=== PATIENT | male | born 1935 | race Caucasian/White ===

== ENCOUNTER 2017-10-28 11:25 | Observation (INO) | payer OTHER ==
[2017-10-28] MEDS ORDERED: ALBUTEROL 2.5 MG/3 ML NEB SOL ONE (11:57)
[2017-10-28] MEDS ORDERED: IPRATROPIUM BROM 0.5MG/2.5ML ONE (11:57)
[2017-10-28] MEDS ORDERED: FENTANYL CITR 100 MCG/2 ML ONE ×2 (11:58→14:27)
[2017-10-28] MEDS ORDERED: TETANUS & DIPHTHERIA TOX,ADULT 0.5 ML VIAL ONE (11:58)
[2017-10-28 12:15] LABS: Absolute Monocytes 1.3 K/uL (0.1-1.3); Absolute Neutrophil 6.7 K/uL (1.8-8.0); Basophils % 0.4 % (0-1.3); Eosinophils % 0.7 % (0-4.4); Hematocrit 45.3 % (39.6-49.0); Lymphocytes % 11.3 % (15.3-44.8); MCH 37.1 pg (27.0-35.0); MCV 105.3 fL (80-100); MPV 7.6 fL (7.6-11.3); Monocytes % 13.9 % (3.3-12.3)
[2017-10-28 12:31] LABS: BUN Blood Urea Nitrogen 7 mg/dL (7-18); Bicarbonate 30 mmol/L (21-32); Glucose Level 149 mg/dL (74-106); Potassium 3.5 mmol/L (3.5-5.1); Sodium Level 135 mmol/L (136-145)
--- NOTE | 2017-10-28 13:16 | RAD REPORT ---
EXAM DESCRIPTION: CT - Head C Spine Cap Shiloh Arcos - 10/28/2017 12:55 pm CLINICAL HISTORY: Head and neck injury with chest and abdominal pain status post fall. Head and neck pain . TECHNIQUE: Computed axial tomography of the head and cervical spine was obtained Computed axial tomography of the chest, abdomen and pelvis was obtained. 100 cc Isovue-300 was given intravenously coronal and sagittal reconstruction was performed. All CT scans are performed using dose optimization technique as appropriate and may include automated exposure control or mA/KV adjustment according to patient size. COMPARISON: CT head 2009 CT chest 2010 FINDINGS: An intracranial bleed is not seen. The ventricles are normal in caliber. An extra-axial fl uid collection is not noted. A cervical fracture is not seen. No dislocation is seen. Fractures involve the fifth through tenth right posterior ribs. Fractures are mildly to moderately di splaced. A pneumothorax is not seen. A minimal left pleural effusion is present with left basilar ate lectasis. Mild right basilar atelectasis is also seen. A mediastinal hematoma is not noted. A lung contusion is not seen. The liver, spleen, adrenals, kidneys and bladder appear unremarkable. An 18 millimeters cystic struct ure is present within the uncinate process of the pancreas The prostate is mildly enlarged. Small bilateral hernias contain fat IMPRESSION: 1. No acute intracranial abnormality is seen 2. A cervical fracture is not visualized. If the patient continues have symptoms to suggest intracran ial/spinal cord pathology then MRI would be recommended. 3. Mildly to moderately displaced fractures involving the left fifth through tenth posterior right ri bs. A pneumothorax is not seen 4. No traumatic injury involving the abdomen/pelvis is seen 5. 18 millimeter cystic structure within the uncinate process of the pancreas is nonspecific. A follo wu ultrasound in 3 months would be helpful to assess stability
[2017-10-28 13:28] LABS: Blood Morphology Comment NOTED (NOT SEEN); Macrocytosis 1+; Platelet Estimate ADEQ; Urine White Blood Cell Casts OK
--- NOTE | 2017-10-28 13:30 | ER ---
Nurse's Notes [facility] Name: Alvin Soliman Age: 81 yrs Sex: Male : 1935 Arrival Date: 10/28/2017 Time: 11:29 Bed 19 Private MD: Diagnosis: Fall on same level from slipping, tripping and stumbling;Multiple fractures of ribs, left side;Atelectasis Presentation: 10/28 11:30 Presenting complaint: EMS states: pt fell yesterday and now complaining of L lower hj chest rib pain, couldn't cough well; reports hitting head but denies LOC; obvious abrasion on R side of face and bruising on the L lower chest area; denies taking blood thinners;. Transition of care: patient was not received from another setting of care. Onset of symptoms was October 28, 2017. Risk Assessment: Do you want to hurt yourself or someone else?. Initial Sepsis Screen: Does the patient meet any 2 criteria? No. Patient's initial sepsis screen is negative. Does the patient have a suspected source of infection? No. Patient's initial sepsis screen is negative. Care prior to arrival: None. 11:30 Method Of Arrival: EMS: [facility] 11:30 Acuity: RUDY 4 hj Triage Assessment: 11:40 General: Appears in no apparent distress. uncomfortable, Behavior is calm, cooperative, hj appropriate for age. Pain: Complains of pain in diaphragm. Historical: - Allergies: 11:34 No Known Allergies; hj - Home Meds: 11:34 amlodipine 5 mg tab 1 tab once daily [Active]; lorazepam 1 mg Oral tab 1 tab 2 times hj per day [Active]; metoprolol tartrate 100 mg Oral tab 1 tab once daily [Active]; pravastatin 40 mg Oral tab 1 tab once daily [Active]; trazodone 150 mg Oral tab 1 tab 3 times per day [Active]; Vitamin C 1,000 mg Oral tab daily [Active]; aspirin 81 mg Oral TbEC 1 tab once daily [Active]; multivitamin Oral tab daily [Active]; valsartan-hydrochlorothiazide 160-25 mg Oral tab 1 tab once daily [Active]; Vitamin B-12 500 mcg Oral tab daily [Active]; - PMHx: 11:34 High Cholesterol; Hypertension; hj - PSHx: 11:34 matt shoulder sx; hj - Immunization history:: Adult Immunizations up to date. - Social history:: Smoking status: Patient/guardian denies using tobacco, Patient/guardian denies using alcohol. - Ebola Screening: : Patient negative for fever greater than or equal to 101.5 degrees Fahrenheit, and additional compatible Ebola Virus Disease symptoms. Screenin:39 Abuse screen: Denies threats or abuse. Denies injuries from another. Nutritional hj screening: No deficits noted. Tuberculosis screening: No symptoms or risk factors identified. Fall Risk Fall in past 12 months (25 points). Assessment: 11:34 Reassessment: see triage for assessment;. hj 12:30 Reassessment: Patient and/or family updated on plan of care and expected duration. Pain hj level reassessed. Patient is alert, oriented x 3, equal unlabored respirations, skin warm/dry/pink. awaiting results and POC;. 13:28 Reassessment: Patient and/or family updated on plan of care and expected duration. Pain hj level reassessed. Patient is alert, oriented x 3, equal unlabored respirations, skin warm/dry/pink. breathing better;. 14:30 Reassessment: Patient and/or family updated on plan of care and expected duration. Pain hj level reassessed. Patient is alert, oriented x 3, equal unlabored respirations, skin warm/dry/pink. awaiting POC and MD who will take care of pt;. 15:55 Reassessment: Patient and/or family updated on plan of care and expected duration. Pain hj level reassessed. Patient is alert, oriented x 3, equal unlabored respirations, skin warm/dry/pink. pt comfortably resting in bed; intermittently using phone to receive call s from relatives and friends;. 16:31 Reassessment: Patient and/or family updated on plan of care and expected duration. Pain hj level reassessed. Patient is alert, oriented x 3, equal unlabored respirations, skin warm/dry/pink. awaiting room placement;. 16:34 Reassessment: called the floor for report, Daray DOUGLASS to get pt, requested that she hj will call back as soon as finished with dressing change;. 17:04 Reassessment: still awaiting for a call, DONNY Schaffer to call me if nurse Darya is still hj doing dressing change;. Vital Signs: 11:34 BP 140 / 102; Pulse 65; Resp 18; Temp 98.8(O); Pulse Ox 92% on R/A; Weight 83.91 kg; hj Height 5 ft. 2 in. (157.48 cm); Pain 10/10; 12:30 BP 130 / 71; Pulse 68; Resp 18; Pulse Ox 95% on 3 lpm NC; hj 13:29 BP 135 / 62; Pulse 65; Resp 18; Pulse Ox 94% on 3 lpm NC; hj 14:30 BP 136 / 77; Pulse 69; Resp 18; Pulse Ox 97% on R/A; hj 15:55 BP 153 / 79; Pulse 69; Resp 18; Pulse Ox 98% on R/A; hj 16:32 BP 156 / 76; Pulse 60; Resp 18; Pulse Ox 95% on R/A; hj 17:26 BP 158 / 75; Pulse 68; Resp 18; Temp 98.1(O); Pulse Ox 98% on R/A; Pain 2/10; hj 11:34 Body Mass Index 33.84 (83.91 kg, 157.48 cm) ED Course: 11:29 Patient arrived in ED. ss 11:30 Mason Palomino, RN is Primary Nurse. hj 11:31 [facility]C [facility] snw 11:31 Faizan Cobos MD is Attending Physician. snw 11:32 Triage completed. hj 11:35 Arm band placed on right wrist. hj 11:40 Patient has correct armband on for positive identification. Bed in low position. Call light in reach. Side rails up X2. 11:50 Inserted saline lock: 22 gauge in right antecubital area, using aseptic technique. ss Blood collected. 12:47 CT completed. Patient tolerated procedure well. Patient moved to CT via stretcher. vr Patient moved back from CT. 12:55 CT Traumagram (Head C Spine CAP W Con) In Process Unspecified. EDMS 13:28 Mason Ravi MD is Hospitalizing Provider. snw 13:37 Marlene Handy MD is Hospitalizing Provider. snw 13:43 Marlene Handy MD is Hospitalizing Provider. snw 13:43 Marlene Handy MD is Hospitalizing Provider. snw 13:43 Hospitalizing Provider role handed off by Marlene Handy MD sn 13:43 Geronimo Cortez MD is Hospitalizing Provider. snw 16:35 No provider procedures requiring assistance completed. Patient admitted, IV remains in hj place. intact. 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 Exp: 12/26/2019. Lot #: [id number]. } Route: IM; Site: right deltoid; 14:32 Follow up: Response: No adverse reaction hj 11:42 Drug: Albuterol - atroVENT (3:1) (2.5 mg - 0.5 mg) 3 ml Route: Nebulizer; hj 14:32 Follow up: Response: No adverse reaction hj 14:21 Drug: Zosyn 3.375 grams Route: IVPB; Infused Over: 60 mins; Site: right antecubital; hj 14:31 Follow up: IV Status: Completed infusion hj 14:31 Drug: fentaNYL Patch (50 mcg/hr) 1 patches {Note: IV .} Route: Transdermal; Site: hj affected area; 14:32 Follow up: Response: No adverse reaction hj 16:36 Follow up: per pt request to get fentanyl IV hj Intake: Outcome: 13:29 Decision to Hospitalize by Provider. snw 16:36 Admitted to Tele accompanied by tech, via stretcher, room 410, with chart, Report hj called to RAFAT Lackey 16:36 Condition: stable 16:36 Instructed on the need for admit. 17:45 Patient left the ED. Signatures: Dispatcher [employer] EDMS Kassandra Skinner, PLATING OPERATOR-C PLATING OPERATOR-Csnw Temi Aguilar, Brittni Lema RN, Henry, RN RN nabil
--- NOTE | 2017-10-28 13:30 | EDPHYS ---
Physician Documentation [facility] Name: Alvin Soliman Age: 81 yrs Sex: Male : 1935 Arrival Date: 10/28/2017 Time: 11:29 Bed 19 Private MD: ED Physician Faizan Cobos HPI: 10/28 11:44 This 81 yrs old Male presents to ER via EMS with complaints of fall, rib pain.snw 11:44 Onset: The symptoms/episode began/occurred suddenly, yesterday. Associated signs and snw symptoms: Pertinent positives: cough, severe left rib pain. The patient has not experienced similar symptoms in the past. It is unknown whether or not the patient has recently seen a physician. sees Dr. Cortez. Historical: - Allergies: 11:34 No Known Allergies; hj - Home Meds: 11:34 amlodipine 5 mg tab 1 tab once daily [Active]; lorazepam 1 mg Oral tab 1 tab 2 times hj per day [Active]; metoprolol tartrate 100 mg Oral tab 1 tab once daily [Active]; pravastatin 40 mg Oral tab 1 tab once daily [Active]; trazodone 150 mg Oral tab 1 tab 3 times per day [Active]; Vitamin C 1,000 mg Oral tab daily [Active]; aspirin 81 mg Oral TbEC 1 tab once daily [Active]; multivitamin Oral tab daily [Active]; valsartan-hydrochlorothiazide 160-25 mg Oral tab 1 tab once daily [Active]; Vitamin B-12 500 mcg Oral tab daily [Active]; - PMHx: 11:34 High Cholesterol; Hypertension; hj - PSHx: 11:34 matt shoulder sx; hj - Immunization history:: Adult Immunizations up to date. - Social history:: Smoking status: Patient/guardian denies using tobacco, Patient/guardian denies using alcohol. - Ebola Screening: : Patient negative for fever greater than or equal to 101.5 degrees Fahrenheit, and additional compatible Ebola Virus Disease symptoms. ROS: 11:44 Constitutional: Negative for fever, chills, and weight loss, Eyes: Negative for injury, snw pain, redness, and discharge, ENT: Negative for injury, pain, and discharge, Neck: Negative for injury, pain, and swelling, Cardiovascular: Negative for chest pain, palpitations, and edema, Abdomen/GI: Negative for abdominal pain, nausea, vomiting, diarrhea, and constipation, Back: Negative for injury and pain, : Negative for injury, bleeding, discharge, and swelling, MS/Extremity: Negative for injury and deformity, Skin: Negative for injury, rash, and discoloration, Neuro: Negative for headache, weakness, numbness, tingling, and seizure. 11:44 Respiratory: Positive for cough, pleurisy, of the left lateral anterior chest, shortness of breath. Exam: 11:44 Head/Face: Normocephalic, atraumatic. Eyes: Pupils equal round and reactive to light, snw extra-ocular motions intact. Lids and lashes normal. Conjunctiva and sclera are non-icteric and not injected. Cornea within normal limits. Periorbital areas with no swelling, redness, or edema. ENT: Nares patent. No nasal discharge, no septal abnormalities noted. Tympanic membranes are normal and external auditory canals are clear. Oropharynx with no redness, swelling, or masses, exudates, or evidence of obstruction, uvula midline. Mucous membranes moist. Neck: Trachea midline, no thyromegaly or masses palpated, and no cervical lymphadenopathy. Supple, full range of motion without nuchal rigidity, or vertebral point tenderness. No Meningismus. Chest/axilla: Normal chest wall appearance and motion. Nontender with no deformity. No lesions are appreciated. Cardiovascular: Regular rate and rhythm with a normal S1 and S2. No gallops, murmurs, or rubs. Normal PMI, no JVD. No pulse deficits. 11:44 Abdomen/GI: Soft, non-tender, with normal bowel sounds. No distension or tympany. No guarding or rebound. No evidence of tenderness throughout. Back: No spinal tenderness. No costovertebral tenderness. Full range of motion. MS/ Extremity: Pulses equal, no cyanosis. Neurovascular intact. Full, normal range of motion. Neuro: Awake and alert, GCS 15, oriented to person, place, time, and situation. Cranial nerves II-XII grossly intact. Motor strength 5/5 in all extremities. Sensory grossly intact. Cerebellar exam normal. Normal gait. 11:44 Constitutional: The patient appears alert, awake, in obvious pain. 11:44 Respiratory: the patient does not display signs of respiratory distress, Respirations: accessory muscle usage, that is moderate, splinting, that is severe, Breath sounds: bronchial sounds, decreased breath sounds, + upper airway congestion. left rib pain. 11:44 Skin: Appearance: normal except for affected area, injury, abrasion(s), small abrasion noted, of the right corner of mouth, contusion(s). Vital Signs: 11:34 BP 140 / 102; Pulse 65; Resp 18; Temp 98.8(O); Pulse Ox 92% on R/A; Weight 83.91 kg; hj Height 5 ft. 2 in. (157.48 cm); Pain 10/10; 12:30 BP 130 / 71; Pulse 68; Resp 18; Pulse Ox 95% on 3 lpm NC; hj 13:29 BP 135 / 62; Pulse 65; Resp 18; Pulse Ox 94% on 3 lpm NC; hj 14:30 BP 136 / 77; Pulse 69; Resp 18; Pulse Ox 97% on R/A; hj 15:55 BP 153 / 79; Pulse 69; Resp 18; Pulse Ox 98% on R/A; hj 16:32 BP 156 / 76; Pulse 60; Resp 18; Pulse Ox 95% on R/A; hj 17:26 BP 158 / 75; Pulse 68; Resp 18; Temp 98.1(O); Pulse Ox 98% on R/A; Pain 2/10; hj 11:34 Body Mass Index 33.84 (83.91 kg, 157.48 cm) hj MDM: 11:31 Patient medically screened. snw 13:29 Data reviewed: vital signs, nurses notes. Data interpreted: Pulse oximetry: on room air snw is 94 %. Interpretation: acceptable. Counseling: I had a detailed discussion with the patient and/or guardian regarding: the historical points, exam findings, and any diagnostic results supporting the discharge/admit diagnosis, lab results, radiology results, the need for further work-up and treatment in the hospital. Physician consultation: Mason Ravi MD was called at 13:30, was contacted at 13:30, regarding admission, to the telemetry unit. 13:38 Physician consultation: would like admission per Dr. Marlene Handy MD. snw 16:00 ED course: Dr. Cortez on vacation, pt will be treated per hospitalist group - Dr. Handy. snw 10/28 11:42 Order name: CBC with Diff; Complete Time: 13:31 snw 10/28 11:42 Order name: Chem 7; Complete Time: 12:31 snw 10/28 11:42 Order name: Blood Culture Adult (2) snw 10/28 11:42 Order name: Procalcitonin; Complete Time: 16:37 snw 10/28 11:42 Order name: TS; Complete Time: 17:05 snw 10/28 12:30 Order name: CBC Smear Scan; Complete Time: 13:31 EDMS 10/28 11:42 Order name: CT Traumagram (Head C Spine CAP W Con); Complete Time: 13:18 snw Administered Medications: 11:42 Drug: fentaNYL (PF) 50 mcg Route: IVP; Site: right antecubital; hj 14:32 Follow up: Response: No adverse reaction hj 11:42 Drug: Tetanus-Diphtheria Toxoid Adult 0.5 ml {[employer]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 Exp: 12/26/2019. Lot #: [id number]. } Route: IM; Site: right deltoid; 14:32 Follow up: Response: No adverse reaction hj 11:42 Drug: Albuterol - atroVENT (3:1) (2.5 mg - 0.5 mg) 3 ml Route: Nebulizer; hj 14:32 Follow up: Response: No adverse reaction hj 14:21 Drug: Zosyn 3.375 grams Route: IVPB; Infused Over: 60 mins; Site: right antecubital; hj 14:31 Follow up: IV Status: Completed infusion hj 14:31 Drug: fentaNYL Patch (50 mcg/hr) 1 patches {Note: IV .} Route: Transdermal; Site: hj affected area; 14:32 Follow up: Response: No adverse reaction hj 16:36 Follow up: per pt request to get fentanyl IV hj Disposition: 10/29 09:43 Co-signature as Attending Physician, Faizan Cobos MD I agree with the assessment and faith plan of care. Disposition: 10/28/17 13:29 Hospitalization ordered by Geronimo Cortez for Observation. Preliminary diagnosis are Fall on same level from slipping, tripping and stumbling, Multiple fractures of ribs, left side, Atelectasis. - Bed requested for Telemetry/MedSurg (observation). - Status is Observation. hj - Condition is Stable. - Problem is new. - Symptoms are unchanged. UTI on Admission? No Signatures: Dispatcher [employer] EDBlanca Vallejo RN RN Faizan Brewer MD MD cha Therrien, Shelly, TELESALES PROFESSIONAL-C TELESALES PROFESSIONAL-Csnw Mason Palomino, RN RN hj Corrections: (The following items were deleted from the chart) 10/28 13:38 13:29 Hospitalization Ordered by Mason Ravi MD for Observation. Preliminary snw diagnosis is Fall on same level from slipping, tripping and stumbling; Multiple fractures of ribs, left side; Atelectasis. Bed requested for Telemetry/MedSurg (observation). Status is Observation. Condition is Stable. Problem is new. Symptoms are unchanged. UTI on Admission? No. snw 13:43 13:38 10/28/2017 13:29 Hospitalization Ordered by Marlene Handy MD for Observation. snw Preliminary diagnosis is Fall on same level from slipping, tripping and stumbling; Multiple fractures of ribs, left side; Atelectasis. Bed requested for Telemetry/MedSurg (observation). Status is Observation. Condition is Stable. Problem is new. Symptoms are unchanged. UTI on Admission? No. snw 16:31 13:43 10/28/2017 13:29 Hospitalization Ordered by Geronimo Cortez MD for Observation. dw Preliminary diagnosis is Fall on same level from slipping, tripping and stumbling; Multiple fractures of ribs, left side; Atelectasis. Bed requested for Telemetry/MedSurg (observation). Status is Observation. Condition is Stable. Problem is new. Symptoms are unchanged. UTI on Admission? No. snw 17:45 16:31 10/28/2017 13:29 Hospitalization Ordered by Geronimo Cortez MD for Observation. hj Preliminary diagnosis is Fall on same level from slipping, tripping and stumbling; Multiple fractures of ribs, left side; Atelectasis. Bed requested for Telemetry/MedSurg (observation). Status is Observation. Condition is Stable. Problem is new. Symptoms are unchanged. UTI on Admission? No. dw
[2017-10-28] MEDS ORDERED: PIPER/TAZO/NS 3.375gm 3.375 GM/100 ML BAG ONE (14:30)
--- NOTE | 2017-10-28 16:02 | P.HP ---
Certification for Inpatient Patient admitted to: Observation With expected LOS: <2 Midnights Patient will require the following post-hospital care: None Practitioner: I am a practitioner with admitting privileges, knowledge of patient current condition, hospital course, and medical plan of care. Services: Services provided to patient in accordance with Admission requirements found in Title 42 Section 412.3 of the Code of Federal Regulations Patient History Date of Service: 10/28/17 Primary Care Provider: Dr Cortez - PCP Reason for admission: Rib Fracture after a Fall History of Present Illness: This is a 81-year-old male with significant past medical history of hypertension who presented to the ED after sustaining a fall at the house yesterday. Patient stated that he tripped over and fell at the house on the left side and had injury to his left-sided chest wall. Today he started having some excruciating pain and difficulty breathing thus he decided to come to the ER. Patient denies having any fever chills nausea vomiting any other associated symptoms at this time. Patient was found to have a left-sided posterior rib fracture 5th after 10 with intractable pain and inability to take deep breaths in and thus was admitted to the hospital for further care. General surgery was consulted from the ER Allergies No Known Allergies Allergy (Unverified 11/05/16 23:48) Home medications list reviewed: Yes - Past Medical/Surgical History Has patient received pneumonia vaccine in the past: No Diabetic: No -: HTN -: HLP -: BL Shoulder Surgery - Family History Family History: Reviewed- Non-Contributory Review of Systems General: As per HPI Physical Examination - Physical Exam General: Alert, Oriented x3, Mild distress HEENT: Atraumatic Neck: Supple, 2+ carotid pulse no bruit, No LAD, Without JVD or thyroid abnormality Respiratory: Normal air movement, Rhonchi/gurgles Cardiovascular: Regular rate/rhythm, Normal S1 S2 Gastrointestinal: Normal bowel sounds, No tenderness Musculoskeletal: No tenderness Integumentary: No rashes Neurological: Normal gait, Normal speech, Normal strength at 5/5 x4 extr, Normal tone, Normal affect Lymphatics: No axilla or inguinal lymphadenopathy - Studies Laboratory Data (last 24 hrs) 10/28/17 11:50: Sodium 135 L, Potassium 3.5, BUN 7, Creatinine 0.60, Glucose 149 H 10/28/17 11:50: WBC 9.2, Hgb 16.0, Hct 45.3, Plt Count 246 Assessment and Plan - Problems (Diagnosis) (1) Fall Current Visit: Yes Status: Acute Plan: Mechanical fall and hit the left side of his chest -fall precautions given at this time -physical therapy consulted -will monitor closely Qualifiers: Encounter type: initial encounter Qualified Code(s): W19.XXXA - Unspecified fall, initial encounter (2) Ribs, multiple fractures Current Visit: Yes Status: Acute Plan: Left-sided posterior 5th to 10th rib fractures noted after a mechanical fall. No pneumothorax noted -pain management, incentive spirometer, in general surgery consulted. -will continue to encourage incentive spirometer use along with pain management for adequate ventilation Qualifiers: Encounter type: initial encounter Fracture type: closed Laterality: left Qualified Code(s): S22.42XA - Multiple fractures of ribs, left side, initial encounter for closed fracture (3) HTN (hypertension) Current Visit: Yes Status: Chronic Plan: Will restart home medication Qualifiers: Hypertension type: essential hypertension Qualified Code(s): I10 - Essential (primary) hypertension - Advance Directives Does patient have a Living Will: Yes Does patient have a Durable POA for Healthcare: Yes
[2017-10-28] MEDS ORDERED: IPRATROPIUM BROM 0.5MG/2.5ML NEB PRN (16:19)
[2017-10-28] MEDS ORDERED: ONDANSETRON 4 MG/2 ML VIAL IV PRN ×2 (16:19)
[2017-10-28] MEDS ORDERED: ACETAMINOPHEN 500 MG TAB PO PRN (16:19)
[2017-10-28] MEDS: ALBUTEROL 2.5 MG/3 ML NEB SOL NEB SCH ×2 (17:00→20:08)
[2017-10-28] MEDS: HYDROCODONE/APAP 5/325 MG TAB PO PRN ×2 (18:08→23:35)
[2017-10-28] MEDS ORDERED: POTASSIUM 25 MEQ EFFERV TAB PO ONE (20:00)
[2017-10-28] MEDS ORDERED: PNEUMOCOCCAL VACCINE 0.5 ML IMVAC ONE (21:00)
[2017-10-29] MEDS: ALBUTEROL 2.5 MG/3 ML NEB SOL NEB SCH ×4 (00:39→11:35)
[2017-10-29] MEDS: PIPER/TAZO/NS 3.375gm 3.375 GM/100 ML BAG IVPB SCH ×2 (00:55→10:16)
--- NOTE | 2017-10-29 01:22 | CON ---
Date of Consultation: 10/28/2017 Diagnosis: Status post fall and multiple rib fractures. History Of Present Illness: This is a case of an 81-year-old patient, who states he was in a house y day and he fell on the ground. He said that he did not hit anything. He just tripped over his own feet and fell. He received contusion on the left side of the chest and also over the right facia l area. The patient denies any shortness of breath, denies any change in mental status, denies being dizzy. He stayed at home, but today he has noticed that he still has some discomfort over the chest area. When he came to the ER, he was found to have multiple rib fractures on the left side with pro ductive coughing and he was admitted to the hospital with a surgical evaluation. Allergies: NONE. Medical Problems: Hypertension. Family History: Noncontributory. Past Surgical History: Bilateral shoulder surgeries. Review of Systems: Constitutional: Denies any fevers, denies any chills. Respiratory: Denies any shortness of breath other than the ribcage tenderness. Gastrointestinal: Denies any nausea, vomiting, melena, or hematochezia. Genitourinary: Denies any dysuria or hematuria. Neurological: Denies any change in mental status, any weakness, or sensory or motor deficits. Physical Examination: General: The patient is awake and alert. HEENT: Pupils equal and reactive, anicteric. No otorrhea. No rhinorrhea. Right maxillary area wit h a small contusion and superficial abrasion, no pinpoint tenderness, no step-off. Tongue is midline . Mandible; no step-off, no tenderness. Nose; no tenderness. No hyphema. Neck: Supple. No JVD. No pinpoint tenderness. No step-off. Chest: Bilateral breath sounds. Clear to auscultation. Some rhonchi present since the patient is b eing coughing. The patient has tenderness over the left ribcage area. No ecchymosis. No step-off. No crepitus. Abdomen: Soft and depressible. No guarding or rebound or peritoneal signs. Pelvis: Stable. Rectal/Genitalia: Deferred. Back: No pinpoint tenderness. No step-off. Extremities: Full range of motion. Good peripheral pulses. No cyanosis. Neuro: Cranial nerves 2 through 12 grossly within normal limits. Imaging: CAT scan of the head, C-spine, chest, abdomen, and pelvis, interpreted by Dr. Byrd as n o intracranial bleed seen. Cervical fracture is not seen. There are multiple rib fractures on the l eft side; 5th, 6th, 7th, 8th, 9th, and 10th. Mildly displaced, none pneumothorax, some small effusio n, with left basilar atelectasis. The patient also has right basilar atelectasis. No mediastinal he matoma. Liver, spleen, renal, kidneys, and bladder unremarkable. Cystic structures present in the p ancreas. The patient is advised to discuss that with the primary doctor. Also, discussed with his u rologist his prostate enlargement and he has bilateral inguinal hernias that may need to be repaired electively since there was no bowel on it. Assessment And Plan: This is an 81-year-old patient with status post fall with facial contusion and chest wall left side fracture from 5th to 10th. Atelectasis bilaterally, coughing. The patient will be admitted for pain control. He is having some productive cough, so antibiotics will be started wi th possible pneumonia developing. From a surgical standpoint, we have no plans taken to surgery at t his moment. We are going to continue serial abdominal examination and chest evaluation. We are kelly g to repeat the x-ray tomorrow morning. I will follow the patient with you and give more recommendation as the case develops. ANAMARIA/SHAGUFTA Voice ID: [id number] Report ID: [id number]
[2017-10-29 04:24] LABS: Absolute Lymphocytes (CBC) 1.8 K/uL (0.7-4.9); Absolute Monocytes 1.2 K/uL (0.1-1.3); Absolute Neutrophil 4.4 K/uL (1.8-8.0); Basophils % 0.7 % (0-1.3); Eosinophils % 1.3 % (0-4.4); Hematocrit 42.7 % (39.6-49.0); MCH 37.5 pg (27.0-35.0); MCV 106.6 fL (80-100); Monocytes % 15.8 % (3.3-12.3)
[2017-10-29 04:37] LABS: ALT/SGPT 12 U/L (12-78); AST/SGOT 17 U/L (15-37); Albumin 3.2 g/dL (3.4-5.0); Alkaline Phosphatase 37 U/L (45-117); BUN Blood Urea Nitrogen 6 mg/dL (7-18); Bicarbonate 29 mmol/L (21-32); Glucose Level 93 mg/dL (74-106); Magnesium 1.9 mg/dL (1.8-2.4); Phosphorus 3.3 mg/dL (2.5-4.9); Potassium 3.8 mmol/L (3.5-5.1); Protein, Total 6.6 g/dL (6.4-8.2); Sodium Level 136 mmol/L (136-145)
[2017-10-29] MEDS: HYDROCODONE/APAP 5/325 MG TAB PO PRN ×2 (05:28→10:11)
[2017-10-29] MEDS ORDERED: POTASSIUM 25 MEQ EFFERV TAB PO ONE (06:00)
[2017-10-29] MEDS ORDERED: TRAMADOL HCL 50 MG TAB PO PRN (07:06)
[2017-10-29] MEDS ORDERED: ASPIRIN EC 81 MG TAB PO SCH (09:00)
[2017-10-29] MEDS ORDERED: HYDROCHLOROTHIAZIDE PO SCH (09:00)
[2017-10-29] MEDS ORDERED: hydroCHLOROthiazide 25 MG TAB PO SCH (09:00)
[2017-10-29] MEDS ORDERED: VALSARTAN PO SCH (09:00)
[2017-10-29] MEDS ORDERED: AMLODIPINE 5 MG TAB PO SCH (09:00)
[2017-10-29] MEDS ORDERED: VALSARTAN 80 MG TAB PO SCH (09:00)
[2017-10-29] MEDS ORDERED: MULTIVIT W/ MINERAL TAB PO SCH (09:00)
[2017-10-29] MEDS ORDERED: ASCORBIC ACID 500 MG TABLET PO SCH (09:00)
[2017-10-29] MEDS ORDERED: VITAMIN B COMPLEX 1 CAP PO SCH (09:00)
--- NOTE | 2017-10-29 09:55 | RAD REPORT ---
EXAM DESCRIPTION: Fernie Pa And Lat (2 Views)10/29/2017 8:17 am CLINICAL HISTORY: Chest pain COMPARISON: October 28 FINDINGS: Multiple left rib fractures are without obvious change. A pneumothorax is not seen. A sma ll left pleural effusion is present with mild left lower lobe atelectasis. The right lung appears clear of acute infiltrate. The heart is normal size
--- NOTE | 2017-10-29 12:02 | P.DS ---
Admission Date: 10/28/17 Discharge Date: 10/29/17 Primary Care Provider: Dr Cortez - PCP Disposition: ROUTINE DISCHARGE Discharge Condition: GOOD Reason for Admission: Rib Fracture after a Fall Consultations: Surgery-Dr. Ravi Procedures: CT scan: COMPARISON: CT head 2009 CT chest 2010 FINDINGS: An intracranial bleed is not seen. The ventricles are normal in caliber. An extra-axial fluid collection is not noted. A cervical fracture is not seen. No dislocation is seen. Fractures involve the fifth through tenth right posterior ribs. Fractures are mildly to moderately displaced. A pneumothorax is not seen. A minimal left pleural effusion is present with left basilar atelectasis. Mild right basilar atelectasis is also seen. A mediastinal hematoma is not noted. A lung contusion is not seen. The liver, spleen, adrenals, kidneys and bladder appear unremarkable. An 18 millimeters cystic structure is present within the uncinate process of the pancreas The prostate is mildly enlarged. Small bilateral hernias contain fat IMPRESSION: 1. No acute intracranial abnormality is seen 2. A cervical fracture is not visualized. If the patient continues have symptoms to suggest intracranial/spinal cord pathology then MRI would be recommended. 3. Mildly to moderately displaced fractures involving the left fifth through tenth posterior right ribs. A pneumothorax is not seen 4. No traumatic injury involving the abdomen/pelvis is seen 5. 18 millimeter cystic structure within the uncinate process of the pancreas is nonspecific. A followup ultrasound in 3 months would be helpful to assess stability - Problems (1) Abnormal CT scan Current Visit: Yes Status: Acute (2) Atelectasis Current Visit: Yes Status: Acute (3) Fall Onset Date: 10/29/17 Current Visit: Yes Status: Acute Qualifiers: Encounter type: initial encounter Qualified Code(s): W19.XXXA - Unspecified fall, initial encounter (4) Ribs, multiple fractures Onset Date: 10/29/17 Current Visit: Yes Status: Acute Qualifiers: Encounter type: initial encounter Fracture type: closed Laterality: left Qualified Code(s): S22.42XA - Multiple fractures of ribs, left side, initial encounter for closed fracture (5) HTN (hypertension) Onset Date: 10/29/17 Current Visit: Yes Status: Chronic Qualifiers: Hypertension type: essential hypertension Qualified Code(s): I10 - Essential (primary) hypertension Brief History of Present Illness: 81-year-old male present emergency room after a fall at home. Patient denied any dizziness, presyncope or syncope. Patient felt his left side. CT scan showed mildly to moderately displaced fractures involving the left 5th through 10th posterior ribs on the right side. No pneumothorax was identified. CT scan also identified an 18 mm cystic structure within the uncinate process of the pancreas peer is this was nonspecific. Patient was admitted for observation and due to pain. Hospital Course: The patient was monitored overnight. Patient was evaluated by surgery due to his rib fractures. Patient did well during the course of his stay. Patient did work with physical therapy. At discharge he will continue at home. Tramadol 50 mg 1 pill 3 times a day as needed for pain will be provided. Patient is not to do any over exertion requiring heavy lifting, pushing or pulling. Patient may follow up with his PCP in 1 week to follow up its hospitalization. Patient will be provided Pro air 2 puffs 3 times a day as needed for shortness of breath. Patient has hypertension. He will continue with his medication valsartan/ hydrochlorothiazide 160 mg/25 mg daily. Recommendation is to maintain blood pressures less 150/80. Further adjustment can be done by his PCP. Patient has hyperlipidemia. Patient will continue with his medication. Atelectasis was identified to the left lobe. He is to continue with incentive spirometer. CT scan revealed a 18 mm cystic structure to the uncinate process of the pancreas. This was nonspecific. Recommendation is to recheck abdominal ultrasound in 3 months to monitor resolution. Vital Signs/Physical Exam: Temp Pulse Resp BP Pulse Ox 98.5 F 66 18 174/90 H 93 10/29/17 08:00 10/29/17 10:14 10/29/17 08:00 10/29/17 10:14 10/29/17 08:00 General: Alert, In no apparent distress, Oriented x3, Cooperative HEENT: Atraumatic Neck: Supple Respiratory: Clear to auscultation bilaterally, Normal air movement Cardiovascular: Normal pulses, Regular rate/rhythm Gastrointestinal: Normal bowel sounds, Soft and benign, Non-distended, No tenderness, No masses, No rebound, No guarding Musculoskeletal: No erythema, No tenderness, No warmth Integumentary: No tenderness/swelling, No erythema, No warmth, No cyanosis Neurological: Normal speech, Normal strength at 5/5 x4 extr, Normal tone, Normal affect Laboratory Data at Discharge: WBC 7.5 K/uL (4.3-10.9) D 10/29/17 03:30 Hgb 15.0 g/dL (13.6-17.9) 10/29/17 03:30 Hct 42.7 % (39.6-49.0) 10/29/17 03:30 Plt Count 203 K/uL (152-406) 10/29/17 03:30 Sodium 136 mmol/L (136-145) 10/29/17 03:30 Potassium 3.8 mmol/L (3.5-5.1) 10/29/17 03:30 BUN 6 mg/dL (7-18) L 10/29/17 03:30 Creatinine 0.60 mg/dL (0.55-1.3) 10/29/17 03:30 Glucose 93 mg/dL (74-106) 10/29/17 03:30 Phosphorus 3.3 mg/dL (2.5-4.9) 10/29/17 03:30 Magnesium 1.9 mg/dL (1.8-2.4) 10/29/17 03:30 Total Bilirubin 1.0 mg/dL (0.2-1.0) 10/29/17 03:30 AST 17 U/L (15-37) 10/29/17 03:30 ALT 12 U/L (12-78) 10/29/17 03:30 Alkaline Phosphatase 37 U/L (45-117) L 10/29/17 03:30 Home Medications: Amlodipine Besylate 1 tab PO DAILY 10/28/17 Ascorbate Calcium [Vitamin C] 1 tab PO DAILY 10/28/17 Aspirin [Aspirin EC 81 MG] 1 tab PO DAILY 10/28/17 LORazepam [Ativan*] 1 tab PO DAILY 10/28/17 Multivitamin [Multivitamins] 1 tab PO DAILY 10/28/17 Pravastatin Sodium 40 mg PO DAILY 10/28/17 Valsartan/Hydrochlorothiazide [Valsartan-Hctz 160-25 mg Tab] 1 tab PO DAILY Vitamin B Complex [B Complex] 1 tab PO DAILY 10/28/17 Albuterol Sulfate [Proair Hfa] 8.5 gm IH TID PRN #1 hfa.[email or web address] 10/29/17 traMADol HCL [Ultram*] 50 mg PO TID PRN #10 tab 10/29/17 New Medications: Albuterol Sulfate [Proair Hfa] 8.5 gm IH TID PRN #1 hfa.aer.[email or web address] PRN Reason: Shortness Of Breath traMADol HCL [Ultram*] 50 mg PO TID PRN #10 tab PRN Reason: Pain Patient Discharge Instructions: 1. Patient will need to follow up with his PCP in 1 week to follow up this hospitalization. 2. Patient suffered a fall. Patient found to have rib fractures to the 5th through 10th posterior right rib area. Patient was evaluated by surgery due to his rib fractures. Patient did well during the course of his stay. Patient did work with physical therapy. At discharge he will continue at home. Tramadol 50 mg 1 pill 3 times a day as needed for pain will be provided. Patient is not to do any over exertion requiring heavy lifting, pushing or pulling. Patient may follow up with his PCP in 1 week to follow up its hospitalization. Patient will also be provided Pro air 2 puffs 3 times a day as needed for shortness of breath. 3. Patient has hypertension. He will continue with his medication valsartan/ hydrochlorothiazide 160 mg/25 mg daily. Recommendation is to maintain blood pressures less 150/80. Further adjustment can be done by his PCP. 4. Patient has hyperlipidemia. Patient will continue with his medication. 5. Atelectasis was identified to the left lobe. He is to continue with incentive spirometer. 6. CT scan revealed a 18 mm cystic structure to the uncinate process of the pancreas. This was nonspecific. Recommendation is to recheck abdominal ultrasound in 3 months to monitor resolution. Diet: AHA Activity: Fall precautions Time spent managing pt's care (in minutes): 55
[2017-10-29] MEDS ORDERED: ATORVASTATIN 10 MG TAB PO SCH (21:00)
== END 2017-10-29 14:01 | disposition home or self-care (01) ==
LOC: ER 11:25 → ERHOLD 13:29 → 4TH 17:28
PROVIDERS: ADMIT Internal Medicine; ATTEND Family Medicine
DX: S22.32XA Fracture of one rib, left side, initial encounter for closed fracture (principal); J98.11 Atelectasis; K86.2 Cyst of pancreas; I10 Essential (primary) hypertension; W01.10XA Fall on same level from slipping, tripping and stumbling with subsequent striking against unspecified object, initial encounter; Y92.009 Unspecified place in unspecified non-institutional (private) residence as the place of occurrence of the external cause
CPT/HCPCS: 36415; 70450; 71046; 71260; 72125; 74177; 80048; 80053; 83735; 84100; 84145; 85025 ×2; 86850; 86900; 86901; 87040 ×2; 90714; 94640 ×2; 94760 ×2; 96374; 96375; 97163; 99285; G0378 ×2; J2543 ×2; J3010 ×2; Q9967

== ENCOUNTER 2017-12-07 15:50 | Emergency (ER) | payer OTHER ==
[2017-12-07] MEDS ORDERED: FLEET ENEMA ADULT PR ONE (17:38)
--- NOTE | 2017-12-07 18:18 | EDPHYS ---
Physician Documentation [facility] Name: Alvin Soliman Age: 82 yrs Sex: Male : 1935 Arrival Date: 12/07/2017 Time: 15:53 Bed 25 Private MD: Geronimo Cortez R ED Physician Reynaldo Becker HPI: 12/07 18:20 This 82 yrs old Male presents to ER via Ambulatory with complaints of kdr Constipation. 18:20 The patient presents with abdominal pain that is diffuse. Onset: The symptoms/episode kdr began/occurred gradually, at an unknown time. The symptoms do not radiate. Associated signs and symptoms: Pertinent positives: constipation. The symptoms are described as crampy, dull, intermittent, waxing/waning. Modifying factors: The symptoms are alleviated by nothing, the symptoms are aggravated by Trying to have a BM. Severity of pain: At its worst the pain was mild in the emergency department the pain is unchanged. The patient has experienced similar episodes in the past, chronically. The patient has not recently seen a physician. Historical: - Allergies: 15:56 No Known Allergies; la1 - PMHx: 15:56 High Cholesterol; Hypertension; la1 - Immunization history:: Adult Immunizations up to date. - Social history:: Smoking status: Patient/guardian denies using tobacco. - Ebola Screening: : No symptoms or risks identified at this time. ROS: 18:20 Constitutional: Negative for fever, chills, and weight loss, Eyes: Negative for injury, kdr pain, redness, and discharge, Neck: Negative for injury, pain, and swelling, Cardiovascular: Negative for chest pain, palpitations, and edema, Respiratory: Negative for shortness of breath, cough, wheezing, and pleuritic chest pain, Back: Negative for injury and pain, : Negative for injury, bleeding, discharge, and swelling, MS/Extremity: Negative for injury and deformity, Skin: Negative for injury, rash, and discoloration, Neuro: Negative for headache, weakness, numbness, tingling, and seizure activity. Psych: Negative for depression, anxiety, suicide ideation, homicidal ideation, and hallucinations, Allergy/Immunology: Negative for hives, rash, and allergies, Endocrine: Negative for neck swelling, polydipsia, polyuria, polyphagia, and marked weight changes, Hematologic/Lymphatic: Negative for swollen nodes, abnormal bleeding, and unusual bruising. 18:20 Abdomen/GI: Positive for nausea, constipation, abdominal cramps, rectal pain, Negative for vomiting, black/tarry stool, rectal bleeding, bowel incontinence. Exam: 18:20 Constitutional: This is a well developed, well nourished patient who is awake, alert, kdr and in no acute distress. Head/Face: Normocephalic, atraumatic. 18:20 Abdomen/GI: Bowel sounds: active, Palpation: soft, nontender, Rectal exam: rectal tone poor, Stool: brown, hemorrhoid(s), external, without bleeding, without inflammation, without thrombosis, mass, is not appreciated, swelling, is not appreciated, tenderness, that is moderate, fecal impaction, that is moderate, Digital exam and removal of moderate amount of stool. The patient had several bowel movements after that. Vital Signs: 15:57 BP 154 / 86; Pulse 62; Resp 16; Temp 98.3(TE); Pulse Ox 100% on R/A; Weight 77.11 kg; la1 Height 5 ft. 8 in. (172.72 cm); 18:03 BP 148 / 78; Pulse 68; Resp 18; Pulse Ox 98% ; Pain 0/10; jl3 15:57 Body Mass Index 25.85 (77.11 kg, 172.72 cm) la1 Procedures: 18:20 Fecal disimpaction: digital disimpaction was performed, with a small amount of stool kdr expressed. with a moderate amount of stool expressed. The patient tolerated the intervention well. MDM: 18:17 Patient medically screened. kdr 18:20 Data reviewed: vital signs. Counseling: I had a detailed discussion with the patient kdr and/or guardian regarding: the historical points, exam findings, and any diagnostic results supporting the discharge/admit diagnosis, the need for outpatient follow up. Administered Medications: 17:43 Drug: Fleet Enema 133 ml Route: [place]; mg2 18:46 Follow up: Response: Marked relief of symptoms jl3 Disposition: 12/07/17 18:17 Discharged to Home. Impression: Constipation. - Condition is Stable. - Prescriptions for Miralax 17 gram/dose Oral - take 1 packet by ORAL route once daily As needed dilute powder in 8 ounces of water or juice; 30 packet. - Medication Reconciliation Form, Thank You Letter, Antibiotic Education, Prescription Opioid Use form. - Follow up: Geronimo Cortez MD; When: 2 - 3 days; Reason: If symptoms return, Further diagnostic work-up, Recheck today's complaints, Continuance of care, Re-evaluation by your physician. - Problem is an ongoing problem. - Symptoms have improved. Signatures: Reynaldo Becker MD MD kdr Leonard Britt RN RN la1 Jackson Villasenor RN RN jl3 Lalit Barajas RN RN mg2 Corrections: (The following items were deleted from the chart) 18:46 18:17 12/07/2017 18:17 Discharged to Home. Impression: Constipation. Condition is jl3 Stable. Forms are Medication Reconciliation Form, Thank You Letter, Antibiotic Education, Prescription Opioid Use. Follow up: Geronimo Cortez; When: 2 - 3 days; Reason: If symptoms return, Further diagnostic work-up, Recheck today's complaints, Continuance of care, Re-evaluation by your physician. Problem is an ongoing problem. Symptoms have improved. kdr
--- NOTE | 2017-12-07 18:18 | ER ---
Nurse's Notes [facility] Name: Alvin Soliman Age: 82 yrs Sex: Male : 1935 Arrival Date: 12/07/2017 Time: 15:53 Bed 25 Private MD: Geronimo Cortez R Diagnosis: Constipation Presentation: 12/07 15:56 Presenting complaint: Patient states: I take trazodone for sleep and it makes me la1 constipated. Last BM on saturday. Transition of care: patient was not received from another setting of care. Onset of symptoms was December 07, 2017. Risk Assessment: Do you want to hurt yourself or someone else? Patient reports no desire to harm self or others. Initial Sepsis Screen: Does the patient meet any 2 criteria? No. Patient's initial sepsis screen is negative. Does the patient have a suspected source of infection? No. Patient's initial sepsis screen is negative. Care prior to arrival: None. 15:56 Method Of Arrival: Ambulatory la1 15:56 Acuity: RUDY 3 la1 Historical: - Allergies: 15:56 No Known Allergies; la1 - PMHx: 15:56 High Cholesterol; Hypertension; la1 - Immunization history:: Adult Immunizations up to date. - Social history:: Smoking status: Patient/guardian denies using tobacco. - Ebola Screening: : No symptoms or risks identified at this time. Screenin:01 Abuse screen: none noted. Nutritional screening: No deficits noted. Tuberculosis jl3 screening: No symptoms or risk factors identified. Fall Risk None identified. Assessment: 16:32 Pain: Complains of pain in abdomen Pain currently is 3 out of 10 on a pain scale. jl3 Quality of pain is described as aching, crampy. 16:33 GI: Bowel sounds diminished in right upper quadrant, left upper quadrant and abdomen jl3 diffusely Abd is rigid X 4 quads. 16:34 General: Appears distressed, uncomfortable, Behavior is calm, cooperative, Reports abd jl3 pain Pt states no BM since "Saturday or Saturday.". Vital Signs: 15:57 BP 154 / 86; Pulse 62; Resp 16; Temp 98.3(TE); Pulse Ox 100% on R/A; Weight 77.11 kg; la1 Height 5 ft. 8 in. (172.72 cm); 18:03 BP 148 / 78; Pulse 68; Resp 18; Pulse Ox 98% ; Pain 0/10; jl3 15:57 Body Mass Index 25.85 (77.11 kg, 172.72 cm) la1 ED Course: 15:53 Patient arrived in ED. mr 15:53 Geronimo Cortez MD is Private Physician. mr 15:55 Reynaldo Becker MD is Attending Physician. kdr 15:56 Triage completed. la1 15:57 Arm band placed on left wrist. la1 16:32 Jackson Villasenor, RN is Primary Nurse. 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 Patient did not have IV access during this 3 emergency room visit. 18:03 Patient has correct armband on for positive identification. jl3 18:17 Geronimo Cortez MD is Referral Physician. kdr Administered Medications: 17:43 Drug: Fleet Enema 133 ml Route: [place]; mg2 18:46 Follow up: Response: Marked relief of symptoms jl3 Outcome: 18:02 Discharged to home via wheelchair. jl3 18:02 Condition: improved 18:02 Discharge instructions given to patient. 18:17 Discharge ordered by . kdr 18:46 Patient left the ED. jl3 Signatures: Reynaldo Becker MD MD [facility] Anay Edwards GisselgraceLeonard, RN RN la1 Jackson Villasenor, RN RN jl3 Lalit Barajas RN RN mg2
== END 2017-12-07 18:46 | disposition home or self-care (01) ==
LOC: ER 15:50
DX: K59.00 Constipation, unspecified (principal); I10 Essential (primary) hypertension
CPT/HCPCS: 99283

== ENCOUNTER 2018-03-01 12:59 | Emergency (ER) | payer OTHER ==
--- NOTE | 2018-03-01 15:05 | EDPHYS ---
Physician Documentation [facility] Name: Alvin Soliman Age: 82 yrs Sex: Male : 1935 Arrival Date: 03/01/2018 Time: 13:02 Bed 30 Private MD: Geronimo Cortez R ED Physician Reynaldo Becker HPI: 03/01 15:05 This 82 yrs old Male presents to ER via Ambulatory with complaints of kdr Constipation. 15:05 The patient presents to the emergency department with abdominal pain, of the suprapubic kdr area, right lower quadrant and left lower quadrant, described as achy, burning, constant, dull, vague,\E\ and does not radiate. Onset: The symptoms/episode began/occurred gradually, Saturday. Possible causes: unknown. The symptoms are aggravated by movement, The symptoms are alleviated by nothing. Associated signs and symptoms: Pertinent positives: abdominal pain, constipation, nausea, Pertinent negatives: anorexia, belching, diarrhea, dysuria, fever, flatulence, GI bleeding, hematuria. Severity of symptoms: At their worst the symptoms were moderate in the emergency department the symptoms are unchanged Pain is currently a 4 / 10. The patient has experienced similar episodes in the past, multiple times. The patient has been recently seen at the [facility] Emergency Department, for similar complaints The patient had the same problem about six months ago and was disimpacted at that time.. Historical: - Allergies: 13:12 No Known Allergies; la1 - PMHx: 13:12 High Cholesterol; Hypertension; la1 - Immunization history:: Adult Immunizations up to date. - Social history:: Smoking status: Patient/guardian denies using tobacco. - Ebola Screening: : No symptoms or risks identified at this time. ROS: 15:05 Constitutional: Negative for fever, chills, and weight loss, Eyes: Negative for injury, kdr pain, redness, and discharge, ENT: Negative for injury, pain, and discharge, Neck: Negative for injury, pain, and swelling, Cardiovascular: Negative for chest pain, palpitations, and edema, Respiratory: Negative for shortness of breath, cough, wheezing, and pleuritic chest pain, Back: Negative for injury and pain, : Negative for injury, bleeding, discharge, and swelling, MS/Extremity: Negative for injury and deformity, Skin: Negative for injury, rash, and discoloration, Neuro: Negative for headache, weakness, numbness, tingling, and seizure activity. Psych: Negative for depression, anxiety, suicide ideation, homicidal ideation, and hallucinations, Allergy/Immunology: Negative for hives, rash, and allergies, Endocrine: Negative for neck swelling, polydipsia, polyuria, polyphagia, and marked weight changes, Hematologic/Lymphatic: Negative for swollen nodes, abnormal bleeding, and unusual bruising. 15:05 Abdomen/GI: Positive for abdominal pain, constipation, rectal pain, Negative for vomiting, diarrhea, constipation, black/tarry stool, rectal bleeding. Exam: 15:05 Constitutional: This is a well developed, well nourished patient who is awake, alert, kdr and in no acute distress. Head/Face: Normocephalic, atraumatic. Eyes: Pupils equal round and reactive to light, extra-ocular motions intact. Lids and lashes normal. Conjunctiva and sclera are non-icteric and not injected. Cornea within normal limits. Periorbital areas with no swelling, redness, or edema. Neck: Trachea midline, no thyromegaly or masses palpated, and no cervical lymphadenopathy. Supple, full range of motion without nuchal rigidity, or vertebral point tenderness. No Meningismus. Chest/axilla: Normal chest wall appearance and motion. Nontender with no deformity. No lesions are appreciated. Cardiovascular: Regular rate and rhythm with a normal S1 and S2. No gallops, murmurs, or rubs. Normal PMI, no JVD. No pulse deficits. Respiratory: Lungs have equal breath sounds bilaterally, clear to auscultation and percussion. No rales, rhonchi or wheezes noted. No increased work of breathing, no retractions or nasal flaring. Back: No spinal tenderness. No costovertebral tenderness. Full range of motion. Skin: Warm, dry with normal turgor. Normal color with no rashes, no lesions, and no evidence of cellulitis. MS/ Extremity: Pulses equal, no cyanosis. Neurovascular intact. Full, normal range of motion. Neuro: Awake and alert, GCS 15, oriented to person, place, time, and situation. Cranial nerves II-XII grossly intact. Motor strength 5/5 in all extremities. Sensory grossly intact. Cerebellar exam normal. Normal gait. Psych: Awake, alert, with orientation to person, place and time. Behavior, mood, and affect are within normal limits. 15:05 Abdomen/GI: Inspection: obese Bowel sounds: active, all quadrants, Palpation: soft, mild abdominal tenderness, in the umbilical area, right lower quadrant and left lower quadrant, Rectal exam: Prostate: normal, rectal tone normal, Stool: hemorrhoid(s), external, mass, is not appreciated, swelling, is not appreciated, tenderness, that is mild, fecal impaction, that is moderate. Vital Signs: 13:13 BP 170 / 90; Pulse 60; Resp 16; Temp 97.6; Pulse Ox 98% on R/A; la1 15:31 BP 126 / 97; Pulse 61; Resp 15; Pulse Ox 100% on R/A; rv Procedures: 15:05 Fecal disimpaction: digital disimpaction was performed, with a moderate amount of stool kdr expressed. The patient tolerated the intervention well. MDM: 15:04 Patient medically screened. kdr 15:12 Data reviewed: vital signs, nurses notes, lab test result(s), EKG, radiologic studies. kdr Counseling: I had a detailed discussion with the patient and/or guardian regarding: the historical points, exam findings, and any diagnostic results supporting the discharge/admit diagnosis, lab results, radiology results, the need for outpatient follow up. Administered Medications: No medications were administered Disposition: 03/01/18 15:04 Discharged to Home. Impression: Constipation. - Condition is Fair. - Discharge Instructions: Constipation, Adult, [id number]. - Prescriptions for Miralax 17 gram/dose Oral - take 1 packet by ORAL route once daily dilute powder in 8 ounces of water or juice; 1 box. - Medication Reconciliation Form, Thank You Letter form. - Follow up: Geronimo Cortez MD; When: 2 - 3 days; Reason: If symptoms return, Further diagnostic work-up, Recheck today's complaints, Continuance of care, Re-evaluation by your physician. - Problem is an acute exacerbation. - Symptoms have improved. Signatures: Reynaldo Becker MD MD kdr Leonard Britt, RN RN la1 Enio Madrgial RN RN rv Corrections: (The following items were deleted from the chart) 15:34 15:04 03/01/2018 15:04 Discharged to Home. Impression: Constipation. Condition is Fair. rv Forms are Medication Reconciliation Form, Thank You Letter, Antibiotic Education, Prescription Opioid Use. Follow up: Geronimo Cortez; When: 2 - 3 days; Reason: If symptoms return, Further diagnostic work-up, Recheck today's complaints, Continuance of care, Re-evaluation by your physician. Problem is an acute exacerbation. Symptoms have improved. kdr
--- NOTE | 2018-03-01 15:05 | ER ---
Nurse's Notes [facility] Name: Alvin Soliman Age: 82 yrs Sex: Male : 1935 Arrival Date: 03/01/2018 Time: 13:02 Bed 30 Private MD: Geronimo Cortez R Diagnosis: Constipation Presentation: 03/01 13:10 Presenting complaint: Patient states: Last BM Saturday with nausea. I had this problem la1 and they had to disimpact me which didn't help much but a fleets enema helped last time. Transition of care: patient was not received from another setting of care. Onset of symptoms was March 01, 2018. Risk Assessment: Do you want to hurt yourself or someone else? Patient reports no desire to harm self or others. Initial Sepsis Screen: Does the patient meet any 2 criteria? No. Patient's initial sepsis screen is negative. Does the patient have a suspected source of infection? No. Patient's initial sepsis screen is negative. Care prior to arrival: None. 13:10 Method Of Arrival: Ambulatory la1 13:10 Acuity: RUDY 3 la1 Historical: - Allergies: 13:12 No Known Allergies; la1 - PMHx: 13:12 High Cholesterol; Hypertension; la1 - Immunization history:: Adult Immunizations up to date. - Social history:: Smoking status: Patient/guardian denies using tobacco. - Ebola Screening: : No symptoms or risks identified at this time. Screenin:54 Abuse screen: Denies threats or abuse. Denies injuries from another. Nutritional rv screening: No deficits noted. Tuberculosis screening: No symptoms or risk factors identified. Fall Risk None identified. Assessment: 13:53 General: Appears in no apparent distress. uncomfortable, Behavior is calm, cooperative. rv Pain: Complains of pain in RECTUM. Neuro: Level of Consciousness is awake, alert, obeys commands, Oriented to person, place, time, situation. Cardiovascular: Capillary refill < 3 seconds. Respiratory: Breath sounds are clear bilaterally. GI: Bowel sounds : Reports burning with urination, pain with urination. EENT: No signs and/or symptoms were reported regarding the EENT system. Derm: Skin is intact. Musculoskeletal: No signs and/or symptoms reported regarding the musculoskeletal system. Vital Signs: 13:13 BP 170 / 90; Pulse 60; Resp 16; Temp 97.6; Pulse Ox 98% on R/A; la1 15:31 BP 126 / 97; Pulse 61; Resp 15; Pulse Ox 100% on R/A; rv ED Course: 13:02 Patient arrived in ED. dl4 13:03 Geronimo Cortez MD is Private Physician. dl4 13:11 Triage completed. la1 13:11 Arm band placed on left wrist. la1 13:55 Patient has correct armband on for positive identification. Call light in reach. Pulse rv ox on. NIBP on. 14:01 Reynaldo Becker MD is Attending Physician. kdr 15:02 Geronimo Cortez MD is Referral Physician. kdr 15:32 No provider procedures requiring assistance completed. Patient did not have IV access rv during this emergency room visit. Administered Medications: No medications were administered Outcome: 15:04 Discharge ordered by . kdr 15:32 Discharged to home ambulatory. rv 15:32 Condition: good 15:32 Discharge instructions given to patient, Instructed on discharge instructions, follow up and referral plans. medication usage, Demonstrated understanding of instructions, follow-up care, medications, Prescriptions given X 1. 15:34 Patient left the ED. rv Signatures: Reynaldo Becker MD MD kdr Leonard Britt RN RN la1 Enio Madrigal, RN RN rv Cristian Lambert dl4
== END 2018-03-01 15:34 | disposition home or self-care (01) ==
LOC: ER 12:59
DX: K59.00 Constipation, unspecified (principal)
CPT/HCPCS: 99283

== ENCOUNTER 2022-09-27 12:19 | Emergency (ER) | payer OTHER ==
--- OUTSIDE RECORDS SUMMARY | 2022-09-27 12:24 | XMS REPORT | Continuity of Care Document ---
:1935 Author Organization [facility] t Address [address] [place] [address] [address] [place] [address] Care Team Providers Name Role Phone Sherley LOPES, Geronimo Mcneal Primary Care Physician [phone] ARIA CUENCA Attending Clinician Unavailable Nurse, Adc Pob Immunization Attending Clinician Unavailable Neal Bergman DO Attending Clinician Aria Cuenca MD Attending Clinician Only, Adc Test Attending Clinician Unavailable Doctor Unassigned, [place] Attending Clinician Unavailable Pob, Adc Lab Main Attending Clinician Unavailable ARIA CUENCA Admitting Clinician Unavailable Aria Cuenca MD Admitting Clinician Payers Payer Name Policy Type Policy Number Effective Date Expiration Date [facility] [id number] 2020 [facility] 00:00:00 PPO Problems This patient has no known problems. Allergies, Adverse Reactions, Alerts Allergy Allergy Status Severity Reaction(s) Onset Inactive Treating Comm ents Source Name Type Date Date Clinician NO KNOWN Drug Active Univers ALLERGIE Class [facility] of [facility] [place] [facility] [place] Social History Social Habit Start Date Stop Date Quantity Comments Source Exposure to Not sure [facility] SARS-CoV-2 (event) Medica l Branch Tobacco use and 2020-11-30 2020-11-30 Never used [employer] [facility] exposure 00:00:00 00:00:00 Medical Branch Sex Assigned At [birth year] [facility] y [facility] 00:00:00 00:00:00 Medical Branch Smoking Status Start Date Stop Date Source Unknown if ever smoked [facility] acute hospital Never smoker [facility] Medications Ordered Filled Start Stop Current Ordering Indication Dosage Frequency Signature Comments Components Source Medication Medication Date Date Medication? Clinician (SIG) Name Name DUOVISC Yes PRN, Univers (DUOVISC 12-29 Starting ity of VISCO 14:06: on [place] [place] ELASTIC) 3 00 12/29/20 at Med ical %-4 %(0.5 0906, Branch mL) 1 % Until (0.55 mL) Discontinu intraocular ed, injection Routine, Intra-op NaCl 0.9% Yes PRN, Univers (NS) 12-29 Starting ity of injection 14:06: on [place] [place] 12/29/[address] Until Discontinu ed, Routine, Intra-op DUOVISC 2020- No PRN, Univers (DUOVISC 12-29 Starting ity of VISCO 14:06: 17:40 on [facility] ELASTIC) 3 00 :24 12/29/[address] [facility] ical %-4 %(0.5 0906, Branch mL) 1 % Until Yanet (0.55 mL) 12/29/20 at intraocular 1240, injection Routine, Intra-op NaCl 0.9% 2020- No PRN, Univers (NS) 12-29 Starting ity of injection 14:06: 17:40 on [facility] [place] 00 :24 12/29/[address] Until [place] 12/29/20 at 1240, Routine, Intra-op gentamicin Yes PRN, Univers injection 12-29 Starting ity of 14:05: on Y[place] 00 12/29/[address] Until Discontinu ed, KEVIN, Intra-op neomycin-po Yes PRN, Univer s lymyxin-dex 12-29 Starting ity of amethasone 14:05: on [place] [place] (MAXITROL) 00 12/29/[address] [facility] ical 3.5 05, [place] mg/g-10,000 Until unit/g-0.1 Discontinu % ed, ophthalmic Routine, ointment Intra-op gentamicin 2020- No PRN, Univer s injection 12-29 Starting ity o f 14:05: 17:40 on [facility] [place] 00 :24 12/29/20 at [facility] 0905, Branch Until [place] 12/29/20 at 1240, KEVIN, Intra-op neomycin-po 2020- No [facility] lym[facility] 12-29 Starting ity of amethasone 14:05: 17:40 [place] (MAXITROL) 00 :24 12/29/[address] [facility] ical 3.5 09, [place] mg/g-10,000 Until [place] unit/g-0.1 12/29/20 at % 1240, ophthalmic Routine, ointment Intra-op dexamethaso Yes PRN, Univer s ne 12-29 Starting ity of (DECADRON 14:04: on [place] [place] PHOSPHATE) 00 12/29/20 at Med ical injection 09, [place] Until Discontinu ed, Routine, Intra-op ceFAZolin Yes PRN, Univers (ANCEF) 12-29 Starting ity of injection 14:04: on [facility] [place] 00 12/29/20 at [facility] 0904, Branch Until Discontinu ed, KEVIN, Intra-op dexamethaso 2020- No PRN, [facility] ne 12-29 Starting ity of (DECADRON 14:04: 17:40 on [facility] [place] PHOSPHATE) 00 :24 12/29/20 at Med ical injection 09, Branch Until [place]et 12/29/20 at 1240, Routine, Intra-op ceFAZolin 2020- No PRN, Univers (ANCEF) 12-29 Starting ity of injection 14:04: 17:40 on [facility] [place] 00 :24 12/29/20 at [facility] 0904, Branch Until [place] 12/29/20 at 1240, KEVIN, Intra-op EPINEPHrine Yes PRN, [facility] ([facility]) 12-29 Starting ity of 1:1,000 (1 14:01: on [place] [place] mg/mL) 00 12/29/20 at [facility] (ADRENALIN 09, Branch (PF)) Until injection Discontinu ed, Routine, Intra-op balanced Yes PRN, Univers salt soln 12-29 Starting ity of no.2 irrig. 14:01: on [place] (BSS) 00 12/29/20 at [facility] ophthalmic 0901, Branch solution Until Discontinu ed, Routine, Intra-op EPINEPHrine 2020- No PRN, Unive rs (PF) 12-29 Starting ity of 1:1,000 (1 14:01: 17:40 on [place] mg/mL) 00 :24 12/29/20 at [facility] (ADRENALIN 01, Branch (PF)) Until Yan[place] injection 12/29/20 at 1240, Routine, Intra-op balanced 2020- No PRN, Univers salt soln 12-29 Starting ity o f no.2 irrig. 14:01: 17:40 on Yan[place] (BSS) 00 :24 12/29/20 at [facility] ophthalmic 0901, Branch solution Until [place]et 12/29/20 at 1240, Routine, Intra-op water for Yes PRN, Univers irrigation 12-29 Starting ity o f irrigation 13:55: on [place] [place] solution 00 12/29/20 at Medic al 0855, Branch Until Discontinu ed, Routine, Intra-op eye block Yes PRN, Univers syringe 11 12-29 Starting ity o f mL 13:55: on [facility] [place] 00 12/29/20 at [facility] 0855, Branch Until Discontinu ed, Intra-op water for 2020- No PRN, Univers irrigation 12-29 Starting ity of irrigation 13:55: 17:40 on [place] solution 00 :24 12/29/20 at Medic al 0855, Branch Until [place] 12/29/20 at 1240, Routine, Intra-op eye block 2020- No PRN, Univers syringe 11 12-29 Starting ity of mL 13:55: 17:40 on [facility] [place] 00 :24 12/29/20 at Medical 0855, Branch Until [place] 12/29/20 at 1240, Intra-op tetracaine Yes PRN, Univers (PONTOCAINE 12-29 Starting ity of ) 0.5 % 13:54: on [place] [place] ophthalmic 00 12/29/20 at Med ical drops 0854, Branch Until Discontinu ed, Routine, Intra-op tetracaine 2020- No PRN, Univer s (PONTOCAINE 12-29 Starting ity of ) 0.5 % 13:54: 17:40 on [place] [place] ophthalmic 00 :24 12/29/20 at Med ical drops 0854, Branch Until [place]et 12/29/20 at 1240, Routine, Intra-op mydriatic 2020- No .5mL 0.5 mL, Univ ers #5 12-29 Right Eye, ity of ophthalmic 12:00: 11:59 ONCE, 1 [place] solution 00 :00 dose, On Medical 0.5 mL [place] Branch syringe 12/29/20 at 0700, Routine, DSU Pre-op mydriatic 2020- No .5mL 0.5 mL, Univ ers #5 12-29 Right Eye, ity of ophthalmic 12:00: 11:59 ONCE, 1 [place] solution 00 :00 dose, On Medical 0.5 mL [place] Branch syringe 12/29/20 at 0700, Routine, DSU Pre-op lactated 2020- No 1000mL at 42 [facility]ers IV 12-29 mL/hr, ity of infusion 11:45: 11:59 1,000 mL, [place] 1,000 mL 00 :00 IV Medical Infusion, Branch ONCE, 1 dose, On Yanet 12/29/20 at 0645, Routine, DSU Pre-op lactated 2020- No 1000mL at 42 [facility] IV 12-29 mL/hr, ity of infusion 11:45: 11:59 1,000 mL, [place] 1,000 mL 00 :00 IV Medical Infusion, Branch ONCE, 1 dose, On Yan[place] 12/29/20 at 0645, Routine, DSU Pre-op aspirin 81 Yes 81mg Take 81 mg U nivers mg chewable 12-29 by mouth ity of tablet 10:35: daily. [address] amLODIPine Yes 5mg Take 5 mg Un delio 5 mg tablet 9-23 by mouth ity of 10:35: daily. [place] [address] Medical Branch losartan 0 Yes 100mg Take 100 Univ ers 100 mg 9-23 mg by ity of tablet 10:35: mouth [place] 18 daily. Medical Branch pravastatin 0 Yes 40mg Take 40 mg Univers 40 mg 9-23 by mouth ity of tablet 10:35: at [place] 18 bedtime. Medical Branch traZODone 0 Yes 50mg Take 50 mg Un delio 50 mg 9-23 by mouth ity of tablet 10:35: at [place] 18 bedtime. Medical Branch aspirin 81 0 Yes 81mg Take 81 mg U nivers mg chewable 9-23 by mouth ity of tablet 10:35: daily. [place] [address] Medical Branch amLODIPine 0 Yes 5mg Take 5 mg Un delio 5 mg tablet 9-23 by mouth ity of 10:35: daily. [place] [address] Medical Branch losartan 0 Yes 100mg Take 100 Univ ers 100 mg 9-23 mg by ity of tablet 10:35: mouth [place] 18 daily. Medical Branch pravastatin 0 Yes 40mg Take 40 mg Univers 40 mg 9-23 by mouth ity of tablet 10:35: at [place] 18 bedtime. Medical Branch traZODone 0 Yes 50mg Take 50 mg Un delio 50 mg 9-23 by mouth ity of tablet 10:35: at [place] 18 bedtime. Medical Branch aspirin 81 0 Yes 81mg Take 81 mg U nivers mg chewable 9-23 by mouth ity of tablet 10:35: daily. [place] [address] Medical Branch amLODIPine 0 Yes 5mg Take 5 mg Un delio 5 mg tablet 9-23 by mouth ity of 10:35: daily. [place] [address] Medical Branch losartan 0 Yes 100mg Take 100 Univ ers 100 mg 9-23 mg by ity of tablet 10:35: mouth [place] 18 daily. Medical Branch pravastatin 0 Yes 40mg Take 40 mg Univers 40 mg 9-23 by mouth ity of tablet 10:35: at [place] 18 bedtime. Medical Branch traZODone 0 Yes 50mg Take 50 mg Un delio 50 mg 9-23 by mouth ity of tablet 10:35: at [place] 18 bedtime. Medical Branch aspirin 81 0 Yes 81mg Take 81 mg U nivers mg chewable 9-20 by mouth ity of tablet 13:38: daily. [place] [address] Medical Branch amLODIPine 0 Yes 5mg Take 5 mg Un delio 5 mg tablet 9-20 by mouth ity of 13:38: daily. [place] [address] Medical Branch losartan 2020-0 Yes 100mg Take 100 Univ ers 100 mg 9-20 mg by ity of tablet 13:38: mouth [place] 56 daily. Medical Branch aspirin 81 2020-0 Yes 81mg Take 81 mg U nivers mg chewable 9-20 by mouth ity of tablet 13:38: daily. [place] [address] Medical Branch amLODIPine 0 Yes 5mg Take 5 mg Un delio 5 mg tablet 9-20 by mouth ity of 13:38: daily. [place] [address] Medical Branch losartan 2020-0 Yes 100mg Take 100 Univ ers 100 mg 9-20 mg by ity of tablet 13:38: mouth [place] 56 daily. Medical Branch aspirin 81 0 Yes 81mg Take 81 mg U nivers mg chewable 8-26 by mouth ity of tablet 19:38: daily. [place] [address] Medical Branch amLODIPine 0 Yes 5mg Take 5 mg Un delio 5 mg tablet 8-26 by mouth ity of 19:38: daily. [place] [address] Medical Branch losartan 2020-0 Yes 100mg Take 100 Univ ers 100 mg 8-26 mg by ity of tablet 19:38: mouth [place] 04 daily. Medical Branch pravastatin 2020-0 Yes 40mg Take 40 mg Univers 40 mg 8-26 by mouth ity of tablet 19:38: at [place] 04 bedtime. Medical Branch traZODone 2020-0 Yes 50mg Take 50 mg Un delio 50 mg 8-26 by mouth ity of tablet 19:38: at [place] 04 bedtime. Medical Branch aspirin 81 2020-0 Yes 81mg Take 81 mg U nivers mg chewable 8-26 by mouth ity of tablet 19:38: daily. [place] [address] Medical Branch amLODIPine 2020-0 Yes 5mg Take 5 mg Un delio 5 mg tablet 8-26 by mouth ity of 19:38: daily. [place] [address] Medical Branch losartan 2020-0 Yes 100mg Take 100 Univ ers 100 mg 8-26 mg by ity of tablet 19:38: mouth [place] 04 daily. Medical Branch pravastatin 2020-0 Yes 40mg Take 40 mg Univers 40 mg 8-26 by mouth ity of tablet 19:38: at [place] 04 bedtime. Medical Branch traZODone 2020-0 Yes 50mg Take 50 mg Un delio 50 mg 8-26 by mouth ity of tablet 19:38: at [place] 04 bedtime. Medical Branch aspirin 81 2020-0 Yes 81mg Take 81 mg U nivers mg chewable 8-26 by mouth ity of tablet 19:38: daily. Medical Branch amLODIPine 2020-0 Yes 5mg Take 5 mg Un delio 5 mg tablet 8-26 by mouth ity of 19:38: daily. Medical Branch losartan 2020-0 Yes 100mg Take 100 Univ ers 100 mg 8-26 mg by ity of tablet 19:38: mouth [place] 04 daily. Medical Branch pravastatin 2020-0 Yes 40mg Take 40 mg Univers 40 mg 8-26 by mouth ity of tablet 19:38: at [place] [address] bedtime. Medical Branch traZODone 2020-0 Yes 50mg Take 50 mg Un delio 50 mg 8-26 by mouth ity of tablet 19:38: at [place] [address] bedtime. Medical Branch aspirin 81 2020-0 Yes 81mg Take 81 mg U nivers mg chewable 8-26 by mouth ity of tablet 19:38: daily. Medical Branch amLODIPine 2020-0 Yes 5mg Take 5 mg Un delio 5 mg tablet 8-26 by mouth ity of 19:38: daily. Medical Branch losartan 2020-0 Yes 100mg Take 100 Univ ers 100 mg 8-26 mg by ity of tablet 19:38: mouth [place] 04 daily. Medical Branch pravastatin 2020-0 Yes 40mg Take 40 mg Univers 40 mg 8-26 by mouth ity of tablet 19:38: at [place] bedtime. Medical Branch traZODone 2020-0 Yes 50mg Take 50 mg Un delio 50 mg 8-26 by mouth ity of tablet 19:38: at [place] [address] bedtime. Medical Branch aspirin 81 2020-0 Yes 81mg Take 81 mg U nivers mg chewable 8-26 by mouth ity of tablet 19:38: daily. Medical Branch amLODIPine 2020-0 Yes 5mg Take 5 mg Un delio 5 mg tablet 8-26 by mouth ity of 19:38: daily. Medical Branch losartan Yes 100mg Take 100 Univ ers 100 mg 8-26 mg by ity of tablet 19:38: mouth [place] 04 daily. Medical Branch pravastatin 0 Yes 40mg Take 40 mg Univers 40 mg 8-26 by mouth ity of tablet 19:38: at [place] [address] bedtime. Medical Branch traZODone Yes 50mg Take 50 mg Un delio 50 mg 8-26 by mouth ity of tablet 19:38: at [place] [address] bedtime. Medical Branch aspirin 81 0 Yes 81mg Take 81 mg U nivers mg chewable 8-26 by mouth ity of tablet 19:38: daily. Medical Branch amLODIPine Yes 5mg Take 5 mg Un delio 5 mg tablet 8-26 by mouth ity of 19:38: daily. Medical Branch losartan Yes 100mg Take 100 Univ ers 100 mg 8-26 mg by ity of tablet 19:38: mouth [place] 04 daily. Medical Branch pravastatin Yes 40mg Take 40 mg Univers 40 mg 8-26 by mouth ity of tablet 19:38: at [place] [address] bedtime. Medical Branch traZODone Yes 50mg Take 50 mg Un delio 50 mg 8-26 by mouth ity of tablet 19:38: at [place] [address] bedtime. Medical Branch gentamicin 0 Yes PRN, Univers injection 12-01 Starting ity of 18:32: [place] [place] 12/01/[address] Until Discontinu ed, KEVIN, Intra-op gentamicin 2020-0 Yes PRN, Univers injection 12-01 Starting ity of 18:32: [place] 00 12/01/[address] Until Discontinu ed, KEVIN, Intra-op gentamicin 2020-0 2020- No PRN, Univer s injection 12-01 Starting ity o f 18:32: 21:38 [facility] [place] 00 :07 12/01/[address] Branch Until [place] 12/01/20 at 1638, KEVIN, Intra-op gentamicin 2020-0 2020- No PRN, Univer s injection 12-01 Starting ity o f 18:32: 21:38 [facility] [place] 00 :07 12/01/20 at Medical 1332, Branch Until [place] 12/01/20 at 1638, KEVIN, Intra-op tetracaine Yes PRN, Univers (PONTOCAINE 12-01 Starting ity of ) 0.5 % 17:24: [facility] [place] ophthalmic 00 12/01/[address] [facility] ical drops 1224, Branch Until Discontinu ed, Routine, Intra-op tetracaine Yes PRN, Univers (PONTOCAINE 12-01 Starting ity of ) 0.5 % 17:24: [facility] [place] ophthalmic 00 12/01/[address] [facility] ical drops 1224, Branch Until Discontinu ed, Routine, Intra-op tetracaine 2020- No PRN, Univer s (PONTOCAINE 12-01 Starting ity of ) 0.5 % 17:24: 21:38 [facility] [place] ophthalmic 00 :07 12/01/[address] [facility] ical drops 1224, Branch Until [place] 12/01/20 at 1638, Routine, Intra-op tetracaine 2020- No PRN, Univer s (PONTOCAINE 12-01 Starting ity of ) 0.5 % 17:24: 21:38 [place] ophthalmic 00 :07 12/01/[address] [facility] ica drops 1224, Branch Until [place] 12/01/20 at 1638, Routine, Intra-op water for Yes PRN, Univers irrigation 12-01 Starting ity o f irrigation 17:23: [place] solution 12/01/20 at Medic al 1223, Branch Until Discontinu ed, Routine, Intra-op NaCl 0.9% Yes PRN, Univers (NS) 12-01 Starting ity of injection 17:23: [place] 12/01/20 at [facility] 1223, Branch Until Discontinu ed, Routine, Intra-op neomycin-po Yes PRN, Univer s lymyxin-dex 12-01 Starting ity of amethasone 17:23: [place] (MAXITROL) 00 12/01/20 at [facility] 3.5 1223, Branch mg/g-10,000 Until unit/g-0.1 Discontinu % ed, ophthalmic Routine, ointment Intra-op water for Yes PRN, Univers irrigation 12-01 Starting ity o f irrigation 17:23: [place] solution 00 12/01/20 at [place] [address], [place] Until Discontinu ed, Routine, Intra-op NaCl 0.9% Yes PRN, Univers (NS) 12-01 Starting ity of injection 17:23: [place] 00 12/01/20 at [place] [address], Branch Until Discontinu ed, Routine, Intra-op neomycin-po Yes PRN, Univer s lymyxin-dex 12-01 Starting ity of amethasone 17:23: [place] (MAXITROL) 00 12/01/20 at [place] [address], [place] mg/g-10,000 Until unit/g-0.1 Discontinu % ed, ophthalmic Routine, ointment Intra-op water for 2020- No PRN, Univers irrigation 12-01 Starting ity of irrigation 17:23: 21:38 [place] solution 00 :07 12/01/20 at [place] [address], Branch Until [place] 12/01/20 at 1638, Routine, Intra-op NaCl 0.9% 2020- No PRN, Univers (NS) 12-01 Starting ity of injection 17:23: 21:38 [place] 00 :07 12/01/20 at [place] [address], Branch Until [place] 12/01/20 at 1638, Routine, Intra-op neomycin-po 2020- No PRN, Unive rs lymyxin-dex 12-01 Starting ity of amethasone 17:23: 21:38 [place] (MAXITROL) 00 :07 12/01/20 at [place] [address], [place] mg/g-10,000 Until [place] unit/g-0.1 12/01/20 at % 1638, ophthalmic Routine, ointment Intra-op water for 2020- No PRN, Univers irrigation 12-01 Starting ity of irrigation 17:23: 21:38 [place] solution 00 :07 12/01/20 at [facility] 1223, Branch Until [place] 12/01/20 at 1638, Routine, Intra-op NaCl 0.9% 2020- No PRN, Univers (NS) 12-01 Starting ity of injection 17:23: 21:38 [place] 00 :07 12/01/20 at [facility] 1223, Branch Until [place] 12/01/20 at 1638, Routine, Intra-op neomycin-po 2020- No PRN, Unive rs lymyxin-dex 12-01 Starting ity of amethasone 17:23: 21:38 [facility] [place] (MAXITROL) 00 :07 12/01/[address] [facility] ical 3.5 122, Branch mg/g-10,000 Until [place] unit/g-0.1 12/01/20 at % 1638, ophthalmic Routine, ointment Intra-op eye block Yes PRN, Univers syringe 12-01 Starting ity o f mL 17:22: [place] 00 12/01/20 at [place] [id number], Branch Until Discontinu ed, Intra-op EPINEPHrine Yes PRN, Univer s (PF) 12-01 Starting ity of 1:1,000 (1 17:22: [place] mg/mL) 00 12/01/20 at [facility] (ADRENALIN 1222, Branch (PF)) Until injection Discontinu ed, Routine, Intra-op eye block Yes PRN, Univers syringe 12-01 Starting ity o f mL 17:22: [place] 00 12/01/20 at [place] [id number], Branch Until Discontinu ed, Intra-op EPINEPHrine Yes PRN, Univer s (PF) 12-01 Starting ity of 1:1,000 (1 17:22: [place] mg/mL) 12/01/20 at [facility] (ADRENALIN 1222, Branch (PF)) Until injection Discontinu ed, Routine, Intra-op eye block 2020- No PRN, Univers syringe 11 12-01 Starting ity of mL 17:22: 21:38 [place] 00 :07 12/01/20 at Medical 1222, Branch Until [place]et 12/01/20 at 1638, Intra-op EPINEPHrine 2020- No PRN, Unive rs (PF) 12-01 Starting ity of 1:1,000 (1 17:22: 21:38 [place] mg/mL) 00 :07 12/01/20 at [facility] (ADRENALIN 1222, Branch (PF)) Until Yanet injection 12/01/20 at 1638, Routine, Intra-op eye block 2020- No PRN, Univers syringe 11 12-01 Starting ity of mL 17:22: 21:38 [place] 00 :07 12/01/20 at [facility] 1222, Branch Until [place] 12/01/20 at 1638, Intra-op EPINEPHrine 2020- No PRN, Unive rs (PF) 12-01 Starting ity of 1:1,000 (1 17:22: 21:38 [place] mg/mL) 00 :07 12/01/20 at [facility] (ADRENALIN 1222, Branch (PF)) Until Yanet injection 12/01/20 at 1638, Routine, Intra-op DUOVISC 0 Yes PRN, Univers (DUOVISC 12-01 Starting ity of VISCO 17:21: [place] ELASTIC) 3 00 12/01/[address] [facility] ical %-4 %(0.5 122, Branch mL) 1 % Until (0.55 mL) Discontinu intraocular ed, injection Routine, Intra-op dexamethaso Yes PRN, Univer s ne 12-01 Starting ity of (DECADRON 17:21: [facility] [place] PHOSPHATE) 00 12/01/[address] [facility] ical injection 1221, Branch Until Discontinu ed, Routine, Intra-op ceFAZolin Yes PRN, Univers (ANCEF) 12-01 Starting ity of injection 17:21: [place] 00 12/01/20 at [facility] 1221, Branch Until Discontinu ed, KEVIN, Intra-op balanced Yes PRN, Univers salt soln 12-01 Starting ity of no.2 irrig. 17:21: [place] [place] (BSS) 00 12/01/20 at [facility] ophthalmic 1221, Branch solution Until Discontinu ed, Routine, Intra-op DUOVISC 0 Yes PRN, Univers (DUOVISC 12-01 Starting ity of VISCO 17:21: [place] ELASTIC) 3 00 12/01/[address] [facility] ical %-4 %(0.5 1221, Branch mL) 1 % Until (0.55 mL) Discontinu intraocular ed, injection Routine, Intra-op dexamethaso Yes PRN, Univer s ne 12-01 Starting ity of (DECADRON 17:21: [place] PHOSPHATE) 00 12/01/20 at Med ical injection 1221, Branch Until Discontinu ed, Routine, Intra-op ceFAZolin Yes PRN, Univers (ANCEF) 12-01 Starting ity of injection 17:21: [place] 00 12/01/20 at [facility] 1221, Branch Until Discontinu ed, KEVIN, Intra-op balanced Yes PRN, Univers salt soln 12-01 Starting ity of no.2 irrig. 17:21: [place] (BSS) 00 12/01/20 at [facility] ophthalmic 1221, Branch solution Until Discontinu ed, Routine, Intra-op DUOVISC 2020- No PRN, Univers (DUOVISC 12-01 Starting ity of VISCO 17:21: 21:38 [place] ELASTIC) 3 00 :07 12/01/[address] [facility] ical %-4 %(0.5 1221, Branch mL) 1 % Until Yanet (0.55 mL) 12/01/20 at intraocular 1638, injection Routine, Intra-op dexamethaso 2020- No PRN, Unive rs ne 12-01 Starting ity of (DECADRON 17:21: 21:38 [place] PHOSPHATE) 00 :07 12/01/20 at Med ical injection 1221, Branch Until [place]et 12/01/20 at 1638, Routine, Intra-op ceFAZolin 2020- No PRN, Univers (ANCEF) 12-01 Starting ity of injection 17:21: 21:38 [place] 00 :07 12/01/20 at Medical 1221, Branch Until [place] 8/26/21 at 1638, KEVIN, Intra-op balanced 2020- No PRN, Univers salt soln 12-01 Starting ity o f no.2 irrig. 17:21: 21:38 [place] (BSS) 00 :07 12/01/20 at [facility] ophthalmic 1221, Branch solution Until Yanet 12/01/20 at 1638, Routine, Intra-op DUOVISC 2020- No PRN, Univers (DUOVISC 12-01 Starting ity of VISCO 17:21: 21:38 [facility] ELASTIC) 3 00 :07 12/01/[address] [facility] ical %-4 %(0.5 122, Branch mL) 1 % Until Yanet (0.55 mL) 12/01/20 at intraocular 1638, injection Routine, Intra-op dexamethaso 2020- No PRN, Unive rs ne 12-01 Starting ity of (DECADRON 17:21: 21:38 [facility] PHOSPHATE) 00 :07 12/01/[address] [facility] ical injection 1221, Branch Until Yanet 12/01/20 at 1638, Routine, Intra-op ceFAZolin 2020- No PRN, [facility] (ANCEF) 12-01 Starting ity of injection 17:21: 21:38 [facility] 00 :07 12/01/20 at [place] [id number], Branch Until Yanet 12/01/20 at 1638, KEVIN, Intra-op balanced 2020- No PRN, [facility] salt soln 12-01 Starting ity o f no.2 irrig. 17:21: 21:38 [facility] (BSS) 00 :07 12/01/20 at [facility] ophthalmic 122, Branch solution Until Yanet 12/01/20 at 1638, Routine, Intra-op mydriatic 2020- No .5mL 0.5 mL, Univ ers #5 12-01 Left Eye, ity of ophthalmic 16:45: 16:55 ONCE, 1 [place] solution 00 :00 dose, Yanet Medica l 0.5 mL 12/01/20 at [place] syringe 1145, Routine, DSU Pre-op lactated 2020- No 1000mL at 42 Unive rs ringers IV 8- 08-26 mL/hr, ity of infusion 16:45: 16:50 1,000 mL, [place] 1,000 mL 00 :00 IV Medical Infusion, Branch ONCE, 1 dose, Yanet 12/01/20 at 1145, Routine, DSU Pre-op mydriatic 2020- No .5mL 0.5 mL, Univ ers #5 12-01 Left Eye, ity of ophthalmic 16:45: 16:55 ONCE, 1 [place] solution 00 :00 dose, Yanet Medica l 0.5 mL 12/01/20 at Branch syringe 1145, Routine, DSU Pre-op lactated 2020- No 1000mL at 42 Unive rs ringers IV 12-01 08- mL/hr, ity of infusion 16:45: 16:50 1,000 mL, [place] 1,000 mL 00 :00 IV Medical Infusion, Branch ONCE, 1 dose, Yanet 12/01/20 at 1145, Routine, DSU Pre-op mydriatic 2020- No .5mL 0.5 mL, Univ ers #5 12-01 Left Eye, ity of ophthalmic 16:45: 16:55 ONCE, 1 Fritz as solution 00 :00 dose, Yanet Medica l 0.5 mL 12/01/20 at Branch syringe 1145, Routine, DSU Pre-op lactated 2020- No 1000mL at 42 Unive rs ringers IV 12-01 08- mL/hr, ity of infusion 16:45: 16:50 1,000 mL, Fritz as 1,000 mL 00 :00 IV Medical Infusion, Branch ONCE, 1 dose, Yanet 12/01/20 at 1145, Routine, DSU Pre-op mydriatic 2020- No .5mL 0.5 mL, Univ ers #5 12-01 Left Eye, ity of ophthalmic 16:45: 16:55 ONCE, 1 Fritz as solution 00 :00 dose, Yanet Medica l 0.5 mL 12/01/20 at Branch syringe 1145, Routine, DSU Pre-op lactated 2020- No 1000mL at 42 Unive rs ringers IV 8-26 08-26 mL/hr, ity of infusion 16:45: 16:50 1,000 mL, Fritz as 1,000 mL 00 :00 IV Medical Infusion, Branch ONCE, 1 dose, Yanet 12/01/20 at 1145, Routine, DSU Pre-op aspirin 81 2020-0 Yes 81mg Take 81 mg U nivers mg chewable 8-26 by mouth ity of tablet 14:38: daily. [place] [address] Medical Branch amLODIPine 2020-0 Yes 5mg Take 5 mg Un delio 5 mg tablet 8-26 by mouth ity of 14:38: daily. [place] [address] Medical Branch losartan 2020-0 Yes 100mg Take 100 Univ ers 100 mg 8-26 mg by ity of tablet 14:38: mouth [place] 04 daily. Medical Branch pravastatin 2020-0 Yes 40mg Take 40 mg Univers 40 mg 8-26 by mouth ity of tablet 14:38: at [place] [address] bedtime. Medical Branch traZODone 2020-0 Yes 50mg Take 50 mg Un delio 50 mg 8-26 by mouth ity of tablet 14:38: at [place] [address] bedtime. Medical Branch pravastatin 2020-0 Yes 40mg Take 40 mg Univers 40 mg 8-26 by mouth ity of tablet 14:38: at [place] [address] bedtime. Medical Branch traZODone 2020-0 Yes 50mg Take 50 mg Un delio 50 mg 8-26 by mouth ity of tablet 14:38: at [place] [address] bedtime. Medical Branch aspirin 81 2020-0 Yes 81mg Take 81 mg U nivers mg chewable 8-26 by mouth ity of tablet 14:38: daily. [place] [address] Medical Branch amLODIPine 2020-0 Yes 5mg Take 5 mg Un delio 5 mg tablet 8-26 by mouth ity of 14:38: daily. Medical Branch losartan 2020-0 Yes 100mg Take 100 Univ ers 100 mg 8-26 mg by ity of tablet 14:38: mouth [place] 04 daily. Medical Branch pravastatin 2020-0 Yes 40mg Take 40 mg Univers 40 mg 8-26 by mouth ity of tablet 14:38: at [place] [address] bedtime. Medical Branch traZODone 2020-0 Yes 50mg Take 50 mg Un delio 50 mg 8-26 by mouth ity of tablet 14:38: at [place] [address] bedtime. Medical Branch pravastatin 2020-0 Yes 40mg Take 40 mg Univers 40 mg 8-26 by mouth ity of tablet 14:38: at [place] [address] bedtime. Medical Branch traZODone Yes 50mg Take 50 mg Un delio 50 mg 8-26 by mouth ity of tablet 14:38: at [place] [address] bedtime. [facility] Branch Immunizations Ordered Filled Immunization Date Status Comments [facility] e Immunization Name Name SARS-COV-2 COVID-19 2021-01-05 Completed Unive rsity of PFIZER VACCINE 00:00:00 [facility] SARS-COV-2 COVID-19 2020-06-09 Completed Unive rsity of PFIZER VACCINE 00:00:00 [facility] SARS-COV-2 COVID-19 2020-06-09 Completed Unive rsity of PFIZER VACCINE 00:00:00 [facility] SARS-COV-2 COVID-19 2020-06-09 Completed Unive rsity of PFIZER VACCINE 00:00:00 [facility] SARS-COV-2 COVID-19 2020-06-09 Completed Unive rsity of PFIZER VACCINE 00:00:00 [facility] SARS-COV-2 COVID-19 2020-06-09 Completed Unive rsity of PFIZER VACCINE 00:00:00 [facility] SARS-COV-2 COVID-19 2020-06-09 Completed Unive rsity of PFIZER VACCINE 00:00:00 [facility] SARS-COV-2 COVID-19 2020-06-09 Completed Unive rsity of PFIZER VACCINE 00:00:00 [facility] SARS-COV-2 COVID-19 2020-06-09 Completed Unive rsity of PFIZER VACCINE 00:00:00 [facility] SARS-COV-2 COVID-19 2020-06-09 Completed Unive rsity of PFIZER VACCINE 00:00:00 [facility] SARS-COV-2 COVID-19 2020-06-09 Completed Unive rsity of PFIZER VACCINE 00:00:00 [facility] SARS-COV-2 COVID-19 2020-06-09 Completed Unive rsity of PFIZER VACCINE 00:00:00 [facility] SARS-COV-2 COVID-19 2020-06-09 Completed Unive rsity of PFIZER VACCINE 00:00:00 [facility] Branch SARS-COV-2 COVID-19 2020-06-09 Completed Unive rsity of PFIZER VACCINE 00:00:00 [facility] Branch SARS-COV-2 COVID-19 2020-06-09 Completed Unive rsity of PFIZER VACCINE 00:00:00 [facility] SARS-COV-2 COVID-19 2020-06-09 Completed Unive rsity of PFIZER VACCINE 00:00:00 [facility] SARS-COV-2 COVID-19 2020-06-09 Completed Unive rsity of PFIZER VACCINE 00:00:00 [facility] SARS-COV-2 COVID-19 2020-06-09 Completed Unive rsity of PFIZER VACCINE 00:00:00 [facility] SARS-COV-2 COVID-19 2020-05-19 Completed Unive rsity of PFIZER VACCINE 00:00:00 [facility] SARS-COV-2 COVID-19 2020-05-19 Completed Unive rsity of PFIZER VACCINE 00:00:00 [facility] SARS-COV-2 COVID-19 2020-05-19 Completed Unive rsity of PFIZER VACCINE 00:00:00 [facility] SARS-COV-2 COVID-19 2020-05-19 Completed Unive rsity of PFIZER VACCINE 00:00:00 [facility] SARS-COV-2 COVID-19 2020-05-19 Completed Unive rsity of PFIZER VACCINE 00:00:00 [facility] SARS-COV-2 COVID-19 2020-05-19 Completed Unive rsity of PFIZER VACCINE 00:00:00 [facility] SARS-COV-2 COVID-19 2020-05-19 Completed Unive rsity of PFIZER VACCINE 00:00:00 [facility] SARS-COV-2 COVID-19 2020-05-19 Completed Unive rsity of PFIZER VACCINE 00:00:00 [facility] SARS-COV-2 COVID-19 2020-05-19 Completed Unive rsity of PFIZER VACCINE 00:00:00 [facility] SARS-COV-2 COVID-19 2020-05-19 Completed Unive rsity of PFIZER VACCINE 00:00:00 [facility] SARS-COV-2 COVID-19 2020-05-19 Completed Unive rsity of PFIZER VACCINE 00:00:00 [facility] SARS-COV-2 COVID-19 2020-05-19 Completed Unive rsity of PFIZER VACCINE 00:00:00 [facility] SARS-COV-2 COVID-19 2020-05-19 Completed Unive rsity of PFIZER VACCINE 00:00:00 [facility] SARS-COV-2 COVID-19 2020-05-19 Completed Unive rsity of PFIZER VACCINE 00:00:00 [facility] SARS-COV-2 COVID-19 2020-05-19 Completed Unive rsity of PFIZER VACCINE 00:00:00 [facility] SARS-COV-2 COVID-19 2020-05-19 Completed Unive rsity of PFIZER VACCINE 00:00:00 [facility] SARS-COV-2 COVID-19 2020-05-19 Completed Unive rsity of PFIZER VACCINE 00:00:00 [facility] Vital Signs Vital Name Observation Time Observation Value Comments Source Systolic blood 2020-12-29 14:29:00 153 mm[Hg] Univer sity of pressure [facility] Diastolic blood 2020-12-29 14:29:00 67 mm[Hg] Unive rsity of pressure [facility] Heart rate 2020-12-29 14:29:00 50 /min [facility] Respiratory rate 2020-12-29 14:29:00 16 /min [facility] O[facility] saturation in 2020-12-29 14:29:00 94 /min [facility] Arterial blood by [facility] Pulse oximetry [place] Body temperature 2020-12-29 14:19:[address] [facility] Body height 2020-12-26 18:39:00 170.2 cm [facility] Body weight 2020-12-26 18:39:00 74.844 kg [facility] BMI 2020-12-26 18:39:00 25.84 kg/m2 [facility] Systolic blood 2020-12-29 11:51:00 153 mm[Hg] Univer sity of pressure [facility] Diastolic blood 2020-12-29 11:51:00 77 mm[Hg] Unive rsity of pressure [facility] Heart rate 2020-12-29 11:51:00 69 /min [facility] [place] [facility] Body temperature 2020-12-29 11:51:00 36.67 Alannah Univ ers[facility] [place] [facility] Respiratory rate 2020-12-29 11:51:00 18 /min Univ ersity [facility] [place] [facility] Oxygen saturation in 2020-12-29 11:51:00 96 /min University of Arterial blood by [facility] Pulse oximetry Branch Body height 2020-12-26 18:39:00 170.2 cm [facility] [place] [facility] Body weight 2020-12-26 18:39:00 74.844 kg [facility] [place] [facility] BMI 2020-12-26 18:39:00 25.84 kg/m2 [facility] [place] [facility] Systolic blood 2020-12-01 19:05:00 157 mm[Hg] Univer sity of pressure [place] [facility] Diastolic blood 2020-12-01 19:05:00 81 mm[Hg] Unive rsity of pressure [facility] Heart rate 2020-12-01 19:05:00 53 /min [facility] [place] [facility] Respiratory rate 2020-12-01 19:05:00 18 /min Univ ersity [facility] [place] [facility] Oxygen saturation in 2020-12-01 19:05:00 96 /min University of Arterial blood by [facility] Pulse oximetry Branch Body temperature 2020-12-01 18:45:00 36.61 Alannah Univ ers[facility] [place] [facility] Body height 2020-11-30 16:28:00 170.2 cm [facility] [place] [facility] Body weight 2020-11-30 16:28:00 76.204 kg [facility] [place] [facility] BMI 2020-11-30 16:28:00 26.31 kg/m2 [facility] [place] [facility] Systolic blood 2020-12-01 19:05:00 157 mm[Hg] Univer sity of pressure [facility] Diastolic blood 2020-12-01 19:05:00 81 mm[Hg] Unive rsity of pressure [facility] Heart rate 2020-12-01 19:05:00 53 /min [facility] [place] [facility] Respiratory rate 2020-12-01 19:05:00 18 /min Univ ersity [facility] [place] [facility] Oxygen saturation in 2020-12-01 19:05:00 96 /min [facility] Arterial blood by [facility] Pulse oximetry [place] Body temperature 2020-12-01 18:45:00 36.61 Alannah [facility] Body height 2020-11-30 16:28:00 170.2 cm [facility] Body weight 2020-11-30 16:28:00 76.204 kg [facility] BMI 2020-11-30 16:28:00 26.31 kg/m2 [facility] Procedures Procedure Date / Time Performing Source Performed Clinician SARS-COV-2 COVID-19 2021-01-05 Doctor Unassigned, [facility] VACCINE,0.3ML,IM (PFIZER) 21:07:27 [place] [facility]ana PHACOEMULSIFICATION OF 2020-12-29 Aziza [facility] CATARACT WITH INTRAOCULAR 13:43:00 Donato Tejeda LENS IMPLANT DAY SURGERY - [facility] 2020-12-29 Doctor Unassigned, [facility] 05:01:00 [place] [facility] CONSENT/REFUSAL FOR DIAGNOSIS 2020-12-27 Doctor Unassigned, [facility] AND TREATMENT 15:39:08 [place] [facility] CONSENT/REFUSAL FOR DIAGNOSIS 2020-12-27 Doctor Unassigned, [facility] AND TREATMENT 15:39:08 [place] [facility] ASSIGNMENT OF BENEFITS 2020-12-27 Doctor Unassigned, [facility] 15:38:43 [place] [facility] ASSIGNMENT OF BENEFITS 2020-12-27 Doctor Unassigned, [facility] 15:38:43 [place] [facility] PHACOEMULSIFICATION OF 2020-12-01 Aziza [facility] CATARACT WITH INTRAOCULAR 18:05:00 Donato [facility] [place] LENS IMPLANT DAY SURGERY - [facility] 2020-12-01 Doctor Unassigned, [facility] 05:01:00 [place] [facility] COMP. METABOLIC PANEL ([id number]) 2020-11-29 Aziza [facility] 20:06:00 [facility] CBC WITH DIFF 2020-11-29 Aziza [facility] xas 20:06:00 [facility] COVID-19 (ID NOW RAPID 2020-11-29 Aziza [facility] TESTING) 20:00:00 [place] [facility] CONSENT/REFUSAL FOR DIAGNOSIS 2020-11-29 Doctor Unassigned, [facility] AND TREATMENT 19:52:47 [place] [facility] CONSENT/REFUSAL FOR DIAGNOSIS 2020-11-29 Doctor Unassigned, [facility] AND TREATMENT 19:52:47 [place] [facility] ASSIGNMENT OF BENEFITS 2020-11-29 Doctor Unasselsy [facility] 19:52:24 [place] [facility] ASSIGNMENT OF BENEFITS 2020-11-29 Doctor Unassigned, [facility] 19:52:24 [place] [facility] PHYSICIAN ORDERS 2020-11-29 Doctor Unasselsy [facility] 05:01:00 [place] [facility] NO SHOW OR MISSED APPOINTMENT 2020-11-[address] [facility] POLICY ACKNOWLEDGEMENT 18:37:56 [place] [facility] NO SHOW OR MISSED APPOINTMENT 2020-11-[address] [facility] POLICY ACKNOWLEDGEMENT 18:37:56 [place] [facility] PATIENT FINANCIAL POLICY 2020-11-24 Doctor Unassigned, [facility] 18:37:31 [place] [facility] PATIENT FINANCIAL POLICY 2020-11-24 Doctor Unassigned, [facility] 18:37:31 [place] [facility] NOTICE OF BILLING PRACTICES 2020-11-24 Doctor Unassigned, [facility] FOR MEDICARE PATIENTS 18:37:09 [place] [facility] NOTICE OF BILLING PRACTICES 2020-11-24 Doctor Unassigned, [facility] FOR MEDICARE PATIENTS 18:37:09 [place] [facility] NOTICE OF PRIVACY PRACTICES 2020-11-24 Doctor Unassigned, [facility] 18:36:48 [place] [facility] NOTICE OF PRIVACY PRACTICES 2020-11-24 Doctor Unassigned, [facility] 18:36:48 [place] [facility] CONSENT/REFUSAL FOR DIAGNOSIS 2020-11-24 Doctor Unasselsy, [facility] AND TREATMENT 18:36:24 [place] [facility] CONSENT/REFUSAL FOR DIAGNOSIS 2020-11-24 Doctor Unassigned, [facility] AND TREATMENT 18:36:24 [place] [facility] ASSIGNMENT OF BENEFITS 2020-11-24 Doctor Vanessa [facility] 18:35:54 [place] [facility] ASSIGNMENT OF BENEFITS 2020-11-24 Doctor Unassigned, [facility] 18:35:54 [place] [facility] Encounters Start End Encounter Admission Attending Care Care Encounter Source Date/Time Date/Time Type Type Clinicians Facility Department ID 2022-08-14 [facility] [id number] Common 15:09:[id number] [facility] 2022-07-05 [facility] [id number] Common 12:40:[id number] [facility] 2022-05-14 [facility] [id number] Common 13:12:[id number] [facility] 2021-02-06 [facility] [id number] Univers 23:28:51 ARIA [facility] 2021-02-06 Outpatient [facility] [id number] Univers 16:45:17 ARIA [facility] 2021-01-05 2021-01-05 Outpatient [facility] [id number] Univers 16:00:00 16:00:00 ity [facility] 2021-01-05 2021-01-05 Imm/Inj Nurse, Adc Pob Immunization [facility] 1.2.840.114 [id number] Univers 15:56:59 15:57:30 Visit Neal Bergman 350.1.13 .10 [place] [phone] Wy dical [facility] 421 [facility] 2020-12-29 2020-12-29 Hospital [facility] 1.2.840.114 [id number] Univers 06:37:00 09:42:00 Encounter Aria Armendariz [id number] ity [place] [id number] [place] [id number] 2020-12-29 2020-12-29 Surgery [facility] 1.2.840.114 [id number] Univers 08:37:00 09:14:00 Aria Armendariz 350.1.13.10 i [place] [id number] [facility] 020 Branch 2020-12-27 2020-12-27 Laboratory Only, Adc Test [facility] 1.2.840. 114 [id number] Univers 10:33:21 10:48:21 Only Aria Cuenca 350.1.1 3.10 [place] [id number] [facility] 353 Branch 2020-12-27 2020-12-27 Outpatient R AZIZA [facility] [id number] Univers 10:30:00 10:30:00 ARIA itdominick [facility] 2020-12-01 2020-12-01 [facility] 1.2.840.114 [id number] Univers 11:37:00 14:35:00 Encounter Aria Armendariz [id number] ity [place] [id number] [facility] 071 Branch 2020-12-01 2020-12-01 Surgery [facility] 1.2.840.114 [id number] Univers 13:47:00 14:24:00 Aria Armendariz 350.1.13.10 i ty [place] [id number] [facility] 020 Branch 2020-12-01 2020-12-01 Orders Doctor PELLETIER 1.2.840.114 [id number] Univers 00:00:00 00:00:00 Only Unassigned, BHARATH 350.1.13.10 ity of [place] [facility] 4.2.7.2.686 Fritz as [phone] [facility] 009 Branch 2020-11-29 2020-11-29 Outpatient R AZIZA [facility] [id number] Univers 15:15:00 15:15:00 ARIA holm of [facility] 2020-11-29 2020-11-29 Inspector And Tester Nguyen, Adc Lab Main [facility] 1.2.8 40.114 [id number] Univers 14:53:37 15:08:37 Visit Aria Cuenca 350.1.1 3.10 it[place] [id number] Wy dical [facility] 353 Branch Building 2020-11-29 2020-11-29 Laboratory Only, Adc Test [facility] 1.2.840. 114 [id number] Univers 14:52:54 15:07:54 Only Aziza, Aria Armendariz 350.1.1 3.10 [place] [phone] [facility] 353 Branch 2020-11-29 2020-11-29 Orders Doctor PRABHU 1.2.840.114 [id number] Univers 00:00:00 00:00:00 Only Unassigned, BHARATH 350.1.13.10 ity of [place] [facility] 4.2.7.2.686 Fritz as [phone] [facility] 009 Branch Results Test Description Test Time Test Comments Results Result Comments Source COMP. METABOLIC PANEL (00406) 2020-11-29 20:35:55 Test Item Value Reference Range Interpretation Comme nts NA (test code = 0288430615) 135 mmol/L 135-145 K (test code = 0762335016) 3.6 mmol/L 3.5-5.0 CL (test code = 7090939020) 100 mmol/L 98-108 CO2 TOTAL (test code = 25 mmol/L 23-31 7611781394) AGAP (test code = 4435476236) 2-16 BUN (test code = 5030666765) 11 mg/dL 7-23 GLUCOSE (test code = 0290146542) 100 mg/dL 70-110 CREATININE (test code = 0.67 mg/dL 0.60-1.25 6645582546) TOTAL BILI (test code = 0.7 mg/dL 0.1-1.8 1960668660) CALCIUM (test code = 9971327146) 9.3 mg/dL 8.6-10.6 T PROTEIN (test code = 7.4 g/dL 6.3-8.2 8193559013) ALBUMIN (test code = 5851801113) 4.3 g/dL 3.5-5.0 ALK PHOS (test code = 2580515323) 55 U/L 34-122 ALTv (test code = 1742-6) 14 U/L 5-50 AST(SGOT) (test code = 25 U/L 13-40 5349534232) eGFR (test code = 6718609590) mL/min/1.73m2 REJI (test code = REJI) Association of Glomerular Filtration Rate (GFR) and Staging of Kidney Disease* + +--------- + ----+| GFR (mL/min/1.73 m2) ?| With Kidney Damage ?| ?Without Kidney Damage+ +--- + +| ?>90 ?| ?Stage one ?| ? Normal ?+ +-------- + -----+| ?60-89 ?| ?Stage two ?| ? Decreased GFR ? + +--------- + ----+| ?30-59 ?| ?Stage three ?| ? Stage three ? + +--------- + ----+| ?15-29 ?| ?Stage four ? | ? Stage four ?+ +-------- + -----+| ?<15 (or dialysis) ? ?| ?Stage five ? | ? Stage five ?+ +-------- + -----+ *Each stage assumes the associated GFR level has been in effect for at least three months. ?Stages 1 to 5, with or without kidney disease, indicate chronic kidney disease. Notes: Determination of stages one and two (with eGFR >59mL/min/1.73 m2) requires estimation of kidney damage for at least three months as defined by structural or functional abnormalities of the kidney, manifested by either:Pathological abnormalities or Markers of kidney damage (including abnormalities in the composition of the blood or urine or abnormalities in imaging tests). [facility]. METABOLIC PANEL (27977)2020-11-29 20:35:55 Test Item Value Reference Range Interpretation Comments NA (test code = 8977969149) 135 mmol/L 135-145 K (test code = 0541158164) 3.6 mmol/L 3.5-5.0 CL (test code = 8195864582) 100 mmol/L 98-108 CO2 TOTAL (test code = 3918931365) 25 mmol/L 23-31 AGAP (test code = 7314512814) 2-16 BUN (test code = 3918076911) 11 mg/dL 7-23 GLUCOSE (test code = 4835604944) 100 mg/dL 70-110 CREATININE (test code = 0.67 mg/dL 0.60-1.25 2435549353) TOTAL BILI (test code = 0.7 mg/dL 0.1-1.9 1566463328) CALCIUM (test code = 7379564312) 9.3 mg/dL 8.6-10.6 T PROTEIN (test code = 8263853940) 7.4 g/dL 6.3-8.2 ALBUMIN (test code = 1795854581) 4.3 g/dL 3.5-5.0 ALK PHOS (test code = 0466228409) 55 U/L 34-122 ALTv (test code = 1742-6) 14 U/L 5-50 AST(SGOT) (test code = 3872025641) 25 U/L 13-40 eGFR (test code = 7496531781) mL/min/1.73m2 REJI (test code = REJI) [facility]-19 (ID NOW RAPID TESTING)2020-11-29 20:22:33 Test Item Value Reference Range Interpretation Comments SARS-CoV-2 Rapid ID NOW Not Detected Not Detected (test code = 90485-8) REJI (test code = REJI) ID NOW COVID-19 Assay is an isothermal nucleic acid amplification test intended for the qualitative detection of nucleic acid from SARS-CoV-2 viral RNA in nasopharyngeal (PERSONNEL AND PAYROLL TECHNICIAN) specimens. It is used under Emergency Use Authorization (EUA) by FDA. The limit of detection (LOD) of the assay is 125 Genome Equivalents/mL. A positive result is indicative of the presence of SARS-CoV-2 RNA. ?Clinical correlation with patient history and other diagnostic information is necessary to determine patient infection status. A negative (Not Detected) result does not preclude SARS-CoV-2 infection. In patients with clinical symptoms and other tests that are consistent with SARS-CoV-2 infection, negative results should be treated as presumptive negative and a new specimen should be tested with alternative PCR molecular test. Invalid: Please collect a new specimen for repeat patient testing if clinically indicated. Lab Interpretation Normal (test code = 67127-6) [facility]-19 (ID NOW RAPID TESTING)2020-11-29 20:22:33 Test Item Value Reference Range Interpretation Comments SARS-CoV-2 Rapid ID NOW (test Not Detected Not Detected code = 15651-0) REJI (test code = REJI) Lab Interpretation (test code = Normal 70764-8) [facility] WITH [id number] 20:15:39 Test Item Value Reference Range Interpretation Comments WBC (test code = See_Comment [Automated 6690-2) message] The sy stem which generated this result transmitted reference range : 4.20 - 10.70 10*3/?L. The reference range was not used to interpret this result as normal/abnormal . RBC (test code = See_Comment [Automated 789-8) message] The sy stem which generated this result transmitted reference range : 4.26 - 5.52 10*6/?L. The reference range was not used to interpret this result as normal/abnormal . HGB (test code = 14.5 g/dL 12.2-16.4 718-7) HCT (test code = 41.6 % 38.4-49.3 4544-3) MCV (test code = 95.4 fL 81.7-95.6 787-2) MCH (test code = 33.3 pg 26.1-32.7 H 785-6) MCHC (test code = 34.9 g/dL 31.2-35.0 786-4) RDW-SD (test code = 44.8 fL 38.5-51.6 20608-7) RDW-CV (test code = 12.7 % 12.1-15.4 788-0) PLT (test code = See_Comment [Automated 777-3) message] The sy stem which generated this result transmitted reference range : 150 - 328 10*3/ ?L. The reference r ch[place] was not used to interpret this result as normal/abnormal . MPV (test code = 9.8 fL 9.8-13.0 62283-6) NRBC/100 WBC (test See_Comment [Automat ed code = 3701043193) message] The system which generated this result transmitted reference range : 0.0 - 10.0 /100 WBCs. The refer ence range was not u sed to interpret th is result as normal/abnormal . NRBC x10^3 (test code <0.01 See_Comment [Auto mated = 7048786542) message] The s ystem which generated this result transmitted reference range : 10*3/?L. The reference range was not used to interpret this result as normal/abnormal . GRAN MAT (NEUT) % 47.2 % (test code = 770-8) IMM GRAN % (test code 0.20 % = 4087296456) LYMPH % (test code = 36.8 % 736-9) MONO % (test code = 14.4 % 5905-5) EOS % (test code = 0.6 % 713-8) BASO % (test code = 0.8 % 706-2) GRAN MAT x10^3(ANC) 2.36 10*3/uL 1.99-6.95 (test code = 2191962866) IMM GRAN x10^3 (test <0.03 0.00-0.06 code = 8866763803) LYMPH x10^3 (test code 1.84 10*3/uL 1.09-3.23 = 731-0) MONO x10^3 (test code 0.72 10*3/uL 0.36-1.02 = 742-7) EOS x10^3 (test code = 0.03 10*3/uL 0.06-0.53 L 711-2) BASO x10^3 (test code 0.04 10*3/uL 0.01-0.09 = 704-7) Lab Interpretation Abnormal (test code = 52845-2) [facility] WITH [id number] 20:15:39 Test Item Value Reference Range Interpretation Comments WBC (test code = See_Comment [Automated 3690-2) message] The sy stem which generated this result transmitted reference range : 4.20 - 10.70 10*3/?L. The reference range was not used to interpret this result as normal/abnormal . RBC (test code = See_Comment [Automated 129-8) message] The sy stem which generated this result transmitted reference range : 4.26 - 5.52 10*6/?L. The reference range was not used to interpret this result as normal/abnormal . HGB (test code = 14.5 g/dL 12.2-16.4 718-7) HCT (test code = 41.6 % 38.4-49.3 4544-3) MCV (test code = 95.4 fL 81.7-95.6 787-2) MCH (test code = 33.3 pg 26.1-32.7 H 785-6) MCHC (test code = 34.9 g/dL 31.2-35.0 786-4) RDW-SD (test code = 44.8 fL 38.5-51.6 01685-1) RDW-CV (test code = 12.7 % 12.1-15.4 788-0) PLT (test code = See_Comment [Automated 777-3) message] The sy stem which generated this result transmitted reference range : 150 - 328 10*3/ ?L. The reference r [place] was not used to interpret this result as normal/abnormal . MPV (test code = 9.8 fL 9.8-13.0 81493-4) NRBC/100 WBC (test See_Comment [Automat ed code = [id number]) message] The system which generated this result transmitted reference range : 0.0 - 10.0 /100 WBCs. The refer ence range was not u sed to interpret th is result as normal/abnormal . NRBC x10^3 (test code <0.01 See_Comment [Auto mated = [id number]) message] The s ystem which generated this result transmitted reference range : 10*3/?L. The reference range was not used to interpret this result as normal/abnormal . GRAN MAT (NEUT) % 47.2 % (test code = 770-8) IMM GRAN % (test code 0.20 % = 6287930435) LYMPH % (test code = 36.8 % 736-9) MONO % (test code = 14.4 % 5905-5) EOS % (test code = 0.6 % 713-8) BASO % (test code = 0.8 % 706-2) GRAN MAT x10^3(ANC) 2.36 10*3/uL 1.99-6.95 (test code = 9802698449) IMM GRAN x10^3 (test <0.03 0.00-0.06 code = 9091511221) LYMPH x10^3 (test code 1.84 10*3/uL 1.09-3.23 = 731-0) MONO x10^3 (test code 0.72 10*3/uL 0.36-1.02 = 742-7) EOS x10^3 (test code = 0.03 10*3/uL 0.06-0.53 L 711-2) BASO x10^3 (test code 0.04 10*3/uL 0.01-0.09 = 704-7) Lab Interpretation Abnormal (test code = 63847-3) [facility]"
[2022-09-27] MEDS ORDERED: FLEET ENEMA ADULT PR ONE (12:40)
--- NOTE | 2022-09-27 13:30 | ER ---
Nurse's Notes [facility] Name: Alvin Soliman Age: 86 yrs Sex: Male : 1935 Arrival Date: 09/27/2022 Time: 12:19 Bed 20 Private MD: Diagnosis: Fecal impaction;Constipation Presentation: 09/27 12:29 Chief complaint: Patient states: Constipation, last BM 5 days ago. Enema did not help, ll1 currently getting radiation to neck area. No fever. Coronavirus screen: Vaccine status: Patient reports receiving the 2nd dose of the covid vaccine. Client denies travel out of the [place] in the last 14 days. At this time, the client does not indicate any symptoms associated with coronavirus-19. Ebola Screen: Patient denies travel to an Ebola-affected area in the 21 days before illness onset. Initial Sepsis Screen: Does the patient meet any 2 criteria? No. Patient's initial sepsis screen is negative. Does the patient have a suspected source of infection? No. Patient's initial sepsis screen is negative. Risk Assessment: Do you want to hurt yourself or someone else? Patient reports no desire to harm self or others. Onset of symptoms was September 23, 2022. 12:29 Method Of Arrival: Ambulatory ll1 12:29 Acuity: RUDY 3 ll1 Triage Assessment: 12:30 General: Appears uncomfortable, Behavior is calm, cooperative, appropriate for age. ll1 Pain: Denies pain. GI: Reports constipation. Historical: - Allergies: 12:28 No Known Allergies; ll1 - PMHx: 12:28 High Cholesterol; Hypertension; ll1 - PSHx: 12:28 radiation; ll1 - Immunization history:: Adult Immunizations up to date. - Social history:: Smoking status: Patient denies any tobacco usage or history of. Screenin:30 [facility] ED Fall Risk Assessment (Adult) History of falling in the last 3 months, ko1 including since admission No falls in past 3 months (0 pts) Confusion or Disorientation No (0 pts) Intoxicated or Sedated No (0 pts) Impaired Gait No (0 pts) Mobility Assist Device Used No (0 pt) Altered Elimination No (0 pt) Score/Fall Risk Level 0 - 2 = Low Risk Oriented to surroundings, Maintained a safe environment, Educated pt \T\ family on fall prevention, incl call for assistance when getting out of bed, Assessed \T\ reinforced patient's understanding of fall precautions, Provided non-skid footwear, Hourly rounding (assess needs \T\ fall precautionary measures) done, Used ambulatory aids as needed (educated on \T\ assisted with), Used gait belt as appropriate. Abuse screen: Denies threats or abuse. Denies injuries from another. Nutritional screening: No deficits noted. Tuberculosis screening: No symptoms or risk factors identified. Assessment: 12:30 General: Appears in no apparent distress. comfortable, Behavior is calm, cooperative, ko1 appropriate for age. Pain: Complains of pain in abdomen. Neuro: No deficits noted. Cardiovascular: No deficits noted. Respiratory: No deficits noted. GI: Bowel sounds present X 4 quads. Abd is non tender. : No deficits noted. EENT: No deficits noted. Derm: No deficits noted. Musculoskeletal: No deficits noted. Vital Signs: 12:29 BP 138 / 80; Pulse 83; Resp 17; Temp 98.3; Pulse Ox 97% on R/A; Weight 68.04 kg; Height ll1 5 ft. 6 in. ; Pain 0/10; 13:34 BP 136 / ???; Pulse 78; Resp 78; Pulse Ox 98% ; ko1 12:29 Body Mass Index 24.21 (68.04 kg, 167.64 cm) ll1 12:29 Pain Scale: Adult ll1 ED Course: 12:21 Patient arrived in ED. rg4 12:21 [facility]C [facility] kb 12:22 Jorge Breen MD is Attending Physician. kb 12:28 Arm band placed on Patient placed in an exam room, on a stretcher. ll1 12:29 America Colon, RAFAT is Primary Nurse. ko1 12:30 Triage completed. ll1 12:30 Patient has correct armband on for positive identification. Placed in gown. Bed in low ko1 position. Call light in reach. Pulse ox on. NIBP on. Door closed. Noise minimized. Warm blanket given. 13:34 No provider procedures requiring assistance completed. Patient did not have IV access ko1 during this emergency room visit. Administered Medications: 12:45 Drug: Fleet Enema [place] 133 ml Route: NV; ko1 Medication: 12:30 VIS not applicable for this client. ko1 Outcome: 13:29 Discharge ordered by MD. gonzalez 13:34 Discharged to home ambulatory. ko1 13:34 Condition: improved 13:34 Discharge instructions given to patient, Instructed on discharge instructions, follow up and referral plans. Demonstrated understanding of instructions, follow-up care. 13:35 Patient left the ED. ko1 Signatures: Maile Ortiz, LIBRARIAN HEAD-C LIBRARIAN HEAD-Gosia Love rg4 Deion Ibanez RN RN ll1 America Colon RN RN ko1
--- NOTE | 2022-09-27 13:31 | EDPHYS ---
Physician Documentation [facility] Name: Alvin Soliman Age: 86 yrs Sex: Male : 1935 Arrival Date: 09/27/2022 Time: 12:19 Bed 20 Private MD: ED Physician Jorge Breen HPI: 09/27 12:45 This 86 yrs old Male presents to ER via Ambulatory with complaints of Constipation. kb 12:45 The patient presents to the emergency department with pain in the rectal area. Onset: kb The symptoms/episode began/occurred this morning. Context: the patient "impacted". Modifying factors: The symptoms are alleviated by nothing, The symptoms are aggravated by nothing. Associate signs and symptoms: Pertinent positives: constipation, Pertinent negatives: abdominal pain, diarrhea, dysuria, fever, lower GI bleeding, vomiting. The patient has not experienced similar symptoms in the past. The patient has not recently seen a physician. Pt reports he is constipated and impacted. States he tried to do an enema this morning and disimpact himself, but was unable. States last BM was 5 days ago. Denies abd pain, n/v. Historical: - Allergies: 12:28 No Known Allergies; ll1 - PMHx: 12:28 High Cholesterol; Hypertension; ll1 - PSHx: 12:28 radiation; ll1 - Immunization history:: Adult Immunizations up to date. - Social history:: Smoking status: Patient denies any tobacco usage or history of. ROS: 12:44 Constitutional: Negative for fever, chills, and weight loss. kb 12:44 Abdomen/GI: Positive for constipation, Negative for abdominal pain, nausea, vomiting, and diarrhea. 12:44 All other systems are negative. Exam: 12:44 Constitutional: This is a well developed, well nourished patient who is awake, alert, kb and in no acute distress. Head/Face: Normocephalic, atraumatic. ENT: Moist Mucous membranes Cardiovascular: Regular rate and rhythm with a normal S1 and S2. No gallops, murmurs, or rubs. No pulse deficits. Respiratory: Respirations even and unlabored. No increased work of breathing. Talking in full sentences Abdomen/GI: Soft, non-tender. No distention Skin: Warm, dry with normal turgor. Normal color. MS/ Extremity: Pulses equal, no cyanosis. Neurovascular intact. Full, normal range of motion. Neuro: Awake and alert, GCS 15, oriented to person, place, time, and situation. Moves all extremities. Normal gait. Vital Signs: 12:29 BP 138 / 80; Pulse 83; Resp 17; Temp 98.3; Pulse Ox 97% on R/A; Weight 68.04 kg; Height ll1 5 ft. 6 in. ; Pain 0/10; 13:34 BP 136 / ???; Pulse 78; Resp 78; Pulse Ox 98% ; ko1 12:29 Body Mass Index 24.21 (68.04 kg, 167.64 cm) ll1 12:29 Pain Scale: Adult ll1 MDM: 12:22 Patient medically screened. kb 12:45 Data reviewed: vital signs, nurses notes. kb 12:47 Differential diagnosis: constipation, fecal impaction. kb 13:29 Counseling: I had a detailed discussion with the patient and/or guardian regarding: the kb historical points, exam findings, and any diagnostic results supporting the discharge/admit diagnosis, the need for outpatient follow up, a family practitioner, to return to the emergency department if symptoms worsen or persist or if there are any questions or concerns that arise at home. ED course: Pt had a large BM and is feeling better. States he is ready to go home. Administered Medications: 12:45 Drug: Fleet Enema [place] 133 ml Route: [place]; ko1 Disposition: 09/28 09:58 Co-signature as Attending Physician, Jorge Breen MD I reviewed the patient's care rt provided by the Advanced Practice Provider and agree with the diagnosis and treatment plan. Disposition Summary: 09/27/22 13:29 Discharge Ordered Location: Home kb Condition: Stable kb Diagnosis - Fecal impaction kb - Constipation kb Followup: kb - With: Emergency Department - When: As needed - Reason: Worsening of condition Followup: kb - With: Private Physician - When: 2 - 3 days - Reason: Recheck today's complaints, Continuance of care, Re-evaluation by your physician Discharge Instructions: - Discharge Summary Sheet kb - Constipation, Adult, [id number] kb - Fecal Impaction kb Forms: - Medication Reconciliation Form kb - Thank You Letter kb - Antibiotic Education kb - Prescription Opioid Use kb Signatures: Maile Ortiz FNP-C FNP-Deion Clark RN RN ll1 America Colon, RN RN ko1 Jorge Breen MD MD rt
[2022-09-27 13:40] VITALS: BP 138/80; TEMP 98.3
[2022-09-27 13:41] VITALS: O2SAT 98
== END 2022-09-27 13:35 | disposition home or self-care (01) ==
LOC: ER 12:19
DX: K56.41 Fecal impaction (principal)
CPT/HCPCS: 99283

== ENCOUNTER 2022-09-30 20:35 | Emergency (ER) | payer OTHER ==
--- OUTSIDE RECORDS SUMMARY | 2022-09-30 20:39 | XMS REPORT | Continuity of Care Document ---
:1935 Author Organization [facility] t Address [address] [place] [address] [address] [place] [address] Care Team Providers Name Role Phone Sherley LOPES, Geronimo Mcneal Primary Care Physician [phone] ARIA CUENCA Attending Clinician Unavailable Nurse, Adc Pob Immunization Attending Clinician Unavailable Neal Bergman DO Attending Clinician Aria Cuenca MD Attending Clinician Only, Adc Test Attending Clinician Unavailable Doctor Unassigned, [place] Attending Clinician Unavailable Pob, Adc Lab Main Attending Clinician Unavailable ARIA CUENCA Admitting Clinician Unavailable Aria Cuenca MD Admitting Clinician Payers Payer Name Policy Type Policy Number Effective Date Expiration Date [facility] [id number] 2020 [facility] 00:00:00 PPO Problems This patient has no known problems. Allergies, Adverse Reactions, Alerts Allergy Allergy Status Severity Reaction(s) Onset Inactive Treating Comm ents Source Name Type Date Date Clinician NO KNOWN Drug Active [facility] [place] [facility] Social History Social Habit Start Date Stop Date Quantity Comments Source Exposure to Not sure [facility] SARS-CoV-2 (event) Medica l Branch Tobacco use and 2020-11-30 2020-11-30 Never used [facility] exposure 00:00:00 00:00:00 Medical Branch Sex Assigned At [birth year] [facility] y [facility] 00:00:00 00:00:00 Medical Branch Smoking Status Start Date Stop Date Source Unknown if ever smoked [facility] Never smoker [facility] Medications Ordered Filled Start Stop Current Ordering Indication Dosage Frequency Signature Comments Components Source Medication Medication Date Date Medication? Clinician (SIG) Name Name DUOVISC Yes PRN, Univers (DUOVISC 12-29 Starting ity of VISCO 14:06: on Yanet [place] ELASTIC) 3 00 12/29/20 at Med ical %-4 %(0.5 0906, Branch mL) 1 % Until (0.55 mL) Discontinu intraocular ed, injection Routine, Intra-op NaCl 0.9% Yes PRN, Univers (NS) 12-29 Starting ity of injection 14:06: on Yanet [place] 12/29/[address] Until Discontinu ed, Routine, Intra-op DUOVISC 2020- No PRN, Univers (DUOVISC 12-29 Starting ity of VISCO 14:06: 17:40 on [facility] ELASTIC) 3 00 :24 12/29/20 at [facility] ical %-4 %(0.5 0906, Branch mL) 1 % Until Yanet (0.55 mL) 12/29/20 at intraocular 1240, injection Routine, Intra-op NaCl 0.9% 2020- No PRN, Univers (NS) 12-29 Starting ity of injection 14:06: 17:40 on [facility] [place] 00 :24 12/29/[address] Until Yanet 12/29/20 at 1240, Routine, Intra-op gentamicin Yes PRN, Univers injection 12-29 Starting ity of 14:05: on Yanet [place] 00 12/29/[address] Until Discontinu ed, KEVIN, Intra-op neomycin-po Yes PRN, Univer s lymyxin-dex 12-29 Starting ity of amethasone 14:05: on Yanet [place] (MAXITROL) 00 12/29/20 at [facility] ical 3.5 05, [place] mg/g-10,000 Until unit/g-0.1 Discontinu % ed, ophthalmic Routine, ointment Intra-op gentamicin 2020- No PRN, Univer s injection 12-29 Starting ity o f 14:05: 17:40 on Yanet [place] 00 :24 12/29/20 at [facility] 0905, Branch Until Yanet 12/29/20 at 1240, KEVIN, Intra-op neomycin-po 2020- No PRN, [facility] lymyxin-dex 12-29 Starting ity of amethasone 14:05: 17:40 [place] (MAXITROL[place] 00 :24 12/29/20 at [facility] ical 3.5 09, [place] mg/g-10,000 Until Yanet unit/g-0.1 12/29/20 at % 1240, ophthalmic Routine, ointment Intra-op dexamethaso Yes PRN, Univer s ne 12-29 Starting ity of (DECADRON 14:04: on Yanet [place] PHOSPHATE) 00 12/29/20 at Med ical injection 09, [place] Until Discontinu ed, Routine, Intra-op ceFAZolin Yes PRN, Univers (ANCEF) 12-29 Starting ity of injection 14:04: on Yanet [place] 00 12/29/20 at [facility] 0904, Branch Until Discontinu ed, KEVIN, Intra-op dexamethaso 2020- No PRN, [facility] ne 12-29 Starting ity of (DECADRON 14:04: 17:40 on Yanet [place] PHOSPHATE) 00 :24 12/29/20 at Med ical injection 09, Branch Until Yanet 12/29/20 at 1240, Routine, Intra-op ceFAZolin 2020- No PRN, Univers (ANCEF) 12-29 Starting ity of injection 14:04: 17:40 on Yanet [place] 00 :24 12/29/20 at [facility] 0904, Branch Until Yanet 12/29/20 at 1240, KEVIN, Intra-op EPINEPHrine Yes PRN, [facility] (PF) 12-29 Starting ity of 1:1,000 (1 14:01: on Yanet [place] mg/mL) 00 12/29/20 at [facility] (ADRENALIN 09, Branch (PF)) Until injection Discontinu ed, Routine, Intra-op balanced Yes PRN, Univers salt soln 12-29 Starting ity of no.2 irrig. 14:01: on [place] (BSS) 00 12/29/20 at [facility] ophthalmic 0901, Branch solution Until Discontinu ed, Routine, Intra-op EPINEPHrine 2020- No PRN, Unive rs (PF) 12-29 Starting ity of 1:1,000 (1 14:01: 17:40 on [place] mg/mL) 00 :24 12/29/20 at [facility] (ADRENALIN 01, Branch (PF)) Until Yanet injection 12/29/20 at 1240, Routine, Intra-op balanced 2020- No PRN, Univers salt soln 12-29 Starting ity o f no.2 irrig. 14:01: 17:40 on Yanet [place] (BSS) 00 :24 12/29/20 at [facility] ophthalmic 0901, Branch solution Until Yanet 12/29/20 at 1240, Routine, Intra-op water for Yes PRN, Univers irrigation 12-29 Starting ity o f irrigation 13:55: on Yanet [place] solution 00 12/29/20 at Medic al 0855, Branch Until Discontinu ed, Routine, Intra-op eye block Yes PRN, Univers syringe 11 12-29 Starting ity o f mL 13:55: on Yanet [place] 00 12/29/20 at [facility] 0855, Branch Until Discontinu ed, [...] of ) 0.5 % 13:54: on Yanet [place] ophthalmic 00 12/29/20 at Med ical drops 0854, Branch Until Discontinu ed, Routine, Intra-op tetracaine 2020- No PRN, Univer s (PONTOCAINE 12-29 Starting ity of ) 0.5 % 13:54: 17:40 on Yanet [place] ophthalmic 00 :24 12/29/20 at Med ical [...] Pre-op lactated 2020- No 1000mL at 42 [facility] ringers IV 12-29 mL/hr, ity of infusion 11:45: 11:59 1,000 mL, [place] 1,000 mL 00 :00 IV Medical Infusion, Branch ONCE, 1 dose, On Yanet 12/29/20 at 0645, Routine, DSU Pre-op lactated 2020- No 1000mL at 42 [facility] ringers IV 12-29 mL/hr, ity of infusion 11:45: 11:59 1,000 mL, [place] 1,000 mL 00 :00 IV Medical Infusion, Branch ONCE, 1 dose, On Yanet 12/29/20 at 0645, Routine, DSU Pre-op aspirin 81 Yes 81mg Take 81 mg U nivers mg chewable 12-29 by mouth ity of tablet 10:35: daily. [address] amLODIPine Yes 5mg Take 5 mg Un delio 5 mg tablet 9-23 by mouth ity of 10:35: daily. [place] [address] Medical Branch losartan 0 Yes 100mg Take [...] by mouth ity of tablet 10:35: daily. [place] [address] Medical Branch amLODIPine 0 Yes 5mg Take 5 mg Un delio 5 mg tablet 9-23 by mouth ity of 10:35: daily. [place] [address] Medical Branch losartan 0 Yes 100mg Take [...] by mouth ity of tablet 10:35: daily. [place] [address] Medical Branch amLODIPine 0 Yes 5mg Take 5 mg Un delio 5 mg tablet 9-23 by mouth ity of 10:35: daily. [place] [address] Medical Branch losartan 0 Yes 100mg Take [...] by mouth ity of tablet 13:38: daily. [place] [address] Medical Branch amLODIPine 0 Yes 5mg Take 5 mg Un delio 5 mg tablet 9-20 by mouth ity of 13:38: daily. [place] [address] Medical Branch losartan 2020-0 Yes 100mg Take 100 Univ ers 100 mg 9-20 mg by ity of tablet 13:38: mouth [place] 56 daily. Medical Branch aspirin 81 2020-0 Yes 81mg Take 81 mg U nivers mg chewable 9-20 by mouth ity of tablet 13:38: daily. [place] [address] Medical Branch amLODIPine 0 Yes 5mg Take 5 mg Un delio 5 mg tablet 9-20 by mouth ity of 13:38: daily. [place] [address] Medical Branch losartan 2020-0 Yes 100mg Take 100 Univ ers 100 mg 9-20 mg by ity of tablet 13:38: mouth [place] 56 daily. Medical Branch aspirin 81 0 Yes 81mg Take 81 mg U nivers mg chewable 8-26 by mouth ity of tablet 19:38: daily. [place] [address] Medical Branch amLODIPine 0 Yes 5mg Take 5 mg Un delio 5 mg tablet 8-26 by mouth ity of 19:38: daily. [place] [address] Medical Branch losartan 2020-0 Yes 100mg Take [...] by mouth ity of tablet 19:38: daily. [place] [address] Medical Branch amLODIPine 2020-0 Yes 5mg Take 5 mg Un delio 5 mg tablet 8-26 by mouth ity of 19:38: daily. [place] [address] Medical Branch losartan 2020-0 Yes 100mg Take [...] by mouth ity of tablet 19:38: at [place] [address] bedtime. Medical Branch traZODone 2020-0 Yes 50mg Take 50 mg Un delio 50 mg 8-26 by mouth ity of tablet 19:38: at [place] [address] bedtime. Medical Branch aspirin 81 2020-0 Yes [...] by mouth ity of tablet 19:38: at [place] [address] bedtime. Medical Branch aspirin 81 2020-0 Yes [...] by mouth ity of tablet 19:38: at [place] [address] bedtime. Medical Branch traZODone Yes 50mg Take 50 mg Un delio 50 mg 8-26 by mouth ity of tablet 19:38: at [place] [address] bedtime. Medical Branch aspirin 81 0 Yes 81mg Take 81 mg U nivers mg chewable 8-26 by mouth ity of tablet 19:38: daily. Medical Branch amLODIPine Yes 5mg Take 5 mg Un delio 5 mg tablet 8-26 by mouth ity of 19:38: daily. Medical Branch losartan Yes 100mg Take 100 Univ ers 100 mg 8-26 mg by ity of tablet 19:38: mouth [place] 04 daily. Medical Branch pravastatin Yes 40mg Take 40 mg Univers 40 mg 8-26 by mouth ity of tablet 19:38: at [place] [address] bedtime. Medical Branch traZODone Yes 50mg Take 50 mg Un delio 50 mg 8-26 by mouth ity of tablet 19:38: at [place] [address] bedtime. Medical Branch gentamicin 0 Yes PRN, Univers injection 12-01 Starting ity of 18:32: Yanet [place] 12/01/[address] Until Discontinu ed, KEVIN, Intra-op gentamicin 2020-0 Yes PRN, Univers injection 12-01 Starting ity of 18:32: Yanet [place] 00 12/01/[address] Until Discontinu ed, KEVIN, Intra-op gentamicin 2020-0 2020- No PRN, Univer s injection 12-01 Starting ity o f 18:32: 21:38 Yanet [place] 00 :07 12/01/[address] Branch Until Yanet 12/01/20 at 1638, KEVIN, Intra-op gentamicin 2020-0 2020- No PRN, Univer s injection 12-01 Starting ity o f 18:32: 21:38 Yanet [place] 00 :07 12/01/20 at Medical 1332, Branch Until Yanet 12/01/20 at 1638, KEVIN, Intra-op tetracaine Yes PRN, Univers (PONTOCAINE 12-01 Starting ity of ) 0.5 % 17:24: Yanet [place] ophthalmic 00 12/01/20 at [facility] ical drops 1224, Branch Until Discontinu ed, Routine, Intra-op tetracaine Yes PRN, Univers (PONTOCAINE 12-01 Starting ity of ) 0.5 % 17:24: Yanet [place] ophthalmic 00 12/01/20 at [facility] ical drops 1224, Branch Until Discontinu ed, Routine, Intra-op tetracaine 2020- No PRN, Univer s (PONTOCAINE 12-01 Starting ity of ) 0.5 % 17:24: 21:38 Yanet [place] ophthalmic 00 :07 12/01/20 at [facility] ical drops 1224, Branch Until Yanet 12/01/20 at 1638, Routine, Intra-op tetracaine 2020- No PRN, Univer s (PONTOCAINE 12-01 Starting ity of ) 0.5 % 17:24: 21:38 Yanet [place] ophthalmic 00 :07 12/01/20 at [facility] ica drops 1224, Branch Until Yanet 12/01/20 at 1638, Routine, Intra-op water for Yes PRN, Univers irrigation 12-01 Starting ity o f irrigation 17:23: Yanet [place] solution 12/01/20 at Medic al 1223, Branch Until Discontinu ed, Routine, Intra-op NaCl 0.9% Yes PRN, Univers (NS) 12-01 Starting ity of injection 17:23: Yanet [place] 12/01/20 at [facility] 1223, Branch Until Discontinu ed, Routine, Intra-op neomycin-po Yes PRN, Univer s lymyxin-dex 12-01 Starting ity of amethasone 17:23: Yanet [place] (MAXITROL) 00 12/01/20 at [facility] 3.5 1223, Branch mg/g-10,000 Until unit/g-0.1 Discontinu % ed, ophthalmic Routine, ointment Intra-op water for Yes PRN, Univers irrigation 12-01 Starting ity o f irrigation 17:23: Yanet [place] solution 00 12/01/20 at [place] [address], [place] Until Discontinu ed, Routine, Intra-op NaCl 0.9% Yes PRN, Univers (NS) 12-01 Starting ity of injection 17:23: Yanet [place] 00 12/01/20 at [place] [address], Branch Until Discontinu ed, Routine, Intra-op neomycin-po Yes PRN, Univer s lymyxin-dex 12-01 Starting ity of amethasone 17:23: Yanet [place] (MAXITROL) 00 12/01/20 at [place] [address], [place] mg/g-10,000 Until unit/g-0.1 Discontinu % ed, ophthalmic Routine, ointment Intra-op water for 2020- No PRN, Univers irrigation 12-01 Starting ity of irrigation 17:23: 21:38 Yanet [place] solution 00 :07 12/01/20 at [place] [address], Branch Until Yanet 12/01/20 at 1638, Routine, Intra-op NaCl 0.9% 2020- No PRN, Univers (NS) 12-01 Starting ity of injection 17:23: 21:38 Yanet [place] 00 :07 12/01/20 at [place] [address], Branch Until Yanet 12/01/20 at 1638, Routine, Intra-op neomycin-po 2020- No PRN, Unive rs lymyxin-dex 12-01 Starting ity of amethasone 17:23: 21:38 Yanet [place] (MAXITROL) 00 :07 12/01/20 at [place] [address], [place] mg/g-10,000 Until Yanet unit/g-0.1 12/01/20 at % 1638, ophthalmic Routine, ointment Intra-op water for 2020- No PRN, Univers irrigation 12-01 Starting ity of irrigation 17:23: 21:38 Yanet [place] solution 00 :07 12/01/20 at [facility] al 1223, Branch Until Yanet 12/01/20 at 1638, Routine, Intra-op NaCl 0.9% 2020- No PRN, Univers (NS) 12-01 Starting ity of injection 17:23: 21:38 Yanet [place] 00 :07 12/01/20 at [facility] 1223, Branch Until Yanet 12/01/20 at 1638, Routine, Intra-op neomycin-po 2020- No PRN, Unive rs lymyxin-dex 12-01 Starting ity of amethasone 17:23: 21:38 Yanet [place] (MAXITROL) 00 :07 12/01/20 at [facility] ical 3.5 122, Branch mg/g-10,000 Until Yanet unit/g-0.1 12/01/20 at % 1638, ophthalmic Routine, ointment Intra-op eye block Yes PRN, Univers syringe 12-01 Starting ity o f mL 17:22: Yanet [place] 00 12/01/20 at [place] [id number], Branch Until Discontinu ed, Intra-op EPINEPHrine Yes PRN, Univer s (PF) 12-01 Starting ity of 1:1,000 (1 17:22: Yanet [place] mg/mL) 00 12/01/20 at [facility] (ADRENALIN 1222, Branch (PF)) Until injection Discontinu ed, Routine, Intra-op eye block Yes PRN, Univers syringe 12-01 Starting ity o f mL 17:22: Yanet [place] 00 12/01/20 at [place] [address], Branch Until Discontinu ed, Intra-op EPINEPHrine Yes PRN, Univer s (PF) 12-01 Starting ity of 1:1,000 (1 17:22: Yanet [place] mg/mL) 12/01/20 at [facility] (ADRENALIN 1222, Branch (PF)) Until [...] Yanet [place] mg/mL) 00 :07 12/01/20 at [facility] (ADRENALIN 1222, Branch (PF)) Until Yanet injection 12/01/20 at 1638, Routine, Intra-op eye block 2020- No PRN, Univers syringe 11 12-01 Starting ity of mL 17:22: 21:38 Yanet [place] 00 :07 12/01/20 at [facility] 1222, Branch Until Yanet 12/01/20 at 1638, Intra-op EPINEPHrine 2020- No PRN, Unive rs (PF) 12-01 Starting ity of 1:1,000 (1 17:22: 21:38 Yanet [place] mg/mL) 00 :07 12/01/20 at [facility] (ADRENALIN 1222, Branch (PF)) Until Yanet injection 12/01/20 at 1638, Routine, Intra-op DUOVISC 0 Yes PRN, Univers (DUOVISC 12-01 Starting ity of VISCO 17:21: Yanet [place] ELASTIC) 3 00 12/01/20 at [facility] ical %-4 %(0.5 122, Branch mL) 1 % Until (0.55 mL) Discontinu intraocular ed, injection Routine, Intra-op dexamethaso Yes PRN, Univer s ne 12-01 Starting ity of (DECADRON 17:21: Yanet [place] PHOSPHATE) 00 12/01/20 at [facility] ical injection 1221, Branch Until Discontinu ed, Routine, Intra-op ceFAZolin Yes PRN, Univers (ANCEF) 12-01 Starting ity of injection 17:21: Yanet [place] 00 12/01/20 at [facility] 1221, Branch Until Discontinu ed, KEVIN, Intra-op balanced Yes PRN, Univers salt soln 12-01 Starting ity of no.2 irrig. 17:21: Yanet [place] (BSS) 00 12/01/20 at [facility] ophthalmic 1221, Branch solution Until Discontinu ed, Routine, Intra-op DUOVISC 0 Yes PRN, Univers (DUOVISC 12-01 Starting ity of VISCO 17:21: Yanet [place] ELASTIC) 3 00 12/01/20 at [facility] ical %-4 %(0.5 1221, Branch mL) 1 % Until (0.55 mL) Discontinu intraocular ed, injection Routine, Intra-op dexamethaso Yes PRN, Univer s ne 12-01 Starting ity of (DECADRON 17:21: Yanet [place] PHOSPHATE) 00 12/01/20 at Med ical injection 1221, Branch Until Discontinu ed, Routine, Intra-op ceFAZolin Yes PRN, Univers (ANCEF) 12-01 Starting ity of injection 17:21: Yanet [place] 00 12/01/20 at [facility] 1221, Branch Until Discontinu ed, KEVIN, Intra-op balanced Yes PRN, Univers salt soln 12-01 Starting ity of no.2 irrig. 17:21: Yanet [place] (BSS) 00 12/01/20 at [facility] ophthalmic 1221, Branch solution Until Discontinu ed, Routine, Intra-op DUOVISC 2020- No PRN, Univers (DUOVISC 12-01 Starting ity of VISCO 17:21: 21:38 Yanet [place] ELASTIC) 3 00 :07 12/01/20 at [facility] ical %-4 %(0.5 1221, Branch mL) [...] o f no.2 irrig. 17:21: 21:38 Yanet [place] (BSS) 00 :07 12/01/20 at [facility] ophthalmic 1221, Branch solution Until Yanet 12/01/20 at 1638, Routine, Intra-op DUOVISC 2020- No PRN, Univers (DUOVISC 12-01 Starting ity of VISCO 17:21: 21:38 [facility] ELASTIC) 3 00 :07 12/01/20 at [facility] ical %-4 %(0.5 122, Branch mL) 1 % Until Yanet (0.55 mL) 12/01/20 at intraocular 1638, injection Routine, Intra-op dexamethaso 2020- No PRN, Unive rs ne 12-01 Starting ity of (DECADRON 17:21: 21:38 [facility] PHOSPHATE) 00 :07 12/01/20 at [facility] ical injection 1221, Branch Until Yanet 12/01/20 at 1638, Routine, Intra-op ceFAZolin 2020- No PRN, [facility] (ANCEF) 12-01 Starting ity of injection 17:21: 21:38 [facility] 00 :07 12/01/20 at [place] [address], Branch Until Yanet 12/01/20 at 1638, KEVIN, Intra-op balanced 2020- No PRN, [facility] salt soln 12-01 Starting ity o f no.2 irrig. 17:21: 21:38 [facility] (BSS) 00 :07 12/01/20 at [facility] ophthalmic 122, Branch solution Until Yanet 12/01/20 at 1638, Routine, Intra-op mydriatic 2020- No .5mL 0.5 mL, Univ ers #5 12-01 Left Eye, ity of ophthalmic 16:45: 16:55 ONCE, 1 [place] solution 00 :00 dose, Yanet Medica l 0.5 mL 12/01/20 at [place] syringe 1145, Routine, DSU Pre-op lactated 2020- [...] by mouth ity of tablet 14:38: daily. [place] [address] Medical Branch amLODIPine 2020-0 Yes 5mg Take 5 mg Un delio 5 mg tablet 8-26 by mouth ity of 14:38: daily. [place] [address] Medical Branch losartan 2020-0 Yes 100mg Take 100 Univ ers 100 mg 8-26 mg by ity of tablet 14:38: mouth [place] 04 daily. Medical Branch pravastatin 2020-0 Yes 40mg Take 40 mg Univers 40 mg 8-26 by mouth ity of tablet 14:38: at [place] [address] bedtime. Medical Branch traZODone 2020-0 Yes 50mg Take 50 mg Un delio 50 mg 8-26 by mouth ity of tablet 14:38: at [place] [address] bedtime. Medical Branch pravastatin 2020-0 Yes 40mg Take 40 mg Univers 40 mg 8-26 by mouth ity of tablet 14:38: at [place] [address] bedtime. Medical Branch traZODone 2020-0 Yes 50mg Take 50 mg Un delio 50 mg 8-26 by mouth ity of tablet 14:38: at [place] [address] bedtime. Medical Branch aspirin 81 2020-0 Yes 81mg Take 81 mg U nivers mg chewable 8-26 by mouth ity of tablet 14:38: daily. [place] [address] Medical Branch amLODIPine 2020-0 Yes 5mg Take 5 mg Un delio 5 mg tablet 8-26 by mouth ity of 14:38: daily. Medical Branch losartan 2020-0 Yes 100mg Take 100 Univ ers 100 mg 8-26 mg by ity of tablet 14:38: mouth [place] 04 daily. Medical Branch pravastatin 2020-0 Yes 40mg Take 40 mg Univers 40 mg 8-26 by mouth ity of tablet 14:38: at [place] [address] bedtime. Medical Branch traZODone 2020-0 Yes 50mg Take 50 mg Un delio 50 mg 8-26 by mouth ity of tablet 14:38: at [place] [address] bedtime. Medical Branch pravastatin 2020-0 Yes 40mg Take 40 mg Univers 40 mg 8-26 by mouth ity of tablet 14:38: at [place] [address] bedtime. Medical Branch traZODone Yes 50mg Take 50 mg Un delio 50 mg 8-26 by mouth ity of tablet 14:38: at [place] [address] bedtime. [facility] Branch Immunizations Ordered Filled Immunization Date Status Comments [facility] e Immunization Name Name SARS-COV-2 COVID-19 2021-01-05 Completed Unive rsity of PFIZER VACCINE 00:00:00 [facility] SARS-COV-2 COVID-19 2020-06-09 Completed Unive rsity of PFIZER VACCINE 00:00:00 [facility] SARS-COV-2 COVID-19 2020-06-09 Completed Unive rsity of PFIZER VACCINE 00:00:00 [facility] SARS-COV-2 COVID-19 2020-06-09 Completed Unive rsity of PFIZER VACCINE 00:00:00 [facility] SARS-COV-2 COVID-19 2020-06-09 Completed Unive rsity of PFIZER VACCINE 00:00:00 [facility] SARS-COV-2 COVID-19 2020-06-09 Completed Unive rsity of PFIZER VACCINE 00:00:00 [facility] SARS-COV-2 COVID-19 2020-06-09 Completed Unive rsity of PFIZER VACCINE 00:00:00 [facility] SARS-COV-2 COVID-19 2020-06-09 Completed Unive rsity of PFIZER VACCINE 00:00:00 [facility] SARS-COV-2 COVID-19 2020-06-09 Completed Unive rsity of PFIZER VACCINE 00:00:00 [facility] SARS-COV-2 COVID-19 2020-06-09 Completed Unive rsity of PFIZER VACCINE 00:00:00 [facility] SARS-COV-2 COVID-19 2020-06-09 Completed Unive rsity of PFIZER VACCINE 00:00:00 [facility] SARS-COV-2 COVID-19 2020-06-09 Completed Unive rsity of PFIZER VACCINE 00:00:00 [facility] SARS-COV-2 COVID-19 2020-06-09 Completed Unive rsity of PFIZER VACCINE 00:00:00 [facility] Branch SARS-COV-2 COVID-19 2020-06-09 Completed Unive rsity of PFIZER VACCINE 00:00:00 [place] [facility] Branch SARS-COV-2 COVID-19 2020-06-09 Completed Unive rsity of PFIZER VACCINE 00:00:00 [facility] SARS-COV-2 COVID-19 2020-06-09 Completed Unive rsity of PFIZER VACCINE 00:00:00 [facility] SARS-COV-2 COVID-19 2020-06-09 Completed Unive rsity of PFIZER VACCINE 00:00:00 [facility] SARS-COV-2 COVID-19 2020-06-09 Completed Unive rsity of PFIZER VACCINE 00:00:00 [facility] SARS-COV-2 COVID-19 2020-05-19 Completed Unive rsity of PFIZER VACCINE 00:00:00 [facility] SARS-COV-2 COVID-19 2020-05-19 Completed Unive rsity of PFIZER VACCINE 00:00:00 [facility] SARS-COV-2 COVID-19 2020-05-19 Completed Unive rsity of PFIZER VACCINE 00:00:00 [facility] SARS-COV-2 COVID-19 2020-05-19 Completed Unive rsity of PFIZER VACCINE 00:00:00 [facility] SARS-COV-2 COVID-19 2020-05-19 Completed Unive rsity of PFIZER VACCINE 00:00:00 [facility] SARS-COV-2 COVID-19 2020-05-19 Completed Unive rsity of PFIZER VACCINE 00:00:00 [facility] SARS-COV-2 COVID-19 2020-05-19 Completed Unive rsity of PFIZER VACCINE 00:00:00 [facility] SARS-COV-2 COVID-19 2020-05-19 Completed Unive rsity of PFIZER VACCINE 00:00:00 [facility] SARS-COV-2 COVID-19 2020-05-19 Completed Unive rsity of PFIZER VACCINE 00:00:00 [facility] SARS-COV-2 COVID-19 2020-05-19 Completed Unive rsity of PFIZER VACCINE 00:00:00 [facility] SARS-COV-2 COVID-19 2020-05-19 Completed Unive rsity of PFIZER VACCINE 00:00:00 [facility] SARS-COV-2 COVID-19 2020-05-19 Completed Unive rsity of PFIZER VACCINE 00:00:00 [facility] SARS-COV-2 COVID-19 2020-05-19 Completed Unive rsity of PFIZER VACCINE 00:00:00 [facility] SARS-COV-2 COVID-19 2020-05-19 Completed Unive rsity of PFIZER VACCINE 00:00:00 [facility] SARS-COV-2 COVID-19 2020-05-19 Completed Unive rsity of PFIZER VACCINE 00:00:00 [facility] SARS-COV-2 COVID-19 2020-05-19 Completed Unive rsity of PFIZER VACCINE 00:00:00 [facility] SARS-COV-2 COVID-19 2020-05-19 Completed Unive rsity of PFIZER VACCINE 00:00:00 [facility] Vital Signs Vital Name Observation Time Observation Value Comments Source Systolic blood 2020-12-29 14:29:00 153 mm[Hg] Univer sity of pressure [facility] Diastolic blood 2020-12-29 14:29:00 67 mm[Hg] Unive rsity of pressure [facility] Heart rate 2020-12-29 14:29:00 50 /min [facility] Respiratory rate 2020-12-29 14:29:00 16 /min [facility] saturation in 2020-12-29 14:29:00 94 /min [facility] Arterial blood by [facility] Pulse oximetry [place] Body temperature 2020-12-29 14:19:00 36.11 Alannah [facility] Body height 2020-12-26 18:39:00 170.2 cm [facility] Body weight 2020-12-26 18:39:00 74.844 kg [facility] BMI 2020-12-26 18:39:00 25.84 kg/m2 [facility] Systolic blood 2020-12-29 11:51:00 153 mm[Hg] Univer sity of pressure [facility] Diastolic blood 2020-12-29 11:51:00 77 mm[Hg] Unive rsity of pressure [facility] Heart rate 2020-12-29 11:51:00 69 /min [facility] Body temperature 2020-12-29 11:51:00 36.67 Alannah [facility] Respiratory rate 2020-12-29 11:51:00 18 /min [facility] Oxygen saturation in 2020-12-29 11:51:00 96 /min [facility] Arterial blood by [facility] Pulse oximetry Branch Body height 2020-12-26 18:39:00 170.2 cm [facility] Body weight 2020-12-26 18:39:00 74.844 kg [facility] BMI 2020-12-26 18:39:00 25.84 kg/m2 [facility] Systolic blood 2020-12-01 19:05:00 157 mm[Hg] Univer sity of pressure [facility] Diastolic blood 2020-12-01 19:05:00 81 mm[Hg] Unive rsity of pressure [facility] Heart rate 2020-12-01 19:05:00 53 /min [facility] Respiratory rate 2020-12-01 19:05:00 18 /min [facility] Oxygen saturation in 2020-12-01 19:05:00 96 /min [facility] Arterial blood by [facility] Pulse oximetry Branch Body temperature 2020-12-01 18:45:00 36.61 Alannah [facility] Body height 2020-11-30 16:28:00 170.2 [...] Oxygen saturation in 2020-12-01 19:05:00 96 /min [facility] Arterial blood by [facility] Pulse oximetry [place] Body temperature 2020-12-01 18:45:00 36.61 [facility] Body height 2020-11-30 16:28:00 170.2 cm [facility] Body weight 2020-11-30 16:28:00 76.204 kg [facility] BMI 2020-11-30 16:28:00 26.31 kg/m2 [facility] Procedures Procedure Date / Time Performing Source Performed Clinician SARS-COV-2 COVID-19 2021-01-05 Doctor Unassigned, [facility] VACCINE,0.3ML,IM (PFIZER) 21:07:27 [facility] PHACOEMULSIFICATION OF 2020-12-29 Aziza [facility] CATARACT WITH INTRAOCULAR 13:43:00 Donato Tejeda LENS IMPLANT DAY SURGERY - [facility] 2020-12-29 Doctor Unassigned, [facility] 05:01:00 [facility] CONSENT/REFUSAL FOR DIAGNOSIS 2020-12-27 Doctor Unassigned, [facility] AND TREATMENT 15:39:08 [facility] CONSENT/REFUSAL FOR DIAGNOSIS 2020-12-27 Doctor Unassigned, [facility] AND TREATMENT 15:39:08 [facility] ASSIGNMENT OF BENEFITS 2020-12-27 Doctor Unassigned, [facility] 15:38:43 [facility] ASSIGNMENT OF BENEFITS 2020-12-27 Doctor Unassigned, [facility] 15:38:43 [facility] PHACOEMULSIFICATION OF 2020-12-01 Aziza [facility] CATARACT WITH INTRAOCULAR 18:05:00 Donato [facility] [place] LENS IMPLANT DAY SURGERY - [facility] 2020-12-01 Doctor Unassigned, [facility] 05:01:00 [facility] COMP. METABOLIC PANEL ([id number]) 2020-11-29 Aziza [facility] 20:06:00 [facility] CBC WITH DIFF 2020-11-29 Aziza [facility] xas 20:06:00 [facility] COVID-19 (ID NOW RAPID 2020-11-29 Aziza [facility] TESTING) 20:00:00 [facility] CONSENT/REFUSAL FOR DIAGNOSIS 2020-11-29 Doctor Unassigned, [facility] AND TREATMENT 19:52:47 [facility] CONSENT/REFUSAL FOR DIAGNOSIS 2020-11-29 Doctor Unassigned, [facility] AND TREATMENT 19:52:47 [facility] ASSIGNMENT OF BENEFITS 2020-11-29 Doctor Unasselsy [facility] 19:52:24 [facility] ASSIGNMENT OF BENEFITS 2020-11-29 Doctor Unassigned, [facility] 19:52:24 [facility] PHYSICIAN ORDERS 2020-11-29 Doctor Unasselsy [facility] 05:01:00 [facility] NO SHOW OR MISSED APPOINTMENT 2020-11-24 Doctor Unakaty [facility] POLICY ACKNOWLEDGEMENT 18:37:56 [facility] NO SHOW OR MISSED APPOINTMENT 2020-11-24 Doctor Unakaty [facility] POLICY ACKNOWLEDGEMENT 18:37:56 [facility] PATIENT FINANCIAL POLICY 2020-11-24 Doctor Unassigned, [facility] 18:37:31 [facility] PATIENT FINANCIAL POLICY 2020-11-24 Doctor Unassigned, [facility] 18:37:31 [facility] NOTICE OF BILLING PRACTICES 2020-11-24 Doctor Unassigned, [facility] FOR MEDICARE PATIENTS 18:37:09 [facility] NOTICE OF BILLING PRACTICES 2020-11-24 Doctor Unassigned, [facility] FOR MEDICARE PATIENTS 18:37:09 [facility] NOTICE OF PRIVACY PRACTICES 2020-11-24 Doctor Unassigned, [facility] 18:36:48 [facility] NOTICE OF PRIVACY PRACTICES 2020-11-24 Doctor Unassigned, [facility] 18:36:48 [facility] CONSENT/REFUSAL FOR DIAGNOSIS 2020-11-24 Doctor Unasselsy, [facility] AND TREATMENT 18:36:24 [facility] CONSENT/REFUSAL FOR DIAGNOSIS 2020-11-24 Doctor Unassigned, [facility] AND TREATMENT 18:36:24 [facility] ASSIGNMENT OF BENEFITS 2020-11-24 Doctor Vanessa [facility] 18:35:54 [facility] ASSIGNMENT OF BENEFITS 2020-11-24 Doctor Unassigned, [facility] 18:35:54 [facility] Encounters Start End Encounter Admission Attending Care Care Encounter Source Date/Time Date/Time Type Type Clinicians Facility Department ID 2022-08-14 [facility] [id number] Common 15:09:02 [id number] [facility] 2022-07-05 [facility] [id number] Common 12:40:01 [id number] [facility] 2022-05-14 [facility] [id number] Common 13:12:03 [id number] [facility] 2021-02-06 [facility] [id number] Univers 23:28:51 ARIA [facility] 2021-02-06 [facility] [id number] Univers 16:45:17 ARIA [facility] 2021-01-05 2021-01-05 Outpatient [facility] [id number] Univers 16:00:00 16:00:00 ity [facility] 2021-01-05 2021-01-05 Imm/Inj Nurse, Adc Pob Immunization [facility] 1.2.840.114 [id number] Univers 15:56:59 15:57:30 Visit Neal Bergman 350.1.13 .10 [place] [phone] [facility] [address] [facility] 2020-12-29 2020-12-29 Hospital [facility] 1.2.840.114 [id number] Univers 06:37:00 09:42:00 Encounter Aria Armendariz [id number] [place] [id number] [place] [id number] [place] 2020-12-29 2020-12-29 Surgery [facility] 1.2.840.114 [id number] Univers 08:37:00 09:14:00 Aria Armendariz 350.1.13.10 i [place] [id number] [facility] 020 Branch 2020-12-27 2020-12-27 Laboratory Only, Adc Test [facility] 1.2.840. 114 [id number] Univers 10:33:21 10:48:21 Only Aria Cuenca 350.1.1 3.10 [place] [id number] [facility] 353 Branch 2020-12-27 2020-12-27 Outpatient R AZIZA [facility] [id number] Univers 10:30:00 10:30:00 ARIA itdominick [facility] 2020-12-01 2020-12-01 [facility] 1.2.840.114 [id number] Univers 11:37:00 14:35:00 Encounter Aria Armendariz 350.1.13.10 ity [place] [id number] [facility] 071 Branch 2020-12-01 2020-12-01 Surgery [facility] 1.2.840.114 [id number] Univers 13:47:00 14:24:00 Aria Armendariz 350.1.13.10 i [place] [id number] [facility] 020 Branch 2020-12-01 2020-12-01 Orders Doctor PELLETIER 1.2.840.114 [id number] Univers 00:00:00 00:00:00 Only Unassigned, BHARATH 350.1.13.10 ity of [place] [facility] 4.2.7.2.686 [place] as [id number] [facility] 009 Branch 2020-11-29 2020-11-29 Outpatient R AZIZA [facility] [id number] Univers 15:15:00 15:15:[address] [facility] 2020-11-29 2020-11-29 Inventory And Pricing Associate Nguyen, Adc Lab Main [facility] 1.2.8 40.114 [id number] Univers 14:53:37 15:08:37 Visit Aria Cuenca 350.1.1 3.10 [place] [id number] [facility] 353 Branch Building 2020-11-29 2020-11-29 Laboratory Only, Adc Test [facility] 1.2.840. 114 [id number] Univers 14:52:54 15:07:54 Only Aziza, Aria Armendariz 350.1.1 3.10 [place] [phone] [facility] 353 Branch 2020-11-29 2020-11-29 Orders Doctor PRABHU 1.2.840.114 [id number] Univers 00:00:00 00:00:00 Only Unassigned, BHARATH 350.1.13.10 [place] [facility] 4.2.7.2.686 [place] as [id number] [facility] 009 Branch Results Test Description Test Time Test Comments Results Result Comments Source COMP. METABOLIC PANEL (99553) 2020-11-29 20:35:55 Test Item Value Reference Range Interpretation Comme nts NA (test code = 9309726566) 135 mmol/L 135-145 K (test code = 7982047821) 3.6 mmol/L 3.5-5.0 CL (test code = 6782428039) 100 mmol/L 98-108 CO2 TOTAL (test code = 25 mmol/L 23-31 0517867070) AGAP (test code = 2567443952) 2-16 BUN (test code = 9894729059) 11 mg/dL 7-23 GLUCOSE (test code = 0798956222) 100 mg/dL 70-110 CREATININE (test code = 0.67 mg/dL 0.60-1.25 0500381063) TOTAL BILI (test code = 0.7 mg/dL 0.1-1.8 9977423523) CALCIUM (test code = 4313325673) 9.3 mg/dL 8.6-10.6 T PROTEIN (test code = 7.4 g/dL 6.3-8.2 0284983605) ALBUMIN (test code = 4922429245) 4.3 g/dL 3.5-5.0 ALK PHOS (test code = 4044451884) 55 U/L 34-122 ALTv (test code = 1742-6) 14 U/L 5-50 AST(SGOT) (test code = 25 U/L 13-40 5675161827) eGFR (test code = 9518998780) mL/min/1.73m2 REJI (test code = REJI) Association [...] or urine or abnormalities in imaging tests). [facility]. METABOLIC PANEL (60548)2020-11-29 20:35:55 Test Item Value Reference Range Interpretation Comments NA (test code = 0660461447) 135 mmol/L 135-145 K (test code = 0894759617) 3.6 mmol/L 3.5-5.0 CL (test code = 3382287036) 100 mmol/L 98-108 CO2 TOTAL (test code = 5705094186) 25 mmol/L 23-31 AGAP (test code = 4516700794) 2-16 BUN (test code = 7000931037) 11 mg/dL 7-23 GLUCOSE (test code = 1422708005) 100 mg/dL 70-110 CREATININE (test code = 0.67 mg/dL 0.60-1.25 4714461635) TOTAL BILI (test code = 0.7 mg/dL 0.1-1.3 0511467108) CALCIUM (test code = 0512829702) 9.3 mg/dL 8.6-10.6 T PROTEIN (test code = 9518047004) 7.4 g/dL 6.3-8.2 ALBUMIN (test code = 7544121616) 4.3 g/dL 3.5-5.0 ALK PHOS (test code = 8563660503) 55 U/L 34-122 ALTv (test code = 1742-6) 14 U/L 5-50 AST(SGOT) (test code = 5900312023) 25 U/L 13-40 eGFR (test code = 2630022796) mL/min/1.73m2 REJI (test code = REJI) [facility]-19 (ID NOW RAPID TESTING)2020-11-29 20:22:33 Test Item Value Reference Range Interpretation Comments SARS-CoV-2 Rapid ID NOW Not Detected Not Detected (test code = 66400-4) REJI (test code = REJI) ID NOW COVID-19 Assay is an isothermal nucleic acid amplification test intended for the qualitative detection of nucleic acid from SARS-CoV-2 viral RNA in nasopharyngeal (TECHNICAL DELIVERY MANAGER) specimens. It is used under Emergency Use [...] indicated. Lab Interpretation Normal (test code = 93936-3) [facility]-19 (ID NOW RAPID TESTING)2020-11-29 20:22:33 Test Item Value Reference Range Interpretation Comments SARS-CoV-2 Rapid ID NOW (test Not Detected Not Detected code = 12262-4) REJI (test code = REJI) Lab Interpretation (test code = Normal 93338-9) [facility] WITH [id number] 20:15:39 Test Item Value Reference Range Interpretation [...] RDW-SD (test code = 44.8 fL 38.5-51.6 84903-2) RDW-CV (test code = 12.7 % 12.1-15.4 788-0) PLT (test code = See_Comment [Automated 777-3) message] The sy stem which generated this result transmitted reference range : 150 - 328 10*3/ ?L. The reference r china was not used to interpret this result as normal/abnormal . MPV (test code = 9.8 fL 9.8-13.0 77397-9) NRBC/100 WBC (test See_Comment [Automat ed code = 7235645645) message] The system which generated this result transmitted reference range : 0.0 - 10.0 /100 WBCs. The refer ence range was not u sed to interpret th is result as normal/abnormal . NRBC x10^3 (test code <0.01 See_Comment [Auto mated = 8041273704) message] The s ystem which generated this result transmitted reference range : 10*3/?L. The reference range was not used to interpret this result as normal/abnormal . GRAN MAT (NEUT) % 47.2 % (test code = 770-8) IMM GRAN % (test code 0.20 % = 6836223077) LYMPH % (test code = 36.8 % 736-9) MONO % (test code = 14.4 % 5905-5) EOS % (test code = 0.6 % 713-8) BASO % (test code = 0.8 % 706-2) GRAN MAT x10^3(ANC) 2.36 10*3/uL 1.99-6.95 (test code = 1762912480) IMM GRAN x10^3 (test <0.03 0.00-0.06 code = 3603286794) LYMPH x10^3 (test code 1.84 10*3/uL 1.09-3.23 = 731-0) MONO x10^3 (test code 0.72 10*3/uL 0.36-1.02 = 742-7) EOS x10^3 (test code = 0.03 10*3/uL 0.06-0.53 L 711-2) BASO x10^3 (test code 0.04 10*3/uL 0.01-0.09 = 704-7) Lab Interpretation Abnormal (test code = 56439-1) [facility] WITH [id number] 20:15:39 Test Item Value Reference Range Interpretation Comments WBC (test code = See_Comment [Automated 3590-2) message] The sy stem which generated this result transmitted reference range : 4.20 - 10.70 10*3/?L. The reference range was not used to interpret this result as normal/abnormal . RBC (test code = See_Comment [Automated 239-8) message] The sy stem which generated this [...] RDW-SD (test code = 44.8 fL 38.5-51.6 94321-4) RDW-CV (test code = 12.7 % 12.1-15.4 788-0) PLT (test code = See_Comment [Automated 777-3) message] The sy stem which generated this result transmitted reference range : 150 - 328 10*3/ ?L. The reference r china was not used to interpret this result as normal/abnormal . MPV (test code = 9.8 fL 9.8-13.0 08535-8) NRBC/100 WBC (test See_Comment [Automat ed code = 7366740308) message] The system which generated this result transmitted reference range : 0.0 - 10.0 /100 WBCs. The refer ence range was not u sed to interpret th is result as normal/abnormal . NRBC x10^3 (test code <0.01 See_Comment [Auto mated = 4506251066) message] The s ystem which generated this result transmitted reference range : 10*3/?L. The reference range was not used to interpret this result as normal/abnormal . GRAN MAT (NEUT) % 47.2 % (test code = 770-8) IMM GRAN % (test code 0.20 % = 1877579221) LYMPH % (test code = 36.8 % 736-9) MONO % (test code = 14.4 % 5905-5) EOS % (test code = 0.6 % 713-8) BASO % (test code = 0.8 % 706-2) GRAN MAT x10^3(ANC) 2.36 10*3/uL 1.99-6.95 (test code = 2897426741) IMM GRAN x10^3 (test <0.03 0.00-0.06 code = 4269684182) LYMPH x10^3 (test code 1.84 10*3/uL 1.09-3.23 = 731-0) MONO x10^3 (test code 0.72 10*3/uL 0.36-1.02 = 742-7) EOS x10^3 (test code = 0.03 10*3/uL 0.06-0.53 L 711-2) BASO x10^3 (test code 0.04 10*3/uL 0.01-0.09 = 704-7) Lab Interpretation Abnormal (test code = 02150-1) [facility]"
[2022-09-30] MEDS ORDERED: IBUPROFEN 400 MG TAB ONE (21:45)
--- NOTE | 2022-09-30 22:01 | RAD REPORT ---
EXAM DESCRIPTION: RAD - Ankle Left 3 View - 09/30/2022 9:54 pm CLINICAL HISTORY: PAIN COMPARISON: No comparisons FINDINGS: Moderate soft tissue swelling. Small calcaneal spurs. Linear transverse fracture is presen t at the base of the fifth metatarsal.
--- NOTE | 2022-09-30 22:02 | RAD REPORT ---
EXAM DESCRIPTION: RAD - Foot Left 3 View - 09/30/2022 9:54 pm CLINICAL HISTORY: PAIN COMPARISON: No comparisons FINDINGS: Linear transverse fracture base of the fifth metatarsal. Small calcaneal spurs. No disloca tion. Mild atherosclerosis.
--- NOTE | 2022-09-30 22:12 | ER ---
Nurse's Notes [facility] Name: Alvin Soliman Age: 86 yrs Sex: Male : 1935 Arrival Date: 09/30/2022 Time: 20:35 Bed 13 Private MD: Diagnosis: Nondisplaced fracture of fifth metatarsal bone, left foot Presentation: 09/30 20:57 Chief complaint: Patient states: upon getting up from a chair, put left foot down, the rv leg felt weak for a brief second and fell on the ground. denies hitting the head. complaining of pain and swelling on the left foot. Coronavirus screen: Vaccine status: Patient reports receiving the 2nd dose of the covid vaccine. Ebola Screen: Patient negative for fever greater than or equal to 101.5 degrees Fahrenheit, and additional compatible Ebola Virus Disease symptoms Patient denies exposure to infectious person. Patient denies travel to an Ebola-affected area in the 21 days before illness onset. Initial Sepsis Screen: Does the patient meet any 2 criteria? No. Patient's initial sepsis screen is negative. Does the patient have a suspected source of infection? No. Patient's initial sepsis screen is negative. Risk Assessment: Do you want to hurt yourself or someone else? Patient reports no desire to harm self or others. Onset of symptoms was September 30, 2022. 20:57 Method Of Arrival: Ambulatory 20:57 Acuity: RUDY 4 rv Triage Assessment: 20:59 General: Appears comfortable, Behavior is calm, cooperative. Pain: Complains of pain in rv left foot. Neuro: Level of Consciousness is awake, alert, obeys commands, Oriented to person, place, time, situation. Cardiovascular: Capillary refill. Respiratory: Airway is patent. Musculoskeletal: Circulation, motion, and sensation intact. Range of motion: intact in all extremities. Injury Description: sprain. Historical: - Allergies: 21:39 No Known Allergies; cm10 - Home Meds: 20:59 amlodipine 5 mg tab 1 tab once daily [Active]; aspirin 81 mg Oral TbEC 1 tab once daily rv [Active]; lorazepam 1 mg Oral tab 1 tab 2 times per day [Active]; metoprolol tartrate 100 mg Oral tab 1 tab once daily [Active]; multivitamin Oral tab daily [Active]; pravastatin 40 mg Oral tab 1 tab once daily [Active]; trazodone 150 mg Oral tab 1 tab 3 times per day [Active]; valsartan-hydrochlorothiazide 160-25 mg Oral tab 1 tab once daily [Active]; Vitamin B-12 500 mcg Oral tab daily [Active]; Vitamin C 1,000 mg Oral tab daily [Active]; - PMHx: 20:59 High Cholesterol; Hypertension; rv - PSHx: 20:59 Radiation; rv - Immunization history:: Adult Immunizations up to date. - Social history:: Smoking status: Patient denies any tobacco usage or history of. Screenin:40 [facility] ED Fall Risk Assessment (Adult) History of falling in the last 3 months, cm10 including since admission No falls in past 3 months (0 pts) Confusion or Disorientation No (0 pts) Intoxicated or Sedated No (0 pts) Impaired Gait Yes (1 pt) Mobility Assist Device Used Yes (1 pt) Altered Elimination No (0 pt) Score/Fall Risk Level 0 - 2 = Low Risk Oriented to surroundings, Maintained a safe environment, Educated pt \T\ family on fall prevention, incl call for assistance when getting out of bed. Abuse screen: Denies threats or abuse. Denies injuries from another. Nutritional screening: No deficits noted. Tuberculosis screening: No symptoms or risk factors identified. Assessment: 21:40 General: Appears in no apparent distress. comfortable, Behavior is calm, cooperative. cm10 Neuro: No deficits noted. Level of Consciousness is awake, alert, Oriented to person, place, time, situation. Respiratory: No deficits noted. Airway is patent Respiratory effort is even, unlabored, Respiratory pattern is regular, symmetrical. Musculoskeletal: Swelling present in left foot Reports pain in left foot. Vital Signs: 20:57 BP 147 / 100; Pulse 75; Resp 16; Temp 98.3; Pulse Ox 100% ; Weight 68.04 kg; Height 5 rv ft. 6 in. ; Pain 6/10; 20:57 Body Mass Index 24.21 (68.04 kg, 167.64 cm) rv 20:57 Pain Scale: Adult rv ED Course: 20:37 Patient arrived in ED. ja2 20:43 Faizan Pyle PA is PHCP. cp 20:43 Jaylan Guthrie DO is Attending Physician. cp 20:59 Triage completed. rv 21:01 Arm band placed on right wrist. rv 21:06 Lise Ravi, RN is Primary Nurse. cm10 21:41 Patient has correct armband on for positive identification. cm10 21:55 XRAY Foot LEFT 3 View In Process Unspecified. EDMS 21:55 XRAY Ankle LEFT 3 view In Process Unspecified. EDMS 22:11 Mendel Vega MD is Referral Physician. cp 23:08 No provider procedures requiring assistance completed. Patient did not have IV access cm10 during this emergency room visit. Administered Medications: 21:39 Drug: Ibuprofen PO 800 mg Route: PO; cm10 23:07 Follow up: Response: No adverse reaction cm10 Medication: 21:41 VIS not applicable for this client. cm10 Outcome: 22:11 Discharge ordered by MD. cp 23:08 Discharged to home via wheelchair, with family. cm10 23:08 Condition: good 23:08 Discharge instructions given to patient, family, Instructed on discharge instructions, follow up and referral plans. Demonstrated understanding of splint care, Prescriptions given X 2. 23:08 Patient left the ED. cm10 Signatures: Dispatcher [employer] EDMS Faizan Pyle PA PA cp Enio Madrigal, RN RN Livier Sanchez Clarissa, RN RN cm10
--- NOTE | 2022-09-30 22:12 | EDPHYS ---
Physician Documentation [facility] Name: Alivn Soliman Age: 86 yrs Sex: Male : 1935 Arrival Date: 09/30/2022 Time: 20:35 Bed 13 Private MD: ED Physician Jaylan Guthrie HPI: 09/30 21:30 This 86 yrs old Male presents to ER via Ambulatory with complaints of Foot Injury. cp 21:30 The patient presents with an injury, pain, that is acute. The complaints affect the cp left foot. Context: the patient can fully bear weight, the patient is able to ambulate, with moderate difficulty, result from stumble and fall. Onset: The symptoms/episode began/occurred today. Modifying factors: the symptoms are aggravated by weight bearing. Associated signs and symptoms: The patient has no apparent associated signs or symptoms. Treatment prior to arrival includes: no previous treatment. Historical: - Allergies: 21:39 No Known Allergies; cm10 - Home Meds: 20:59 amlodipine 5 mg tab 1 tab once daily [Active]; aspirin 81 mg Oral TbEC 1 tab once daily rv [Active]; lorazepam 1 mg Oral tab 1 tab 2 times per day [Active]; metoprolol tartrate 100 mg Oral tab 1 tab once daily [Active]; multivitamin Oral tab daily [Active]; pravastatin 40 mg Oral tab 1 tab once daily [Active]; trazodone 150 mg Oral tab 1 tab 3 times per day [Active]; valsartan-hydrochlorothiazide 160-25 mg Oral tab 1 tab once daily [Active]; Vitamin B-12 500 mcg Oral tab daily [Active]; Vitamin C 1,000 mg Oral tab daily [Active]; - PMHx: 20:59 High Cholesterol; Hypertension; rv - PSHx: 20:59 Radiation; rv - Immunization history:: Adult Immunizations up to date. - Social history:: Smoking status: Patient denies any tobacco usage or history of. ROS: 21:35 MS/extremity: Positive for pain, swelling, tenderness, of the left foot, Negative for cp decreased range of motion. 21:35 Constitutional: Negative for fever. cp 21:35 Cardiovascular: Negative for chest pain. 21:35 Respiratory: Negative for cough, shortness of breath, wheezing. 21:35 Abdomen/GI: Negative for abdominal pain. 21:35 Neuro: Negative for altered mental status, dizziness, headache, loss of consciousness, syncope. 21:35 All other systems are negative. Exam: 21:40 Constitutional: The patient appears in no acute distress, alert, awake, cp non-diaphoretic, non-toxic, well developed, well nourished. 21:40 Musculoskeletal/extremity: Extremities: grossly normal except: noted in the left foot: cp tenderness and swelling noted lateral left ankle and lateral left foot, Perfusion: the extremity is normally perfused throughout, the left foot Sensation intact. 21:40 Skin: cellulitis, is not appreciated, no rash present. Vital Signs: 20:57 BP 147 / 100; Pulse 75; Resp 16; Temp 98.3; Pulse Ox 100% ; Weight 68.04 kg; Height 5 rv ft. 6 in. ; Pain 6/10; 20:57 Body Mass Index 24.21 (68.04 kg, 167.64 cm) rv 20:57 Pain Scale: Adult rv Procedures: 23:00 Splinting: Splint applied to left foot using Orthoglass splint, short leg. applied by cp nurse. Examined by me, post splint application: neurovascular intact, Patient tolerated well. MDM: 21:05 Patient medically screened. cp 22:11 Data reviewed: vital signs, nurses notes, radiologic studies, plain films. cp 22:11 Differential diagnosis: closed fracture, sprain, dislocation. I considered the cp following discharge prescriptions or medication management in the emergency department Medications were administered in the Emergency Department. See MAR. Counseling: I had a detailed discussion with the patient and/or guardian regarding: the historical points, exam findings, and any diagnostic results supporting the discharge/admit diagnosis, radiology results, the need for outpatient follow up, for definitive care, a orthopedic surgeon, to return to the emergency department if symptoms worsen or persist or if there are any questions or concerns that arise at home. Response to treatment: the patient's symptoms have markedly improved after treatment, and as a result, I will discharge patient. 09/30 21:21 Order name: XRAY Foot LEFT 3 View; Complete Time: 22:06 cp 09/30 21:21 Order name: XRAY Ankle LEFT 3 view; Complete Time: 22:06 cp 09/30 22:10 Order name: Splint - Posterior Leg; Complete Time: 22:37 cp Administered Medications: 21:39 Drug: Ibuprofen PO 800 mg Route: PO; cm10 23:07 Follow up: Response: No adverse reaction cm10 Disposition Summary: 09/30/22 22:11 Discharge Ordered Location: Home cp Problem: new cp Symptoms: have improved cp Condition: Stable cp Diagnosis - Nondisplaced fracture of fifth metatarsal bone, left foot cp Followup: cp - With: Mendel Vega MD - When: 1 week - Reason: Recheck today's complaints Discharge Instructions: - Discharge Summary Sheet cp - Metatarsal Fracture cp - How to Use a Walker cp Forms: - Medication Reconciliation Form cp - Thank You Letter cp - Antibiotic Education cp - Prescription Opioid Use cp Prescriptions: - Ibuprofen 800 mg Oral Tablet - take 1 tablet by ORAL route every 8 hours As needed take with food; 30 tablet; cp Refills: 0, Product Selection Permitted Signatures: Dispatcher [employer] EDMS Faizan Pyle PA PA cp Enio Madrigal RN RN Lise Ravi RN RN cm10 Corrections: (The following items were deleted from the chart) 22:12 22:11 Nondisplaced fracture of fifth metatarsal bone, right foot cp cp 23:07 22:10 Crutches ordered. cp cm10
[2022-09-30 23:17] VITALS: BP 147/100; TEMP 98.3; O2SAT 100
== END 2022-09-30 23:08 | disposition home or self-care (01) ==
LOC: ER 20:35
PROC: 2W3TX1Z Immobilization of Left Foot using Splint (ICD-10-PCS; principal; 2022-09-30)
PROC: 2W3TX1Z Immobilization of Left Foot using Splint (ICD-10-PCS; 2022-09-30)
DX: S92.355A Nondisplaced fracture of fifth metatarsal bone, left foot, initial encounter for closed fracture (principal); W18.39XA Other fall on same level, initial encounter; M79.672 Pain in left foot; I10 Essential (primary) hypertension; E78.00 Pure hypercholesterolemia, unspecified; Z79.82 Long term (current) use of aspirin
CPT/HCPCS: 99283

== ENCOUNTER 2022-10-02 05:20 | Inpatient (IN) | payer OTHER ==
--- OUTSIDE RECORDS SUMMARY | 2022-10-02 05:26 | XMS REPORT | Continuity of Care Document ---
:1935 Author Organization [facility] t Address [address] [place] [address] [address] [place] [address] Care Team Providers Name Role Phone Sherley LOPES, Geronimo Mcneal Primary Care Physician [phone] ARIA CUENCA Attending Clinician Unavailable Nurse, Adc Pob Immunization Attending Clinician Unavailable Neal Bergman DO Attending Clinician Aria Cuenca MD Attending Clinician Only, Adc Test Attending Clinician Unavailable Doctor Unassigned, [facility] Attending Clinician Unavailable Pob, Adc Lab Main Attending Clinician Unavailable ARIA CUENCA Admitting Clinician Unavailable Aria Cuenca MD Admitting Clinician Payers Payer Name Policy Type Policy Number Effective Date Expiration Date [facility] [id number] 2020 [facility] 00:00:00 PPO Problems This patient has no known problems. Allergies, Adverse Reactions, Alerts Allergy Allergy Status Severity Reaction(s) Onset Inactive Treating Comm ents Source Name Type Date Date Clinician NO KNOWN Drug Active [facility]ERGIE [facility] [place] [facility] [place] Social History Social Habit Start Date Stop Date Quantity Comments Source Exposure to Not sure [facility] SARS-CoV-2 (event) Medica l Branch Tobacco use and 2020-11-30 2020-11-30 Never used [employer] [facility] exposure 00:00:00 00:00:00 Medical Branch Sex Assigned At [birth year] [facility] y [facility] 00:00:00 00:00:00 Medical Branch Smoking Status Start Date Stop Date Source Unknown if ever smoked [facility] Never smoker [facility] Medications Ordered Filled Start Stop Current Ordering Indication Dosage Frequency Signature Comments Components Source Medication Medication Date Date Medication? Clinician (SIG) Name Name DUOVISC Yes PRN, Univers (DUOVISC 12-29 Starting ity of VISCO 14:06: on [facility] [place] ELASTIC) 3 00 12/29/20 at Med ical %-4 %(0.5 0906, Branch mL) 1 % Until (0.55 mL) Discontinu intraocular ed, injection Routine, Intra-op NaCl 0.9% Yes PRN, Univers (NS) 12-29 Starting ity of injection 14:06: on [facility] [place] 12/29/[address] Until Discontinu ed, Routine, Intra-op DUOVISC 2020- No PRN, Univers (DUOVISC 12-29 Starting ity of VISCO 14:06: 17:40 on [facility] ELASTIC) 3 00 :24 12/29/20 at [place] ical %-4 %(0.5 0906, Branch mL) 1 % Until [place]et (0.55 mL) 12/29/20 at intraocular 1240, injection Routine, Intra-op NaCl 0.9% 2020- No PRN, Univers (NS) 12-29 Starting ity of injection 14:06: 17:40 on [facility] [place] 00 :24 12/29/[address] Until [place] 12/29/20 at 1240, Routine, Intra-op gentamicin Yes PRN, Univers injection 12-29 Starting ity of 14:05: on [facility] [place] 00 12/29/[address] Until Discontinu ed, KEVIN, Intra-op neomycin-po Yes PRN, Univer s lymyxin-dex 12-29 Starting ity of amethasone 14:05: on [facility] [place] (MAXITROL) 00 12/29/20 at [place] ical 3.5 05, [place] mg/g-10,000 Until unit/g-0.1 Discontinu % ed, ophthalmic Routine, ointment Intra-op gentamicin 2020- No PRN, Univer s injection 12-29 Starting ity o f 14:05: 17:40 on [facility] [place] 00 :24 12/29/20 at [facility] 0905, Branch Until [place] 12/29/20 at 1240, KEVIN, Intra-op neomycin-po 2020- No PRN, [facility] lymyxin-dex 12-29 Starting ity of amethasone 14:05: 17:40 on [place] (MAXITROL[place] 00 :24 12/29/20 at [place] ical 3.5 09, [place] mg/g-10,000 Until [place] unit/g-0.1 12/29/20 at % 1240, ophthalmic Routine, ointment Intra-op dexamethaso Yes PRN, Univer s ne 12-29 Starting ity of (DECADRON 14:04: on [place] [place] PHOSPHATE) 00 12/29/20 at Med ical injection 09, [place] Until Discontinu ed, Routine, Intra-op ceFAZolin Yes PRN, Univers (ANCEF) 12-29 Starting ity of injection 14:04: on [place] [place] 00 12/29/20 at [facility] 0904, Branch Until Discontinu ed, KEVIN, Intra-op dexamethaso 2020- No PRN, [facility] ne 12-29 Starting ity of (DECADRON 14:04: 17:40 on [place] [place] PHOSPHATE) 00 :24 12/29/20 at Med ical injection 09, Branch Until [place]et 12/29/20 at 1240, Routine, Intra-op ceFAZolin 2020- No PRN, Univers (ANCEF) 12-29 Starting ity of injection 14:04: 17:40 on [facility] [place] 00 :24 12/29/20 at [facility] 0904, Branch Until [place] 12/29/20 at 1240, KEVIN, Intra-op EPINEPHrine Yes PRN, [facility] (PF) 12-29 Starting ity of 1:1,000 (1 14:01: on [place] [place] mg/mL) 00 12/29/20 at [facility] (ADRENALIN 09, Branch (PF)) Until injection Discontinu ed, Routine, Intra-op balanced Yes PRN, Univers salt soln 12-29 Starting ity of no.2 irrig. 14:01: on [place] (BSS) 00 12/29/20 at [facility] ophthalmic 0901, Branch solution Until Discontinu ed, Routine, Intra-op EPINEPHrine 2020- No PRN, Unive rs (PF) 12-29 Starting ity of 1:1,000 (1 14:01: 17:40 on [place] mg/mL) 00 :24 12/29/20 at [facility] (ADRENALIN 01, Branch (PF)) Until Yanet injection 12/29/20 at 1240, Routine, Intra-op balanced 2020- No PRN, Univers salt soln 12-29 Starting ity o f no.2 irrig. 14:01: 17:40 on [place] (BSS) 00 :24 12/29/20 at [facility] ophthalmic 0901, Branch solution Until [place]et 12/29/20 at 1240, Routine, Intra-op water for Yes PRN, Univers irrigation 12-29 Starting ity o f irrigation 13:55: on [place] [place] solution 00 12/29/20 at Medic al 0855, Branch Until Discontinu ed, Routine, Intra-op eye block Yes PRN, Univers syringe 11 12-29 Starting ity o f mL 13:55: on [place] [place] 00 12/29/20 at [facility] 0855, Branch Until Discontinu ed, Intra-op water [...] of ) 0.5 % 13:54: on [facility] [place] ophthalmic 00 12/29/20 at Med ical drops 0854, Branch Until Discontinu ed, Routine, Intra-op tetracaine 2020- No PRN, Univer s (PONTOCAINE 12-29 Starting ity of ) 0.5 % 13:54: 17:40 on [facility] [place] ophthalmic 00 :24 12/29/20 at Med ical [...] Pre-op lactated 2020- No 1000mL at 42 [facility] ringers IV 12-29 mL/hr, ity of infusion 11:45: 11:59 1,000 mL, [place] 1,000 mL 00 :00 IV Medical Infusion, Branch ONCE, 1 dose, On [place] 12/29/20 at 0645, Routine, DSU Pre-op lactated 2020- No 1000mL at 42 [facility] ringers IV 12-29 mL/hr, ity of infusion 11:45: 11:59 1,000 mL, [place] 1,000 mL 00 :00 IV Medical Infusion, Branch ONCE, 1 dose, On [place] 12/29/20 at 0645, Routine, DSU Pre-op aspirin 81 Yes 81mg Take 81 mg U nivers mg chewable 12-29 by mouth ity of tablet 10:35: daily. [address] amLODIPine Yes 5mg Take 5 mg Un delio 5 mg tablet 9-23 by mouth ity of 10:35: daily. [place] [address] Medical Branch losartan 0 Yes 100mg Take [...] by mouth ity of tablet 10:35: daily. [place] [address] Medical Branch amLODIPine 0 Yes 5mg Take 5 mg Un delio 5 mg tablet 9-23 by mouth ity of 10:35: daily. [place] [address] Medical Branch losartan 0 Yes 100mg Take [...] by mouth ity of tablet 10:35: daily. [place] [address] Medical Branch amLODIPine 0 Yes 5mg Take 5 mg Un delio 5 mg tablet 9-23 by mouth ity of 10:35: daily. [place] [address] Medical Branch losartan 0 Yes 100mg Take [...] by mouth ity of tablet 13:38: daily. [place] [address] Medical Branch amLODIPine 0 Yes 5mg Take 5 mg Un delio 5 mg tablet 9-20 by mouth ity of 13:38: daily. [place] [address] Medical Branch losartan 2020-0 Yes 100mg Take 100 Univ ers 100 mg 9-20 mg by ity of tablet 13:38: mouth [place] 56 daily. Medical Branch aspirin 81 2020-0 Yes 81mg Take 81 mg U nivers mg chewable 9-20 by mouth ity of tablet 13:38: daily. [place] [address] Medical Branch amLODIPine 0 Yes 5mg Take 5 mg Un delio 5 mg tablet 9-20 by mouth ity of 13:38: daily. [place] [address] Medical Branch losartan 2020-0 Yes 100mg Take 100 Univ ers 100 mg 9-20 mg by ity of tablet 13:38: mouth [place] 56 daily. Medical Branch aspirin 81 0 Yes 81mg Take 81 mg U nivers mg chewable 8-26 by mouth ity of tablet 19:38: daily. [place] [address] Medical Branch amLODIPine 0 Yes 5mg Take 5 mg Un delio 5 mg tablet 8-26 by mouth ity of 19:38: daily. [place] [address] Medical Branch losartan 2020-0 Yes 100mg Take [...] by mouth ity of tablet 19:38: daily. [place] [address] Medical Branch amLODIPine 2020-0 Yes 5mg Take 5 mg Un delio 5 mg tablet 8-26 by mouth ity of 19:38: daily. [place] [address] Medical Branch losartan 2020-0 Yes 100mg Take [...] by mouth ity of tablet 19:38: at [place] [address] bedtime. Medical Branch traZODone 2020-0 Yes 50mg Take 50 mg Un delio 50 mg 8-26 by mouth ity of tablet 19:38: at [place] [address] bedtime. Medical Branch aspirin 81 2020-0 Yes [...] by mouth ity of tablet 19:38: at [place] [address] bedtime. Medical Branch aspirin 81 2020-0 Yes [...] by mouth ity of tablet 19:38: at [place] [address] bedtime. Medical Branch traZODone Yes 50mg Take 50 mg Un delio 50 mg 8-26 by mouth ity of tablet 19:38: at [place] [address] bedtime. Medical Branch aspirin 81 0 Yes 81mg Take 81 mg U nivers mg chewable 8-26 by mouth ity of tablet 19:38: daily. Medical Branch amLODIPine Yes 5mg Take 5 mg Un delio 5 mg tablet 8-26 by mouth ity of 19:38: daily. Medical Branch losartan Yes 100mg Take 100 Univ ers 100 mg 8-26 mg by ity of tablet 19:38: mouth [place] 04 daily. Medical Branch pravastatin Yes 40mg Take 40 mg Univers 40 mg 8-26 by mouth ity of tablet 19:38: at [place] [address] bedtime. Medical Branch traZODone Yes 50mg Take 50 mg Un delio 50 mg 8-26 by mouth ity of tablet 19:38: at [place] [address] bedtime. Medical Branch gentamicin 0 Yes PRN, Univers injection 12-01 Starting ity of 18:32: [facility] [place] 12/01/[address] Until Discontinu ed, KEVIN, Intra-op gentamicin 2020-0 Yes PRN, Univers injection 12-01 Starting ity of 18:32: [facility] [place] 00 12/01/[address] Until Discontinu ed, KEVIN, Intra-op gentamicin 2020-0 2020- No PRN, Univer s injection 12-01 Starting ity o f 18:32: 21:38 [facility] [place] 00 :07 12/01/[address] Branch Until [place] 12/01/20 at 1638, KEVIN, Intra-op gentamicin 2020-0 2020- No PRN, Univer s injection 12-01 Starting ity o f 18:32: 21:38 [facility] [place] 00 :07 12/01/20 at Medical 1332, Branch Until [place] 12/01/20 at 1638, KEVIN, Intra-op tetracaine Yes PRN, Univers (PONTOCAINE 12-01 Starting ity of ) 0.5 % 17:24: [facility] [place] ophthalmic 00 12/01/20 at [place] ical drops 1224, Branch Until Discontinu ed, Routine, Intra-op tetracaine Yes PRN, Univers (PONTOCAINE 12-01 Starting ity of ) 0.5 % 17:24: [facility] [place] ophthalmic 00 12/01/20 at [place] ical drops 1224, Branch Until Discontinu ed, Routine, Intra-op tetracaine 2020- No PRN, Univer s (PONTOCAINE 12-01 Starting ity of ) 0.5 % 17:24: 21:38 [facility] [place] ophthalmic 00 :07 12/01/20 at [place] ical drops 1224, Branch Until [place] 12/01/20 at 1638, Routine, Intra-op tetracaine 2020- No PRN, Univer s (PONTOCAINE 12-01 Starting ity of ) 0.5 % 17:24: 21:38 [facility] [place] ophthalmic 00 :07 12/01/20 at [place] ica drops 1224, Branch Until [place] 12/01/20 at 1638, Routine, Intra-op water for Yes PRN, Univers irrigation 12-01 Starting ity o f irrigation 17:23: [facility] [place] solution 12/01/20 at Medic al 1223, Branch Until Discontinu ed, Routine, Intra-op NaCl 0.9% Yes PRN, Univers (NS) 12-01 Starting ity of injection 17:23: [facility] [place] 12/01/20 at [facility] 1223, Branch Until Discontinu ed, Routine, Intra-op neomycin-po Yes PRN, Univer s lymyxin-dex 12-01 Starting ity of amethasone 17:23: [facility] [place] (MAXITROL) 00 12/01/20 at [facility] 3.5 1223, Branch mg/g-10,000 Until unit/g-0.1 Discontinu % ed, ophthalmic Routine, ointment Intra-op water for Yes PRN, Univers irrigation 12-01 Starting ity o f irrigation 17:23: [place] solution 00 12/01/20 at [place] [address], [place] Until Discontinu ed, Routine, Intra-op NaCl 0.9% Yes PRN, Univers (NS) 12-01 Starting ity of injection 17:23: [place] [place] 00 12/01/20 at [place] [address], Branch Until Discontinu ed, Routine, Intra-op neomycin-po Yes PRN, Univer s lymyxin-dex 12-01 Starting ity of amethasone 17:23: [facility] [place] (MAXITROL) 00 12/01/20 at [place] [address], [place] mg/g-10,000 Until unit/g-0.1 Discontinu % ed, ophthalmic Routine, ointment Intra-op water for 2020- No PRN, Univers irrigation 12-01 Starting ity of irrigation 17:23: 21:38 [facility] [place] solution 00 :07 12/01/20 at [place] [address], Branch Until [place] 12/01/20 at 1638, Routine, Intra-op NaCl 0.9% 2020- No PRN, Univers (NS) 12-01 Starting ity of injection 17:23: 21:38 [facility] [place] 00 :07 12/01/20 at [place] [address], Branch Until [place] 12/01/20 at 1638, Routine, Intra-op neomycin-po 2020- No PRN, Unive rs lymyxin-dex 12-01 Starting ity of amethasone 17:23: 21:38 [facility] [place] (MAXITROL) 00 :07 12/01/20 at [place] [address], [place] mg/g-10,000 Until [place] unit/g-0.1 12/01/20 at % 1638, ophthalmic Routine, ointment Intra-op water for 2020- No PRN, Univers irrigation 12-01 Starting ity of irrigation 17:23: 21:38 [facility] [place] solution 00 :07 12/01/20 at [facility] al 1223, Branch Until [place] 12/01/20 at 1638, Routine, Intra-op NaCl 0.9% 2020- No PRN, Univers (NS) 12-01 Starting ity of injection 17:23: 21:38 [facility] [place] 00 :07 12/01/20 at [facility] 1223, Branch Until [place] 12/01/20 at 1638, Routine, Intra-op neomycin-po 2020- No PRN, Unive rs lymyxin-dex 12-01 Starting ity of amethasone 17:23: 21:38 [facility] [place] (MAXITROL) 00 :07 12/01/20 at [place] ical 3.5 122, Branch mg/g-10,000 Until [place] unit/g-0.1 12/01/20 at % 1638, ophthalmic Routine, ointment Intra-op eye block Yes PRN, Univers syringe 12-01 Starting ity o f mL 17:22: [facility] [place] 00 12/01/20 at [place] [id number], Branch Until Discontinu ed, Intra-op EPINEPHrine Yes PRN, Univer s (PF) 12-01 Starting ity of 1:1,000 (1 17:22: [facility] [place] mg/mL) 00 12/01/20 at [facility] (ADRENALIN 1222, Branch (PF)) Until injection Discontinu ed, Routine, Intra-op eye block Yes PRN, Univers syringe 12-01 Starting ity o f mL 17:22: [facility] [place] 00 12/01/20 at [place] [address], Branch Until Discontinu ed, Intra-op EPINEPHrine Yes PRN, Univer s (PF) 12-01 Starting ity of 1:1,000 (1 17:22: [facility] [place] mg/mL) 12/01/20 at [facility] (ADRENALIN 1222, Branch (PF)) Until injection Discontinu ed, Routine, Intra-op eye block 2020- No PRN, Univers syringe 11 12-01 Starting ity of mL 17:22: 21:38 [facility] [place] 00 :07 12/01/20 at Medical 1222, Branch Until [place]et 12/01/20 at 1638, Intra-op EPINEPHrine 2020- No PRN, Unive rs (PF) 12-01 Starting ity of 1:1,000 (1 17:22: 21:38 [facility] [place] mg/mL) 00 :07 12/01/20 at [facility] (ADRENALIN 1222, Branch (PF)) Until Yanet injection 12/01/20 at 1638, Routine, Intra-op eye block 2020- No PRN, Univers syringe 11 12-01 Starting ity of mL 17:22: 21:38 [facility] [place] 00 :07 12/01/20 at [facility] 1222, Branch Until [place] 12/01/20 at 1638, Intra-op EPINEPHrine 2020- No PRN, Unive rs (PF) 12-01 Starting ity of 1:1,000 (1 17:22: 21:38 [facility] [place] mg/mL) 00 :07 12/01/20 at [facility] (ADRENALIN 1222, Branch (PF)) Until Yanet injection 12/01/20 at 1638, Routine, Intra-op DUOVISC 0 Yes PRN, Univers (DUOVISC 12-01 Starting ity of VISCO 17:21: [facility] [place] ELASTIC) 3 00 12/01/20 at [place] ical %-4 %(0.5 122, Branch mL) 1 % Until (0.55 mL) Discontinu intraocular ed, injection Routine, Intra-op dexamethaso Yes PRN, Univer s ne 12-01 Starting ity of (DECADRON 17:21: [place] PHOSPHATE) 00 12/01/20 at [place] ical injection 1221, Branch Until Discontinu ed, Routine, Intra-op ceFAZolin Yes PRN, Univers (ANCEF) 12-01 Starting ity of injection 17:21: [facility] [place] 00 12/01/20 at [facility] 1221, Branch Until Discontinu ed, KEVIN, Intra-op balanced Yes PRN, Univers salt soln 12-01 Starting ity of no.2 irrig. 17:21: [place] [place] (BSS) 00 12/01/20 at [facility] ophthalmic 1221, Branch solution Until Discontinu ed, Routine, Intra-op DUOVISC 0 Yes PRN, Univers (DUOVISC 12-01 Starting ity of VISCO 17:21: [place] [place] ELASTIC) 3 00 12/01/20 at [place] ical %-4 %(0.5 1221, Branch mL) 1 % Until (0.55 mL) Discontinu intraocular ed, injection Routine, Intra-op dexamethaso Yes PRN, Univer s ne 12-01 Starting ity of (DECADRON 17:21: [place] PHOSPHATE) 00 12/01/20 at Med ical injection 1221, Branch Until Discontinu ed, Routine, Intra-op ceFAZolin Yes PRN, Univers (ANCEF) 12-01 Starting ity of injection 17:21: [place] 00 12/01/20 at [facility] 1221, Branch Until Discontinu ed, KEVIN, Intra-op balanced Yes PRN, Univers salt soln 12-01 Starting ity of no.2 irrig. 17:21: [place] (BSS) 00 12/01/20 at [facility] ophthalmic 1221, Branch solution Until Discontinu ed, Routine, Intra-op DUOVISC 2020- No PRN, Univers (DUOVISC 12-01 Starting ity of VISCO 17:21: 21:38 [place] [place] ELASTIC) 3 00 :07 12/01/20 at [place] ical %-4 %(0.5 1221, Branch mL) 1 [...] o f no.2 irrig. 17:21: 21:38 [place] [place] (BSS) 00 :07 12/01/20 at [facility] ophthalmic 1221, Branch solution Until Yanet 12/01/20 at 1638, Routine, Intra-op DUOVISC 2020- No PRN, Univers (DUOVISC 12-01 Starting ity of VISCO 17:21: 21:38 [facility] ELASTIC) 3 00 :07 12/01/20 at [place] ical %-4 %(0.5 122, Branch mL) 1 % Until Yanet (0.55 mL) 12/01/20 at intraocular 1638, injection Routine, Intra-op dexamethaso 2020- No PRN, Unive rs ne 12-01 Starting ity of (DECADRON 17:21: 21:38 [facility] PHOSPHATE) 00 :07 12/01/20 at [place] ical injection 1221, Branch Until [place] 12/01/20 at 1638, Routine, Intra-op ceFAZolin 2020- No PRN, [facility] (ANCEF) 12-01 Starting ity of injection 17:21: 21:38 [facility] 00 :07 12/01/20 at [place] [address], Branch Until [place] 12/01/20 at 1638, KEVIN, Intra-op balanced 2020- No PRN, [facility] salt soln 12-01 Starting ity o f no.2 irrig. 17:21: 21:38 [facility] (BSS) 00 :07 12/01/20 at [facility] ophthalmic 122, Branch solution Until [place] 12/01/20 at 1638, Routine, Intra-op mydriatic 2020- No .5mL 0.5 mL, Univ ers #5 12-01 Left Eye, ity of ophthalmic 16:45: 16:55 ONCE, 1 [place] solution 00 :00 dose, Yan[place] Medica l 0.5 mL 12/01/20 at [place] syringe 1145, Routine, DSU Pre-op lactated 2020- [...] by mouth ity of tablet 14:38: daily. [place] [address] Medical Branch amLODIPine 2020-0 Yes 5mg Take 5 mg Un delio 5 mg tablet 8-26 by mouth ity of 14:38: daily. [place] [address] Medical Branch losartan 2020-0 Yes 100mg Take 100 Univ ers 100 mg 8-26 mg by ity of tablet 14:38: mouth [place] 04 daily. Medical Branch pravastatin 2020-0 Yes 40mg Take 40 mg Univers 40 mg 8-26 by mouth ity of tablet 14:38: at [place] [address] bedtime. Medical Branch traZODone 2020-0 Yes 50mg Take 50 mg Un delio 50 mg 8-26 by mouth ity of tablet 14:38: at [place] [address] bedtime. Medical Branch pravastatin 2020-0 Yes 40mg Take 40 mg Univers 40 mg 8-26 by mouth ity of tablet 14:38: at [place] [address] bedtime. Medical Branch traZODone 2020-0 Yes 50mg Take 50 mg Un delio 50 mg 8-26 by mouth ity of tablet 14:38: at [place] [address] bedtime. Medical Branch aspirin 81 2020-0 Yes 81mg Take 81 mg U nivers mg chewable 8-26 by mouth ity of tablet 14:38: daily. [place] [address] Medical Branch amLODIPine 2020-0 Yes 5mg Take 5 mg Un delio 5 mg tablet 8-26 by mouth ity of 14:38: daily. Medical Branch losartan 2020-0 Yes 100mg Take 100 Univ ers 100 mg 8-26 mg by ity of tablet 14:38: mouth [place] 04 daily. Medical Branch pravastatin 2020-0 Yes 40mg Take 40 mg Univers 40 mg 8-26 by mouth ity of tablet 14:38: at [place] [address] bedtime. Medical Branch traZODone 2020-0 Yes 50mg Take 50 mg Un delio 50 mg 8-26 by mouth ity of tablet 14:38: at [place] [address] bedtime. Medical Branch pravastatin 2020-0 Yes 40mg Take 40 mg Univers 40 mg 8-26 by mouth ity of tablet 14:38: at [place] [address] bedtime. Medical Branch traZODone Yes 50mg Take 50 mg Un delio 50 mg 8-26 by mouth ity of tablet 14:38: at [place] [address] bedtime. [facility] Branch Immunizations Ordered Filled Immunization Date Status Comments [facility] Immunization Name Name SARS-COV-2 COVID-19 2021-01-05 Completed Unive rsity of PFIZER VACCINE 00:00:00 [facility] SARS-COV-2 COVID-19 2020-06-09 Completed Unive rsity of PFIZER VACCINE 00:00:00 [facility] SARS-COV-2 COVID-19 2020-06-09 Completed Unive rsity of PFIZER VACCINE 00:00:00 [facility] SARS-COV-2 COVID-19 2020-06-09 Completed Unive rsity of PFIZER VACCINE 00:00:00 [facility] SARS-COV-2 COVID-19 2020-06-09 Completed Unive rsity of PFIZER VACCINE 00:00:00 [facility] SARS-COV-2 COVID-19 2020-06-09 Completed Unive rsity of PFIZER VACCINE 00:00:00 [facility] SARS-COV-2 COVID-19 2020-06-09 Completed Unive rsity of PFIZER VACCINE 00:00:00 [facility] SARS-COV-2 COVID-19 2020-06-09 Completed Unive rsity of PFIZER VACCINE 00:00:00 [facility] SARS-COV-2 COVID-19 2020-06-09 Completed Unive rsity of PFIZER VACCINE 00:00:00 [facility] SARS-COV-2 COVID-19 2020-06-09 Completed Unive rsity of PFIZER VACCINE 00:00:00 [facility] SARS-COV-2 COVID-19 2020-06-09 Completed Unive rsity of PFIZER VACCINE 00:00:00 [facility] SARS-COV-2 COVID-19 2020-06-09 Completed Unive rsity of PFIZER VACCINE 00:00:00 [facility] SARS-COV-2 COVID-19 2020-06-09 Completed Unive rsity of PFIZER VACCINE 00:00:00 [facility] Branch SARS-COV-2 COVID-19 2020-06-09 Completed Unive rsity of PFIZER VACCINE 00:00:00 [facility] Branch SARS-COV-2 COVID-19 2020-06-09 Completed Unive rsity of PFIZER VACCINE 00:00:00 [facility] Branch SARS-COV-2 COVID-19 2020-06-09 Completed Unive rsity of PFIZER VACCINE 00:00:00 [facility] Branch SARS-COV-2 COVID-19 2020-06-09 Completed Unive rsity of PFIZER VACCINE 00:00:00 [facility] Branch SARS-COV-2 COVID-19 2020-06-09 Completed Unive rsity of PFIZER VACCINE 00:00:00 [facility] Branch SARS-COV-2 COVID-19 2020-05-19 Completed Unive rsity of PFIZER VACCINE 00:00:00 [facility] Branch SARS-COV-2 COVID-19 2020-05-19 Completed Unive rsity of PFIZER VACCINE 00:00:00 [facility] Branch SARS-COV-2 COVID-19 2020-05-19 Completed Unive rsity of PFIZER VACCINE 00:00:00 [facility] Branch SARS-COV-2 COVID-19 2020-05-19 Completed Unive rsity of PFIZER VACCINE 00:00:00 [facility] Branch SARS-COV-2 COVID-19 2020-05-19 Completed Unive rsity of PFIZER VACCINE 00:00:00 [facility] Branch SARS-COV-2 COVID-19 2020-05-19 Completed Unive rsity of PFIZER VACCINE 00:00:00 [facility] Branch SARS-COV-2 COVID-19 2020-05-19 Completed Unive rsity of PFIZER VACCINE 00:00:00 [facility] Branch SARS-COV-2 COVID-19 2020-05-19 Completed Unive rsity of PFIZER VACCINE 00:00:00 [facility] Branch SARS-COV-2 COVID-19 2020-05-19 Completed Unive rsity of PFIZER VACCINE 00:00:00 [facility] Branch SARS-COV-2 COVID-19 2020-05-19 Completed Unive rsity of PFIZER VACCINE 00:00:00 [facility] Branch SARS-COV-2 COVID-19 2020-05-19 Completed Unive rsity of PFIZER VACCINE 00:00:00 [facility] SARS-COV-2 COVID-19 2020-05-19 Completed Unive rsity of PFIZER VACCINE 00:00:00 [facility] SARS-COV-2 COVID-19 2020-05-19 Completed Unive rsity of PFIZER VACCINE 00:00:00 [facility] SARS-COV-2 COVID-19 2020-05-19 Completed Unive rsity of PFIZER VACCINE 00:00:00 [facility] SARS-COV-2 COVID-19 2020-05-19 Completed Unive rsity of PFIZER VACCINE 00:00:00 [facility] SARS-COV-2 COVID-19 2020-05-19 Completed Unive rsity of PFIZER VACCINE 00:00:00 [facility] SARS-COV-2 COVID-19 2020-05-19 Completed Unive rsity of PFIZER VACCINE 00:00:00 [facility] Vital Signs Vital Name Observation Time Observation Value Comments Source Systolic blood 2020-12-29 14:29:00 153 mm[Hg] Univer sity of pressure [facility] Diastolic blood 2020-12-29 14:29:00 67 mm[Hg] Unive rsity of pressure [facility] Heart rate 2020-12-29 14:29:00 50 /min [facility] Respiratory rate 2020-12-29 14:29:00 16 /min [facility] Oxygen saturation in 2020-12-29 14:29:00 94 /min [facility] Arterial blood by [facility] Pulse oximetry [place] Body temperature 2020-12-29 14:19:00 36.11 Alannah [facility] Body height 2020-12-26 18:39:00 170.2 cm [facility] Body weight 2020-12-26 18:39:00 74.844 kg [facility] BMI 2020-12-26 18:39:00 25.84 kg/m2 [facility] Systolic blood 2020-12-29 11:51:00 153 mm[Hg] Univer sity of pressure [facility] Diastolic blood 2020-12-29 11:51:00 77 mm[Hg] Unive rsity of pressure [facility] Heart rate 2020-12-29 11:51:00 69 /min [facility] Body temperature 2020-12-29 11:51:00 36.67 Alannah [facility] Respiratory rate 2020-12-29 11:51:00 18 /min [facility] Oxygen saturation in 2020-12-29 11:51:00 96 /min [facility] Arterial blood by [facility] Pulse oximetry Branch Body height 2020-12-26 18:39:00 170.2 cm [facility] Body weight 2020-12-26 18:39:00 74.844 kg [facility] BMI 2020-12-26 18:39:00 25.84 kg/m2 [facility] Systolic blood 2020-12-01 19:05:00 157 mm[Hg] Univer sity of pressure [facility] Diastolic blood 2020-12-01 19:05:00 81 mm[Hg] Unive rsity of pressure [facility] Heart rate 2020-12-01 19:05:00 53 /min [facility] Respiratory rate 2020-12-01 19:05:00 18 /min [facility] Oxygen saturation in 2020-12-01 19:05:00 96 /min [facility] Arterial blood by [facility] Pulse oximetry Branch Body temperature 2020-12-01 18:45:00 36.61 Alannah [facility] Body height 2020-11-30 16:28:00 170.2 [...] Oxygen saturation in 2020-12-01 19:05:00 96 /min [facility] Arterial blood by [facility] Pulse oximetry [place] Body temperature 2020-12-01 18:45:00 36.61 [facility] Body height 2020-11-30 16:28:00 170.2 cm [facility] Body weight 2020-11-30 16:28:00 76.204 kg [facility] BMI 2020-11-30 16:28:00 26.31 kg/m2 [facility] Procedures Procedure Date / Time Performing Source Performed Clinician SARS-COV-2 COVID-19 2021-01-05 Doctor Unassigned, [facility] VACCINE,0.3ML,IM (PFIZER) 21:07:27 [facility] PHACOEMULSIFICATION OF 2020-12-29 Az[facility] CATARACT WITH INTRAOCULAR 13:43:00 Donato Tejeda LENS IMPLANT DAY SURGERY - [facility] 2020-12-29 Doctor Unassigned, [facility] 05:01:00 [facility] CONSENT/REFUSAL FOR DIAGNOSIS 2020-12-27 Doctor Unassigned, [facility] AND TREATMENT 15:39:08 [facility] CONSENT/REFUSAL FOR DIAGNOSIS 2020-12-27 Doctor Unassigned, [facility] AND TREATMENT 15:39:08 [facility] ASSIGNMENT OF BENEFITS 2020-12-27 Doctor Unassigned, [facility] 15:38:43 [facility] ASSIGNMENT OF BENEFITS 2020-12-27 Doctor Unassigned, [facility] 15:38:43 [facility] PHACOEMULSIFICATION OF 2020-12-01 Az[facility] CATARACT WITH INTRAOCULAR 18:05:00 Donato [facility] [place] LENS IMPLANT DAY SURGERY - [facility] 2020-12-01 Doctor Unassigned, [facility] 05:01:00 [facility] COMP. METABOLIC PANEL ([id number]) 2020-11-29 Aziza [facility] 20:06:[address] [facility] CBC WITH DIFF 2020-11-29 Aziza [facility] 20:06:[address] [facility] COVID-19 (ID NOW RAPID 2020-11-29 Aziza [facility] TESTING) 20:00:00 [facility] CONSENT/REFUSAL FOR DIAGNOSIS 2020-11-29 Doctor Unassigned, [facility] AND TREATMENT 19:52:47 [facility] CONSENT/REFUSAL FOR DIAGNOSIS 2020-11-29 Doctor Unassigned, [facility] AND TREATMENT 19:52:47 [facility] ASSIGNMENT OF BENEFITS 2020-11-29 Doctor Unasselsy [facility] 19:52:24 [facility] ASSIGNMENT OF BENEFITS 2020-11-29 Doctor Unassigned, [facility] 19:52:24 [facility] PHYSICIAN ORDERS 2020-11-29 Doctor Unasselsy [facility] 05:01:00 [facility] NO SHOW OR MISSED APPOINTMENT 2020-11-24 Doctor Unakaty [facility] POLICY ACKNOWLEDGEMENT 18:37:56 [facility] NO SHOW OR MISSED APPOINTMENT 2020-11-24 Doctor Unakaty [facility] POLICY ACKNOWLEDGEMENT 18:37:56 [facility] PATIENT FINANCIAL POLICY 2020-11-24 Doctor Unassigned, [facility] 18:37:31 [facility] PATIENT FINANCIAL POLICY 2020-11-24 Doctor Unassigned, [facility] 18:37:31 [facility] NOTICE OF BILLING PRACTICES 2020-11-24 Doctor Unassigned, [facility] FOR MEDICARE PATIENTS 18:37:09 [facility] NOTICE OF BILLING PRACTICES 2020-11-24 Doctor Unassigned, [facility] FOR MEDICARE PATIENTS 18:37:09 [facility] NOTICE OF PRIVACY PRACTICES 2020-11-24 Doctor Unassigned, [facility] 18:36:48 [facility] NOTICE OF PRIVACY PRACTICES 2020-11-24 Doctor Unassigned, [facility] 18:36:48 [facility] CONSENT/REFUSAL FOR DIAGNOSIS 2020-11-24 Doctor Unasselsy, [facility] AND TREATMENT 18:36:24 [facility] CONSENT/REFUSAL FOR DIAGNOSIS 2020-11-24 Doctor Unassigned, [facility] AND TREATMENT 18:36:24 [facility] ASSIGNMENT OF BENEFITS 2020-11-24 Doctor Vanessa [facility] 18:35:54 [facility] ASSIGNMENT OF BENEFITS 2020-11-24 Doctor Unassigned, [facility] 18:35:54 [facility] Encounters Start End Encounter Admission Attending Care Care Encounter Source Date/Time Date/Time Type Type Clinicians Facility Department ID 2022-08-14 Outpatient [facility] [id number] Common 15:09:02 [id number] [facility] 2022-07-05 Outpatient [facility] [id number] Common 12:40:01 [id number] [facility] 2022-05-14 Outpatient [facility] [id number] Common 13:12:03 [id number] [facility] 2021-02-06 [facility] [id number] Univers 23:28:51 ARIA [facility] 2021-02-06 Outpatient [facility] [id number] Univers 16:45:17 ARIA [facility] 2021-01-05 2021-01-05 Outpatient [facility] [id number] Univers 16:00:00 16:00:00 ity [facility] 2021-01-05 2021-01-05 Imm/Inj Nurse, Adc Pob Immunization [facility] 1.2.840.114 [id number] Univers 15:56:59 15:57:30 Visit Neal Bergman 350.1.13 .10 [place] [phone] [place] dical [facility] 2020-12-29 2020-12-29 Hospital [facility] 1.2.840.114 [id number] Univers 06:37:00 09:42:00 Encounter Aria Armendariz [id number] [place] [id number] [place] [id number] [place] 2020-12-29 2020-12-29 Surgery [facility] 1.2.840.114 [id number] Univers 08:37:00 09:14:00 Aria Armendariz 350.1.13.10 i ty [place] [id number] [facility] 020 Branch 2020-12-27 2020-12-27 Laboratory Only, Adc Test [facility] 1.2.840. 114 [id number] Univers 10:33:21 10:48:21 Only Aria Cuenca 350.1.1 3.10 [place] [phone] [facility] 353 Branch 2020-12-27 2020-12-27 Outpatient R AZIZA [facility] [id number] Univers 10:30:00 10:30:00 ARIA itdominick [facility] 2020-12-01 2020-12-01 [facility] 1.2.840.114 [id number] Univers 11:37:00 14:35:00 Encounter Aria Armendariz 350.1.13.10 [place] [id number] [facility] 071 Branch 2020-12-01 2020-12-01 Surgery [facility] 1.2.840.114 [id number] Univers 13:47:00 14:24:00 Aria Armendariz 350.1.13.10 i [place] [id number] [facility] 020 Branch 2020-12-01 2020-12-01 Orders Doctor PELLETIER 1.2.840.114 [id number] Univers 00:00:00 00:00:00 Only Unassigned, BHARATH 350.1.13.10 ity of [place] [facility] 4.2.7.2.686 [place] as [id number] [facility] 009 Branch 2020-11-29 2020-11-29 Outpatient R AZIZA [facility] [id number] Univers 15:15:00 15:15:00 ARIA holm of [facility] 2020-11-29 2020-11-29 Pit Boss Nguyen, Adc Lab Main [facility] 1.2.8 40.114 [id number] Univers 14:53:37 15:08:37 Visit Aria Cuenca 350.1.1 3.10 [place] [id number] Id dical [facility] [address] Building 2020-11-29 2020-11-29 Laboratory Only, Adc Test [facility] 1.2.840. 114 [id number] Univers 14:52:54 15:07:54 Only Aziza, Aria Armendariz 350.1.1 3.10 [place] [phone] [facility] 353 Branch 2020-11-29 2020-11-29 Orders Doctor PRABHU 1.2.840.114 [id number] Univers 00:00:00 00:00:00 Only Unassigned, BHARATH 350.1.13.10 ity of [place] [facility] 4.2.7.2.686 [place] as [id number] [facility] 009 Branch Results Test Description Test Time Test Comments Results Result Comments Source COMP. METABOLIC PANEL (98671) 2020-11-29 20:35:55 Test Item Value Reference Range Interpretation Comme nts NA (test code = 6205751241) 135 mmol/L 135-145 K (test code = 7994118151) 3.6 mmol/L 3.5-5.0 CL (test code = 5262758812) 100 mmol/L 98-108 CO2 TOTAL (test code = 25 mmol/L 23-31 5135910462) AGAP (test code = 1782024147) 2-16 BUN (test code = 2267313789) 11 mg/dL 7-23 GLUCOSE (test code = 1196817896) 100 mg/dL 70-110 CREATININE (test code = 0.67 mg/dL 0.60-1.25 3624575463) TOTAL BILI (test code = 0.7 mg/dL 0.1-1.0 0544823590) CALCIUM (test code = 2083576452) 9.3 mg/dL 8.6-10.6 T PROTEIN (test code = 7.4 g/dL 6.3-8.2 8798942505) ALBUMIN (test code = 6679398320) 4.3 g/dL 3.5-5.0 ALK PHOS (test code = 2729004914) 55 U/L 34-122 ALTv (test code = 1742-6) 14 U/L 5-50 AST(SGOT) (test code = 25 U/L 13-40 2834773596) eGFR (test code = 8031276775) mL/min/1.73m2 REJI (test code = REJI) Association [...] or urine or abnormalities in imaging tests). [facility]. METABOLIC PANEL (84434)2020-11-29 20:35:55 Test Item Value Reference Range Interpretation Comments NA (test code = 6417070659) 135 mmol/L 135-145 K (test code = 6050272440) 3.6 mmol/L 3.5-5.0 CL (test code = 4588637774) 100 mmol/L 98-108 CO2 TOTAL (test code = 4987860543) 25 mmol/L 23-31 AGAP (test code = 0834106158) 2-16 BUN (test code = 2568775341) 11 mg/dL 7-23 GLUCOSE (test code = 5902312834) 100 mg/dL 70-110 CREATININE (test code = 0.67 mg/dL 0.60-1.25 8696083206) TOTAL BILI (test code = 0.7 mg/dL 0.1-1.5 9986554474) CALCIUM (test code = 9781324566) 9.3 mg/dL 8.6-10.6 T PROTEIN (test code = 8305855464) 7.4 g/dL 6.3-8.2 ALBUMIN (test code = 9391491998) 4.3 g/dL 3.5-5.0 ALK PHOS (test code = 3888199351) 55 U/L 34-122 ALTv (test code = 1742-6) 14 U/L 5-50 AST(SGOT) (test code = 8337461759) 25 U/L 13-40 eGFR (test code = 6662645678) mL/min/1.73m2 REJI (test code = REJI) [facility]-19 (ID NOW RAPID TESTING)2020-11-29 20:22:33 Test Item Value Reference Range Interpretation Comments SARS-CoV-2 Rapid ID NOW Not Detected Not Detected (test code = 80800-9) REJI (test code = REJI) ID NOW COVID-19 Assay is an isothermal nucleic acid amplification test intended for the qualitative detection of nucleic acid from SARS-CoV-2 viral RNA in nasopharyngeal (RESIDENTIAL LIVING ASSISTANT) specimens. It is used under Emergency Use [...] indicated. Lab Interpretation Normal (test code = 45421-9) [facility]-19 (ID NOW RAPID TESTING)2020-11-29 20:22:33 Test Item Value Reference Range Interpretation Comments SARS-CoV-2 Rapid ID NOW (test Not Detected Not Detected code = 30942-0) REJI (test code = REJI) Lab Interpretation (test code = Normal 36910-0) [facility] WITH [id number] 20:15:39 Test Item Value Reference Range Interpretation [...] RDW-SD (test code = 44.8 fL 38.5-51.6 63331-8) RDW-CV (test code = 12.7 % 12.1-15.4 788-0) PLT (test code = See_Comment [Automated 777-3) message] The sy stem which generated this result transmitted reference range : 150 - 328 10*3/ ?L. The reference r china was not used to interpret this result as normal/abnormal . MPV (test code = 9.8 fL 9.8-13.0 86597-9) NRBC/100 WBC (test See_Comment [Automat ed code = 1525096606) message] The system which generated this result transmitted reference range : 0.0 - 10.0 /100 WBCs. The refer ence range was not u sed to interpret th is result as normal/abnormal . NRBC x10^3 (test code <0.01 See_Comment [Auto mated = 8860144996) message] The s ystem which generated this result transmitted reference range : 10*3/?L. The reference range was not used to interpret this result as normal/abnormal . GRAN MAT (NEUT) % 47.2 % (test code = 770-8) IMM GRAN % (test code 0.20 % = 4869358422) LYMPH % (test code = 36.8 % 736-9) MONO % (test code = 14.4 % 5905-5) EOS % (test code = 0.6 % 713-8) BASO % (test code = 0.8 % 706-2) GRAN MAT x10^3(ANC) 2.36 10*3/uL 1.99-6.95 (test code = 1502255937) IMM GRAN x10^3 (test <0.03 0.00-0.06 code = 0837798662) LYMPH x10^3 (test code 1.84 10*3/uL 1.09-3.23 = 731-0) MONO x10^3 (test code 0.72 10*3/uL 0.36-1.02 = 742-7) EOS x10^3 (test code = 0.03 10*3/uL 0.06-0.53 L 711-2) BASO x10^3 (test code 0.04 10*3/uL 0.01-0.09 = 704-7) Lab Interpretation Abnormal (test code = 98867-8) [facility] WITH [id number] 20:15:39 Test Item Value Reference Range Interpretation Comments WBC (test code = See_Comment [Automated 0390-2) message] The sy stem which generated this result transmitted reference range : 4.20 - 10.70 10*3/?L. The reference range was not used to interpret this result as normal/abnormal . RBC (test code = See_Comment [Automated 729-8) message] The sy stem which generated this [...] RDW-SD (test code = 44.8 fL 38.5-51.6 11599-0) RDW-CV (test code = 12.7 % 12.1-15.4 788-0) PLT (test code = See_Comment [Automated 777-3) message] The sy stem which generated this result transmitted reference range : 150 - 328 10*3/ ?L. The reference r ch[place] was not used to interpret this result as normal/abnormal . MPV (test code = 9.8 fL 9.8-13.0 21885-8) NRBC/100 WBC (test See_Comment [Automat ed code = 7925826149) message] The system which generated this result transmitted reference range : 0.0 - 10.0 /100 WBCs. The refer ence range was not u sed to interpret th is result as normal/abnormal . NRBC x10^3 (test code <0.01 See_Comment [Auto mated = 5897506164) message] The s ystem which generated this result transmitted reference range : 10*3/?L. The reference range was not used to interpret this result as normal/abnormal . GRAN MAT (NEUT) % 47.2 % (test code = 770-8) IMM GRAN % (test code 0.20 % = 6390076767) LYMPH % (test code = 36.8 % 736-9) MONO % (test code = 14.4 % 5905-5) EOS % (test code = 0.6 % 713-8) BASO % (test code = 0.8 % 706-2) GRAN MAT x10^3(ANC) 2.36 10*3/uL 1.99-6.95 (test code = 3196625732) IMM GRAN x10^3 (test <0.03 0.00-0.06 code = 8032285136) LYMPH x10^3 (test code 1.84 10*3/uL 1.09-3.23 = 731-0) MONO x10^3 (test code 0.72 10*3/uL 0.36-1.02 = 742-7) EOS x10^3 (test code = 0.03 10*3/uL 0.06-0.53 L 711-2) BASO x10^3 (test code 0.04 10*3/uL 0.01-0.09 = 704-7) Lab Interpretation Abnormal (test code = 23507-7) [facility]"
[2022-10-02 05:55] LABS: Absolute Lymphocytes (CBC) 0.3 K/uL (0.7-4.9); Hematocrit 32.8 % (39.6-49.0); Lymphocytes % 10.8 % (15.3-44.8); MCV 100.5 fL (80-100); MPV 6.3 fL (7.6-11.3); RBC Red Blood Cell Count 3.26 M/uL (4.33-5.43)
[2022-10-02] MEDS ORDERED: NA CHLORIDE 0.9% 500 ML ONE (05:55)
[2022-10-02 06:32] LABS: Albumin 3.2 g/dL (3.4-5.0); Bilirubin Direct 0.4 mg/dL (0-0.2); Bilirubin Indirect, Calculated 0.7 mg/dL (0.2-0.8); Bilirubin Total 1.1 mg/dL (0.2-1.0); Magnesium 1.9 mg/dL (1.6-2.4); Potassium 3.1 mEq/L (3.5-5.1); Protein, Total 6.4 g/dL (6.4-8.2); Thyroid Stimulating Hormone 1.11 uIU/mL (0.358-3.740); Troponin High Sensitivity 8.3 pg/mL (<58.9)
[2022-10-02 06:34] LABS: Protime INR 1.01
--- NOTE | 2022-10-02 06:40 | EDPHYS ---
Physician Documentation [facility] Name: Alvin Soliman Age: 86 yrs Sex: Male : 1935 Arrival Date: 10/02/2022 Time: 05:20 Bed 7 Private MD: LEA Physician Faizan Cobos HPI: 10/02 06:32 This 86 yrs old Male presents to ER via EMS with complaints of left foot faith pain, anorexia and weakness. 06:32 The patient presents to the emergency department with nausea, vomiting, that is faith intermittent. Onset: The symptoms/episode began/occurred 5 day(s) ago. Possible causes: unknown. The symptoms are aggravated by nothing. The symptoms are alleviated by remaining still. The patient presents with pain, that is acute. The complaints affect the left foot. Context: The problem was sustained at home, resulted from a mis-step by the patient, the patient can partially bear weight. Modifying factors: The symptoms are alleviated by elevation of extremity, ice packs, sitting, the symptoms are aggravated by weight bearing, movement. Associated signs and symptoms: Pertinent positives: nausea, vomiting. Associated signs and symptoms: Pertinent positives: nausea, vomiting. Severity of symptoms: At their worst the symptoms were moderate in the emergency department the symptoms are unchanged. Historical: - Allergies: 05:24 No Known Allergies; kl - Home Meds: 05:24 amlodipine 5 mg tab 1 tab once daily [Active]; aspirin 81 mg Oral TbEC 1 tab once daily kl [Active]; lorazepam 1 mg Oral tab 1 tab 2 times per day [Active]; metoprolol tartrate 100 mg Oral tab 1 tab once daily [Active]; multivitamin Oral tab daily [Active]; pravastatin 40 mg Oral tab 1 tab once daily [Active]; trazodone 150 mg Oral tab 1 tab 3 times per day [Active]; valsartan-hydrochlorothiazide 160-25 mg Oral tab 1 tab once daily [Active]; Vitamin B-12 500 mcg Oral tab daily [Active]; Vitamin C 1,000 mg Oral tab daily [Active]; - PMHx: 05:24 High Cholesterol; Hypertension; cancer; kl - PSHx: 05:24 Radiation; kl - Immunization history:: Adult Immunizations up to date. - Social history:: Smoking status: Patient denies any tobacco usage or history of. - Family history:: not pertinent. ROS: 06:32 Constitutional: Negative for fever, chills, and weight loss, Eyes: Negative for injury, faith pain, redness, and discharge, ENT: Negative for injury, pain, and discharge, Neck: Negative for injury, pain, and swelling, Cardiovascular: Negative for chest pain, palpitations, and edema, Respiratory: Negative for shortness of breath, cough, wheezing, and pleuritic chest pain, Back: Negative for injury and pain, : Negative for injury, bleeding, discharge, and swelling, Skin: Negative for injury, rash, and discoloration, Psych: Negative for depression, anxiety, suicide ideation, homicidal ideation, and hallucinations, Allergy/Immunology: Negative for hives, rash, and allergies, Endocrine: Negative for neck swelling, polydipsia, polyuria, polyphagia, and marked weight changes, Hematologic/Lymphatic: Negative for swollen nodes, abnormal bleeding, and unusual bruising. 06:32 Abdomen/GI: Positive for nausea and vomiting, anorexia. 06:32 MS/extremity: Positive for pain, swelling, of the dorsum of left foot. Exam: 06:36 Constitutional: This is a well developed, well nourished patient who is awake, alert, faith and in no acute distress. Head/Face: Normocephalic, atraumatic. Eyes: Pupils equal round and reactive to light, extra-ocular motions intact. Lids and lashes normal. Conjunctiva and sclera are non-icteric and not injected. Cornea within normal limits. Periorbital areas with no swelling, redness, or edema. ENT: Nares patent. No nasal discharge, no septal abnormalities noted. Tympanic membranes are normal and external auditory canals are clear. Oropharynx with no redness, swelling, or masses, exudates, or evidence of obstruction, uvula midline. Mucous membranes moist. Neck: Trachea midline, no thyromegaly or masses palpated, and no cervical lymphadenopathy. Supple, full range of motion without nuchal rigidity, or vertebral point tenderness. No Meningismus. Chest/axilla: Normal chest wall appearance and motion. Nontender with no deformity. No lesions are appreciated. Cardiovascular: Regular rate and rhythm with a normal S1 and S2. No gallops, murmurs, or rubs. Normal PMI, no JVD. No pulse deficits. Respiratory: Lungs have equal breath sounds bilaterally, clear to auscultation and percussion. No rales, rhonchi or wheezes noted. No increased work of breathing, no retractions or nasal flaring. Abdomen/GI: Soft, non-tender, with normal bowel sounds. No distension or tympany. No guarding or rebound. No evidence of tenderness throughout. Back: No spinal tenderness. No costovertebral tenderness. Full range of motion. Skin: Warm, dry with normal turgor. Normal color with no rashes, no lesions, and no evidence of cellulitis. Neuro: Awake and alert, GCS 15, oriented to person, place, time, and situation. Cranial nerves II-XII grossly intact. Motor strength 5/5 in all extremities. Sensory grossly intact. Cerebellar exam normal. Normal gait. Psych: Awake, alert, with orientation to person, place and time. Behavior, mood, and affect are within normal limits. 06:36 Musculoskeletal/extremity: Extremities: grossly normal except: noted in the dorsum of left foot: pain, swelling, tenderness. Vital Signs: 05:22 BP 113 / 77; Pulse 79; Resp 16; Temp 98.6(O); Pulse Ox 98% on R/A; Weight 44.45 kg (R); kl Height 5 ft. 7 in. ; Pain 0/10; 05:53 BP 138 / 83; Pulse Ox 96% ; kl 06:32 BP 154 / 95; Pulse 95; Pulse Ox 100% on R/A; kl 07:26 BP 124 / 74; Pulse 79; Resp 18; Temp 98.4; Pulse Ox 98% on R/A; ph 05:22 Body Mass Index 15.35 (44.45 kg, 170.18 cm) kl 05:22 Pain Scale: Adult kl MDM: 05:57 Patient medically screened. faith 06:36 Differential diagnosis: fracture, Nonspecific abd pain, cholecystitis, gastroenteritis. faith Differential Diagnosis. Data reviewed: vital signs, nurses notes, lab test result(s), EKG, radiologic studies, plain films. Consideration of Admission/Observation Patient was admitted/placed on observation. Escalation of care including admission/observation considered. I considered the following discharge prescriptions or medication management in the emergency department Medications were administered in the Emergency Department. See MAR. Independent interpretation of the following test(s) in the Emergency Department EKG: See my EKG interpretation above. Test considered but Not performed: Ultrasound no venous doppler. Historians other than the Patient: EMS: ems informed. Care significantly affected by the following chronic conditions: Hypertension, high cholesterol. 10/02 05:37 Order name: Basic Metabolic Panel; Complete Time: 06:48 10/02 05:37 Order name: CBC with Diff 10/02 05:37 Order name: LFT's; Complete Time: 06:48 10/02 05:37 Order name: Magnesium; Complete Time: 06:48 10/02 05:37 Order name: Troponin HS; Complete Time: 06:48 10/02 06:09 Order name: Manual Differential EDMS 10/02 06:09 Order name: PT-INR; Complete Time: 06:48 [facility] 10/02 06:09 Order name: Urinalysis w/ reflexes [facility] 10/02 06:16 Order name: Thyroid Stimulating Hormone; Complete Time: 06:48 EDMS 10/02 05:37 Order name: XRAY Chest (1 view) 10/02 06:09 Order name: Foot Left 3 View XRAY [facility] 10/02 06:49 Order name: Echo w/ Doppler [facility] 10/02 05:37 Order name: EKG; Complete Time: 05:38 10/02 05:37 Order name: Cardiac monitoring; Complete Time: 06:32 10/02 05:37 Order name: EKG - Nurse/Tech; Complete Time: 06:33 10/02 05:37 Order name: IV Saline Lock; Complete Time: 05:51 10/02 05:37 Order name: Labs collected and sent; Complete Time: 05:51 10/02 05:37 Order name: O2 Per Protocol; Complete Time: 05:51 10/02 05:37 Order name: O2 Sat Monitoring; Complete Time: 05:51 kl Administered Medications: 06:09 Discontinued: NS 0.9% IV 500 ml IV at 500 bolus once faith 05:50 Drug: NS 0.9% IV 500 ml Route: IV; Rate: 500 bolus; Site: right forearm; kl 06:21 Drug: NS 0.9% IV 1000 ml Route: IV; Rate: 1 bolus; Site: right forearm; kl 06:48 CANCELLED (Duplicate Order): Potassium PO Effervescent Tablet 25 mEq PO once; dissolve faith in 4 ounces of water or juice 06:49 Not Given (Duplicate Order): NS 0.9% IV 1000 ml IV at 125 ml/hr continuous faith 07:44 Drug: NS 0.9% with KCl IV 20 mEq/L 1000 ml Route: IV; Rate: 125 ml/hr; Site: right ph forearm; 08:00 Follow up: Response: No adverse reaction; IV Status: Infusion continued upon admission ph 07:45 Drug: Potassium PO Effervescent Tablet 50 mEq Route: PO; ph 08:00 Follow up: Response: No adverse reaction ph Disposition Summary: 10/02/22 06:39 Hospitalization Ordered Hospitalization Status: Inpatient Admission faith Provider: Mariusz Mccrary cha Location: Telemetry/MedSurg (Inpatient) faith Condition: Fair faith Problem: new faith Symptoms: have improved faith Bed/Room Type: Standard faith Room Assignment: 430(10/02/22 07:59) bd Diagnosis - Weakness faith - Anorexia faith - Fracture of fifth metatarsal bone faith - Dehydration faith - Hypokalemia faith - Persistent atrial fibrillation - new onset faith - Hypo-osmolality and hyponatremia faith Forms: - Medication Reconciliation Form faith - SBAR form faith Signatures: Dispatcher [employer] EDMS Angelina Awad Kimberly, RN RN kl Anderson, Corey, MD MD cha Hall, Patricia, RN RN ph Corrections: (The following items were deleted from the chart) 06:15 06:09 THYROID STIMULAT HORMONE+C.LAB.BRZ ordered. EDMS EDMS 06:48 06:48 Potassium PO Effervescent Tablet 25 mEq PO once; dissolve in 4 ounces of water or faith juice ordered. faith 07:13 06:39 faith bd 07:59 07:13 419 bd bd
--- NOTE | 2022-10-02 06:40 | ER ---
Nurse's Notes [facility] Name: Alvin Soliman Age: 86 yrs Sex: Male : 1935 Arrival Date: 10/02/2022 Time: 05:20 Bed 7 Private MD: Diagnosis: Weakness;Anorexia;Fracture of fifth metatarsal bone;Dehydration;Hypokalemia;Persistent atrial fibrillation-new onset;Hypo-osmolality and hyponatremia Presentation: 10/02 05:22 Chief complaint: Patient states: weakness decrease appetite s/p chemotherapy and kl radiation treatment for skin cancer pt also diagnosed with prostate cancer as well no treatment as of yet. Coronavirus screen: Vaccine status: Patient reports receiving the 2nd dose of the covid vaccine. Ebola Screen: Patient negative for fever greater than or equal to 101.5 degrees Fahrenheit, and additional compatible Ebola Virus Disease symptoms. Initial Sepsis Screen: Does the patient meet any 2 criteria? No. Patient's initial sepsis screen is negative. Does the patient have a suspected source of infection? No. Patient's initial sepsis screen is negative. Risk Assessment: Do you want to hurt yourself or someone else? Patient reports no desire to harm self or others. 05:22 Method Of Arrival: EMS: [facility] 05:22 Acuity: RUDY 3 Triage Assessment: 05:26 General: Appears ill, slender, Behavior is calm, cooperative. Pain: Denies pain. EENT: kl Reports loss of taste and difficulty swallowing due to radiation. Neuro: No deficits noted. Cardiovascular: No deficits noted. Respiratory: No deficits noted. Airway is patent Trachea midline Respiratory effort is even, unlabored. GI: Reports anorexia. : No deficits noted. Historical: - Allergies: 05:24 No Known Allergies; - Home Meds: 05:24 amlodipine 5 mg tab 1 tab once daily [Active]; aspirin 81 mg Oral TbEC 1 tab once daily [Active]; lorazepam 1 mg Oral tab 1 tab 2 times per day [Active]; metoprolol tartrate 100 mg Oral tab 1 tab once daily [Active]; multivitamin Oral tab daily [Active]; pravastatin 40 mg Oral tab 1 tab once daily [Active]; trazodone 150 mg Oral tab 1 tab 3 times per day [Active]; valsartan-hydrochlorothiazide 160-25 mg Oral tab 1 tab once daily [Active]; Vitamin B-12 500 mcg Oral tab daily [Active]; Vitamin C 1,000 mg Oral tab daily [Active]; - PMHx: 05:24 High Cholesterol; Hypertension; cancer; kl - PSHx: 05:24 Radiation; kl - Immunization history:: Adult Immunizations up to date. - Social history:: Smoking status: Patient denies any tobacco usage or history of. - Family history:: not pertinent. Screenin:52 [facility] ED Fall Risk Assessment (Adult) History of falling in the last 3 months, including since admission No falls in past 3 months (0 pts) Confusion or Disorientation No (0 pts) Intoxicated or Sedated No (0 pts) Impaired Gait Yes (1 pt) Mobility Assist Device Used No (0 pt) Altered Elimination No (0 pt) Score/Fall Risk Level 0 - 2 = Low Risk Oriented to surroundings, Maintained a safe environment. Abuse screen: Denies threats or abuse. Nutritional screening: No deficits noted. Tuberculosis screening: No symptoms or risk factors identified. Assessment: 05:51 Musculoskeletal: left 5th metatarsal fracture mario wrap and marcus taped. kl 06:22 Cardiovascular: Rhythm is atrial fibrillation With PVC's. kl 06:40 Cardiovascular: Rhythm is. kl Vital Signs: 05:22 BP 113 / 77; Pulse 79; Resp 16; Temp 98.6(O); Pulse Ox 98% on R/A; Weight 44.45 kg (R); kl Height 5 ft. 7 in. ; Pain 0/10; 05:53 BP 138 / 83; Pulse Ox 96% ; kl 06:32 BP 154 / 95; Pulse 95; Pulse Ox 100% on R/A; kl 07:26 BP 124 / 74; Pulse 79; Resp 18; Temp 98.4; Pulse Ox 98% on R/A; ph 05:22 Body Mass Index 15.35 (44.45 kg, 170.18 cm) kl 05:22 Pain Scale: Adult ED Course: 05:21 Patient arrived in ED. kl 05:24 Triage completed. kl 05:45 Inserted saline lock: 20 gauge in right forearm, using aseptic technique. Blood kl collected. 05:51 Basic Metabolic Panel Sent. kl 05:51 CBC with Diff Sent. kl 05:51 LFT's Sent. kl 05:51 Troponin HS Sent. kl 05:51 Magnesium Sent. kl 05:53 Patient has correct armband on for positive identification. Bed in low position. Call kl light in reach. Side rails up X2. Noise minimized. Warm blanket given. 05:57 Faizan Cobos MD is Attending Physician. faith 06:27 XRAY Chest (1 view) In Process Unspecified. EDMS 06:28 Foot Left 3 View XRAY In Process Unspecified. EDMS 06:39 Mariusz Mccrary MD is Hospitalizing Provider. faith 07:19 Rebeca Velasco, RN is Primary Nurse. ph 08:36 No provider procedures requiring assistance completed. Patient admitted, IV remains in ph place. 08:37 Arm band placed on. ph Administered Medications: 06:09 Discontinued: NS 0.9% IV 500 ml IV at 500 bolus once faith 05:50 Drug: NS 0.9% IV 500 ml Route: IV; Rate: 500 bolus; Site: right forearm; kl 06:21 Drug: NS 0.9% IV 1000 ml Route: IV; Rate: 1 bolus; Site: right forearm; kl 06:48 CANCELLED (Duplicate Order): Potassium PO Effervescent Tablet 25 mEq PO once; dissolve faith in 4 ounces of water or juice 06:49 Not Given (Duplicate Order): NS 0.9% IV 1000 ml IV at 125 ml/hr continuous faith 07:44 Drug: NS 0.9% with KCl IV 20 mEq/L 1000 ml Route: IV; Rate: 125 ml/hr; Site: right ph forearm; 08:00 Follow up: Response: No adverse reaction; IV Status: Infusion continued upon admission ph 07:45 Drug: Potassium PO Effervescent Tablet 50 mEq Route: PO; ph 08:00 Follow up: Response: No adverse reaction ph Medication: 05:52 VIS not applicable for this client. kl Outcome: 06:39 Decision to Hospitalize by Provider. faith 08:37 Admitted to Med/surg accompanied by tech, family with patient, via wheelchair, room ph 430, with chart. 08:37 Condition: stable 08:37 Patient left the ED. ph Signatures: Dispatcher [employer] Sangeeta Santana RN RN kl Anderson, Corey, MD MD cha Hall, Patricia, RN RN
[2022-10-02 06:59] LABS: Specific Gravity 1.011 (1.005-1.030); Urine Bilirubin NEGATIVE (Negative); Urine Blood Negative (Negative); Urine Clarity Clear (Clear); Urine Color Yellow (Yellow); Urine Glucose NEGATIVE (Negative); Urine Protein NEGATIVE (Negative); Urine Urobilinogen Normal (Normal)
[2022-10-02] MEDS ORDERED: POTASSIUM 25 MEQ EFFERV TAB ONE (07:42)
[2022-10-02] MEDS ORDERED: NS KCL 20MEQ 1,000 ML IV ONE (07:42)
[2022-10-02 08:24] LABS: Platelet Estimate DECR
[2022-10-02 08:25] LABS: Blood Morphology Comment NOT SEEN (NOT SEEN)
[2022-10-02] MEDS ORDERED: MORPHINE 2 MG/ML SYR IV PRN (08:52)
[2022-10-02] MEDS ORDERED: ACETAMINOPHEN 325 MG TABLET PO PRN (08:52)
[2022-10-02] MEDS ORDERED: TRAMADOL HCL 50 MG TAB PO PRN (08:52)
[2022-10-02] MEDS ORDERED: ONDANSETRON 4 MG/2 ML VIAL IV PRN (08:52)
[2022-10-02] MEDS: NS KCL 20MEQ 20 MEQ/1,000 ML BAG IV SCH ×2 (08:52→16:18)
[2022-10-02] MEDS ORDERED: HOME MED 1 EA UNK (Pravastatin Sodium [Pravastatin Sodium] 40 MG Tablet) PO SCH (09:00)
--- NOTE | 2022-10-02 09:13 | P.HP ---
Certification for Inpatient Patient admitted to: Observation With expected LOS: >2 Midnights Patient will require the following post-hospital care: Home Health Services Practitioner: I am a practitioner with admitting privileges, knowledge of patient current condition, hospital course, and medical plan of care. Services: Services provided to patient in accordance with Admission requirements found in Title 42 Section 412.3 of the Code of Federal Regulations Patient History Date of Service: 10/02/22 Primary Care Provider: Lexi, Reason for admission: chemotherapy induced weakness History of Present Illness: Patient is a pleasant gentleman with a history of prostate cancer and skin cancer with a lymph node on the left angle of the neck. He has been feeling weaker and weaker with chemo radiation. The patient was not able to get up and get ready last night and came to the ER. He is being taken care of By Dr. Del Rio and Dr. Krista Elliott normally. Is being admitted to the hospitalist service. Allergies No Known Allergies Allergy (Verified 10/28/17 18:09) Home Medications: Amlodipine Besylate 1 tab PO DAILY 10/28/17 Ascorbate Calcium [Vitamin C] 1 tab PO DAILY 10/28/17 Aspirin [Aspirin EC 81 MG] 1 tab PO DAILY 10/28/17 LORazepam [Ativan*] 1 tab PO DAILY 10/28/17 Multivitamin [Multivitamins] 1 tab PO DAILY 10/28/17 Pravastatin Sodium 40 mg PO DAILY 10/28/17 Valsartan/Hydrochlorothiazide [Valsartan-Hctz 160-25 mg Tab] 1 tab PO DAILY 10/28/17 Vitamin B Complex [B Complex] 1 tab PO DAILY 10/28/17 Albuterol Sulfate [Proair Hfa] 8.5 gm IH TID PRN #1 hfa.aer.ad 10/29/17 traMADol HCL [Ultram*] 50 mg PO TID PRN #10 tab 10/29/17 - Past Medical/Surgical History Diabetic: No -: HTN -: HLP -: BL Shoulder Surgery - Social History Alcohol use: Yes CD- Drugs: No Caffeine use: Yes Review of Systems 10-point ROS is otherwise unremarkable General: Weakness Physical Examination - Vital Signs Temperature: 98.4 F Blood Pressure: 124/74 Pulse: 79 Respirations: 18 - Physical Exam General: Alert, In no apparent distress HEENT: Atraumatic, PERRLA, Mucous membr. moist/pink, EOMI, Sclerae nonicteric Neck: Supple, 2+ carotid pulse no bruit, No LAD, Without JVD or thyroid ab normality Respiratory: Clear to auscultation bilaterally, Normal air movement Cardiovascular: Regular rate/rhythm, Normal S1 S2 Gastrointestinal: Normal bowel sounds, No tenderness Musculoskeletal: No tenderness Integumentary: No rashes, Other (mild radiation changes to the skin on the left side of the neck ) Neurological: Normal gait, Normal speech, Normal strength at 5/5 x4 extr, Normal tone, Normal affect Lymphatics: No axilla or inguinal lymphadenopathy - Studies Laboratory Data (last 24 hrs) 10/02/22 05:40: PT 11.1, INR 1.01 10/02/22 05:40: WBC 2.30 L, Hgb 11.6 L, Hct 32.8 L, Plt Count 158 10/02/22 05:40: Sodium 129 L, Potassium 3.1 L, BUN 12, Creatinine 0.61 L, Glucose 101, Magnesium 1.9, Total Bilirubin 1.1 H, AST 13 L, ALT 17, Alkaline Phosphatase 61 Assessment and Plan - Advance Directives Does patient have a Living Will: Yes Does patient have a Durable POA for Healthcare: Yes
[2022-10-02] MEDS ORDERED: ESZOPICLONE 1 MG TAB PO PRN (09:14)
--- NOTE | 2022-10-02 09:18 | P.HP ---
Certification for Inpatient Patient admitted to: Observation With expected LOS: <2 Midnights Patient will require the following post-hospital care: Home Health Services Practitioner: I am a practitioner with admitting privileges, knowledge of patient current condition, hospital course, and medical plan of care. Services: Services provided to patient in accordance with Admission requirements found in Title 42 Section 412.3 of the Code of Federal Regulations Patient History Date of Service: 10/02/22 Primary Care Provider: Lexi, Reason for admission: chemotherapy induced weakness History of Present Illness: Patient is a pleasant gentleman with a history of prostate cancer and skin cancer with a lymph node on the left angle of the neck. He has been feeling weaker and weaker with chemo radiation. The patient was not able to get up and get ready last night and came to the ER. He is being taken care of By Dr. Del Rio and Dr. Krista Elliott normally. Is being admitted to the hospitalist service. Allergies No Known Allergies Allergy (Verified 10/28/17 18:09) Home Medications: Amlodipine Besylate 1 tab PO DAILY 10/28/17 Ascorbate Calcium [Vitamin C] 1 tab PO DAILY 10/28/17 Aspirin [Aspirin EC 81 MG] 1 tab PO DAILY 10/28/17 LORazepam [Ativan*] 1 tab PO DAILY 10/28/17 Multivitamin [Multivitamins] 1 tab PO DAILY 10/28/17 Pravastatin Sodium 40 mg PO DAILY 10/28/17 Valsartan/Hydrochlorothiazide [Valsartan-Hctz 160-25 mg Tab] 1 tab PO DAILY 10/28/17 Vitamin B Complex [B Complex] 1 tab PO DAILY 10/28/17 Albuterol Sulfate [Proair Hfa] 8.5 gm IH TID PRN #1 hfa.aer.ad 10/29/17 traMADol HCL [Ultram*] 50 mg PO TID PRN #10 tab 10/29/17 - Past Medical/Surgical History Diabetic: No -: HTN -: HLP -: BL Shoulder Surgery - Social History Alcohol use: Yes CD- Drugs: No Caffeine use: Yes Review of Systems 10-point ROS is otherwise unremarkable General: Weakness Physical Examination - Vital Signs Temperature: 98.4 F Blood Pressure: 124/74 Pulse: 79 Respirations: 18 - Physical Exam General: Alert, In no apparent distress HEENT: Atraumatic, PERRLA, Mucous membr. moist/pink, EOMI, Sclerae nonicteric Neck: Supple, 2+ carotid pulse no bruit, No LAD, Without JVD or thyroid ab normality Respiratory: Clear to auscultation bilaterally, Normal air movement Cardiovascular: Regular rate/rhythm, Normal S1 S2 Gastrointestinal: Normal bowel sounds, No tenderness Musculoskeletal: No tenderness Integumentary: No rashes Neurological: Normal gait, Normal speech, Normal strength at 5/5 x4 extr, Normal tone, Normal affect Lymphatics: No axilla or inguinal lymphadenopathy - Studies Laboratory Data (last 24 hrs) 10/02/22 05:40: PT 11.1, INR 1.01 10/02/22 05:40: WBC 2.30 L, Hgb 11.6 L, Hct 32.8 L, Plt Count 158 10/02/22 05:40: Sodium 129 L, Potassium 3.1 L, BUN 12, Creatinine 0.61 L, Glucose 101, Magnesium 1.9, Total Bilirubin 1.1 H, AST 13 L, ALT 17, Alkaline Phosphatase 61 Assessment and Plan - Problems (Diagnosis) (1) Chemotherapy adverse reaction Current Visit: Yes Status: Acute Plan: patient has chemotherapy induced weakness. High risk of falls. Qualifiers: Encounter type: initial encounter Qualified Code(s): T45.1X5A - Adverse effect of antineoplastic and immunosuppressive drugs, initial encounter (2) Unspecified protein-calorie malnutrition Current Visit: Yes Status: Acute Plan: have PT see him. Will most likely needs some home health and home PT for the patient Qualifiers: Protein-calorie malnutrition severity: moderate Qualified Code(s): E44.0 - Moderate protein-calorie malnutrition (3) HTN (hypertension) Onset Date: 10/29/17 Current Visit: No Status: Chronic Plan: restart his amlodipine. Will restart the losartan as he gets stronger. Qualifiers: Hypertension type: primary hypertension Qualified Code(s): I10 - Essential (primary) hypertension Discharge Plan: Home Plan to discharge in: 24 Hours - Advance Directives Does patient have a Living Will: Yes Does patient have a Durable POA for Healthcare: Yes - Code Status/Comfort Care Code Status Assessed: No Code Status: Full Code Physician Review: Patient Assessed, Agree with Above Assessment and Plan Critical Care: No Time Spent Managing Pts Care (In Minutes): 45
[2022-10-02] MEDS: LORAZEPAM 1 MG TABLET PO SCH (09:56)
[2022-10-02] MEDS: AMLODIPINE 5 MG TAB PO SCH (09:56)
[2022-10-02] MEDS: ASPIRIN EC 81 MG TAB PO SCH (09:56)
[2022-10-02] MEDS: FAMOTIDINE 20 MG/2 ML VIAL IV SCH ×2 (09:56→20:16)
[2022-10-02] MEDS: ASCORBIC ACID 500 MG TABLET PO SCH (09:56)
[2022-10-02 10:51] VITALS: BMI 15.3
--- NOTE | 2022-10-02 14:46 | RAD REPORT ---
EXAM DESCRIPTION: X Ray Foot Left 3 View; 3 views CLINICAL HISTORY: 86 years Male, PAIN COMPARISON: None. FINDINGS/IMPRESSION: Comminuted nondisplaced fracture of the fifth metatarsal base mild adjacent sof t tissue swelling. Electronically signed by: Meng Palacios MD 10/02/2022 6:49 AM CDT Due to temporary technical issues with the PACS/Fluency reporting system, reports are being signed by the in house radiologists without review as a courtesy to insure prompt reporting. The interpreting radiologist is fully responsible for the content of the report.
--- NOTE | 2022-10-02 17:46 | RAD REPORT ---
EXAM DESCRIPTION: X Ray Chest Single View 1 VIEW CLINICAL HISTORY: 86 years Male, weakness COMPARISON: None. FINDINGS: Low lung volumes accentuating the cardiomediastinal silhouette. Left retrocardiac and basilar opacity with obscuration of left hemidiaphragm and costophrenic angle. No pneumothorax. Bilateral shoulder arthroplasties. IMPRESSION: Left retrocardiac and basilar atelectasis versus infiltrate with small left pleural effu alcon. Electronically signed by: Meng Palacios MD 10/02/2022 6:50 AM CDT Due to temporary technical issues with the PACS/Fluency reporting system, reports are being signed by the in house radiologists without review as a courtesy to insure prompt reporting. The interpreting radiologist is fully responsible for the content of the report.
--- NOTE | 2022-10-02 20:36 | EKG ---
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
[2022-10-02] MEDS ORDERED: ATORVASTATIN 10 MG TAB PO SCH (21:00)
[2022-10-03] MEDS: NS KCL 20MEQ 20 MEQ/1,000 ML BAG IV SCH ×2 (04:06→07:53)
[2022-10-03 04:21] LABS: Absolute Lymphocytes (CBC) 0.4 K/uL (0.7-4.9); Hematocrit 30.8 % (39.6-49.0); MCV 101.7 fL (80-100); MPV 6.7 fL (7.6-11.3); RBC Red Blood Cell Count 3.03 M/uL (4.33-5.43)
[2022-10-03 04:55] LABS: Albumin 2.8 g/dL (3.4-5.0); Bilirubin Direct 0.2 mg/dL (0-0.2); Bilirubin Indirect, Calculated 0.5 mg/dL (0.2-0.8); Bilirubin Total 0.7 mg/dL (0.2-1.0); Potassium 3.9 mEq/L (3.5-5.1); Protein, Total 5.8 g/dL (6.4-8.2)
--- NOTE | 2022-10-03 06:53 | ECHO ---
HEIGHT: 5 ft 7 in WEIGHT: 98 lb 0 oz DATE OF STUDY: 10/02/[address]: Faizan Cobos MD 2-DIMENSIONAL: YES M.MODE: YES DOPPLER: YES COLOR FLOW: YES TDS: PORTABLE: YES DEFINITY: BUBBLE STUDY: DIAGNOSIS: ATRIAL FIBRILLATION CARDIAC HISTORY: CATHERIZATION: SURGERY: PROSTHETIC VALVE: PACEMAKER: MEASUREMENTS (cm) DIASTOLIC (NORMALS) SYSTOLIC (NORMALS) IVSd 0.9 (0.6-1.2) LA Diam 4.7 (1.9-4.0) LVEF 55% LVIDd 4.3 (3.5-5.7) LVIDs 3.1 (2.0-3.5) %FS 29% LVPWd 0.9 (0.6-1.2) Ao Diam 3.2 (2.0-3.7) 2 DIMENSIONAL ASSESSMENT: RIGHT ATRIUM: NORMAL LEFT ATRIUM: DILATED RIGHT VENTRICLE: NORMAL LEFT VENTRICLE: NORMAL TRICUSPID VALVE: NORMAL MITRAL VALVE: MITRAL ANNULAR CALCIFICATION PULMONIC VALVE: NORMAL AORTIC VALVE: SCLEROSIS PERICARDIAL EFFUSION: NONE AORTIC ROOT: NORMAL LEFT VENTRICULAR WALL MOTION: NORMAL DOPPLER/COLOR FLOW: NORMAL COMMENTS: 1. MITRAL ANNULAR CALCIFICATION 2. ATRIAL FIBRILLATION 3. AORTIC SCLEROSIS 4. NO THROMBUS 5. NORMAL LEFT VENTRICULAR SIZE AND FUNCTION TECHNOLOGIST: MIK PADILLA
[2022-10-03 07:50] VITALS: O2SAT 95
[2022-10-03] MEDS: ASCORBIC ACID 500 MG TABLET PO SCH (07:51)
[2022-10-03] MEDS: FAMOTIDINE 20 MG/2 ML VIAL IV SCH (07:51)
[2022-10-03] MEDS: AMLODIPINE 5 MG TAB PO SCH (07:51)
[2022-10-03 07:52] VITALS: BP 142/79
[2022-10-03] MEDS: ASPIRIN EC 81 MG TAB PO SCH (07:52)
[2022-10-03] MEDS: LORAZEPAM 1 MG TABLET PO SCH (07:52)
[2022-10-03 08:28] VITALS: TEMP 98.8
--- NOTE | 2022-10-03 09:45 | P.DS ---
Admission Date: 10/02/22 Discharge Date: 10/03/22 Primary Care Provider: Lexi, Disposition: ROUTINE DISCHARGE Discharge Condition: GOOD Reason for Admission: chemotherapy induced weakness - Problems (1) Chemotherapy adverse reaction Current Visit: Yes Status: Acute Qualifiers: Encounter type: initial encounter Qualified Code(s): T45.1X5A - Adverse effect of antineoplastic and immunosuppressive drugs, initial encounter (2) Unspecified protein-calorie malnutrition Current Visit: Yes Status: Acute Qualifiers: Protein-calorie malnutrition severity: moderate Qualified Code(s): E44.0 - Moderate protein-calorie malnutrition (3) HTN (hypertension) Onset Date: 10/29/17 Current Visit: No Status: Chronic Qualifiers: Hypertension type: primary hypertension Qualified Code(s): I10 - Essential (primary) hypertension Brief History of Present Illness: Patient is a pleasant gentleman with a history of prostate cancer and skin cancer with a lymph node on the left angle of the neck. He has been feeling weaker and weaker with chemo radiation. The patient was not able to get up and get ready last night and came to the ER. He is being taken care of By Dr. Del Rio and Dr. Krista Elliott normally. Is being admitted to the hospitalist service. Hospital Course: Patient admitted started on fluids and seen by PT. He is doing better this morning. Will discharge him home today. Arrange for home PT and home health. Will have him follow up with his pcp Dr. Elliott. Vital Signs/Physical Exam: Temp Pulse Resp BP Pulse Ox 98.8 F 70 16 142/79 H 98 10/03/22 08:00 10/03/22 08:00 10/03/22 08:00 10/03/22 08:00 10/03/22 08:00 General: Alert, In no apparent distress HEENT: Atraumatic, PERRLA, EOMI Neck: Supple, JVD not distended Respiratory: Clear to auscultation bilaterally, Normal air movement Cardiovascular: Regular rate/rhythm, Normal S1 S2 Gastrointestinal: Normal bowel sounds, No tenderness Musculoskeletal: No tenderness Integumentary: No rashes Neurological: Normal speech, Normal tone, Normal affect Lymphatics: No axilla or inguinal lymphadenopathy Laboratory Data at Discharge: WBC 2.20 thou/uL (4.3-10.9) L 10/03/22 04:00 Hgb 10.8 g/dL (13.6-17.9) L 10/03/22 04:00 Hct 30.8 % (39.6-49.0) L 10/03/22 04:00 Plt Count 153 thou/uL (152-406) 10/03/22 04:00 PT 11.1 SECONDS (9.5-12.5) 10/02/22 05:40 INR 1.01 10/02/22 05:40 Sodium 135 mEq/L (136-145) L D 10/03/22 04:00 Potassium 3.9 mEq/L (3.5-5.1) 10/03/22 04:00 BUN 8 mg/dL (7-18) 10/03/22 04:00 Creatinine 0.55 mg/dL (0.70-1.30) L 10/03/22 04:00 Glucose 94 mg/dL (74-106) 10/03/22 04:00 Magnesium 1.9 mg/dL (1.6-2.4) 10/02/22 05:40 Total Bilirubin 0.7 mg/dL (0.2-1.0) 10/03/22 04:00 AST 10 U/L (15-37) L 10/03/22 04:00 ALT 14 U/L (16-61) L 10/03/22 04:00 Alkaline Phosphatase 54 U/L (45-117) 10/03/22 04:00 Lipase 20 U/L (13-75) 10/03/22 04:00 Home Medications: Amlodipine Besylate 1 tab PO DAILY 10/28/17 Ascorbate Calcium [Vitamin C] 2 tab PO DAILY 10/28/17 Aspirin [Aspirin EC 81 MG] 1 tab PO DAILY 10/28/17 LORazepam [Ativan*] 1 tab PO DAILY 10/28/17 Multivitamin [Multivitamins] 1 tab PO DAILY 10/28/17 Pravastatin Sodium 40 mg PO DAILY 10/28/17 Valsartan/Hydrochlorothiazide [Valsartan-Hctz 160-25 mg Tab] 1 tab PO DAILY 10/28/17 Cyanocobalamin (Vitamin B-12) [Vitamin B-12] 500 mcg PO DAILY 10/02/22 Metoprolol Tartrate 100 mg PO DAILY 10/02/22 Trazodone [Desyrel] 150 mg PO TID 10/02/22 Diet: Regular Activity: Ad isidra Followup: Angelique Elliott DO [OUTSIDE PHYSICIAN] - 1 Week Physician Review: Patient Assessed, Agree with Above Assessment and Plan Time spent managing pt's care (in minutes): 30
== END 2022-10-03 11:23 | disposition home or self-care (01) | DRG 948 ==
LOC: ER 05:20 → ERHOLD 06:41 → 4TH 08:18
PROVIDERS: ADMIT Internal Medicine; ATTEND Internal Medicine
DX: R53.1 Weakness (principal); E87.1 Hypo-osmolality and hyponatremia; I48.19 Other persistent atrial fibrillation; E44.0 Moderate protein-calorie malnutrition; Z68.1 Body mass index [BMI] 19.9 or less, adult; I10 Essential (primary) hypertension; E86.0 Dehydration; E87.6 Hypokalemia; E78.00 Pure hypercholesterolemia, unspecified; S92.352D Displaced fracture of fifth metatarsal bone, left foot, subsequent encounter for fracture with routine healing; T45.1X5A Adverse effect of antineoplastic and immunosuppressive drugs, initial encounter; Z92.3 Personal history of irradiation; Z85.46 Personal history of malignant neoplasm of prostate; Z79.82 Long term (current) use of aspirin; Z85.828 Personal history of other malignant neoplasm of skin; Z79.899 Other long term (current) drug therapy
CPT/HCPCS: 36415; 71045; 80048; 80076; 81003; 83690; 83735; 84132; 84443; 84484; 85025; 85610; 93005; 93306; 97110; 97116; 97161; 99283; 99285; J3480; J7040

== ENCOUNTER 2022-10-22 08:34 | Emergency (ER) | payer OTHER ==
[2022-10-22] MEDS ORDERED: HYDROCODONE/APAP 5/325 MG TAB ONE (09:17)
[2022-10-22] MEDS ORDERED: KETOROLAC 30 MG/ML INJ ONE (10:38)
--- OUTSIDE RECORDS SUMMARY | 2022-10-22 14:16 | XMS REPORT | Continuity of Care Document ---
:1935 Author Organization [facility] t Address [address] [place] [address] [address] [place] [address] Care Team Providers Name Role Phone Sherley LOPES, Geronimo Mcneal Primary Care Physician [phone] ARIA CUENCA Attending Clinician Unavailable Nurse, Adc Pob Immunization Attending Clinician Unavailable Neal Bergman DO Attending Clinician Aria Cuenca MD Attending Clinician Only, Adc Test Attending Clinician Unavailable Doctor Unassigned, Sidell Attending Clinician Unavailable Pob, Adc Lab Main Attending Clinician Unavailable ARIA CUENCA Admitting Clinician Unavailable Aria Cuenca MD Admitting Clinician Payers Payer Name Policy Type Policy Number Effective Date Expiration Date [facility] [id number] 2020 [facility] 00:00:00 PPO Problems This patient has no known problems. Allergies, Adverse Reactions, Alerts Allergy Allergy Status Severity Reaction(s) Onset Inactive Treating Comm ents Source Name Type Date Date Clinician NO KNOWN Drug Active [facility] ALLERGIE Class [facility] [place] [facility] [place] Social History Social Habit Start Date Stop Date Quantity Comments Source Exposure to Not sure [facility] SARS-CoV-2 (event) Medica l Branch Tobacco use and 2020-11-30 2020-11-30 Never used [employer] [facility] exposure 00:00:00 00:00:00 Medical Branch Sex Assigned At [birth year] [facility] y [facility] 00:00:00 00:00:00 Medical Branch Smoking Status Start Date Stop Date Source Unknown if ever smoked [facility] Never smoker [facility] Medications Ordered Filled Start Stop Current Ordering Indication Dosage Frequency Signature Comments Components Source Medication Medication Date Date Medication? Clinician (SIG) Name Name DUOVISC Yes PRN, Univers (DUOVISC 12-29 Starting ity of VISCO 14:06: on [place] ELASTIC) 3 00 12/29/20 at Med ical %-4 %(0.5 0906, Branch mL) 1 % Until (0.55 mL) Discontinu intraocular ed, injection Routine, Intra-op NaCl 0.9% Yes PRN, Univers (NS) 12-29 Starting ity of injection 14:06: on [place] 12/29/[address] Until Discontinu ed, Routine, Intra-op DUOVISC 2020- No PRN, Univers (DUOVISC 12-29 Starting ity of VISCO 14:06: 17:40 on [facility] ELASTIC) 3 00 :24 12/29/20 at [facility] ical %-4 %(0.5 0906, Branch mL) 1 % Until [place] (0.55 mL) 12/29/20 at intraocular 1240, injection Routine, Intra-op NaCl 0.9% 2020- No PRN, Univers (NS) 12-29 Starting ity of injection 14:06: 17:40 on [facility] [place] 00 :24 12/29/[address] Until [place] 12/29/20 at 1240, Routine, Intra-op gentamicin Yes PRN, Univers injection 12-29 Starting ity of 14:05: on [place] 00 12/29/[address] Until Discontinu ed, KEVIN, Intra-op neomycin-po Yes PRN, Univer s lymyxin-dex 12-29 Starting ity of amethasone 14:05: on [place] (MAXITROL) 00 12/29/20 at [facility] ical 3.5 05, [place] mg/g-10,000 Until unit/g-0.1 Discontinu % ed, ophthalmic Routine, ointment Intra-op gentamicin 2020- No PRN, Univer s injection 12-29 Starting ity o f 14:05: 17:40 on [place] 00 :24 12/29/20 at [facility] 0905, Branch Until [place] 12/29/20 at 1240, KEVIN, Intra-op neomycin-po 2020- No PRN, [facility] lymyx[facility]-dex 12-29 Starting ity of amethasone 14:05: 17:40 [place] (MAXITROL[place] 00 :24 12/29/20 at [facility] ical 3.5 09, [place] mg/g-10,000 Until [place] unit/g-0.1 12/29/20 at % 1240, ophthalmic Routine, ointment Intra-op dexamethaso Yes PRN, Univer s ne 12-29 Starting ity of (DECADRON 14:04: on [place] PHOSPHATE) 00 12/29/20 at Med ical injection 09, [place] Until Discontinu ed, Routine, Intra-op ceFAZolin Yes PRN, Univers (ANCEF) 12-29 Starting ity of injection 14:04: on [place] 00 12/29/20 at [facility] 0904, Branch Until Discontinu ed, KEVIN, Intra-op dexamethaso 2020- No PRN, [facility] ne 12-29 Starting ity of (DECADRON 14:04: 17:40 on [place] PHOSPHATE) 00 :24 12/29/20 at Med ical injection 09, Branch Until [place] 12/29/20 at 1240, Routine, Intra-op ceFAZolin 2020- No PRN, Univers (ANCEF) 12-29 Starting ity of injection 14:04: 17:40 on [place] 00 :24 12/29/20 at [facility] 0904, Branch Until [place] 12/29/20 at 1240, KEVIN, Intra-op EPINEPHrine Yes PRN, [facility] (PF) 12-29 Starting ity of 1:1,000 (1 14:01: on [place] mg/mL) 00 12/29/20 at [facility] (ADRENALIN 09, Branch (PF)) Until injection Discontinu ed, Routine, Intra-op balanced Yes PRN, Univers salt soln 12-29 Starting ity of no.2 irrig. 14:01: [place] (BSS) 00 12/29/20 at [facility] ophthalmic 0901, Branch solution Until Discontinu ed, Routine, Intra-op EPINEPHrine 2020- No PRN, Unive rs (PF) 12-29 Starting ity of 1:1,000 (1 14:01: 17:40 on [place] mg/mL) 00 :24 12/29/20 at [facility] (ADRENALIN 01, Branch (PF)) Until [place] injection 12/29/20 at 1240, Routine, Intra-op balanced 2020- No PRN, Univers salt soln 12-29 Starting ity o f no.2 irrig. 14:01: 17:40 on [place] (BSS) 00 :24 12/29/20 at [facility] ophthalmic 0901, Branch solution Until [place] 12/29/20 at 1240, Routine, Intra-op water for Yes PRN, Univers irrigation 12-29 Starting ity o f irrigation 13:55: on [place] solution 00 12/29/20 at Medic al 0855, Branch Until Discontinu ed, Routine, Intra-op eye block Yes PRN, Univers syringe 11 12-29 Starting ity o f mL 13:55: on [place] 00 12/29/20 at [facility] 0855, Branch Until Discontinu ed, Intra-op water [...] of ) 0.5 % 13:54: on [place] ophthalmic 00 12/29/20 at Med ical drops 0854, Branch Until Discontinu ed, Routine, Intra-op tetracaine 2020- No PRN, Univer s (PONTOCAINE 12-29 Starting ity of ) 0.5 % 13:54: 17:40 on [place] ophthalmic 00 :24 12/29/20 at Med ical [...] Pre-op lactated 2020- No 1000mL at 42 [facility] ringers IV 12-29 mL/hr, ity of infusion 11:45: 11:59 1,000 mL, [place] 1,000 mL 00 :00 IV Medical Infusion, Branch ONCE, 1 dose, On [place] 12/29/20 at 0645, Routine, DSU Pre-op lactated 2020- No 1000mL at 42 [facility] ringers IV 12-29 mL/hr, ity of infusion 11:45: 11:59 1,000 mL, [place] 1,000 mL 00 :00 IV Medical Infusion, Branch ONCE, 1 dose, On [place] 12/29/20 at 0645, Routine, DSU Pre-op aspirin 81 Yes 81mg Take 81 mg U nivers mg chewable 12-29 by mouth ity of tablet 10:35: daily. [address] amLODIPine Yes 5mg Take 5 mg Un delio 5 mg tablet 9-23 by mouth ity of 10:35: daily. [place] [address] Medical Branch losartan 0 Yes 100mg Take [...] by mouth ity of tablet 10:35: daily. [place] [address] Medical Branch amLODIPine 0 Yes 5mg Take 5 mg Un delio 5 mg tablet 9-23 by mouth ity of 10:35: daily. [place] [address] Medical Branch losartan 0 Yes 100mg Take [...] by mouth ity of tablet 10:35: daily. [place] [address] Medical Branch amLODIPine 0 Yes 5mg Take 5 mg Un delio 5 mg tablet 9-23 by mouth ity of 10:35: daily. [place] [address] Medical Branch losartan 0 Yes 100mg Take [...] by mouth ity of tablet 13:38: daily. [place] [address] Medical Branch amLODIPine 0 Yes 5mg Take 5 mg Un delio 5 mg tablet 9-20 by mouth ity of 13:38: daily. [place] [address] Medical Branch losartan 2020-0 Yes 100mg Take 100 Univ ers 100 mg 9-20 mg by ity of tablet 13:38: mouth [place] 56 daily. Medical Branch aspirin 81 2020-0 Yes 81mg Take 81 mg U nivers mg chewable 9-20 by mouth ity of tablet 13:38: daily. [place] [address] Medical Branch amLODIPine 0 Yes 5mg Take 5 mg Un delio 5 mg tablet 9-20 by mouth ity of 13:38: daily. [place] [address] Medical Branch losartan 2020-0 Yes 100mg Take 100 Univ ers 100 mg 9-20 mg by ity of tablet 13:38: mouth [place] 56 daily. Medical Branch aspirin 81 0 Yes 81mg Take 81 mg U nivers mg chewable 8-26 by mouth ity of tablet 19:38: daily. [place] [address] Medical Branch amLODIPine 0 Yes 5mg Take 5 mg Un delio 5 mg tablet 8-26 by mouth ity of 19:38: daily. [place] [address] Medical Branch losartan 2020-0 Yes 100mg Take [...] by mouth ity of tablet 19:38: daily. [place] [address] Medical Branch amLODIPine 2020-0 Yes 5mg Take 5 mg Un delio 5 mg tablet 8-26 by mouth ity of 19:38: daily. [place] [address] Medical Branch losartan 2020-0 Yes 100mg Take [...] by mouth ity of tablet 19:38: at [place] [address] bedtime. Medical Branch traZODone 2020-0 Yes 50mg Take 50 mg Un delio 50 mg 8-26 by mouth ity of tablet 19:38: at [place] [address] bedtime. Medical Branch aspirin 81 2020-0 Yes [...] by mouth ity of tablet 19:38: at [place] [address] bedtime. Medical Branch aspirin 81 2020-0 Yes [...] by mouth ity of tablet 19:38: at [place] [address] bedtime. Medical Branch traZODone Yes 50mg Take 50 mg Un delio 50 mg 8-26 by mouth ity of tablet 19:38: at [place] [address] bedtime. Medical Branch aspirin 81 0 Yes 81mg Take 81 mg U nivers mg chewable 8-26 by mouth ity of tablet 19:38: daily. Medical Branch amLODIPine Yes 5mg Take 5 mg Un delio 5 mg tablet 8-26 by mouth ity of 19:38: daily. Medical Branch losartan Yes 100mg Take 100 Univ ers 100 mg 8-26 mg by ity of tablet 19:38: mouth [place] 04 daily. Medical Branch pravastatin Yes 40mg Take 40 mg Univers 40 mg 8-26 by mouth ity of tablet 19:38: at [place] [address] bedtime. Medical Branch traZODone Yes 50mg Take 50 mg Un delio 50 mg 8-26 by mouth ity of tablet 19:38: at [place] [address] bedtime. Medical Branch gentamicin 0 Yes PRN, Univers injection 12-01 Starting ity of 18:32: [place] 12/01/[address] Until Discontinu ed, KEVIN, Intra-op gentamicin 2020-0 Yes PRN, Univers injection 12-01 Starting ity of 18:32: [place] 00 12/01/[address] Until Discontinu ed, KEVIN, Intra-op gentamicin 2020-0 2020- No PRN, Univer s injection 12-01 Starting ity o f 18:32: 21:38 [place] 00 :07 12/01/[address] Branch Until [place] 12/01/20 at 1638, KEVIN, Intra-op gentamicin 2020-0 2020- No PRN, Univer s injection 12-01 Starting ity o f 18:32: 21:38 [place] 00 :07 12/01/20 at Medical 1332, Branch Until [place] 12/01/20 at 1638, KEVIN, Intra-op tetracaine Yes PRN, Univers (PONTOCAINE 12-01 Starting ity of ) 0.5 % 17:24: [place] ophthalmic 00 12/01/20 at [facility] ical drops 1224, Branch Until Discontinu ed, Routine, Intra-op tetracaine Yes PRN, Univers (PONTOCAINE 12-01 Starting ity of ) 0.5 % 17:24: [place] ophthalmic 00 12/01/20 at [facility] ical drops 1224, Branch Until Discontinu ed, Routine, Intra-op tetracaine 2020- No PRN, Univer s (PONTOCAINE 12-01 Starting ity of ) 0.5 % 17:24: 21:38 [place] ophthalmic 00 :07 12/01/20 at [facility] ical drops 1224, Branch Until [place] 12/01/20 at 1638, Routine, Intra-op tetracaine 2020- No PRN, Univer s (PONTOCAINE 12-01 Starting ity of ) 0.5 % 17:24: 21:38 [place] ophthalmic 00 :07 12/01/20 at [facility] ica drops 1224, Branch Until [place] 12/01/20 at 1638, Routine, Intra-op water for Yes PRN, Univers irrigation 12-01 Starting ity o f irrigation 17:23: [place] solution 12/01/20 at Medic al 1223, Branch Until Discontinu ed, Routine, Intra-op NaCl 0.9% Yes PRN, Univers (NS) 12-01 Starting ity of injection 17:23: [place] 12/01/20 at [facility] 1223, Branch Until Discontinu ed, Routine, Intra-op neomycin-po Yes PRN, Univer s lymyxin-dex 12-01 Starting ity of amethasone 17:23: [place] (MAXITROL) 00 12/01/20 at [facility] 3.5 1223, Branch mg/g-10,000 Until unit/g-0.1 Discontinu % ed, ophthalmic Routine, ointment Intra-op water for Yes PRN, Univers irrigation 12-01 Starting ity o f irrigation 17:23: [place] solution 00 12/01/20 at [place] [address], [place] Until Discontinu ed, Routine, Intra-op NaCl 0.9% Yes PRN, Univers (NS) 12-01 Starting ity of injection 17:23: [place] 00 12/01/20 at [place] [address], Branch Until Discontinu ed, Routine, Intra-op neomycin-po Yes PRN, Univer s lymyxin-dex 12-01 Starting ity of amethasone 17:23: [place] (MAXITROL) 00 12/01/20 at [place] [address], [place] mg/g-10,000 Until unit/g-0.1 Discontinu % ed, ophthalmic Routine, ointment Intra-op water for 2020- No PRN, Univers irrigation 12-01 Starting ity of irrigation 17:23: 21:38 [place] solution 00 :07 12/01/20 at [place] [address], Branch Until [place] 12/01/20 at 1638, Routine, Intra-op NaCl 0.9% 2020- No PRN, Univers (NS) 12-01 Starting ity of injection 17:23: 21:38 [place] 00 :07 12/01/20 at [place] [address], Branch Until [place] 12/01/20 at 1638, Routine, Intra-op neomycin-po 2020- No PRN, Unive rs lymyxin-dex 12-01 Starting ity of amethasone 17:23: 21:38 [place] (MAXITROL) 00 :07 12/01/20 at [place] [address], [place] mg/g-10,000 Until [place] unit/g-0.1 12/01/20 at % 1638, ophthalmic Routine, ointment Intra-op water for 2020- No PRN, Univers irrigation 12-01 Starting ity of irrigation 17:23: 21:38 [place] solution 00 :07 12/01/20 at [facility] al 1223, Branch Until [place] 12/01/20 at 1638, Routine, Intra-op NaCl 0.9% 2020- No PRN, Univers (NS) 12-01 Starting ity of injection 17:23: 21:38 [place] 00 :07 12/01/20 at [facility] 1223, Branch Until [place] 12/01/20 at 1638, Routine, Intra-op neomycin-po 2020- No PRN, Unive rs lymyxin-dex 12-01 Starting ity of amethasone 17:23: 21:38 [place] (MAXITROL) 00 :07 12/01/20 at [facility] ical 3.5 122, Branch mg/g-10,000 Until [place] unit/g-0.1 12/01/20 at % 1638, ophthalmic Routine, ointment Intra-op eye block Yes PRN, Univers syringe 12-01 Starting ity o f mL 17:22: [place] 00 12/01/20 at [place] [id number], Branch Until Discontinu ed, Intra-op EPINEPHrine Yes PRN, Univer s (PF) 12-01 Starting ity of 1:1,000 (1 17:22: [place] mg/mL) 00 12/01/20 at [facility] (ADRENALIN 1222, Branch (PF)) Until injection Discontinu ed, Routine, Intra-op eye block Yes PRN, Univers syringe 12-01 Starting ity o f mL 17:22: [place] 00 12/01/20 at [place] [address], Branch Until Discontinu ed, Intra-op EPINEPHrine Yes PRN, Univer s (PF) 12-01 Starting ity of 1:1,000 (1 17:22: [place] mg/mL) 12/01/20 at [facility] (ADRENALIN 1222, Branch (PF)) Until injection Discontinu ed, Routine, Intra-op eye block 2020- No PRN, Univers syringe 11 12-01 Starting ity of mL 17:22: 21:38 [place] 00 :07 12/01/20 at Medical 1222, Branch Until [place] 12/01/20 at 1638, Intra-op EPINEPHrine 2020- No PRN, Unive rs (PF) 12-01 Starting ity of 1:1,000 (1 17:22: 21:38 [place] mg/mL) 00 :07 12/01/20 at [facility] (ADRENALIN 1222, Branch (PF)) Until [place] injection 12/01/20 at 1638, Routine, Intra-op eye block 2020- No PRN, Univers syringe 11 12-01 Starting ity of mL 17:22: 21:38 [place] 00 :07 12/01/20 at [facility] 1222, Branch Until [place] 12/01/20 at 1638, Intra-op EPINEPHrine 2020- No PRN, Unive rs (PF) 12-01 Starting ity of 1:1,000 (1 17:22: 21:38 [place] mg/mL) 00 :07 12/01/20 at [facility] (ADRENALIN 1222, Branch (PF)) Until [place] injection 12/01/20 at 1638, Routine, Intra-op DUOVISC 0 Yes PRN, Univers (DUOVISC 12-01 Starting ity of VISCO 17:21: [place] ELASTIC) 3 00 12/01/20 at [facility] ical %-4 %(0.5 122, Branch mL) 1 % Until (0.55 mL) Discontinu intraocular ed, injection Routine, Intra-op dexamethaso Yes PRN, Univer s ne 12-01 Starting ity of (DECADRON 17:21: [place] PHOSPHATE) 00 12/01/20 at [facility] ical injection 1221, Branch Until Discontinu ed, Routine, Intra-op ceFAZolin Yes PRN, Univers (ANCEF) 12-01 Starting ity of injection 17:21: [place] 00 12/01/20 at [facility] 1221, Branch Until Discontinu ed, KEVIN, Intra-op balanced Yes PRN, Univers salt soln 12-01 Starting ity of no.2 irrig. 17:21: [place] (BSS) 00 12/01/20 at [facility] ophthalmic 1221, Branch solution Until Discontinu ed, Routine, Intra-op DUOVISC 0 Yes PRN, Univers (DUOVISC 12-01 Starting ity of VISCO 17:21: [place] ELASTIC) 3 00 12/01/20 at [facility] ical %-4 %(0.5 1221, Branch mL) 1 % Until (0.55 mL) Discontinu intraocular ed, injection Routine, Intra-op dexamethaso Yes PRN, Univer s ne 12-01 Starting ity of (DECADRON 17:21: [place] PHOSPHATE) 00 12/01/20 at Med ical injection 1221, Branch Until Discontinu ed, Routine, Intra-op ceFAZolin Yes PRN, Univers (ANCEF) 12-01 Starting ity of injection 17:21: [place] 00 12/01/20 at [facility] 1221, Branch Until Discontinu ed, KEVIN, Intra-op balanced Yes PRN, Univers salt soln 12-01 Starting ity of no.2 irrig. 17:21: [place] (BSS) 00 12/01/20 at [facility] ophthalmic 1221, Branch solution Until Discontinu ed, Routine, Intra-op DUOVISC 2020- No PRN, Univers (DUOVISC 12-01 Starting ity of VISCO 17:21: 21:38 [place] ELASTIC) 3 00 :07 12/01/20 at [facility] ical %-4 %(0.5 1221, Branch mL) [...] o f no.2 irrig. 17:21: 21:38 [place] (BSS) 00 :07 12/01/20 at [facility] ophthalmic 1221, Branch solution Until [place] 12/01/20 at 1638, Routine, Intra-op DUOVISC 2020- No PRN, Univers (DUOVISC 12-01 Starting ity of VISCO 17:21: 21:38 [facility] ELASTIC) 3 00 :07 12/01/20 at [facility] ical %-4 %(0.5 122, Branch mL) 1 % Until [place] (0.55 mL) 12/01/20 at intraocular 1638, injection Routine, Intra-op dexamethaso 2020- No PRN, Unive rs ne 12-01 Starting ity of (DECADRON 17:21: 21:38 [facility] PHOSPHATE) 00 :07 12/01/20 at [facility] ical injection 1221, Branch Until [place] 12/01/20 at 1638, Routine, Intra-op ceFAZolin 2020- No PRN, [facility] (ANCEF) 12-01 Starting ity of injection 17:21: 21:38 [facility] 00 :07 12/01/20 at [place] [id number], Branch Until [place] 12/01/20 at 1638, KEVIN, Intra-op balanced 2020- No PRN, [facility] salt soln 12-01 Starting ity o f no.2 irrig. 17:21: 21:38 [facility] (BSS) 00 :07 12/01/20 at [facility] ophthalmic 122, Branch solution Until [place] 12/01/20 at 1638, Routine, Intra-op mydriatic 2020- No .5mL 0.5 mL, Univ ers #5 12-01 Left Eye, ity of ophthalmic 16:45: 16:55 ONCE, 1 [place] solution 00 :00 dose, [place] Medica l 0.5 mL 12/01/20 at [place] syringe 1145, Routine, DSU Pre-op lactated 2020- [...] by mouth ity of tablet 14:38: daily. [place] [address] Medical Branch amLODIPine 2020-0 Yes 5mg Take 5 mg Un delio 5 mg tablet 8-26 by mouth ity of 14:38: daily. [place] [address] Medical Branch losartan 2020-0 Yes 100mg Take 100 Univ ers 100 mg 8-26 mg by ity of tablet 14:38: mouth [place] 04 daily. Medical Branch pravastatin 2020-0 Yes 40mg Take 40 mg Univers 40 mg 8-26 by mouth ity of tablet 14:38: at [place] [address] bedtime. Medical Branch traZODone 2020-0 Yes 50mg Take 50 mg Un delio 50 mg 8-26 by mouth ity of tablet 14:38: at [place] [address] bedtime. Medical Branch pravastatin 2020-0 Yes 40mg Take 40 mg Univers 40 mg 8-26 by mouth ity of tablet 14:38: at [place] [address] bedtime. Medical Branch traZODone 2020-0 Yes 50mg Take 50 mg Un delio 50 mg 8-26 by mouth ity of tablet 14:38: at [place] [address] bedtime. Medical Branch aspirin 81 2020-0 Yes 81mg Take 81 mg U nivers mg chewable 8-26 by mouth ity of tablet 14:38: daily. [place] [address] Medical Branch amLODIPine 2020-0 Yes 5mg Take 5 mg Un delio 5 mg tablet 8-26 by mouth ity of 14:38: daily. Medical Branch losartan 2020-0 Yes 100mg Take 100 Univ ers 100 mg 8-26 mg by ity of tablet 14:38: mouth [place] 04 daily. Medical Branch pravastatin 2020-0 Yes 40mg Take 40 mg Univers 40 mg 8-26 by mouth ity of tablet 14:38: at [place] [address] bedtime. Medical Branch traZODone 2020-0 Yes 50mg Take 50 mg Un delio 50 mg 8-26 by mouth ity of tablet 14:38: at [place] [address] bedtime. Medical Branch pravastatin 2020-0 Yes 40mg Take 40 mg Univers 40 mg 8-26 by mouth ity of tablet 14:38: at [place] [address] bedtime. Medical Branch traZODone Yes 50mg Take 50 mg Un delio 50 mg 8-26 by mouth ity of tablet 14:38: at [place] [address] bedtime. [facility] Branch Immunizations Ordered Filled Immunization Date Status Comments [facility] e Immunization Name Name SARS-COV-2 COVID-19 2021-01-05 Completed Unive rsity of PFIZER VACCINE 00:00:00 [place] [facility] SARS-COV-2 COVID-19 2020-06-09 Completed Unive rsity of PFIZER VACCINE 00:00:00 [facility] SARS-COV-2 COVID-19 2020-06-09 Completed Unive rsity of PFIZER VACCINE 00:00:00 [facility] SARS-COV-2 COVID-19 2020-06-09 Completed Unive rsity of PFIZER VACCINE 00:00:00 [facility] SARS-COV-2 COVID-19 2020-06-09 Completed Unive rsity of PFIZER VACCINE 00:00:00 [facility] SARS-COV-2 COVID-19 2020-06-09 Completed Unive rsity of PFIZER VACCINE 00:00:00 [facility] SARS-COV-2 COVID-19 2020-06-09 Completed Unive rsity of PFIZER VACCINE 00:00:00 [facility] SARS-COV-2 COVID-19 2020-06-09 Completed Unive rsity of PFIZER VACCINE 00:00:00 [facility] SARS-COV-2 COVID-19 2020-06-09 Completed Unive rsity of PFIZER VACCINE 00:00:00 [facility] SARS-COV-2 COVID-19 2020-06-09 Completed Unive rsity of PFIZER VACCINE 00:00:00 [facility] SARS-COV-2 COVID-19 2020-06-09 Completed Unive rsity of PFIZER VACCINE 00:00:00 [facility] SARS-COV-2 COVID-19 2020-06-09 Completed Unive rsity of PFIZER VACCINE 00:00:00 [facility] SARS-COV-2 COVID-19 2020-06-09 Completed Unive rsity of PFIZER VACCINE 00:00:00 [facility] Branch SARS-COV-2 COVID-19 2020-06-09 Completed Unive rsity of PFIZER VACCINE 00:00:00 [place] [facility] Branch SARS-COV-2 COVID-19 2020-06-09 Completed Unive rsity of PFIZER VACCINE 00:00:00 [facility] Branch SARS-COV-2 COVID-19 2020-06-09 Completed Unive rsity of PFIZER VACCINE 00:00:00 [facility] Branch SARS-COV-2 COVID-19 2020-06-09 Completed Unive rsity of PFIZER VACCINE 00:00:00 [facility] Branch SARS-COV-2 COVID-19 2020-06-09 Completed Unive rsity of PFIZER VACCINE 00:00:00 [facility] Branch SARS-COV-2 COVID-19 2020-05-19 Completed Unive rsity of PFIZER VACCINE 00:00:00 [facility] Branch SARS-COV-2 COVID-19 2020-05-19 Completed Unive rsity of PFIZER VACCINE 00:00:00 [facility] Branch SARS-COV-2 COVID-19 2020-05-19 Completed Unive rsity of PFIZER VACCINE 00:00:00 [facility] Branch SARS-COV-2 COVID-19 2020-05-19 Completed Unive rsity of PFIZER VACCINE 00:00:00 [facility] Branch SARS-COV-2 COVID-19 2020-05-19 Completed Unive rsity of PFIZER VACCINE 00:00:00 [facility] SARS-COV-2 COVID-19 2020-05-19 Completed Unive rsity of PFIZER VACCINE 00:00:00 [facility] Branch SARS-COV-2 COVID-19 2020-05-19 Completed Unive rsity of PFIZER VACCINE 00:00:00 [facility] SARS-COV-2 COVID-19 2020-05-19 Completed Unive rsity of PFIZER VACCINE 00:00:00 [facility] SARS-COV-2 COVID-19 2020-05-19 Completed Unive rsity of PFIZER VACCINE 00:00:00 [facility] SARS-COV-2 COVID-19 2020-05-19 Completed Unive rsity of PFIZER VACCINE 00:00:00 [facility] SARS-COV-2 COVID-19 2020-05-19 Completed Unive rsity of PFIZER VACCINE 00:00:00 [facility] SARS-COV-2 COVID-19 2020-05-19 Completed Unive rsity of PFIZER VACCINE 00:00:00 [facility] SARS-COV-2 COVID-19 2020-05-19 Completed Unive rsity of PFIZER VACCINE 00:00:00 [facility] SARS-COV-2 COVID-19 2020-05-19 Completed Unive rsity of PFIZER VACCINE 00:00:00 [facility] SARS-COV-2 COVID-19 2020-05-19 Completed Unive rsity of PFIZER VACCINE 00:00:00 [facility] SARS-COV-2 COVID-19 2020-05-19 Completed Unive rsity of PFIZER VACCINE 00:00:00 [facility] SARS-COV-2 COVID-19 2020-05-19 Completed Unive rsity of PFIZER VACCINE 00:00:00 [facility] Vital Signs Vital Name Observation Time Observation Value Comments Source Systolic blood 2020-12-29 14:29:00 153 mm[Hg] Univer sity of pressure [facility] Diastolic blood 2020-12-29 14:29:00 67 mm[Hg] Unive rsity of pressure [facility] Heart rate 2020-12-29 14:29:00 50 /min [facility] Respiratory rate 2020-12-29 14:29:00 16 /min [facility] Oxygen saturation in 2020-12-29 14:29:00 94 /min [facility] Arterial blood by [facility] Pulse oximetry [place] Body temperature 2020-12-29 14:19:00 36.11 Alannah [facility] Body height 2020-12-26 18:39:00 170.2 cm [facility] Body weight 2020-12-26 18:39:00 74.844 kg [facility] BMI 2020-12-26 18:39:00 25.84 kg/m2 [facility] Systolic blood 2020-12-29 11:51:00 153 mm[Hg] Univer sity of pressure [facility] Diastolic blood 2020-12-29 11:51:00 77 mm[Hg] Unive [facility] of pressure [facility] Heart rate 2020-12-29 11:51:00 69 /min [facility] Body temperature 2020-12-29 11:51:00 36.67 Alannah [facility] Respiratory rate 2020-12-29 11:51:00 18 /min [facility] Oxygen saturation in 2020-12-29 11:51:00 96 /min [facility] Arterial blood by [facility] Pulse oximetry Branch Body height 2020-12-26 18:39:00 170.2 cm [facility] Body weight 2020-12-26 18:39:00 74.844 kg [facility] BMI 2020-12-26 18:39:00 25.84 kg/m2 [facility] Systolic blood 2020-12-01 19:05:00 157 mm[Hg] [facility]iver [facility]ity of pressure [facility] Diastolic blood 2020-12-01 19:05:00 81 mm[Hg] Unive rsity of pressure [facility] Heart rate 2020-12-01 19:05:00 53 /min [facility] Respiratory rate 2020-12-01 19:05:00 18 /min [facility] Oxygen saturation in 2020-12-01 19:05:00 96 /min [facility] Arterial blood by [facility] Pulse oximetry Branch Body temperature 2020-12-01 18:45:00 36.61 Alannah [facility] Body height 2020-11-30 16:28:00 170.2 [...] [facility] Arterial blood by [facility] Pulse oximetry [place] Body temperature 2020-12-01 18:45:00 36.61 Alannah [facility] Body height 2020-11-30 16:28:00 170.2 cm [facility] Body weight 2020-11-30 16:28:00 76.204 kg [facility] BMI 2020-11-30 16:28:00 26.31 kg/m2 [facility] Procedures Procedure Date / Time Performing Source Performed Clinician SARS-COV-2 COVID-19 2021-01-05 Doctor Unassigned, [facility] VACCINE,0.3ML,IM (PFIZER) 21:07:27 [facility] PHACOEMULSIFICATION OF 2020-12-29 Aziza [facility] CATARACT WITH INTRAOCULAR 13:43:00 Donato Tejeda LENS IMPLANT DAY SURGERY - [facility] 2020-12-29 Doctor Unassigned, [facility] 05:01:00 [facility] CONSENT/REFUSAL FOR DIAGNOSIS 2020-12-27 Doctor Unassigned, [facility] AND TREATMENT 15:39:08 [facility] CONSENT/REFUSAL FOR DIAGNOSIS 2020-12-27 Doctor Unassigned, [facility] AND TREATMENT 15:39:08 [facility] ASSIGNMENT OF BENEFITS 2020-12-27 Doctor Unassigned, [facility] 15:38:43 [facility] ASSIGNMENT OF BENEFITS 2020-12-27 Doctor Unassigned, [facility] 15:38:43 [facility] PHACOEMULSIFICATION OF 2020-12-01 Aziza [facility] CATARACT WITH INTRAOCULAR 18:05:00 Donato [facility] [place] LENS IMPLANT DAY SURGERY - [facility] 2020-12-01 Doctor Unassigned, [facility] 05:01:00 [facility] COMP. METABOLIC PANEL ([id number]) 2020-11-29 Aziza [facility] 20:06:00 [facility] CBC WITH DIFF 2020-11-29 Aziza [facility] 20:06:00 [facility] COVID-19 (ID NOW RAPID 2020-11-29 Aziza [facility] TESTING) 20:00:00 [facility] CONSENT/REFUSAL FOR DIAGNOSIS 2020-11-29 Doctor Unassigned, [facility] AND TREATMENT 19:52:47 [facility] CONSENT/REFUSAL FOR DIAGNOSIS 2020-11-29 Doctor Unassigned, [facility] AND TREATMENT 19:52:47 [facility] ASSIGNMENT OF BENEFITS 2020-11-29 Doctor Unasselsy [facility] 19:52:24 [facility] ASSIGNMENT OF BENEFITS 2020-11-29 Doctor Unassigned, [facility] 19:52:24 [facility] PHYSICIAN ORDERS 2020-11-29 Doctor Unasselsy [facility] 05:01:00 [facility] NO SHOW OR MISSED APPOINTMENT 2020-11-24 Doctor Unakaty [facility] POLICY ACKNOWLEDGEMENT 18:37:56 [facility] NO SHOW OR MISSED APPOINTMENT 2020-11-24 Doctor Unakaty [facility] POLICY ACKNOWLEDGEMENT 18:37:56 [facility] PATIENT FINANCIAL POLICY 2020-11-24 Doctor Unassigned, [facility] 18:37:31 [facility] PATIENT FINANCIAL POLICY 2020-11-24 Doctor Unassigned, [facility] 18:37:31 [facility] NOTICE OF BILLING PRACTICES 2020-11-24 Doctor Unassigned, [facility] FOR MEDICARE PATIENTS 18:37:09 [facility] NOTICE OF BILLING PRACTICES 2020-11-24 Doctor Unassigned, [facility] FOR [facility]ICARE PATIENTS 18:37:09 [facility] NOTICE OF PRIVACY PRACTICES 2020-11-24 Doctor Unassigned, [facility] 18:36:48 [facility] NOTICE OF PRIVACY PRACTICES 2020-11-24 Doctor Unassigned, [facility] 18:36:48 [facility] CONSENT/REFUSAL FOR DIAGNOSIS 2020-11-24 Doctor Unasselsy, [facility] AND TREATMENT 18:36:24 [facility] CONSENT/REFUSAL FOR DIAGNOSIS 2020-11-24 Doctor Unassigned, [facility] AND TREATMENT 18:36:24 [facility] ASSIGNMENT OF BENEFITS 2020-11-24 Doctor Vanessa [facility] 18:35:54 [facility] ASSIGNMENT OF BENEFITS 2020-11-24 Doctor Unassigned, [facility] 18:35:54 [facility] Encounters Start End Encounter Admission Attending Care Care Encounter Source Date/Time Date/Time Type Type Clinicians Facility Department ID 2022-10-15 Outpatient STLMLC STLMLC [id number] Common 11:15:01 [id number] [facility] 2022-10-08 Outpatient STLMLC STLMLC [id number] Common 09:37:01 [id number] [facility] 2022-10-05 Outpatient STLMLC STLMLC [id number] Common 10:42:00 [id number] [facility] 2022-08-14 Outpatient STLMLC STLMLC [id number] Common 15:09:02 [id number] [facility] 2022-07-05 Outpatient STLMLC STLMLC [id number] Common 12:40:01 [id number] [facility] 2022-05-14 Outpatient STLMLC STLMLC [id number] Common 13:12:03 [id number] [facility] 2021-02-06 Outpatient R AZIZA [facility] OPH [id number] Univers 23:28:51 [facility] 2021-02-06 Outpatient Elizabet CUENCA [facility] OPH [id number] Univers 16:45:17 [facility] 2021-01-05 2021-01-05 Outpatient [facility] [id number] Univers 16:00:00 [facility]00[facility] 2021-01-05 Imm/Inj Nurse, Adc Pob Immunization [facility] 1.2.840.114 [id number] Univers 15:56:59 15:57:30 Visit Neal Bergman 350.1.13 .10 [facility] 4.2.7.2.686 Tay Decker [id number] Dc [address] 2020-12-29 2020-12-29 [facility] Aziza [facility] [id number] Univers 06:37:00 09:42:00 Encounter Aria Armendariz 350.1.13.10 ity [place] [id number] [facility] 071 Branch 2020-12-29 2020-12-29 Surgery [facility] 1.2.840.114 [id number] Univers 08:37:00 09:14:00 Aria Knickerbocker 350.1.13.10 i ty [place].2.686 [place] [id number] [facility] 020 Branch 2020-12-27 2020-12-27 Laboratory Only, Adc Test [facility] 1.2.840. 114 [id number] Univers 10:33:21 10:48:21 Only Aziza, Aria Armendariz 350.1.1 3.10 [place] [id number] [facility] 353 Branch 2020-12-27 2020-12-27 [facility] [id number] Univers 10:30:00 10:30:00 ARIA ity of [facility] 2020-12-01 2020-12-01 [facility] 1.2.840.114 [id number] Univers 11:37:00 14:35:00 Encounter Aria Armendariz 350.1.13.10 ity [place] [id number] [facility] 071 Branch 2020-12-01 2020-12-01 Surgery [facility] 1.2.840.114 [id number] Univers 13:47:00 14:24:00 Aria Armendariz 350.1.13.10 i ty [place] 4[place] [id number] [facility] 020 Branch 2020-12-01 2020-12-01 Orders Doctor PELLETIER 1.2.840.114 [id number] Univers 00:00:00 00:00:00 Only Unassigned, BHARATH 350.1.13.10 ity of [facility] [facility] 4.2.7.2.686 Fritz as [id number] [facility] 009 Branch 2020-11-29 2020-11-29 Outpatient R AZIZA, [facility] [id number] Univers 15:15:00 15:15:00 ARIA holm of [facility] 2020-11-29 2020-11-29 Damage Appraiser Nguyen, [facility] 1.2.8 40.114 [id number] Univers 14:53:37 15:08:37 Visit Aria Cuenca 350.1.1 3.10 it[place].2.[place] [id number] 353 [facility] 2020-11-29 2020-11-29 Laboratory Only, Adc Test [facility] 1.2.840. 114 [id number] Univers 14:52:54 15:07:54 Only Aria Cuenca 350.1.1 3.10 ity of [place] [id number] [facility] 353 [place] 2020-11-29 2020-11-29 Orders Doctor PRABHU 1.2.840.114 [id number] Univers 00:00:00 00:00:00 Only Unassigned, BHARATH 350.1.13.10 ity of [place] [facility] 4.2.7.2.686 Fritz as [id number] [facility] 009 [place] Results Test Description Test Time Test Comments Results Result Comments Source COMP. METABOLIC PANEL (06791) 2020-11-29 20:35:55 Test Item Value Reference Range Interpretation Comme nts NA (test code = 1498328878) 135 mmol/L 135-145 K (test code = 5222553484) 3.6 mmol/L 3.5-5.0 CL (test code = 3525460517) 100 mmol/L 98-108 CO2 TOTAL (test code = 25 mmol/L 23-31 2027519711) AGAP (test code = 6422757734) 2-16 BUN (test code = 7190541341) 11 mg/dL 7-23 GLUCOSE (test code = 9666019697) 100 mg/dL 70-110 CREATININE (test code = 0.67 mg/dL 0.60-1.25 2608411149) TOTAL BILI (test code = 0.7 mg/dL 0.1-1.7 6856432283) CALCIUM (test code = 5539393983) 9.3 mg/dL 8.6-10.6 T PROTEIN (test code = 7.4 g/dL 6.3-8.2 3312767424) ALBUMIN (test code = 9286823722) 4.3 g/dL 3.5-5.0 ALK PHOS (test code = 7608232346) 55 U/L 34-122 ALTv (test code = 1742-6) 14 U/L 5-50 AST(SGOT) (test code = 25 U/L 13-40 4262694926) eGFR (test code = 8644540088) mL/min/1.73m2 REJI (test code = REJI) Association [...] or urine or abnormalities in imaging tests). [facility]. METABOLIC PANEL (61243)2020-11-29 20:35:55 Test Item Value Reference Range Interpretation Comments NA (test code = 0066016745) 135 mmol/L 135-145 K (test code = 7682498680) 3.6 mmol/L 3.5-5.0 CL (test code = 7488049153) 100 mmol/L 98-108 CO2 TOTAL (test code = 4054611897) 25 mmol/L 23-31 AGAP (test code = 8807812719) 2-16 BUN (test code = 9437051711) 11 mg/dL 7-23 GLUCOSE (test code = 2871895441) 100 mg/dL 70-110 CREATININE (test code = 0.67 mg/dL 0.60-1.25 7352279476) TOTAL BILI (test code = 0.7 mg/dL 0.1-1.6 4498003868) CALCIUM (test code = 3309718217) 9.3 mg/dL 8.6-10.6 T PROTEIN (test code = 5375758189) 7.4 g/dL 6.3-8.2 ALBUMIN (test code = 6877290702) 4.3 g/dL 3.5-5.0 ALK PHOS (test code = 8659578153) 55 U/L 34-122 ALTv (test code = 1742-6) 14 U/L 5-50 AST(SGOT) (test code = 7328929774) 25 U/L 13-40 eGFR (test code = 4911118949) mL/min/1.73m2 REJI (test code = REJI) [facility]APID [facility]2020-11-29 20:22:33 Test Item Value Reference Range Interpretation Comments SARS-CoV-2 Rapid ID NOW Not Detected Not Detected (test code = 85340-1) REJI (test code = REJI) ID NOW COVID-19 Assay is an isothermal nucleic acid amplification test intended for the qualitative detection of nucleic acid from SARS-CoV-2 viral RNA in nasopharyngeal (SPICE MILLER) specimens. It is used under Emergency Use [...] indicated. Lab Interpretation Normal (test code = 73987-0) [facility] NOW RAPID TESTING)2020-11-29 20:22:33 Test Item Value Reference Range Interpretation Comments SARS-CoV-2 Rapid ID NOW (test Not Detected Not Detected code = 67058-8) REJI (test code = REJI) Lab Interpretation (test code = Normal 63094-2) [facility] [id number] 20:15:39 Test Item Value Reference Range Interpretation Comments WBC (test code = See_Comment [Automated 1090-2) message] The sy stem which generated this result transmitted reference range : 4.20 - 10.70 10*3/?L. The reference range was not used to interpret this result as normal/abnormal . RBC (test code = See_Comment [Automated 519-8) message] The sy stem which generated this [...] RDW-SD (test code = 44.8 fL 38.5-51.6 08684-6) RDW-CV (test code = 12.7 % 12.1-15.4 788-0) PLT (test code = See_Comment [Automated 777-3) message] The sy stem which generated this result transmitted reference range : 150 - 328 10*3/ ?L. The reference r china was not used to interpret this result as normal/abnormal . MPV (test code = 9.8 fL 9.8-13.0 71493-0) NRBC/100 WBC (test See_Comment [Automat ed code = 3284795454) message] The system which generated this result transmitted reference range : 0.0 - 10.0 /100 WBCs. The refer ence range was not u sed to interpret th is result as normal/abnormal . NRBC x10^3 (test code <0.01 See_Comment [Auto mated = 1194939297) message] The s ystem which generated this result transmitted reference range : 10*3/?L. The reference range was not used to interpret this result as normal/abnormal . GRAN MAT (NEUT) % 47.2 % (test code = 770-8) IMM GRAN % (test code 0.20 % = 4862796846) LYMPH % (test code = 36.8 % 736-9) MONO % (test code = 14.4 % 5905-5) EOS % (test code = 0.6 % 713-8) BASO % (test code = 0.8 % 706-2) GRAN MAT x10^3(ANC) 2.36 10*3/uL 1.99-6.95 (test code = 6175220646) IMM GRAN x10^3 (test <0.03 0.00-0.06 code = 7707253543) LYMPH x10^3 (test code 1.84 10*3/uL 1.09-3.23 = 731-0) MONO x10^3 (test code 0.72 10*3/uL 0.36-1.02 = 742-7) EOS x10^3 (test code = 0.03 10*3/uL 0.06-0.53 L 711-2) BASO x10^3 (test code 0.04 10*3/uL 0.01-0.09 = 704-7) Lab Interpretation Abnormal (test code = 01595-0) [facility] WITH [id number] 20:15:39 Test Item Value Reference Range Interpretation [...] RDW-SD (test code = 44.8 fL 38.5-51.6 53614-8) RDW-CV (test code = 12.7 % 12.1-15.4 788-0) PLT (test code = See_Comment [Automated 777-3) message] The sy stem which generated this result transmitted reference range : 150 - 328 10*3/ ?L. The reference r china was not used to interpret this result as normal/abnormal . MPV (test code = 9.8 fL 9.8-13.0 48177-7) NRBC/100 WBC (test See_Comment [Automat ed code = 8986243274) message] The system which generated this result transmitted reference range : 0.0 - 10.0 /100 WBCs. The refer ence range was not u sed to interpret th is result as normal/abnormal . NRBC x10^3 (test code <0.01 See_Comment [Auto mated = 6497106835) message] The s ystem which generated this result transmitted reference range : 10*3/?L. The reference range was not used to interpret this result as normal/abnormal . GRAN MAT (NEUT) % 47.2 % (test code = 770-8) IMM GRAN % (test code 0.20 % = 3205721879) LYMPH % (test code = 36.8 % 736-9) MONO % (test code = 14.4 % 5905-5) EOS % (test code = 0.6 % 713-8) BASO % (test code = 0.8 % 706-2) GRAN MAT x10^3(ANC) 2.36 10*3/uL 1.99-6.95 (test code = 5183509979) IMM GRAN x10^3 (test <0.03 0.00-0.06 code = 4046580860) LYMPH x10^3 (test code 1.84 10*3/uL 1.09-3.23 = 731-0) MONO x10^3 (test code 0.72 10*3/uL 0.36-1.02 = 742-7) EOS x10^3 (test code = 0.03 10*3/uL 0.06-0.53 L 711-2) BASO x10^3 (test code 0.04 10*3/uL 0.01-0.09 = 704-7) Lab Interpretation Abnormal (test code = 52239-3) [facility]"
--- NOTE | 2022-10-22 16:21 | RAD REPORT ---
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 The bones are diffusely osteopenic. Vascular at herosclerosis. Mild healing fracture seen base of the fifth metatarsal.
--- NOTE | 2022-10-22 16:42 | ER ---
Nurse's Notes [facility] Name: Alvin Soliman Age: 86 yrs Sex: Male : 1935 Arrival Date: 10/22/2022 Time: 08:32 Bed 15 Private MD: Diagnosis: Pain in left foot;Fracture of fifth metatarsal bone-subacute Presentation: 10/22 08:44 Chief complaint: Patient states: [place] like L foot FX was healing, but started to have ll1 more pain yesterday. No new trauma or falls. Coronavirus screen: Client denies travel out of the [place] in the last 14 days. At this time, the client does not indicate any symptoms associated with coronavirus-19. Ebola Screen: Patient denies travel to an Ebola-affected area in the 21 days before illness onset. Initial Sepsis Screen: Does the patient meet any 2 criteria? No. Patient's initial sepsis screen is negative. Does the patient have a suspected source of infection? Yes: Bone or joint infection. Risk Assessment: Do you want to hurt yourself or someone else? Patient reports no desire to harm self or others. Onset of symptoms was October 21, 2022. 08:44 Method Of Arrival: Wheelchair ll1 08:44 Acuity: RUDY 4 ll1 Triage Assessment: 08:46 General: Appears uncomfortable, Behavior is calm, cooperative, appropriate for age. ll1 Pain: Complains of pain in left foot Quality of pain is described as aching, Pain began 1 day ago. Musculoskeletal: Circulation, motion, and sensation intact. Capillary refill < 3 seconds, Reports pain in left foot. Historical: - PMHx: 08:36 Cancer; High Cholesterol; Hypertension; ll1 - PSHx: 08:36 Radiation; ll1 - Immunization history:: Adult Immunizations up to date. - Social history:: Smoking status: Patient denies any tobacco usage or history of. Screenin:55 [facility] ED Fall Risk Assessment (Adult) History of falling in the last 3 months, db including since admission No falls in past 3 months (0 pts) Confusion or Disorientation No (0 pts) Intoxicated or Sedated No (0 pts) Impaired Gait No (0 pts) Mobility Assist Device Used No (0 pt) Altered Elimination No (0 pt) Score/Fall Risk Level 0 - 2 = Low Risk Oriented to surroundings, Maintained a safe environment. Abuse screen: Denies threats or abuse. Denies injuries from another. Nutritional screening: No deficits noted. Tuberculosis screening: No symptoms or risk factors identified. Assessment: 09:05 Reassessment: Patient appears in no apparent distress at this time. Patient and/or db family updated on plan of care and expected duration. Pain level reassessed. Patient is alert, oriented x 3, equal unlabored respirations, skin warm/dry/pink. left foot pain. 09:55 General: Appears in no apparent distress. comfortable, Behavior is calm, cooperative. db Neuro: Level of Consciousness is awake, alert, obeys commands, Oriented to person, place, time, situation. Respiratory: Airway is patent Respiratory effort is even, unlabored, Respiratory pattern is regular, symmetrical. 10:30 Reassessment: Patient appears in no apparent distress at this time. Patient and/or db family updated on plan of care and expected duration. Pain level reassessed. Patient is alert, oriented x 3, equal unlabored respirations, skin warm/dry/pink. General: Appears in no apparent distress. comfortable. Vital Signs: 08:44 BP 121 / 68; Pulse 65; Resp 17; Temp 98.3; Pulse Ox 98% ; Weight 64.41 kg; Height 5 ft. ll1 6 in. ; Pain 4/10; 09:30 BP 129 / 63; Pulse 57; Resp 16; Pulse Ox 100% on R/A; db 10:15 BP 129 / 62; Pulse 61; Resp 16; Pulse Ox 96% on R/A; db 08:44 Body Mass Index 22.92 (64.41 kg, 167.64 cm) ll1 08:44 Pain Scale: Adult ll1 ED Course: 08:32 Patient arrived in ED. am2 08:34 Maile Ortiz FNP-C is PHCP. kb 08:34 Jerry Davis MD is Attending Physician. kb 08:36 Arm band placed on Patient placed in an exam room, on a stretcher. ll1 08:46 Triage completed. ll1 09:03 Ellyn Calix, RAFAT is Primary Nurse. db 09:59 No provider procedures requiring assistance completed. db 10:40 Paul wrap to left foot. db 10:46 Patient has correct armband on for positive identification. Call light in reach. db Provided Education on: DISCHARGE AND FOLLOWUP. 10:46 Patient did not have IV access during this emergency room visit. db Administered Medications: 09:12 Drug: HYDROcodone-acetaminophen PO 5 mg-325 mg 1 tabs Route: PO; db 10:47 Follow up: Response: No adverse reaction db 10:28 Drug: Ketorolac IM 30 mg Route: IM; Site: right deltoid; db 10:47 Follow up: Response: No adverse reaction db Medication: 09:55 VIS not applicable for this client. db Outcome: 10:19 Discharge ordered by . kb 10:46 Discharged to home via wheelchair, with family. db 10:46 Condition: stable 10:46 Discharge instructions given to patient, Instructed on discharge instructions, follow up and referral plans. Prescriptions given X 1. 10:48 Patient left the ED. db Signatures: Maile Ortiz, [employer]-C [employer]-Ckb Michelle Bull am2 Deion Ibanez, RN RN ll1 Ellyn Calix RN RN db Corrections: (The following items were deleted from the chart) 09:56 09:05 Reassessment: Patient appears in no apparent distress at this time. Patient db and/or family updated on plan of care and expected duration. Pain level reassessed. Patient is alert, oriented x 3, equal unlabored respirations, skin warm/dry/pink. db
--- NOTE | 2022-10-22 16:42 | EDPHYS ---
Physician Documentation [facility] Name: Alvin Soliman Age: 86 yrs Sex: Male : 1935 Arrival Date: 10/22/2022 Time: 08:32 Bed 15 Private MD: ED Physician Jerry Davis HPI: 10/22 09:18 This 86 yrs old Male presents to ER via Wheelchair with complaints of Foot Pain - kb fracture. 08:37 The complaints affect the. Patient reports he was diagnosed with a metatarsal fracture kb on 10/02. Followed up with Dr. Elise last week and was told to keep an Paul bandage on it and it would heal with time. States pain increased yesterday so came to get a repeat x-ray. Denies any new injury or trauma. 09:18 The patient presents with pain. The complaints affect the left foot. Context: the kb patient can fully bear weight, the patient is able to ambulate. Onset: The symptoms/episode began/occurred last month. Modifying factors: The symptoms are alleviated by nothing, the symptoms are aggravated by weight bearing. Associated signs and symptoms: The patient has no apparent associated signs or symptoms. Severity of symptoms: At their worst the symptoms were moderate, in the emergency department the symptoms are unchanged. The patient has not experienced similar symptoms in the past. The patient has been recently seen by a physician:. Historical: - PMHx: 08:36 Cancer; High Cholesterol; Hypertension; ll1 - PSHx: 08:36 Radiation; ll1 - Immunization history:: Adult Immunizations up to date. - Social history:: Smoking status: Patient denies any tobacco usage or history of. ROS: 09:19 Constitutional: Negative for fever, chills, and weight loss. kb 09:19 MS/extremity: Positive for pain, of the lateral side of left foot. 09:19 All other systems are negative. Exam: 09:19 Constitutional: This is a well developed, well nourished patient who is awake, alert, kb and in no acute distress. Head/Face: Normocephalic, atraumatic. ENT: Moist Mucous membranes Cardiovascular: Regular rate and rhythm with a normal S1 and S2. No gallops, murmurs, or rubs. No pulse deficits. Respiratory: Respirations even and unlabored. No increased work of breathing. Talking in full sentences Skin: Warm, dry with normal turgor. Normal color. Neuro: Awake and alert, GCS 15, oriented to person, place, time, and situation. Moves all extremities. Normal gait. 09:19 Musculoskeletal/extremity: Extremities: grossly normal except: noted in the lateral side of left foot: pain, tenderness, ROM: intact in all extremities, Circulation is intact in all extremities. Sensation intact. Weight bearing: able to fully bear weight. Vital Signs: 08:44 BP 121 / 68; Pulse 65; Resp 17; Temp 98.3; Pulse Ox 98% ; Weight 64.41 kg; Height 5 ft. ll1 6 in. ; Pain 4/10; 09:30 BP 129 / 63; Pulse 57; Resp 16; Pulse Ox 100% on R/A; db 10:15 BP 129 / 62; Pulse 61; Resp 16; Pulse Ox 96% on R/A; db 08:44 Body Mass Index 22.92 (64.41 kg, 167.64 cm) ll1 08:44 Pain Scale: Adult ll1 MDM: 08:34 Patient medically screened. kb 09:19 Data reviewed: vital signs, nurses notes. kb 10:18 Differential diagnosis: fracture, sprain. Counseling: I had a detailed discussion with kb the patient and/or guardian regarding: the historical points, exam findings, and any diagnostic results supporting the discharge/admit diagnosis, radiology results, the need for outpatient follow up, a orthopedic surgeon, to return to the emergency department if symptoms worsen or persist or if there are any questions or concerns that arise at home. 10:41 Independent interpretation of the following test(s) in the Emergency Department X-Ray: kb My interpretation is No acute fracture. x-ray compared to last visit. 10/22 10:24 Order name: Paul Wrap; Complete Time: 10:47 kb Administered Medications: 09:12 Drug: HYDROcodone-acetaminophen PO 5 mg-325 mg 1 tabs Route: PO; db 10:47 Follow up: Response: No adverse reaction db 10:28 Drug: Ketorolac IM 30 mg Route: IM; Site: right deltoid; db 10:47 Follow up: Response: No adverse reaction db Disposition: 11:03 Co-signature as Attending Physician, Jerry Davis MD I reviewed the patient's care rn provided by the Advanced Practice Provider and agree with the diagnosis and treatment plan. Disposition Summary: 10/22/22 10:19 Discharge Ordered Location: Home kb Condition: Stable kb Diagnosis - Pain in left foot kb - Fracture of fifth metatarsal bone - subacute kb Followup: kb - With: Emergency Department - When: As needed - Reason: Worsening of condition Followup: kb - With: Private Physician - When: 2 - 3 days - Reason: Recheck today's complaints, Continuance of care, Re-evaluation by your physician Discharge Instructions: - Discharge Summary Sheet kb - Musculoskeletal Pain kb Forms: - Medication Reconciliation Form kb - Thank You Letter kb - Antibiotic Education kb - Prescription Opioid Use kb - Patient Portal Instructions kb Prescriptions: - Tramadol 50 mg Oral Tablet - take 1 tablet by ORAL route every 8 hours as needed; 12 tablet; Refills: 0, kb Product Selection Permitted Signatures: Maile Ortiz, NEONATAL CRITICAL CARE NURSE-C NEONATAL CRITICAL CARE NURSE-Ckb Jerry Davis MD MD rn Deion Ibanez RN RN ll1 Ellyn Calix RN RN db Corrections: (The following items were deleted from the chart) 10:42 10:41 Independent interpretation of the following test(s) in the Emergency Department kb X-Ray: My interpretation is No acute fracture. kb
[2022-10-22 18:02] VITALS: TEMP 98.3
[2022-10-22 18:06] VITALS: BP 129/62; O2SAT 96
== END 2022-10-22 10:48 | disposition home or self-care (01) ==
LOC: ER 08:34
DX: S92.352A Displaced fracture of fifth metatarsal bone, left foot, initial encounter for closed fracture (principal); I10 Essential (primary) hypertension; E78.00 Pure hypercholesterolemia, unspecified
CPT/HCPCS: 96372; 99284

== ENCOUNTER 2022-11-05 08:23 | Emergency (ER) | payer OTHER ==
--- OUTSIDE RECORDS SUMMARY | 2022-11-05 08:28 | XMS REPORT | Continuity of Care Document ---
:1935 Author Organization [facility] t Address [address] [place] [address] [address] [place] [address] Care Team Providers Name Role Phone Sherley LOPES, Geronimo Mcneal Primary Care Physician [phone] ARIA CUENCA Attending Clinician Unavailable Nurse, Adc Pob Immunization Attending Clinician Unavailable Neal Bergman DO Attending Clinician Aria Cuenca MD Attending Clinician Only, Adc Test Attending Clinician Unavailable Doctor Unassigned, [place] Attending Clinician Unavailable Pob, Adc Lab Main Attending Clinician Unavailable ARIA CUENCA Admitting Clinician Unavailable Aria Cuenca MD Admitting Clinician Payers Payer Name Policy Type Policy Number Effective Date Expiration Date [facility] [id number] 2020 [facility] 00:00:00 PPO Problems This patient has no known problems. Allergies, Adverse Reactions, Alerts Allergy Allergy Status Severity Reaction(s) Onset Inactive Treating Comm ents Source Name Type Date Date Clinician NO KNOWN Drug Active [facility] ALLERGIE Class [facility] [place] [facility] [place] Social History Social Habit Start Date Stop Date Quantity Comments Source Exposure to Not sure [facility] SARS-CoV-2 (event) Medica l Branch Tobacco use and 2020-11-30 2020-11-30 Never used [employer] [facility] exposure 00:00:00 00:00:00 Medical Branch Sex Assigned [birth year] [facility] y [facility] 00:00:00 00:00:00 Medical Branch Smoking Status Start Date Stop Date Source Unknown if ever smoked [facility] Never smoker [facility] Medications Ordered Filled Start Stop Current Ordering Indication Dosage Frequency Signature Comments Components Source Medication Medication Date Date Medication? Clinician (SIG) Name Name DUOVISC Yes PRN, Univers (DUOVISC 12-29 Starting ity of VISCO 14:06: on Yanet [place] ELASTIC) 3 00 12/29/20 at Med ical %-4 %(0.5 0906, Branch mL) 1 % Until (0.55 mL) Discontinu intraocular ed, injection Routine, Intra-op NaCl 0.9% Yes PRN, Univers (NS) 12-29 Starting ity of injection 14:06: on Yanet [place] 12/29/[address] Until Discontinu ed, Routine, Intra-op DUOVISC 2020- No PRN, Univers (DUOVISC 12-29 Starting ity of VISCO 14:06: 17:40 on [facility] ELASTIC) 3 00 :24 12/29/20 at [facility] ical %-4 %(0.5 0906, Branch mL) 1 % Until Yanet (0.55 mL) 12/29/20 at intraocular 1240, injection Routine, Intra-op NaCl 0.9% 2020- No PRN, Univers (NS) 12-29 Starting ity of injection 14:06: 17:40 on [facility] [place] 00 :24 12/29/[address] Until Yanet 12/29/20 at 1240, Routine, Intra-op gentamicin Yes PRN, Univers injection 12-29 Starting ity of 14:05: on Yanet [place] 00 12/29/[address] Until Discontinu ed, KEVIN, Intra-op neomycin-po Yes PRN, Univer s lymyxin-dex 12-29 Starting ity of amethasone 14:05: on Yanet [place] (MAXITROL) 00 12/29/20 at [facility] ical 3.5 05, [place] mg/g-10,000 Until unit/g-0.1 Discontinu % ed, ophthalmic Routine, ointment Intra-op gentamicin 2020- No PRN, Univer s injection 12-29 Starting ity o f 14:05: 17:40 on Yanet [place] 00 :24 12/29/20 at [facility] 0905, Branch Until Yanet 12/29/20 at 1240, KEVIN, Intra-op neomycin-po 2020- No PRN, [facility] lymyxin-dex 12-29 Starting ity of amethasone 14:05: 17:40 [place] (MAXITROL[place] 00 :24 12/29/20 at [facility] ical 3.5 09, [place] mg/g-10,000 Until Yanet unit/g-0.1 12/29/20 at % 1240, ophthalmic Routine, ointment Intra-op dexamethaso Yes PRN, Univer s ne 12-29 Starting ity of (DECADRON 14:04: on Yanet [place] PHOSPHATE) 00 12/29/20 at Med ical injection 09, [place] Until Discontinu ed, Routine, Intra-op ceFAZolin Yes PRN, Univers (ANCEF) 12-29 Starting ity of injection 14:04: on Yanet [place] 00 12/29/20 at [facility] 0904, Branch Until Discontinu ed, KEVIN, Intra-op dexamethaso 2020- No PRN, [place] [facility] ne 12-29 Starting ity of (DECADRON 14:04: 17:40 on Yanet [place] PHOSPHATE) 00 :24 12/29/20 at Med ical injection 09, Branch Until Yanet 12/29/20 at 1240, Routine, Intra-op ceFAZolin 2020- No PRN, Univers (ANCEF) 12-29 Starting ity of injection 14:04: 17:40 on Yanet [place] 00 :24 12/29/20 at [facility] 0904, Branch Until Yanet 12/29/20 at 1240, KEVIN, Intra-op EPINEPHrine Yes PRN, [place] [facility] (PF) 12-29 Starting ity of 1:1,000 (1 14:01: on Yanet [place] mg/mL) 00 12/29/20 at [facility] (ADRENALIN 09, Branch (PF)) Until injection Discontinu ed, Routine, Intra-op balanced Yes PRN, Univers salt soln 12-29 Starting ity of no.2 irrig. 14:01: on [place] (BSS) 00 12/29/20 at [facility] ophthalmic 0901, Branch solution Until Discontinu ed, Routine, Intra-op EPINEPHrine 2020- No PRN, Unive rs (PF) 12-29 Starting ity of 1:1,000 (1 14:01: 17:40 on [place] mg/mL) 00 :24 12/29/20 at [facility] (ADRENALIN 01, Branch (PF)) Until Yanet injection 12/29/20 at 1240, Routine, Intra-op balanced 2020- No PRN, Univers salt soln 12-29 Starting ity o f no.2 irrig. 14:01: 17:40 on [place]et [place] (BSS) 00 :24 12/29/20 at [facility] ophthalmic 0901, Branch solution Until Yanet 12/29/20 at 1240, Routine, Intra-op water for Yes PRN, Univers irrigation 12-29 Starting ity o f irrigation 13:55: on Yanet [place] solution 00 12/29/20 at Medic al 0855, Branch Until Discontinu ed, Routine, Intra-op eye block Yes PRN, Univers syringe 11 12-29 Starting ity o f mL 13:55: on Yanet [place] 00 12/29/20 at [facility] 0855, Branch Until Discontinu ed, Intra-op [...] of ) 0.5 % 13:54: on Yanet [place] ophthalmic 00 12/29/20 at Med ical drops 0854, Branch Until Discontinu ed, Routine, Intra-op tetracaine 2020- No PRN, Univer s (PONTOCAINE 12-29 Starting ity of ) 0.5 % 13:54: 17:40 on Yanet [place] ophthalmic 00 :24 12/29/20 at Med ical [...] 2020- No 1000mL at 42 [place] [facility] ringers IV 12-29 mL/hr, ity of infusion 11:45: 11:59 1,000 mL, [place] 1,000 mL 00 :00 IV Medical Infusion, Branch ONCE, 1 dose, On Yanet 12/29/20 at 0645, Routine, DSU Pre-op lactated 2020- No 1000mL at 42 [place] [facility] ringers IV 12-29 mL/hr, ity of infusion 11:45: 11:59 1,000 mL, [place] 1,000 mL 00 :00 IV Medical Infusion, Branch ONCE, 1 dose, On Yanet 12/29/20 at 0645, Routine, DSU Pre-op aspirin 81 Yes 81mg Take 81 mg U nivers mg chewable 12-29 by mouth ity of tablet 10:35: daily. [address] amLODIPine Yes 5mg Take 5 mg Un delio 5 mg tablet 9-23 by mouth ity of 10:35: daily. [place] [address] Medical Branch losartan 0 Yes 100mg Take [...] by mouth ity of tablet 10:35: daily. [place] [address] Medical Branch amLODIPine 0 Yes 5mg Take 5 mg Un delio 5 mg tablet 9-23 by mouth ity of 10:35: daily. [place] [address] Medical Branch losartan 0 Yes 100mg Take [...] by mouth ity of tablet 10:35: daily. [place] [address] Medical Branch amLODIPine 0 Yes 5mg Take 5 mg Un delio 5 mg tablet 9-23 by mouth ity of 10:35: daily. [place] [address] Medical Branch losartan 0 Yes 100mg Take [...] by mouth ity of tablet 13:38: daily. [place] [address] Medical Branch amLODIPine 0 Yes 5mg Take 5 mg Un delio 5 mg tablet 9-20 by mouth ity of 13:38: daily. [place] [address] Medical Branch losartan 2020-0 Yes 100mg Take 100 Univ ers 100 mg 9-20 mg by ity of tablet 13:38: mouth [place] 56 daily. Medical Branch aspirin 81 2020-0 Yes 81mg Take 81 mg U nivers mg chewable 9-20 by mouth ity of tablet 13:38: daily. [place] [address] Medical Branch amLODIPine 0 Yes 5mg Take 5 mg Un delio 5 mg tablet 9-20 by mouth ity of 13:38: daily. [place] [address] Medical Branch losartan 2020-0 Yes 100mg Take 100 Univ ers 100 mg 9-20 mg by ity of tablet 13:38: mouth [place] 56 daily. Medical Branch aspirin 81 0 Yes 81mg Take 81 mg U nivers mg chewable 8-26 by mouth ity of tablet 19:38: daily. [place] [address] Medical Branch amLODIPine 0 Yes 5mg Take 5 mg Un delio 5 mg tablet 8-26 by mouth ity of 19:38: daily. [place] [address] Medical Branch losartan 2020-0 Yes 100mg Take [...] by mouth ity of tablet 19:38: daily. [place] [address] Medical Branch amLODIPine 2020-0 Yes 5mg Take 5 mg Un delio 5 mg tablet 8-26 by mouth ity of 19:38: daily. [place] [address] Medical Branch losartan 2020-0 Yes 100mg Take [...] by mouth ity of tablet 19:38: at [place] [address] bedtime. Medical Branch traZODone 2020-0 Yes 50mg Take 50 mg Un delio 50 mg 8-26 by mouth ity of tablet 19:38: at [place] [address] bedtime. Medical Branch aspirin 81 2020-0 Yes [...] by mouth ity of tablet 19:38: at [place] [address] bedtime. Medical Branch aspirin 81 2020-0 Yes [...] by mouth ity of tablet 19:38: at [place] [address] bedtime. Medical Branch traZODone Yes 50mg Take 50 mg Un delio 50 mg 8-26 by mouth ity of tablet 19:38: at [place] [address] bedtime. Medical Branch aspirin 81 0 Yes 81mg Take 81 mg U nivers mg chewable 8-26 by mouth ity of tablet 19:38: daily. Medical Branch amLODIPine Yes 5mg Take 5 mg Un delio 5 mg tablet 8-26 by mouth ity of 19:38: daily. Medical Branch losartan Yes 100mg Take 100 Univ ers 100 mg 8-26 mg by ity of tablet 19:38: mouth [place] 04 daily. Medical Branch pravastatin Yes 40mg Take 40 mg Univers 40 mg 8-26 by mouth ity of tablet 19:38: at [place] [address] bedtime. Medical Branch traZODone Yes 50mg Take 50 mg Un delio 50 mg 8-26 by mouth ity of tablet 19:38: at [place] [address] bedtime. Medical Branch gentamicin 0 Yes PRN, Univers injection 12-01 Starting ity of 18:32: Yanet [place] 12/01/[address] Until Discontinu ed, KEVIN, Intra-op gentamicin 2020-0 Yes PRN, Univers injection 12-01 Starting ity of 18:32: Yanet [place] 00 12/01/[address] Until Discontinu ed, KEVIN, Intra-op gentamicin 2020-0 2020- No PRN, Univer s injection 12-01 Starting ity o f 18:32: 21:38 Yanet [place] 00 :07 12/01/[address] Branch Until [place] 12/01/20 at 1638, KEVIN, Intra-op gentamicin 2020-0 2020- No PRN, Univer s injection 12-01 Starting ity o f 18:32: 21:38 Yanet [place] 00 :07 12/01/20 at Medical 1332, Branch Until Yanet 12/01/20 at 1638, KEVIN, Intra-op tetracaine Yes PRN, Univers (PONTOCAINE 12-01 Starting ity of ) 0.5 % 17:24: Yan[place] ophthalmic 00 12/01/20 at [facility] ical drops 1224, Branch Until Discontinu ed, Routine, Intra-op tetracaine Yes PRN, Univers (PONTOCAINE 12-01 Starting ity of ) 0.5 % 17:24: Yan[place] ophthalmic 00 12/01/20 at [facility] ical drops 1224, Branch Until Discontinu ed, Routine, Intra-op tetracaine 2020- No PRN, Univer s (PONTOCAINE 12-01 Starting ity of ) 0.5 % 17:24: 21:38 Yan[facility] [place] ophthalmic 00 :07 12/01/20 at [facility] ical drops 1224, Branch Until Yanet 12/01/20 at 1638, Routine, Intra-op tetracaine 2020- No PRN, Univer s (PONTOCAINE 12-01 Starting ity of ) 0.5 % 17:24: 21:38 Yan[facility] [place] ophthalmic 00 :07 12/01/20 at [facility] ica drops 1224, Branch Until Yanet 12/01/20 at 1638, Routine, Intra-op water for Yes PRN, Univers irrigation 12-01 Starting ity o f irrigation 17:23: Yanet [place] solution 12/01/20 at Medic al 1223, Branch Until Discontinu ed, Routine, Intra-op NaCl 0.9% Yes PRN, Univers (NS) 12-01 Starting ity of injection 17:23: Yanet [place] 12/01/20 at [facility] 1223, Branch Until Discontinu ed, Routine, Intra-op neomycin-po Yes PRN, Univer s lymyxin-dex 12-01 Starting ity of amethasone 17:23: Yanet [place] (MAXITROL) 00 12/01/20 at [facility] 3.5 1223, Branch mg/g-10,000 Until unit/g-0.1 Discontinu % ed, ophthalmic Routine, ointment Intra-op water for Yes PRN, Univers irrigation 12-01 Starting ity o f irrigation 17:23: Yanet [place] solution 00 12/01/20 at [place] [address], [place] Until Discontinu ed, Routine, Intra-op NaCl 0.9% Yes PRN, Univers (NS) 12-01 Starting ity of injection 17:23: Yanet [place] 00 12/01/20 at [place] [address], Branch Until Discontinu ed, Routine, Intra-op neomycin-po Yes PRN, Univer s lymyxin-dex 12-01 Starting ity of amethasone 17:23: [place] (MAXITROL) 00 12/01/20 at [place] [address], [place] mg/g-10,000 Until unit/g-0.1 Discontinu % ed, ophthalmic Routine, ointment Intra-op water for 2020- No PRN, Univers irrigation 12-01 Starting ity of irrigation 17:23: 21:38 Yanet [place] solution 00 :07 12/01/20 at [place] [address], Branch Until Yanet 12/01/20 at 1638, Routine, Intra-op NaCl 0.9% 2020- No PRN, Univers (NS) 12-01 Starting ity of injection 17:23: 21:38 [place] [place] 00 :07 12/01/20 at [place] [address], Branch Until Yanet 12/01/20 at 1638, Routine, Intra-op neomycin-po 2020- No PRN, Unive rs lymyxin-dex 12-01 Starting ity of amethasone 17:23: 21:38 [place] [place] (MAXITROL) 00 :07 12/01/20 at [place] [address], [place] mg/g-10,000 Until [place] unit/g-0.1 12/01/20 at % 1638, ophthalmic Routine, ointment Intra-op water for 2020- No PRN, Univers irrigation 12-01 Starting ity of irrigation 17:23: 21:38 Yanet [place] solution 00 :07 12/01/20 at [facility] al 1223, Branch Until Yanet 12/01/20 at 1638, Routine, Intra-op NaCl 0.9% 2020- No PRN, Univers (NS) 12-01 Starting ity of injection 17:23: 21:38 [facility] [place] 00 :07 12/01/20 at [facility] 1223, Branch Until Yanet 12/01/20 at 1638, Routine, Intra-op neomycin-po 2020- No PRN, Unive rs lymyxin-dex 12-01 Starting ity of amethasone 17:23: 21:38 [place] (MAXITROL) 00 :07 12/01/20 at [facility] ical 3.5 122, Branch mg/g-10,000 Until [place] unit/g-0.1 12/01/20 at % 1638, ophthalmic Routine, ointment Intra-op eye block Yes PRN, Univers syringe 12-01 Starting ity o f mL 17:22: Yanet [place] 00 12/01/20 at [place] [id number], Branch Until Discontinu ed, Intra-op EPINEPHrine Yes PRN, Univer s (PF) 12-01 Starting ity of 1:1,000 (1 17:22: Yanet [place] mg/mL) 00 12/01/20 at [facility] (ADRENALIN 1222, Branch (PF)) Until injection Discontinu ed, Routine, Intra-op eye block Yes PRN, Univers syringe 12-01 Starting ity o f mL 17:22: Yanet [place] 00 12/01/20 at [place] [address], Branch Until Discontinu ed, Intra-op EPINEPHrine Yes PRN, Univer s (PF) 12-01 Starting ity of 1:1,000 (1 17:22: Yanet [place] mg/mL) 12/01/20 at [facility] (ADRENALIN 1222, Branch (PF)) Until injection Discontinu ed, Routine, Intra-op eye block 2020- No PRN, Univers syringe 11 12-01 Starting ity of mL 17:22: 21:38 [facility] [place] 00 :07 12/01/20 at Medical 1222, Branch Until Yanet 12/01/20 at 1638, Intra-op EPINEPHrine 2020- No PRN, Unive rs (PF) 12-01 Starting ity of 1:1,000 (1 17:22: 21:38 Yanet [place] mg/mL) 00 :07 12/01/20 at [facility] (ADRENALIN 1222, Branch (PF)) Until Yanet injection 12/01/20 at 1638, Routine, Intra-op eye block 2020- No PRN, Univers syringe 11 12-01 Starting ity of mL 17:22: 21:38 [place] 00 :07 12/01/20 at [facility] 1222, Branch Until Yanet 12/01/20 at 1638, Intra-op EPINEPHrine 2020- No PRN, Unive rs (PF) 12-01 Starting ity of 1:1,000 (1 17:22: 21:38 [place] [place] mg/mL) 00 :07 12/01/20 at [facility] (ADRENALIN 1222, Branch (PF)) Until Yanet injection 12/01/20 at 1638, Routine, Intra-op DUOVISC 0 Yes PRN, Univers (DUOVISC 12-01 Starting ity of VISCO 17:21: [place] ELASTIC) 3 00 12/01/20 at [facility] ical %-4 %(0.5 122, Branch mL) 1 % Until (0.55 mL) Discontinu intraocular ed, injection Routine, Intra-op dexamethaso Yes PRN, Univer s ne 12-01 Starting ity of (DECADRON 17:21: Yanet [place] PHOSPHATE) 00 12/01/20 at [facility] ical injection 1221, Branch Until Discontinu ed, Routine, Intra-op ceFAZolin Yes PRN, Univers (ANCEF) 12-01 Starting ity of injection 17:21: [place] 00 12/01/20 at [facility] 1221, Branch Until Discontinu ed, KEVIN, Intra-op balanced Yes PRN, Univers salt soln 12-01 Starting ity of no.2 irrig. 17:21: [place] [place] (BSS) 00 12/01/20 at [facility] ophthalmic 1221, Branch solution Until Discontinu ed, Routine, Intra-op DUOVISC 0 Yes PRN, Univers (DUOVISC 12-01 Starting ity of VISCO 17:21: [place] ELASTIC) 3 00 12/01/20 at [facility] ical %-4 %(0.5 1221, Branch mL) 1 % Until (0.55 mL) Discontinu intraocular ed, injection Routine, Intra-op dexamethaso Yes PRN, Univer s ne 12-01 Starting ity of (DECADRON 17:21: [place] PHOSPHATE) 00 12/01/20 at Med ical injection 1221, Branch Until Discontinu ed, Routine, Intra-op ceFAZolin Yes PRN, Univers (ANCEF) 12-01 Starting ity of injection 17:21: [place] 00 12/01/20 at [facility] 1221, Branch Until Discontinu ed, KEVIN, Intra-op balanced Yes PRN, Univers salt soln 12-01 Starting ity of no.2 irrig. 17:21: [place]et [place] (BSS) 00 12/01/20 at [facility] ophthalmic 1221, Branch solution Until Discontinu ed, Routine, Intra-op DUOVISC 2020- No PRN, Univers (DUOVISC 12-01 Starting ity of VISCO 17:21: 21:38 [place] ELASTIC) 3 00 :07 12/01/20 at [facility] ical %-4 %(0.5 1221, Branch mL) 1 [...] o f no.2 irrig. 17:21: 21:38 Yanet [place] (BSS) 00 :07 12/01/20 at [facility] ophthalmic 1221, Branch solution Until Yanet 12/01/20 at 1638, Routine, Intra-op DUOVISC 2020- No PRN, Univers (DUOVISC 12-01 Starting ity of VISCO 17:21: 21:38 [facility] ELASTIC) 3 00 :07 12/01/20 at [facility] ical %-4 %(0.5 122, Branch mL) 1 % Until Yanet (0.55 mL) 12/01/20 at intraocular 1638, injection Routine, Intra-op dexamethaso 2020- No PRN, Unive rs ne 12-01 Starting ity of (DECADRON 17:21: 21:38 [facility] PHOSPHATE) 00 :07 12/01/20 at [facility] ical injection 1221, Branch Until Yanet 12/01/20 at 1638, Routine, Intra-op ceFAZolin 2020- No PRN, [facility] (ANCEF) 12-01 Starting ity of injection 17:21: 21:38 [facility] 00 :07 12/01/20 at [place] [address], Branch Until Yanet 12/01/20 at 1638, KEVIN, Intra-op balanced 2020- No PRN, [facility] salt soln 12-01 Starting ity o f no.2 irrig. 17:21: 21:38 [facility] (BSS) 00 :07 12/01/20 at [facility] ophthalmic 122, Branch solution Until Yanet 12/01/20 at 1638, Routine, Intra-op mydriatic 2020- No .5mL 0.5 mL, Univ ers #5 12-01 Left Eye, ity of ophthalmic 16:45: 16:55 ONCE, 1 [place] solution 00 :00 dose, Yanet Medica l 0.5 mL 12/01/20 at [place] syringe 1145, Routine, DSU Pre-op lactated 2020- [...] by mouth ity of tablet 14:38: daily. [place] [address] Medical Branch amLODIPine 2020-0 Yes 5mg Take 5 mg Un delio 5 mg tablet 8-26 by mouth ity of 14:38: daily. [place] [address] Medical Branch losartan 2020-0 Yes 100mg Take 100 Univ ers 100 mg 8-26 mg by ity of tablet 14:38: mouth [place] 04 daily. Medical Branch pravastatin 2020-0 Yes 40mg Take 40 mg Univers 40 mg 8-26 by mouth ity of tablet 14:38: at [place] [address] bedtime. Medical Branch traZODone 2020-0 Yes 50mg Take 50 mg Un delio 50 mg 8-26 by mouth ity of tablet 14:38: at [place] [address] bedtime. Medical Branch pravastatin 2020-0 Yes 40mg Take 40 mg Univers 40 mg 8-26 by mouth ity of tablet 14:38: at [place] [address] bedtime. Medical Branch traZODone 2020-0 Yes 50mg Take 50 mg Un delio 50 mg 8-26 by mouth ity of tablet 14:38: at [place] [address] bedtime. Medical Branch aspirin 81 2020-0 Yes 81mg Take 81 mg U nivers mg chewable 8-26 by mouth ity of tablet 14:38: daily. [place] [address] Medical Branch amLODIPine 2020-0 Yes 5mg Take 5 mg Un delio 5 mg tablet 8-26 by mouth ity of 14:38: daily. Medical Branch losartan 2020-0 Yes 100mg Take 100 Univ ers 100 mg 8-26 mg by ity of tablet 14:38: mouth [place] 04 daily. Medical Branch pravastatin 2020-0 Yes 40mg Take 40 mg Univers 40 mg 8-26 by mouth ity of tablet 14:38: at [place] [address] bedtime. Medical Branch traZODone 2020-0 Yes 50mg Take 50 mg Un delio 50 mg 8-26 by mouth ity of tablet 14:38: at [place] [address] bedtime. Medical Branch pravastatin 2020-0 Yes 40mg Take 40 mg Univers 40 mg 8-26 by mouth ity of tablet 14:38: at [place] [address] bedtime. Medical Branch traZODone Yes 50mg Take 50 mg Un delio 50 mg 8-26 by mouth ity of tablet 14:38: at [place] [address] bedtime. [facility] Branch Immunizations Ordered Filled Immunization Date Status Comments [facility] e Immunization Name Name SARS-COV-2 COVID-19 2021-01-05 Completed Unive rsity of PFIZER VACCINE 00:00:00 [facility] SARS-COV-2 COVID-19 2020-06-09 Completed Unive rsity of PFIZER VACCINE 00:00:00 [facility] SARS-COV-2 COVID-19 2020-06-09 Completed Unive rsity of PFIZER VACCINE 00:00:00 [facility] SARS-COV-2 COVID-19 2020-06-09 Completed Unive rsity of PFIZER VACCINE 00:00:00 [facility] SARS-COV-2 COVID-19 2020-06-09 Completed Unive rsity of PFIZER VACCINE 00:00:00 [facility] SARS-COV-2 COVID-19 2020-06-09 Completed Unive rsity of PFIZER VACCINE 00:00:00 [facility] SARS-COV-2 COVID-19 2020-06-09 Completed Unive rsity of PFIZER VACCINE 00:00:00 [facility] SARS-COV-2 COVID-19 2020-06-09 Completed Unive rsity of PFIZER VACCINE 00:00:00 [facility] SARS-COV-2 COVID-19 2020-06-09 Completed Unive rsity of PFIZER VACCINE 00:00:00 [facility] SARS-COV-2 COVID-19 2020-06-09 Completed Unive rsity of PFIZER VACCINE 00:00:00 [facility] SARS-COV-2 COVID-19 2020-06-09 Completed Unive rsity of PFIZER VACCINE 00:00:00 [facility] SARS-COV-2 COVID-19 2020-06-09 Completed Unive rsity of PFIZER VACCINE 00:00:00 [facility] SARS-COV-2 COVID-19 2020-06-09 Completed Unive rsity of PFIZER VACCINE 00:00:00 [facility] SARS-COV-2 COVID-19 2020-06-09 Completed Unive rsity of PFIZER VACCINE 00:00:00 [place] [facility] Branch SARS-COV-2 COVID-19 2020-06-09 Completed Unive rsity of PFIZER VACCINE 00:00:00 [facility] Branch SARS-COV-2 COVID-19 2020-06-09 Completed Unive rsity of PFIZER VACCINE 00:00:00 [facility] Branch SARS-COV-2 COVID-19 2020-06-09 Completed Unive rsity of PFIZER VACCINE 00:00:00 [facility] Branch SARS-COV-2 COVID-19 2020-06-09 Completed Unive rsity of PFIZER VACCINE 00:00:00 [facility] Branch SARS-COV-2 COVID-19 2020-05-19 Completed Unive rsity of PFIZER VACCINE 00:00:00 [facility] Branch SARS-COV-2 COVID-19 2020-05-19 Completed Unive rsity of PFIZER VACCINE 00:00:00 [facility] Branch SARS-COV-2 COVID-19 2020-05-19 Completed Unive rsity of PFIZER VACCINE 00:00:00 [facility] SARS-COV-2 COVID-19 2020-05-19 Completed Unive rsity of PFIZER VACCINE 00:00:00 [facility] Branch SARS-COV-2 COVID-19 2020-05-19 Completed Unive rsity of PFIZER VACCINE 00:00:00 [facility] SARS-COV-2 COVID-19 2020-05-19 Completed Unive rsity of PFIZER VACCINE 00:00:00 [facility] SARS-COV-2 COVID-19 2020-05-19 Completed Unive rsity of PFIZER VACCINE 00:00:00 [facility] SARS-COV-2 COVID-19 2020-05-19 Completed Unive rsity of PFIZER VACCINE 00:00:00 [facility] SARS-COV-2 COVID-19 2020-05-19 Completed Unive rsity of PFIZER VACCINE 00:00:00 [facility] SARS-COV-2 COVID-19 2020-05-19 Completed Unive rsity of PFIZER VACCINE 00:00:00 [facility] SARS-COV-2 COVID-19 2020-05-19 Completed Unive rsity of PFIZER VACCINE 00:00:00 [facility] SARS-COV-2 COVID-19 2020-05-19 Completed Unive rsity of PFIZER VACCINE 00:00:00 [facility] SARS-COV-2 COVID-19 2020-05-19 Completed Unive rsity of PFIZER VACCINE 00:00:00 [facility] SARS-COV-2 COVID-19 2020-05-19 Completed Unive rsity of PFIZER VACCINE 00:00:00 [facility] SARS-COV-2 COVID-19 2020-05-19 Completed Unive rsity of PFIZER VACCINE 00:00:00 [facility] SARS-COV-2 COVID-19 2020-05-19 Completed Unive rsity of PFIZER VACCINE 00:00:00 [facility] SARS-COV-2 COVID-19 2020-05-19 Completed Unive rsity of PFIZER VACCINE 00:00:00 [facility] Vital Signs Vital Name Observation Time Observation Value Comments Source Systolic blood 2020-12-29 14:29:00 153 mm[Hg] Univer sity of pressure [facility] Diastolic blood 2020-12-29 14:29:00 67 mm[Hg] Unive rsity of pressure [facility] Heart rate 2020-12-29 14:29:00 50 /min [facility] Respiratory rate 2020-12-29 14:29:00 16 /min [facility] Oxygen saturation in 2020-12-29 14:29:00 94 /min [facility] Arterial blood by [facility] Pulse oximetry [place] Body temperature 2020-12-29 14:19:00 36.11 Alannah [facility] Body height 2020-12-26 18:39:00 170.2 cm [facility] Body weight 2020-12-26 18:39:00 74.844 kg [facility] BMI 2020-12-26 18:39:00 25.84 kg/m2 [facility] Systolic blood 2020-12-29 11:51:00 153 mm[Hg] Univer sity of pressure [facility] Diastolic blood 2020-12-29 11:51:00 77 mm[Hg] Unive rsity of pressure [facility] Heart rate 2020-12-29 11:51:00 69 /min [facility] Body temperature 2020-12-29 11:51:00 36.67 Alannah [facility] Respiratory rate 2020-12-29 11:51:00 18 /min [facility] Oxygen saturation in 2020-12-29 11:51:00 96 /min [facility] Arterial blood by [facility] Pulse oximetry Branch Body height 2020-12-26 18:39:00 170.2 cm [facility] Body weight 2020-12-26 18:39:00 74.844 kg [facility] BMI 2020-12-26 18:39:00 25.84 kg/m2 [facility] Systolic blood 2020-12-01 19:05:00 157 mm[Hg] Univer sity of pressure [facility] Diastolic blood 2020-12-01 19:05:00 81 mm[Hg] Unive rsity of pressure [facility] Heart rate 2020-12-01 19:05:00 53 /min [facility] Respiratory rate 2020-12-01 19:05:00 18 /min [facility] Oxygen saturation in 2020-12-01 19:05:00 96 /min [facility] Arterial blood by [facility] Pulse oximetry Branch Body temperature 2020-12-01 18:45:00 36.61 Alannah [facility] Body height 2020-11-30 16:28:00 170.2 [...] Oxygen saturation in 2020-12-01 19:05:00 96 /min [facility] Arterial blood by [facility] Pulse oximetry [place] Body temperature 2020-12-01 18:45:00 36.61 Alannah [facility] Body height 2020-11-30 16:28:00 170.2 cm [facility] Body weight 2020-11-30 16:28:00 76.204 kg [facility] BMI 2020-11-30 16:28:00 26.31 kg/m2 [facility] Procedures Procedure Date / Time Performing Source Performed Clinician SARS-COV-2 COVID-19 2021-01-05 Doctor Unassigned, [facility] VACCINE,0.3ML,IM (PFIZER) 21:07:27 [facility] PHACOEMULSIFICATION OF 2020-12-29 Aziza [facility] CATARACT WITH INTRAOCULAR 13:43:00 Donato Tejeda LENS IMPLANT DAY SURGERY - [facility] 2020-12-29 Doctor Unassigned, [facility] 05:01:00 [facility] CONSENT/REFUSAL FOR DIAGNOSIS 2020-12-27 Doctor Unassigned, [facility] AND TREATMENT 15:39:08 [facility] CONSENT/REFUSAL FOR DIAGNOSIS 2020-12-27 Doctor Unassigned, [facility] AND TREATMENT 15:39:08 [facility] ASSIGNMENT OF BENEFITS 2020-12-27 Doctor Unassigned, [facility] 15:38:43 [facility] ASSIGNMENT OF BENEFITS 2020-12-27 Doctor Unassigned, [facility] 15:38:43 [facility] PHACOEMULSIFICATION OF 2020-12-01 Aziza [facility] CATARACT WITH INTRAOCULAR 18:05:00 Donato [facility] [place] LENS IMPLANT DAY SURGERY - [facility] 2020-12-01 Doctor Unassigned, [facility] 05:01:00 [facility] COMP. METABOLIC PANEL (13231) 2020-11-29 Aziza [facility] 20:06:00 [facility] CBC WITH DIFF 2020-11-29 Aziza [facility] xas 20:06:00 [facility] COVID-19 (ID NOW RAPID 2020-11-29 Aziza [facility] TESTING) 20:00:00 [facility] CONSENT/REFUSAL FOR DIAGNOSIS 2020-11-29 Doctor Unassigned, [facility] AND TREATMENT 19:52:47 [facility] CONSENT/REFUSAL FOR DIAGNOSIS 2020-11-29 Doctor Unassigned, [facility] AND TREATMENT 19:52:47 [facility] ASSIGNMENT OF BENEFITS 2020-11-29 Doctor Unasselsy [facility] 19:52:24 [facility] ASSIGNMENT OF BENEFITS 2020-11-29 Doctor Unassigned, [facility] 19:52:24 [facility] PHYSICIAN ORDERS 2020-11-29 Doctor Unasselsy [facility] 05:01:00 [facility] NO SHOW OR MISSED APPOINTMENT 2020-11-24 Doctor Unakaty [facility] POLICY ACKNOWLEDGEMENT 18:37:56 [facility] NO SHOW OR MISSED APPOINTMENT 2020-11-24 Doctor Unakaty [facility] POLICY ACKNOWLEDGEMENT 18:37:56 [facility] PATIENT FINANCIAL POLICY 2020-11-24 Doctor Unassigned, [facility] 18:37:31 [facility] PATIENT FINANCIAL POLICY 2020-11-24 Doctor Unassigned, [facility] 18:37:31 [facility] NOTICE OF BILLING PRACTICES 2020-11-24 Doctor Unassigned, [facility] FOR MEDICARE PATIENTS 18:37:09 [facility] NOTICE OF BILLING PRACTICES 2020-11-24 Doctor Unassigned, [facility] FOR MEDICARE PATIENTS 18:37:09 [facility] NOTICE OF PRIVACY PRACTICES 2020-11-24 Doctor Unassigned, [facility] 18:36:48 [facility] NOTICE OF PRIVACY PRACTICES 2020-11-24 Doctor Unassigned, [facility] 18:36:48 [facility] CONSENT/REFUSAL FOR DIAGNOSIS 2020-11-24 Doctor Unasselsy, [facility] AND TREATMENT 18:36:24 [facility] CONSENT/REFUSAL FOR DIAGNOSIS 2020-11-24 Doctor Unassigned, [facility] AND TREATMENT 18:36:24 [facility] ASSIGNMENT OF BENEFITS 2020-11-24 Doctor Vanessa [facility] 18:35:54 [facility] ASSIGNMENT OF BENEFITS 2020-11-24 Doctor Unassigned, [facility] 18:35:54 [facility] Encounters Start End Encounter Admission Attending Care Care Encounter Source Date/Time Date/Time Type Type Clinicians Facility Department ID 2022-10-15 Outpatient STLMLC STLMLC [id number] Common 11:15:01 [id number] [facility] 2022-10-08 Outpatient STLMLC STLMLC [id number] Common 09:37:01 [id number] [facility] 2022-10-05 Outpatient STLMLC STLMLC [id number] Common 10:42:00 [id number] [facility] 2022-08-14 Outpatient STLMLC STLMLC [id number] Common 15:09:02 [id number] [facility] 2022-07-05 Outpatient STLMLC STLMLC [id number] Common 12:40:01 [id number] [facility] 2022-05-14 Outpatient STLMLC STLMLC [id number] Common 13:12:03 [id number] [facility] 2021-02-06 Outpatient R AZIZA [facility] OPH [id number] Univers 23:28:51 [facility] 2021-02-06 Outpatient Elizabet CUENCA [facility] OPH [id number] Univers 16:45:17 [facility] 2021-01-05 2021-01-05 Outpatient [facility] [id number] Univers 16:00:00 [facility] 2021-01-05 Imm/Inj Nurse, Adc Pob Immunization [facility] 1.2.840.114 [id number] Univers 15:56:59 15:57:30 Visit Neal Bergman 350.1.13 .10 [facility] 4.2.7.2.686 Tay Decker [id number] [address] 2020-12-29 2020-12-29 [facility] Aziza [facility] [id number] Univers 06:37:00 09:42:00 Encounter Aria Armendariz 350.1.13.10 [place] [id number] [facility] 071 Branch 2020-12-29 2020-12-29 Surgery [facility] 1.2.840.114 [id number] Univers 08:37:00 09:14:00 Aria Gilbert 350.1.13.10 i [place] [id number] [facility] 020 Branch 2020-12-27 2020-12-27 Laboratory Only, Adc Test [facility] 1.2.840. 114 [id number] Univers 10:33:21 10:48:21 Only Aziza, Aria Armendariz 350.1.1 3.10 [place] [id number] [facility] 353 Branch 2020-12-27 2020-12-27 [facility] [id number] Univers 10:30:00 10:30:00 ARIA ity of [facility] 2020-12-01 2020-12-01 [facility] 1.2.840.114 [id number] Univers 11:37:00 14:35:00 Encounter Aria Armendariz 350.1.13.10 [place]y [place] [id number] [facility] 071 Branch 2020-12-01 2020-12-01 Surgery [facility] 1.2.840.114 [id number] Univers 13:47:00 14:24:00 Aria Armendariz 350.1.13.10 i [place] [id number] [facility] 020 Branch 2020-12-01 2020-12-01 Orders Doctor PELLETIER 1.2.840.114 [id number] Univers 00:00:00 00:00:00 Only Unassigned, BHARATH 350.1.13.10 ity of [facility] 4.2.7.2.686 Fritz as [id number] [facility] 009 Branch 2020-11-29 2020-11-29 Outpatient R AZIZA, [facility] [id number] Univers 15:15:00 15:15:00 ARIA holm of [facility] 2020-11-29 2020-11-29 Logistics Clerk Nguyen, [facility] 1.2.8 40.114 [id number] Univers 14:53:37 15:08:37 Visit Aria Cuenca 350.1.1 3.10 ity of [place].2.[place] [id number] 353 [facility] 2020-11-29 2020-11-29 Laboratory Only, Adc Test [facility] 1.2.840. 114 [id number] Univers 14:52:54 15:07:54 Only Aria Cuenca 350.1.1 3.10 ity of [place] [id number] [facility] 353 [place] 2020-11-29 2020-11-29 Orders Doctor PRABHU 1.2.840.114 [id number] Univers 00:00:00 00:00:00 Only Unassigned, BHARATH 350.1.13.10 ity of [place] [facility] 4.2.7.2.686 Fritz as [id number] [facility] [address] [place] Results Test Description Test Time Test Comments Results Result Comments Source COMP. METABOLIC PANEL (82284) 2020-11-29 20:35:55 Test Item Value Reference Range Interpretation Comme nts NA (test code = 9307612283) 135 mmol/L 135-145 K (test code = 2230876424) 3.6 mmol/L 3.5-5.0 CL (test code = 7661046500) 100 mmol/L 98-108 CO2 TOTAL (test code = 25 mmol/L 23-31 3765072096) AGAP (test code = 3034220872) 2-16 BUN (test code = 5210332922) 11 mg/dL 7-23 GLUCOSE (test code = 7717767551) 100 mg/dL 70-110 CREATININE (test code = 0.67 mg/dL 0.60-1.25 8413780077) TOTAL BILI (test code = 0.7 mg/dL 0.1-1.2 9261978759) CALCIUM (test code = 1963128212) 9.3 mg/dL 8.6-10.6 T PROTEIN (test code = 7.4 g/dL 6.3-8.2 6700618287) ALBUMIN (test code = 0105276944) 4.3 g/dL 3.5-5.0 ALK PHOS (test code = 8239998786) 55 U/L 34-122 ALTv (test code = 1742-6) 14 U/L 5-50 AST(SGOT) (test code = 25 U/L 13-40 2997850094) eGFR (test code = 1391469158) mL/min/1.73m2 REJI (test code = REJI) Association [...] or urine or abnormalities in imaging tests). [facility]. METABOLIC PANEL (79541)2020-11-29 20:35:55 Test Item Value Reference Range Interpretation Comments NA (test code = 2331864347) 135 mmol/L 135-145 K (test code = 8852489158) 3.6 mmol/L 3.5-5.0 CL (test code = 8191008374) 100 mmol/L 98-108 CO2 TOTAL (test code = 3288202381) 25 mmol/L 23-31 AGAP (test code = 6910233861) 2-16 BUN (test code = 3973110102) 11 mg/dL 7-23 GLUCOSE (test code = 8048108809) 100 mg/dL 70-110 CREATININE (test code = 0.67 mg/dL 0.60-1.25 3797208964) TOTAL BILI (test code = 0.7 mg/dL 0.1-1.9 8421512082) CALCIUM (test code = 4300950405) 9.3 mg/dL 8.6-10.6 T PROTEIN (test code = 2624146116) 7.4 g/dL 6.3-8.2 ALBUMIN (test code = 8062147454) 4.3 g/dL 3.5-5.0 ALK PHOS (test code = 9516384015) 55 U/L 34-122 ALTv (test code = 1742-6) 14 U/L 5-50 AST(SGOT) (test code = 8591864586) 25 U/L 13-40 eGFR (test code = 6708859018) mL/min/1.73m2 REJI (test code = REJI) [facility]2020-11-29 20:22:33 Test Item Value Reference Range Interpretation Comments SARS-CoV-2 Rapid ID NOW Not Detected Not Detected (test code = 32246-1) REJI (test code = REJI) ID NOW COVID-19 Assay is an isothermal nucleic acid amplification test intended for the qualitative detection of nucleic acid from SARS-CoV-2 viral RNA in nasopharyngeal (MECHANICAL MAINTENANCE INSTRUCTOR) specimens. It is used under Emergency Use [...] indicated. Lab Interpretation Normal (test code = 33172-3) [facility]2020-11-29 20:22:33 Test Item Value Reference Range Interpretation Comments SARS-CoV-2 Rapid ID NOW (test Not Detected Not Detected code = 32529-9) REJI (test code = REJI) Lab Interpretation (test code = Normal 73799-2) [facility] [id number] 20:15:39 Test Item Value Reference Range Interpretation Comments WBC (test code = See_Comment [Automated 2890-2) message] The sy stem which generated this result transmitted reference range : 4.20 - 10.70 10*3/?L. The reference range was not used to interpret this result as normal/abnormal . RBC (test code = See_Comment [Automated 579-8) message] The sy stem which generated this [...] RDW-SD (test code = 44.8 fL 38.5-51.6 90444-0) RDW-CV (test code = 12.7 % 12.1-15.4 788-0) PLT (test code = See_Comment [Automated 777-3) message] The sy stem which generated this result transmitted reference range : 150 - 328 10*3/ ?L. The reference r china was not used to interpret this result as normal/abnormal . MPV (test code = 9.8 fL 9.8-13.0 01870-1) NRBC/100 WBC (test See_Comment [Automat ed code = 0150316940) message] The system which generated this result transmitted reference range : 0.0 - 10.0 /100 WBCs. The refer ence range was not u sed to interpret th is result as normal/abnormal . NRBC x10^3 (test code <0.01 See_Comment [Auto mated = 8160283720) message] The s ystem which generated this result transmitted reference range : 10*3/?L. The reference range was not used to interpret this result as normal/abnormal . GRAN MAT (NEUT) % 47.2 % (test code = 770-8) IMM GRAN % (test code 0.20 % = 8159050581) LYMPH % (test code = 36.8 % 736-9) MONO % (test code = 14.4 % 5905-5) EOS % (test code = 0.6 % 713-8) BASO % (test code = 0.8 % 706-2) GRAN MAT x10^3(ANC) 2.36 10*3/uL 1.99-6.95 (test code = 2684537921) IMM GRAN x10^3 (test <0.03 0.00-0.06 code = 6433029700) LYMPH x10^3 (test code 1.84 10*3/uL 1.09-3.23 = 731-0) MONO x10^3 (test code 0.72 10*3/uL 0.36-1.02 = 742-7) EOS x10^3 (test code = 0.03 10*3/uL 0.06-0.53 L 711-2) BASO x10^3 (test code 0.04 10*3/uL 0.01-0.09 = 704-7) Lab Interpretation Abnormal (test code = 32289-6) [facility] WITH [id number] 20:15:39 Test Item Value Reference Range Interpretation [...] RDW-SD (test code = 44.8 fL 38.5-51.6 74104-1) RDW-CV (test code = 12.7 % 12.1-15.4 788-0) PLT (test code = See_Comment [Automated 777-3) message] The sy stem which generated this result transmitted reference range : 150 - 328 10*3/ ?L. The reference r china was not used to interpret this result as normal/abnormal . MPV (test code = 9.8 fL 9.8-13.0 41517-5) NRBC/100 WBC (test See_Comment [Automat ed code = 1930647086) message] The system which generated this result transmitted reference range : 0.0 - 10.0 /100 WBCs. The refer ence range was not u sed to interpret th is result as normal/abnormal . NRBC x10^3 (test code <0.01 See_Comment [Auto mated = 6344211811) message] The s ystem which generated this result transmitted reference range : 10*3/?L. The reference range was not used to interpret this result as normal/abnormal . GRAN MAT (NEUT) % 47.2 % (test code = 770-8) IMM GRAN % (test code 0.20 % = 2014747891) LYMPH % (test code = 36.8 % 736-9) MONO % (test code = 14.4 % 5905-5) EOS % (test code = 0.6 % 713-8) BASO % (test code = 0.8 % 706-2) GRAN MAT x10^3(ANC) 2.36 10*3/uL 1.99-6.95 (test code = 9989585314) IMM GRAN x10^3 (test <0.03 0.00-0.06 code = 4313151435) LYMPH x10^3 (test code 1.84 10*3/uL 1.09-3.23 = 731-0) MONO x10^3 (test code 0.72 10*3/uL 0.36-1.02 = 742-7) EOS x10^3 (test code = 0.03 10*3/uL 0.06-0.53 L 711-2) BASO x10^3 (test code 0.04 10*3/uL 0.01-0.09 = 704-7) Lab Interpretation Abnormal (test code = 26023-7) [facility]"
--- NOTE | 2022-11-05 09:23 | RAD REPORT ---
EXAM DESCRIPTION: RAD - Ankle Right 3 View - 11/05/2022 9:15 am CLINICAL HISTORY: Right ankle pain FINDINGS: No fracture or dislocation is seen. Moderate osteoarthritis involves the ankle consisting joint space narrowing and osteophytes. Vascular calcifications are seen.
--- NOTE | 2022-11-05 09:34 | EDPHYS ---
Physician Documentation [facility] Name: Alvin Soliman Age: 86 yrs Sex: Male : 1935 Arrival Date: 11/05/2022 Time: 08:23 Bed 13 Private MD: ED Physician Jorge Breen HPI: 11/05 08:43 This 86 yrs old Male presents to ER via Wheelchair with complaints of Ankle Injury. rt 08:43 Patient presents to the ED with an ankle injury. Patient states that he twisted his rt right ankle on about Saturday. States that he did not have significant pain at that time. He states that when he woke up this morning, had worsening swelling, pain over the lateral malleolus. Denies other injury, other acute complaints. Symptoms are mild in severity, aching nature, nonradiating, no other aggravating or alleviating factors.. Historical: - Allergies: 08:42 No Known Allergies; iw - PMHx: 08:42 Cancer; neck; High Cholesterol; Hypertension; iw - Immunization history:: Client reports receiving the 2nd dose of the Covid vaccine. - Social history:: Smoking status: Patient/guardian denies using tobacco, but has a distant history of tobacco abuse. - Family history:: not pertinent. ROS: 08:43 Constitutional: Negative for fever, chills, and weight loss, Cardiovascular: Negative rt for chest pain, palpitations, and edema, Respiratory: Negative for shortness of breath, cough, wheezing, and pleuritic chest pain, Abdomen/GI: Negative for abdominal pain, nausea, vomiting, diarrhea, and constipation, Skin: Negative for injury, rash, and discoloration, Neuro: Negative for headache, weakness, numbness, tingling, and seizure, Psych: Negative for depression, anxiety, suicide ideation, homicidal ideation, and hallucinations. 08:43 MS/extremity: Positive for pain, swelling. Exam: 08:43 Constitutional: This is a well developed, well nourished patient who is awake, alert, rt and in no acute distress. Head/Face: Normocephalic, atraumatic. Skin: Warm, dry with normal turgor. Normal color with no rashes, no lesions, and no evidence of cellulitis. Neuro: Awake and alert, GCS 15, oriented to person, place, time, and situation. Cranial nerves II-XII grossly intact. Motor strength 5/5 in all extremities. Sensory grossly intact. Cerebellar exam normal. Normal gait. Psych: Awake, alert, with orientation to person, place and time. Behavior, mood, and affect are within normal limits. 08:43 Musculoskeletal/extremity: Swelling over the lateral malleolus, tenderness just anterior to the lateral malleolus, no other appreciable swelling, tenderness. No calf swelling, tenderness, compartments are soft. Pulses, motor, sensation intact. Vital Signs: 08:35 BP 124 / 89; Pulse 58; Resp 16; Pulse Ox 97% ; ko1 08:41 BP 129 / 67; Pulse 62; Resp 16; Temp 98; Pulse Ox 98% on R/A; Weight 65.77 kg; Height 5 iw ft. 6 in. ; Pain 3/10; 08:41 Body Mass Index 23.40 (65.77 kg, 167.64 cm) iw 08:41 Pain Scale: Adult iw MDM: 08:37 Patient medically screened. rt 11:12 Differential diagnosis: fracture, sprain. Data reviewed: vital signs, nurses notes, rt radiologic studies. Independent interpretation of the following test(s) in the Emergency Department X-Ray: My interpretation is No fracture seen on interpretation of x-ray images. Care significantly affected by the following chronic conditions: Hypertension. Counseling: I had a detailed discussion with the patient and/or guardian regarding: the historical points, exam findings, and any diagnostic results supporting the discharge/admit diagnosis, radiology results, the need for outpatient follow up. 11/05 08:43 Order name: Ankle Right 3 View XRAY; Complete Time: 09:25 rt Administered Medications: No medications were administered Disposition Summary: 11/05/22 09:33 Discharge Ordered Location: Home rt Problem: new rt Symptoms: are unchanged rt Condition: Stable rt Diagnosis - Sprain of unspecified ligament of right ankle, initial encounter rt Followup: rt - With: Private Physician - When: 5 - 6 days - Reason: Discharge Instructions: - Discharge Summary Sheet rt - Ankle Sprain rt Forms: - Medication Reconciliation Form rt - Thank You Letter rt - Antibiotic Education rt - Prescription Opioid Use rt - Patient Portal Instructions rt Signatures: Dispatcher [employer] Debi Pierce RN RN iw Jorge Breen MD MD rt
--- NOTE | 2022-11-05 09:34 | ER ---
Nurse's Notes [facility] Name: Alvin Soliman Age: 86 yrs Sex: Male : 1935 Arrival Date: 11/05/2022 Time: 08:23 Bed 13 Private MD: Diagnosis: Sprain of unspecified ligament of right ankle, initial encounter Presentation: 11/05 08:41 Chief complaint: Patient states: right ankle pain, swelling since Saturday, thinks he iw just stepped wrong. Coronavirus screen: At this time, the client does not indicate any symptoms associated with coronavirus-19. Ebola Screen: Patient negative for fever greater than or equal to 101.5 degrees Fahrenheit, and additional compatible Ebola Virus Disease symptoms Patient denies exposure to infectious person. Patient denies travel to an Ebola-affected area in the 21 days before illness onset. No symptoms or risks identified at this time. Initial Sepsis Screen: Does the patient meet any 2 criteria? No. Patient's initial sepsis screen is negative. Does the patient have a suspected source of infection? No. Patient's initial sepsis screen is negative. Risk Assessment: Do you want to hurt yourself or someone else?. Onset of symptoms was November 03, 2022. 08:41 Method Of Arrival: Wheelchair iw 08:41 Acuity: RUDY 4 iw Historical: - Allergies: 08:42 No Known Allergies; iw - PMHx: 08:42 Cancer; neck; High Cholesterol; Hypertension; iw - Immunization history:: Client reports receiving the 2nd dose of the Covid vaccine. - Social history:: Smoking status: Patient/guardian denies using tobacco, but has a distant history of tobacco abuse. - Family history:: not pertinent. Screenin:35 [facility] ED Fall Risk Assessment (Adult) History of falling in the last 3 months, ko1 including since admission No falls in past 3 months (0 pts) Confusion or Disorientation No (0 pts) Intoxicated or Sedated No (0 pts) Impaired Gait No (0 pts) Mobility Assist Device Used No (0 pt) Altered Elimination No (0 pt) Score/Fall Risk Level 0 - 2 = Low Risk Oriented to surroundings, Maintained a safe environment, Educated pt \T\ family on fall prevention, incl call for assistance when getting out of bed, Assessed \T\ reinforced patient's understanding of fall precautions, Provided non-skid footwear, Hourly rounding (assess needs \T\ fall precautionary measures) done, Used ambulatory aids as needed (educated on \T\ assisted with). Abuse screen: Denies threats or abuse. Denies injuries from another. Nutritional screening: No deficits noted. Tuberculosis screening: No symptoms or risk factors identified. Assessment: 08:35 General: Appears in no apparent distress. uncomfortable, Behavior is calm, cooperative, ko1 appropriate for age. Pain:. 08:35 Pain: Complains of pain in right ankle. Neuro: No deficits noted. Cardiovascular: No ko1 deficits noted. Respiratory: No deficits noted. GI: No deficits noted. : No deficits noted. EENT: No deficits noted. Derm: No deficits noted. Musculoskeletal: Reports pain in right ankle. Vital Signs: 08:35 BP 124 / 89; Pulse 58; Resp 16; Pulse Ox 97% ; ko1 08:41 BP 129 / 67; Pulse 62; Resp 16; Temp 98; Pulse Ox 98% on R/A; Weight 65.77 kg; Height 5 iw ft. 6 in. ; Pain 3/10; 08:41 Body Mass Index 23.40 (65.77 kg, 167.64 cm) iw 08:41 Pain Scale: Adult iw ED Course: 08:24 Patient arrived in ED. am2 08:26 Jorge Breen MD is Attending Physician. rt 08:32 America Colon, RAFAT is Primary Nurse. ko1 08:35 Patient has correct armband on for positive identification. Bed in low position. Call ko1 light in reach. Provided Education on: na. Pulse ox on. NIBP on. Door closed. Noise minimized. 08:42 Triage completed. iw 08:43 Arm band placed on. iw 09:17 Ankle Right 3 View XRAY In Process Unspecified. EDMS 09:30 No provider procedures requiring assistance completed. Patient did not have IV access ko1 during this emergency room visit. Administered Medications: No medications were administered Medication: 08:35 VIS not applicable for this client. ko1 Outcome: 09:33 Discharge ordered by . rt 09:39 Discharged to home via wheelchair, with family. ko1 09:39 Condition: stable 09:39 Discharge instructions given to patient, family, Instructed on discharge instructions, follow up and referral plans. medication usage, Demonstrated understanding of instructions, follow-up care, medications. 09:40 Patient left the ED. ko1 Signatures: Dispatcher [employer] EDMS Debi Charles RN RN iw Moreno, Amanda am2 Oliver, Kathy, RN RN ko1 Jorge Breen MD MD rt
[2022-11-05 09:46] VITALS: BP 129/67; TEMP 98; O2SAT 98
== END 2022-11-05 09:40 | disposition home or self-care (01) ==
LOC: ER 08:23
DX: S93.401A Sprain of unspecified ligament of right ankle, initial encounter (principal)
CPT/HCPCS: 99283

== ENCOUNTER 2024-06-18 12:00 | Emergency (ER) | payer OTHER ==
--- NOTE | 2024-06-18 13:40 | RAD REPORT ---
EXAMINATION: XR RIGHT WRIST CLINICAL INDICATION: Pain;Swelling RIGHT TECHNIQUE: Multiple projections of the right wrist were obtained. COMPARISON: No prior exam. FINDINGS: Chondrocalcinosis is seen. Multiple small erosions are noted in the carpal bones. Moderate soft tissue swelling is evident. These findings may indicate inflammatory arthropathy such as CPPD. Clinical correlation recommended. No acute fracture seen.
[2024-06-18 13:56] LABS: PT Prothrombin Time 10.9 SECONDS (10-13.0); PTT, Activated Partial Thromb 29.1 SECONDS (27.2-37.4); Protime INR 0.95
[2024-06-18 14:01] LABS: Absolute Lymphocytes (CBC) 0.4 K/uL (0.7-4.9); Absolute Monocytes 0.7 K/uL (0.1-1.3); Absolute Neutrophil 4.6 K/uL (1.8-8.0); Basophils % 0.5 % (0-1.3); Eosinophils % 0.1 % (0-4.4); Hematocrit 34.6 % (39.6-49.0); Hemoglobin 12.5 g/dL (13.6-17.9); Lymphocytes % 7.1 % (15.3-44.8); MCH 39.2 pg (27.0-35.0); MCV 108.8 fL (80-100); MPV 6.4 fL (7.6-11.3); Monocytes % 12.1 % (3.3-12.3); Neutrophils % 80.2 % (41.7-73.7); Nucleated Red Blood Cells % 0.1 % (0-0); Platelets 156 thou/uL (152-406); RBC Red Blood Cell Count 3.18 M/uL (4.33-5.43); Red Cell Distribution Width 13.3 % (12.1-15.2)
[2024-06-18 14:03] LABS: Anion Gap 8.5 mEq/L (5.0-15.0); BUN Blood Urea Nitrogen 13 mg/dL (7-18); Bicarbonate 27 mEq/L (21-32); Glomerular Filtration Rate 96 ml/min (=/>90); Glucose Level 121 mg/dL (74-106); Potassium 3.5 mEq/L (3.5-5.1); Sodium Level 130 mEq/L (136-145)
[2024-06-18 14:04] LABS: C-Reactive Protein < 2.90 mg/L (<3.00)
[2024-06-18] MEDS ORDERED: dexAMETHasone 10 MG/ML VIAL ONE (14:09)
[2024-06-18] MEDS ORDERED: COLCHICINE 0.6 MG TAB ONE (14:09)
--- NOTE | 2024-06-18 14:46 | EDPHYS ---
Physician Documentation [facility] Name: Alvin Soliman Age: 88 yrs Sex: Male : 1935 Arrival Date: 06/18/2024 Time: 12:00 Bed 18 Private MD: ED Physician Jerry Davis HPI: 06/18 13:11 This 88 yrs old Male presents to ER via Ambulatory with complaints of Wrist Injury, rn Wrist Swelling. 13:11 The patient or guardian reports pain, swelling. The complaints affect the right wrist rn diffusely. Onset: The symptoms/episode began/occurred yesterday. Modifying factors: The symptoms are alleviated by heat to affected area, the symptoms are aggravated by movement. The patient has not experienced similar symptoms in the past. Patient reports doing yard work yesterday, noticed right wrist pain that improved with heat. Woke up this morning with increased pain and swelling to the right wrist. Denies any fall or focal trauma. Mild swelling and redness to right wrist. No weakness. No fever or chills systemically. No history of gout or other inflammatory arthritis. Historical: - Allergies: 12:51 No Known Allergies; ll1 - PMHx: 12:51 Cancer; neck; High Cholesterol; Hypertension; ll1 - PSHx: 12:51 Radiation; ll1 - Immunization history:: Adult Immunizations up to date. - Infectious Disease History:: Denies. - Social history:: Smoking status: Patient denies any tobacco usage or history of. - Family history:: not pertinent. - Hospitalizations: : No recent hospitalization is reported. ROS: 13:11 Constitutional: Negative for fever, chills, and weight loss, Cardiovascular: Negative rn for chest pain, palpitations, and edema, Respiratory: Negative for shortness of breath, cough, wheezing, and pleuritic chest pain, Abdomen/GI: Negative for abdominal pain, nausea, vomiting, diarrhea, and constipation, MS/Extremity: Positive for right wrist swelling and pain Skin: Mild redness to wrist and hand Neuro: Negative for headache, weakness, numbness, tingling, and seizure, Exam: 13:11 Constitutional: This is a well developed, well nourished patient who is awake, alert, rn and in no acute distress. Cardiovascular: Regular rate and rhythm. No pulse deficits. MS/ Extremity: Pulses equal, no cyanosis. Neurovascular intact. Painful range of motion of right wrist with mild swelling and erythema dorsum of wrist and dorsum of hand. No open wounds. Mild warmth to area Vital Signs: 12:49 BP 126 / 78; Pulse 64; Resp 16; Temp 97.8; Pulse Ox 100% ; ll1 14:42 BP 168 / 88; Pulse 62; Resp 18; Temp 98.1; Pulse Ox 99% ; rk3 MDM: 12:07 Medical Screening Exam initiated rn 14:44 Differential diagnosis: Inflammatory arthritis, reactive arthritis. Data reviewed: rn vital signs, nurses notes, lab test result(s), radiologic studies, and as a result, I will discharge patient. Counseling: I had a detailed discussion with the patient and/or guardian regarding the historical points, exam findings, and any diagnostic results supporting the discharge/admit diagnosis, lab results, radiology results, the need for outpatient follow up, to return to the emergency department if symptoms worsen or persist or if there are any questions or concerns that arise at home. Special discussion: I discussed with the patient/guardian in detail that at this point there is no indication for admission to the hospital. It is understood, however, that if the symptoms persist or worsen the patient needs to return immediately for re-evaluation. Based on the history and exam findings, there is no indication for further emergent testing or inpatient evaluation. I discussed with the patient/guardian the need to see the primary care provider for further evaluation of the symptoms. I discussed with the patient/guardian the need to see the wire stripper for further evaluation of the symptoms. ED course: X-ray shows bony erosions and possibly inflammatory arthritis such as CPPD. Patient recently started new hobby of building Legos. Could be reactive or inflammatory arthritis. Normal WBC and normal CRP. Afebrile. Very low likelihood of septic arthritis and after discussion with patient and family member joint decision made to not do arthrocentesis for testing given risks outweigh benefits at this point. Recommend PCP and rheumatology follow-up. I have personally reviewed all of the results, including but not limited to blood tests and imaging deemed necessary to safely discharge this patient at this time. All results given to and printed out for patient. I personally went over all the results with the patient and answered all questions. Patient will follow-up with PCP and or specialist as discussed. Return precautions given and understood.. 06/18 12:53 Order name: CBC with Diff rn 06/18 12:53 Order name: Basic Metabolic Panel; Complete Time: 14:12 rn 06/18 12:53 Order name: Protime (+inr); Complete Time: 14:12 rn 06/18 12:53 Order name: Ptt, Activated; Complete Time: 14:12 rn 06/18 12:53 Order name: CRP; Complete Time: 14:12 rn 06/18 12:53 Order name: XRAY Wrist RIGHT 3 view; Complete Time: 13:43 rn 06/18 12:53 Order name: IV Start; Complete Time: 13:40 rn 06/18 14:24 Order name: Wrist Splint: velcro wrist brace; Complete Time: 14:41 rn Administered Medications: 14:18 Drug: Colchicine-Probenecid PO 1 tabs PO once Route: PO; db 15:28 Follow up: Response: No adverse reaction db 14:18 Drug: Decadron - Dexamethasone IVP 10 mg IVP once Route: IVP; Site: right antecubital; db 15:28 Follow up: Response: No adverse reaction db Disposition Summary: 06/18/24 14:46 Discharge Ordered Notes: Location: Home rn Problem: new rn Symptoms: have improved rn Condition: Stable rn Diagnosis - Pain in right wrist rn Followup: rn - With: Private Physician - When: As needed - Reason: Recheck today's complaints, Re-evaluation by your physician Discharge Instructions: - Discharge Summary Sheet rn - Arthritis rn - Wrist Pain, Adult rn - Wrist Splint or Brace, Adult rn Forms: - Medication Reconciliation Form rn - Antibiotic call center rn - Prescription Opioid Use rn - Patient Portal Instructions rn - Leadership Thank You Letter rn Signatures: Dispatcher [employer] Jerry Sutton MD MD rn Lewis, Lynsay, RN RN ll1 Ellyn Calix RN RN db Corrections: (The following items were deleted from the chart) 12:54 12:54 Wrist Right 3 View+RAD.RAD.BRZ ordered. EDSC EDMS
--- NOTE | 2024-06-18 14:46 | ER ---
Nurse's Notes [facility] Name: Alvin Soliman Age: 88 yrs Sex: Male : 1935 Arrival Date: 06/18/2024 Time: 12:00 Bed 18 Private MD: Diagnosis: Pain in right wrist Presentation: 06/18 12:49 Chief complaint: Patient states: R wrist pain, redness, tender for 2 days. Was doing ll1 yard work yesterday. no falls or trauma. Coronavirus screen: Client denies travel out of the [place] in the last 14 days. At this time, the client does not indicate any symptoms associated with coronavirus-19. Ebola Screen: Patient denies travel to an Ebola-affected area in the 21 days before illness onset. Initial Sepsis Screen: Does the patient meet any 2 criteria? No. Patient's initial sepsis screen is negative. Does the patient have a suspected source of infection? No. Patient's initial sepsis screen is negative. Risk Assessment: Do you want to hurt yourself or someone else? Patient reports no desire to harm self or others. Onset of symptoms was June 17, 2024. 12:49 Method Of Arrival: Ambulatory ll1 12:49 Acuity: RUDY 4 ll1 Triage Assessment: 12:51 General: Appears uncomfortable, Behavior is calm, cooperative, appropriate for age. ll1 Pain: Complains of pain in R wrist Quality of pain is described as aching. Derm: Reports redness R wrist/hand area. Musculoskeletal: Circulation, motion, and sensation intact. Capillary refill < 3 seconds, in right fingers. Reports pain in R hand/wrist. Historical: - Allergies: 12:51 No Known Allergies; ll1 - PMHx: 12:51 Cancer; neck; High Cholesterol; Hypertension; ll1 - PSHx: 12:51 Radiation; ll1 - Immunization history:: Adult Immunizations up to date. - Infectious Disease History:: Denies. - Social history:: Smoking status: Patient denies any tobacco usage or history of. - Family history:: not pertinent. - Hospitalizations: : No recent hospitalization is reported. Screenin:26 [facility] ED Fall Risk Assessment (Adult) History of falling in the last 3 months, db including since admission No falls in past 3 months (0 pts) Confusion or Disorientation No (0 pts) Intoxicated or Sedated No (0 pts) Impaired Gait No (0 pts) Mobility Assist Device Used No (0 pt) Altered Elimination No (0 pt) Score/Fall Risk Level 0 - 2 = Low Risk Oriented to surroundings, Maintained a safe environment. Abuse screen: Denies threats or abuse. Denies injuries from another. Nutritional screening: No deficits noted. Tuberculosis screening: No symptoms or risk factors identified. Assessment: 13:06 Reassessment: No changes from previously documented assessment. Patient and/or family aa5 updated on plan of care and expected duration. Pain level reassessed. 15:26 Reassessment: Patient appears in no apparent distress at this time. Patient and/or db family updated on plan of care and expected duration. Pain level reassessed. Patient is alert, oriented x 3, equal unlabored respirations, skin warm/dry/pink. General: Appears in no apparent distress. comfortable, Behavior is calm, cooperative. Vital Signs: 12:49 BP 126 / 78; Pulse 64; Resp 16; Temp 97.8; Pulse Ox 100% ; ll1 14:42 BP 168 / 88; Pulse 62; Resp 18; Temp 98.1; Pulse Ox 99% ; rk3 ED Course: 12:04 Patient arrived in ED. cj3 12:07 Jerry Davis MD is Attending Physician. rn 12:51 Triage completed. ll1 12:51 Arm band placed on. ll1 13:06 Patient placed in an exam room, on a stretcher. aa5 13:09 XRAY Wrist RIGHT 3 view In Process Unspecified. EDMS 13:17 Ellyn Calix, RN is Primary Nurse. db 13:39 Inserted saline lock: 20 gauge in right antecubital area, using aseptic technique. rk3 Blood collected. Flushed with 10 mL NS. 13:40 Protime (+inr) Sent. rk3 13:40 Ptt, Activated Sent. rk3 13:40 Basic Metabolic Panel Sent. rk3 13:40 CBC with Diff Sent. rk3 13:40 CRP Sent. rk3 14:51 Velcro wrist splint applied to right wrist. rk3 15:26 Patient has correct armband on for positive identification. Bed in low position. Call db light in reach. Side rails up X 1. Provided Education on: DISCHARGE AND FOLLOWUP. 15:26 No provider procedures requiring assistance completed. IV discontinued, intact, db bleeding controlled, No redness/swelling at site. Administered Medications: 14:18 Drug: Colchicine-Probenecid PO 1 tabs PO once Route: PO; db 15:28 Follow up: Response: No adverse reaction db 14:18 Drug: Decadron - Dexamethasone IVP 10 mg IVP once Route: IVP; Site: right antecubital; db 15:28 Follow up: Response: No adverse reaction db Medication: 15:26 VIS not applicable for this client. db Outcome: 14:46 Discharge ordered by . rn 15:26 Discharged to home via wheelchair, with family, db 15: Condition: stable 15:26 Discharge instructions given to patient, family, Instructed on discharge instructions, follow up and referral plans. 15:28 Patient left the ED. db Signatures: Dispatcher [employer] Jerry Sutton MD MD rn Calderon, Audri, RN RN aa5 Deion Ibanez RN RN ll1 Ellyn Calix RN RN db Corinne Wright 3 Leona Loza 3
[2024-06-18 15:34] VITALS: BP 168/88; TEMP 98.1; O2SAT 99
[2024-06-18 17:04] LABS: Blood Morphology Comment NOT SEEN (NOT SEEN); Platelet Estimate ADEQ; White Blood Cell Scan OK (OK)
== END 2024-06-18 15:28 | disposition home or self-care (01) ==
LOC: ER 12:00
DX: M25.531 Pain in right wrist (principal)
CPT/HCPCS: 85025; 80048; 36415; 85610; 85730; 86140; 73110; 96374; 99284; J1100

== ENCOUNTER 2024-12-02 11:08 | Emergency (ER) | payer OTHER ==
[2024-12-02 12:05] LABS: Absolute Lymphocytes (CBC) 0.4 K/uL (0.7-4.9); Hematocrit 41.5 % (39.6-49.0); Hemoglobin 14.4 g/dL (13.6-17.9); MCH 36.2 pg (27.0-35.0); MCHC 34.8 g/dL (32.0-36.0); MCV 104.1 fL (80-100); MPV 7.0 fL (7.6-11.3); Nucleated RBC Absolute Count 0.0 (0-0); Nucleated Red Blood Cells % 0.1 % (0-0); RBC Red Blood Cell Count 3.98 M/uL (4.33-5.43); White Blood Count 2.80 thou/uL (4.3-10.9)
[2024-12-02 12:25] LABS: ALT/SGPT 22.0 U/L (16-61); AST/SGOT 20.0 U/L (15-37); Albumin 3.9 g/dL (3.4-5.0); Albumin/Globulin Ratio 1.3 (1.1-1.8); Alkaline Phosphatase 41.0 U/L (45-117); Anion Gap 8.6 mEq/L (5.0-15.0); BUN Blood Urea Nitrogen 14.0 mg/dL (7-18); Globulin 3.1 g/dL (2.3-3.5); Glucose Level 132.0 mg/dL (74-106); Lipase 20.0 U/L (13-75); Potassium 3.6 mEq/L (3.5-5.1)
[2024-12-02] MEDS ORDERED: NA CHLORIDE 0.9% 1,000 ML ONE (12:38)
[2024-12-02] MEDS ORDERED: BISACODYL 10 MG RECTAL SUPP ONE (12:38)
[2024-12-02] MEDS ORDERED: ONDANSETRON 4 MG/2 ML VIAL ONE (12:38)
[2024-12-02] MEDS ORDERED: LACTULOSE 20 GM/30 ML UCUP ONE (12:38)
[2024-12-02] MEDS ORDERED: FAMOTIDINE 20 MG/2 ML VIAL IV ONE (12:38)
[2024-12-02 12:55] LABS: Urine Microscopic Reflex YN NO UMIC
[2024-12-02 13:06] LABS: Blood Morphology Comment NOT SEEN (NOT SEEN); White Blood Cell Scan OK (OK)
--- NOTE | 2024-12-02 13:36 | RAD REPORT ---
EXAMINATION: CT ABDOMEN AND PELVIS WITH CONTRAST CLINICAL INDICATION: Abdominal pain TECHNIQUE: CT abdomen and pelvis was performed, after the administration of 100 cc Isovue-300.. Sagit martell and coronal reconstructions were obtained. One or more of the following dose reduction techniques were used: Automated exposure control, adjustment of the mA and kV according to patient si ze, and iterative reconstruction. Unless otherwise specified, incidental findings do not require dedicated imaging follow-up. [id number]. Oral contrast was given. COMPARISON: .2022 FINDINGS: 3.1 x 1.9 cm cystic mass containing septation is present within the pancreatic uncinate. It has enlar ged from prior exam in which it measured 2.6 x 1.5 cm. Additional 7 mm low-density lesion pancreatic head unchanged. Liver, spleen, adrenals and kidneys unremarkable. Normal appendix. No evidence of diverticulitis. Moderate amount of stool within the colon. Prostate gland moderately enlarged.. Mild bladder wall thickening Moderate right inguinal hernia appears to contain testicle. Small left inguinal hernia. No evidence o f diverticulitis. Mild chronic compression deformity L1 6.2 cm lipoma medial left hip musculature is stable. 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 Nonemergent MRI is recommended. Right testicle within the inguinal canal
--- NOTE | 2024-12-02 14:19 | ER ---
Nurse's Notes [facility] Name: Alvin Soliman Age: 89 yrs Sex: Male : 1935 Arrival Date: 12/02/2024 Time: 11:08 Bed 13 Private MD: Diagnosis: Constipation;Unilateral inguinal hernia, without obstruction or gangrene;Abnormal findings on diagnostic imaging of liver and biliary tract-3.1 x 1.9 cm cystic mass within Pancreatic uncinate Presentation: 12/02 11:30 Chief complaint: Patient states: Dr. Elliott PCP sent to ER his LUQ appears lopsided and me1 he has chronic constipation , son noticed it 2 weeks ago, he has been through cancer treatment for prostate cancer. 11:30 Acuity: RUDY 3 iw 11:30 Method Of Arrival: Ambulatory iw 11:32 Coronavirus screen: At this time, the client does not indicate any symptoms associated iw with coronavirus-19. Ebola Screen: No symptoms or risks identified at this time. Initial Sepsis Screen: Does the patient meet any 2 criteria? No. Patient's initial sepsis screen is negative. Does the patient have a suspected source of infection? No. Patient's initial sepsis screen is negative. Risk Assessment: Do you want to hurt yourself or someone else? Patient reports no desire to harm self or others. Onset of symptoms was December 02, 2024. Historical: - Allergies: 11:32 No Known Allergies; iw - PMHx: 11:32 High Cholesterol; Hypertension; Cancer; neck; iw - PSHx: 11:32 Radiation; iw - Immunization history:: Adult Immunizations up to date. - Infectious Disease History:: Denies. - Social history:: Smoking status: Patient/guardian denies using tobacco, but has a distant history of tobacco abuse. - Family history:: not pertinent. Screenin:40 [facility] ED Fall Risk Assessment (Adult) History of falling in the last 3 months, me1 including since admission No falls in past 3 months (0 pts) Confusion or Disorientation No (0 pts) Intoxicated or Sedated No (0 pts) Impaired Gait No (0 pts) Mobility Assist Device Used No (0 pt) Altered Elimination No (0 pt) Score/Fall Risk Level 0 - 2 = Low Risk Maintained a safe environment, Provided non-skid footwear, Hourly rounding (assess needs \T\ fall precautionary measures) done. Abuse screen: Denies threats or abuse. Nutritional screening: No deficits noted. Tuberculosis screening: No symptoms or risk factors identified. Assessment: 11:40 General: Appears in no apparent distress. well groomed, well developed, well nourished, me1 Behavior is calm, cooperative, appropriate for age, Reports Dr. Elliott PCP sent to ER his LUQ appears lopsided and he has chronic constipation , son noticed it 2 weeks ago, he has been through cancer treatment for prostate cancer. Pain: Denies pain. Neuro: Level of Consciousness is awake, alert, obeys commands, Oriented to person, place, time, situation, Appropriate for age. Cardiovascular: Patient's skin is warm and dry. Respiratory: Airway is patent Respiratory effort is even, unlabored, Respiratory pattern is regular, symmetrical. GI: Abdomen is distended, on left side Bowel sounds present X 4 quads. Abd is soft X 4 quads. GI: Reports constipation, chronic. : No signs and/or symptoms were reported regarding the genitourinary system. EENT: No signs and/or symptoms were reported regarding the EENT system. Derm: Skin is intact, is healthy with good turgor, Skin is normal. Musculoskeletal: Circulation, motion, and sensation intact. Range of motion: intact in all extremities. Vital Signs: 11:32 BP 144 / 72; Pulse 53; Resp 16; Temp 98; Pulse Ox 100% on R/A; Weight 64.86 kg; Height iw 5 ft. 7 in. ; Pain 0/10; 12:30 BP 153 / 89; Pulse 56; Resp 16; Pulse Ox 98% ; me1 13:30 BP 155 / 87; Pulse 65; Resp 17; Pulse Ox 99% ; me1 14:30 BP 152 / 86; Pulse 61; Resp 16; Temp 98.2; Pulse Ox 98% ; me1 11:32 Body Mass Index 22.40 (64.86 kg, 170.18 cm) iw 11:32 Pain Scale: Adult iw ED Course: 11:13 Patient arrived in ED. cj3 11:13 Faizan Cobos MD is Attending Physician. faith 11:32 Triage completed. iw 11:33 Arm band placed on. iw 11:40 Patient has correct armband on for positive identification. Bed in low position. Call me1 light in reach. Side rails up X2. Provided Education on: POC. Verbalized understanding.. Client placed on continuous cardiac and pulse oximetry monitoring. NIBP monitoring applied. gambling monitor on. Pulse ox on. NIBP on. 11:40 No provider procedures requiring assistance completed. me1 11:59 CBC with Diff Sent. bc6 11:59 CMP Sent. bc6 11:59 Lipase Sent. bc6 11:59 Initial lab(s) drawn, by me, sent to lab. Inserted saline lock: 20 gauge in right bc6 antecubital area, using aseptic technique. Blood collected. Flushed with 10 mL NS. 12:27 Jade Graves, RN is Primary Nurse. me1 12:52 Urine collected: clean catch specimen, cloudy, north colored. me1 13:14 CT Abd/Pelvis - PO and IV Contrast In Process Unspecified. EDMS 14:16 Nicolás Burton MD is Referral Physician. faith 14:18 Cecil Dixon MD is Referral Physician. fatih 14:35 IV discontinued, intact, bleeding controlled, No redness/swelling at site. Pressure me1 dressing applied. Administered Medications: 12:51 Drug: Famotidine IVP 20 mg IVP once; dilute with 10 mL 0.9% NaCl; give over 2 minutes me1 Route: IVP; Site: right antecubital; 14:20 Follow up: Response: No adverse reaction me1 12:51 Drug: NS 0.9% IV 1000 ml IV at 1 bolus Per protocol; to be given as a bolus over 60 me1 minutes Route: IV; Rate: 1 bolus; Site: right antecubital; 14:20 Follow up: Response: No adverse reaction; IV Status: Completed infusion me1 13:59 CANCELLED (Duplicate Order): [id number] grams 45 ml PO once faith 14:20 Not Given (Patient Refused): ondansetron 4 mg IVP once; over 2 minutes me1 14:20 Not Given (Patient Refused): dulcolaxsuppository 10 mg TN once me1 Medication: 11:40 VIS not applicable for this client. me1 Outcome: 14:18 Discharge ordered by . faith 14:35 Discharged to home ambulatory, with family, me1 14:35 Condition: stable 14:35 Discharge instructions given to patient, family, Instructed on discharge instructions, follow up and referral plans. medication usage, Demonstrated understanding of instructions, follow-up care, medications, Prescriptions given X 1, 14:35 Patient left the ED. me1 Signatures: Dispatcher [employer] EDFaizan Kwong MD MD cha Williams, Irene, RN RN Lisa Hernandez bc6 Jade Graves RN RN me1 Leona Loza cj3 Corrections: (The following items were deleted from the chart) 11:33 11:32 BP 144 / 72; Pulse 53bpm; Resp 16bpm; Pulse Ox 100% RA; Temp 98F; iw iw 12:51 12:51 Ondansetron IVP 4 mg IVP in right antecubital me1 hi1 14:30 11:30 Chief complaint: Patient states: Dr. Elliott PCP sent to ER his LUQ appears me1 lopsided and he has chronic constipation , son noticed it 2 weeks ago, he has been through cancer treatment for prostate cancer iw
--- NOTE | 2024-12-02 14:19 | EDPHYS ---
Physician Documentation [facility] Name: Alvin Soliman Age: 89 yrs Sex: Male : 1935 Arrival Date: 12/02/2024 Time: 11:08 Bed 13 Private MD: ED Physician Faizan Cobos HPI: 12/02 14:11 This 89 yrs old Male presents to ER via Ambulatory with complaints of faith Constipation, Abdominal Pain - Abdominal Pain - LUQ. 14:11 The patient presents with abdominal pain in the lower abdomen, abdominal distention in faith the left upper quadrant, in the left lower quadrant. Onset: The symptoms/episode began/occurred 3 day(s) ago. The patient presents with urinary symptoms, none. Onset: The symptoms/episode began/occurred 3 day(s) ago. Modifying factors: The symptoms are alleviated by nothing, the symptoms are aggravated by nothing. Associated signs and symptoms: The patient has no apparent associated signs or symptoms. Associated signs and symptoms: Pertinent positives: constipation. Severity of pain: At its worst the pain was mild in the emergency department the pain is unchanged. Historical: - Allergies: 11:32 No Known Allergies; iw - PMHx: 11:32 High Cholesterol; Hypertension; Cancer; neck; iw - PSHx: 11:32 Radiation; iw - Immunization history:: Adult Immunizations up to date. - Infectious Disease History:: Denies. - Social history:: Smoking status: Patient/guardian denies using tobacco, but has a distant history of tobacco abuse. - Family history:: not pertinent. ROS: 14:11 Constitutional: Negative for fever, chills, and weight loss, Eyes: Negative for injury, faith pain, redness, and discharge, ENT: Negative for injury, pain, and discharge, Neck: Negative for injury, pain, and swelling, Cardiovascular: Negative for chest pain, palpitations, and edema, Respiratory: Negative for shortness of breath, cough, wheezing, and pleuritic chest pain, Back: Negative for injury and pain, MS/Extremity: Negative for injury and deformity, Skin: Negative for injury, rash, and discoloration, Neuro: Negative for headache, weakness, numbness, tingling, and seizure, Psych: Negative for depression, anxiety, suicide ideation, homicidal ideation, and hallucinations, Allergy/Immunology: Negative for hives, rash, and allergies, Endocrine: Negative for neck swelling, polydipsia, polyuria, polyphagia, and marked weight changes, Hematologic/Lymphatic: Negative for swollen nodes, abnormal bleeding, and unusual bruising, 14:11 Abdomen/GI: Positive for abdominal pain, constipation, abdominal cramps, 14:11 : Positive for testicular pain of the groin, Exam: 14:11 Constitutional: This is a well developed, well nourished patient who is awake, alert, faith and in no acute distress. Head/Face: Normocephalic, atraumatic. Eyes: Pupils equal round and reactive to light, extra-ocular motions intact. Lids and lashes normal. Conjunctiva and sclera are non-icteric and not injected. Cornea within normal limits. Periorbital areas with no swelling, redness, or edema. ENT: Nares patent. No nasal discharge, no septal abnormalities noted. Tympanic membranes are normal and external auditory canals are clear. Oropharynx with no redness, swelling, or masses, exudates, or evidence of obstruction, uvula midline. Mucous membranes moist. Neck: Trachea midline, no thyromegaly or masses palpated, and no cervical lymphadenopathy. Supple, full range of motion without nuchal rigidity, or vertebral point tenderness. No Meningismus. Chest/axilla: Normal chest wall appearance and motion. Nontender with no deformity. No lesions are appreciated. Cardiovascular: Regular rate and rhythm with a normal S1 and S2. No gallops, murmurs, or rubs. Normal PMI, no JVD. No pulse deficits. Respiratory: Lungs have equal breath sounds bilaterally, clear to auscultation and percussion. No rales, rhonchi or wheezes noted. No increased work of breathing, no retractions or nasal flaring. Back: No spinal tenderness. No costovertebral tenderness. Full range of motion. Skin: Warm, dry with normal turgor. Normal color with no rashes, no lesions, and no evidence of cellulitis. MS/ Extremity: Pulses equal, no cyanosis. Neurovascular intact. Full, normal range of motion., bilateral aka Neuro: Awake and alert, GCS 15, oriented to person, place, time, and situation. Cranial nerves II-XII grossly intact. Motor strength 5/5 in all extremities. Sensory grossly intact. Cerebellar exam normal. Normal gait. Psych: Awake, alert, with orientation to person, place and time. Behavior, mood, and affect are within normal limits. 14:11 ECG was reviewed by the Attending Physician. 14:11 Abdomen/GI: Inspection: abdomen appears normal, Bowel sounds: normal, Palpation: soft, nontender, in all quadrants, Liver: no appreciated palpable abnormalities, Hernia: noted in the left femoral area, 14:11 Musculoskeletal/extremity: Extremities: all appear grossly normal, with no appreciated pain with palpation, 14:15 : CVA tenderness, is absent, Male external genitalia: right testicle in right faith inguinal canal, Bladder: is normal, Sexual behavior: the patient is not sexually active, Vital Signs: 11:32 BP 144 / 72; Pulse 53; Resp 16; Temp 98; Pulse Ox 100% on R/A; Weight 64.86 kg; Height iw 5 ft. 7 in. ; Pain 0/10; 12:30 BP 153 / 89; Pulse 56; Resp 16; Pulse Ox 98% ; me1 13:30 BP 155 / 87; Pulse 65; Resp 17; Pulse Ox 99% ; me1 14:30 BP 152 / 86; Pulse 61; Resp 16; Temp 98.2; Pulse Ox 98% ; me1 11:32 Body Mass Index 22.40 (64.86 kg, 170.18 cm) iw 11:32 Pain Scale: Adult iw MDM: 11:13 Medical Screening Exam initiated 12/02 11:22 Order name: CBC with Diff; Complete Time: 13:59 [facility] 12/02 11:22 Order name: CMP; Complete Time: 13:59 [facility] 12/02 11:22 Order name: Lipase; Complete Time: 13:59 [facility] 12/02 11:22 Order name: UA Rfx Petr Cult if indicated; Complete Time: 13:59 [facility] 12/02 12:10 Order name: CBC Smear Scan; Complete Time: 13:59 [facility] 12/02 11:22 Order name: CT Abd/Pelvis - PO and IV Contrast; Complete Time: 13:59 [facility] 12/02 11:22 Order name: EKG; Complete Time: 11:22 [facility] 12/02 11:22 Order name: IV Saline Lock; Complete Time: 11:59 [facility] 12/02 11:22 Order name: Labs collected and sent; Complete Time: 11:59 [facility] 12/02 11:22 Order name: EKG - Nurse/Tech; Complete Time: 14:20 faith EC:11 Rate is 76 beats/min. Rhythm is irregularly irregular. QRS Theresa is Normal. CO interval faith is normal. QRS interval is normal. QT interval is normal. No Q waves. T waves are Normal. No ST changes noted. Clinical impression: Atrial Fibrillation. Reviewed by me. Administered Medications: 12:51 Drug: Famotidine IVP 20 mg IVP once; dilute with 10 mL 0.9% NaCl; give over 2 minutes me1 Route: IVP; Site: right antecubital; 14:20 Follow up: Response: No adverse reaction me1 12:51 Drug: NS 0.9% IV 1000 ml IV at 1 bolus Per protocol; to be given as a bolus over 60 me1 minutes Route: IV; Rate: 1 bolus; Site: right antecubital; 14:20 Follow up: Response: No adverse reaction; IV Status: Completed infusion me1 13:59 CANCELLED (Duplicate Order): [id number] grams 45 ml PO once faith 14:20 Not Given (Patient Refused): ondansetron 4 mg IVP once; over 2 minutes me1 14:20 Not Given (Patient Refused): dulcolaxsuppository 10 mg CO once me1 Disposition Summary: 12/02/24 14:18 Discharge Ordered Notes: Location: Home faith Problem: new faith Symptoms: have improved faith Condition: Stable faith Diagnosis - Constipation faith - Unilateral inguinal hernia, without obstruction or gangrene faith - Abnormal findings on diagnostic imaging of liver and biliary tract - 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 Followup: faith - With: Private Physician - When: 2 - 3 days - Reason: Recheck today's complaints, Continuance of care, Re-evaluation by your physician Followup: faith - With: Nicolás Burton MD - When: 2 - 3 days - Reason: Recheck today's complaints, Re-evaluation by your physician Followup: faith - With: Cecil Dixon MD - When: 2 - 3 days - Reason: Recheck today's complaints, Re-evaluation by your physician Discharge Instructions: - Discharge Summary Sheet faith - Constipation, Adult faith - High-Fiber Eating Plan faith - Constipation, Adult, [id number] faith - Fiber Content in Foods faith - Incidental Abnormal Radiological Finding faith Forms: - Medication Reconciliation Form faith - Antibiotic Education faith - Prescription Opioid Use faith - Patient Portal Instructions faith - Leadership Thank You Letter faith Prescriptions: - Lactulose 10 gram/15 mL Oral solution - take 15 milliliter ORAL route 2 times per day; 300 milliliter; Refills: 0, faith Product Selection Permitted Signatures: Dispatcher [employer] Faizan Morales MD MD cha Williams, Irene, RN RN iw Jade Graves RN RN me1 Corrections: (The following items were deleted from the chart) 13:59 11:22 Lactulose PO 60 grams 45 ml PO once ordered. faith cuevas
[2024-12-02 18:16] VITALS: O2SAT 98
[2024-12-02 18:18] VITALS: BP 152/86; TEMP 98.2
== END 2024-12-02 14:35 | disposition home or self-care (01) ==
LOC: ER 11:08
DX: K59.00 Constipation, unspecified (principal); K40.90 Unilateral inguinal hernia, without obstruction or gangrene, not specified as recurrent; R93.2 Abnormal findings on diagnostic imaging of liver and biliary tract
CPT/HCPCS: 85025; 36415; 81003; 83690; 80053; 74177; Q9967; J7030; 93005; J2405